=== PATIENT | female | born 1970 | race Two or more races ===

== ENCOUNTER 2018-07-07 13:04 | Emergency (ER) | payer OTHER, MEDICAID ==
[~2018-07-07] VITALS: Ht 157.5 cm; Wt 57.2 kg
[2018-07-07 15:13] VITALS: BP 132/66
[2018-07-07] MEDS ORDERED: SUMAtriptan SUCCINATE 6 MG/0.5 ML VL SC ONE (15:45)
== END 2018-07-07 16:04 | disposition home or self-care (01) ==
LOC: ER 13:16
DX: F41.9 Anxiety disorder, unspecified (principal); G43.909 Migraine, unspecified, not intractable, without status migrainosus; Z76.0 Encounter for issue of repeat prescription
CPT/HCPCS: 96372; 99283; J3030

== ENCOUNTER 2018-12-24 07:15 | Emergency (ER) | payer OTHER, MEDICAID ==
[~2018-12-24] VITALS: Ht 157.5 cm; Wt 56.7 kg
[2018-12-24 08:15] LABS: Basophils # (auto) 0 uL; Basophils % (auto) 0.5 % (0.0-2.0); Eosinophils # (auto) 0 uL; Eosinophils % (auto) 0.2 % (0.0-7.0); Hematocrit 38.9 % (36.0-46.0); Hemoglobin 12.8 g/dL (12.2-16.2); Lymphocytes # (auto) 2.3 uL; Lymphocytes % (auto) 47.3 % (10.0-50.0); Mean Corpuscular Hemoglobin 27.5 pg (28.0-32.0); Mean Corpuscular Volume 83.4 fL (80.0-100.0); Monocytes # (auto) 0.3 uL; Neutrophils # (auto) 2.2 uL; Platelet Count (auto) 210 10^3/uL (140-450); Red Blood Cells 4.66 10^6/uL (4.0-5.20); Red Cell Distribution Width 18.5 % (11.8-14.3)
[2018-12-24 08:26] LABS: Albumin 3.6 g/dL (3.4-5.0); Anion Gap 4 (5-15); Blood Urea Nitrogen 13 mg/dL (7-18); Carbon Dioxide 28 mmol/L (21-32); Chloride 109 mmol/L (98-107); Glucose 91 mg/dL (74-106); Potassium 3.9 mmol/L (3.5-5.1); Sodium 141 mmol/L (136-145)
[2018-12-24 08:33] LABS: Alanine Aminotransferase 26 U/L (13-56); Alkaline Phosphatase 96 U/L (45-117); Aspartate Aminotransferase 16 U/L (15-37); BUN/Creatinine Ratio 18.8; Bilirubin, Total 0.3 mg/dL (0.2-1.0); GFR African American 117 mL/min; GFR Non-African American 97 mL/min; Total Protein 7.7 g/dL (6.4-8.2)
[2018-12-24] MEDS ORDERED: SUMAtriptan SUCCINATE 6 MG/0.5 ML VL SC ONE (09:30)
[2018-12-24 11:09] VITALS: BP 118/62
== END 2018-12-24 11:23 | disposition home or self-care (01) ==
LOC: ER 07:15
DX: J40 Bronchitis, not specified as acute or chronic (principal); R51 Headache; R42 Dizziness and giddiness
CPT/HCPCS: 36415; 71046; 80053; 84484; 85025; 93005; 96372; 99284; J3030

== ENCOUNTER 2019-03-10 06:52 | Emergency (ER) | payer OTHER, MEDICAID ==
[~2019-03-10] VITALS: Ht 157.5 cm; Wt 62.1 kg
[2019-03-10 07:24] VITALS: BP 115/65
[2019-03-10] MEDS ORDERED: SUMAtriptan SUCCINATE 6 MG/0.5 ML VL SC ONE (07:45)
[2019-03-10] MEDS ORDERED: ONDANSETRON ODT 4 MG TAB PO ONE (07:45)
[2019-03-10] MEDS ORDERED: KETOROLAC TROMETH 60MG/2ML VIAL IM ONE (07:45)
== END 2019-03-10 08:42 | disposition home or self-care (01) ==
LOC: ER 06:52
DX: G43.909 Migraine, unspecified, not intractable, without status migrainosus (principal)
CPT/HCPCS: 96372; 99283; J1885; J3030; Q0162

== ENCOUNTER 2019-03-24 00:35 | Emergency (ER) | payer OTHER, MEDICAID ==
[~2019-03-24] VITALS: Ht 162.6 cm; Wt 68.0 kg
[2019-03-24] MEDS ORDERED: ONDANSETRON ODT 4 MG TAB PO ONE (04:00)
[2019-03-24] MEDS ORDERED: MEPERIDINE HCL (50 MG/ML) 1 ML VIAL IM ONE (04:00)
[2019-03-24] MEDS ORDERED: ONDANSETRON HCL 4 MG/2 ML VIAL IV ONE (06:15)
[2019-03-24] MEDS ORDERED: MORPHINE SULFATE 4 MG/ML SYR/VIAL IV ONE (06:15)
[2019-03-24 07:23] VITALS: BP 159/62
== END 2019-03-24 07:54 | disposition short-term general hospital (02) ==
LOC: EDBD 00:35 → ER 00:38
DX: S22.081A Stable burst fracture of T11-T12 vertebra, initial encounter for closed fracture (principal); V49.49XA Driver injured in collision with other motor vehicles in traffic accident, initial encounter; Y93.89 Activity, other specified; Y99.8 Other external cause status; Y92.488 Other paved roadways as the place of occurrence of the external cause
CPT/HCPCS: 71250; 72131; 74176; 93005; 96372; 96374; 96375; 99285; J2175; J2270; J2405; Q0162

== ENCOUNTER 2019-03-27 11:37 | Emergency (ER) | payer OTHER, MEDICAID ==
[~2019-03-27] VITALS: Ht 157.5 cm; Wt 56.7 kg
[2019-03-27 11:45] VITALS: BP 140/86
[2019-03-27] MEDS ORDERED: LORazepam 0.5 MG TAB PO ONE (12:00)
== END 2019-03-27 14:04 | disposition home or self-care (01) ==
LOC: EDBD 11:37 → EDUNIT# 11:37 → ER 11:45
DX: F41.9 Anxiety disorder, unspecified (principal)
CPT/HCPCS: 93005

== ENCOUNTER 2019-07-21 15:19 | Emergency (ER) | payer OTHER, MEDICAID ==
[~2019-07-21] VITALS: Ht 157.5 cm; Wt 59.0 kg
[2019-07-21 15:42] VITALS: BP 120/76
== END 2019-07-21 20:49 | disposition left against medical advice (07) ==
LOC: ER 15:19
DX: F41.9 Anxiety disorder, unspecified (principal); Z53.21 Procedure and treatment not carried out due to patient leaving prior to being seen by health care provider
CPT/HCPCS: 93005

== ENCOUNTER 2019-09-13 14:02 | Emergency (ER) | payer MEDICAID, MEDICARE, OTHER ==
[~2019-09-13] VITALS: Ht 157.5 cm; Wt 59.0 kg
[2019-09-13 15:09] VITALS: BP 136/62
== END 2019-09-13 17:16 | disposition home or self-care (01) ==
LOC: ER 14:02
DX: F41.9 Anxiety disorder, unspecified (principal); F32.9 Major depressive disorder, single episode, unspecified; F17.210 Nicotine dependence, cigarettes, uncomplicated; Z76.0 Encounter for issue of repeat prescription

== ENCOUNTER 2020-05-14 07:38 | Emergency (ER) | payer OTHER, MEDICAID ==
[~2020-05-14] VITALS: Ht 157.5 cm; Wt 67.1 kg
[2020-05-14 08:35] LABS: Urine Bacteria FEW /hpf (None Seen); Urine Blood Negative /uL (Negative); Urine Mucus FEW (None Seen); Urine Specific Gravity 1.022 (1.001-1.035); Urine WBC 1 /hpf (0 - 5)
[2020-05-14 08:43] VITALS: BP 135/89
[2020-05-14] MEDS ORDERED: KETOROLAC TROMETH 60MG/2ML VIAL IM ONE (08:45)
[2020-05-14 09:02] LABS: Basophils # (auto) 0 10 ^3/uL (0-0.2); Basophils % (auto) 0.5 % (0.0-2.0); Eosinophils # (auto) 0 10 ^3/uL (0-0.8); Eosinophils % (auto) 0.3 % (0.0-7.0); Hematocrit 39.2 % (36.0-46.0); Lymphocytes # (auto) 1.7 10 ^3/uL (0.4-5.4); Lymphocytes % (auto) 31.1 % (10.0-50.0); Mean Corpuscular Hemoglobin 29.4 pg (28.0-32.0); Mean Corpuscular Hgb Conc. 33.3 g/dL (32.0-36.0); Mean Corpuscular Volume 88.4 fL (80.0-100.0); Monocytes # (auto) 0.3 10 ^3/uL (0-1.3); Monocytes % (auto) 4.9 % (0.0-12.0); Neutrophils # (auto) 3.5 10 ^3/uL (1.6-8.6); Neutrophils % (auto) 63.2 % (37.0-80.0); Platelet Count (auto) 292 10^3/uL (140-450); Red Blood Cells 4.43 10^6/uL (4.0-5.20); Red Cell Distribution Width 14.4 % (11.8-14.3); White Blood Cell 5.5 10^3/uL (4.4-10.8)
[2020-05-14 09:20] LABS: Alanine Aminotransferase 28 U/L (13-56); Albumin 3.3 g/dL (3.4-5.0); Anion Gap 9 (5-15); Aspartate Aminotransferase 17 U/L (15-37); BUN/Creatinine Ratio 16.5; Blood Urea Nitrogen 14 mg/dL (7-18); Calcium 8.5 mg/dL (8.5-10.1); Carbon Dioxide 20 mmol/L (21-32); Chloride 108 mmol/L (98-107); GFR African American 91 mL/min; GFR Non-African American 75 mL/min; Glucose 120 mg/dL (74-106); Potassium 3.7 mmol/L (3.5-5.1); Sodium 137 mmol/L (136-145)
[2020-05-14 09:25] LABS: Alkaline Phosphatase 108 U/L (45-117); Bilirubin, Total 0.3 mg/dL (0.2-1.0); Total Protein 7.2 g/dL (6.4-8.2)
[2020-05-14] MEDS ORDERED: LORazepam 0.5 MG TAB PO ONE (09:45)
== END 2020-05-14 10:17 | disposition home or self-care (01) ==
LOC: ER 07:38
DX: N28.1 Cyst of kidney, acquired (principal); R10.11 Right upper quadrant pain; Z76.0 Encounter for issue of repeat prescription
CPT/HCPCS: 36415; 76705; 80053; 81001; 83690; 84484; 85025; 93005; 96372; 99285; J1885

== ENCOUNTER 2020-05-19 08:29 | Emergency (ER) | payer OTHER, MEDICAID ==
[~2020-05-19] VITALS: Ht 157.5 cm; Wt 68.0 kg
[2020-05-19 09:31] VITALS: BP 124/80
[2020-05-19] MEDS ORDERED: LORazepam 0.5 MG TAB PO ONE (11:00)
== END 2020-05-19 11:32 | disposition home or self-care (01) ==
LOC: ER 08:29
DX: F41.9 Anxiety disorder, unspecified (principal)

== ENCOUNTER 2022-03-18 08:13 | Emergency (ER) | payer OTHER, MEDICAID ==
[~2022-03-18] VITALS: Ht 157.5 cm; Wt 61.2 kg
[2022-03-18 08:19] VITALS: BP 120/68
[2022-03-18] MEDS ORDERED: ALPRAZolam 0.5 MG TAB PO ONE (08:45)
[2022-03-18] MEDS ORDERED: ACETAMINOPHEN 325 MG TAB PO ONE (09:15)
[2022-03-18] MEDS ORDERED: IBUP600T27 PO (09:18)
== END 2022-03-18 09:28 | disposition home or self-care (01) ==
LOC: ER 08:13
DX: S52.91XA Unspecified fracture of right forearm, initial encounter for closed fracture (principal); F41.1 Generalized anxiety disorder; F17.210 Nicotine dependence, cigarettes, uncomplicated; W18.09XA Striking against other object with subsequent fall, initial encounter; Y93.01 Activity, walking, marching and hiking; Y92.89 Other specified places as the place of occurrence of the external cause; Y99.8 Other external cause status
CPT/HCPCS: 29125; 73110; 73130

== ENCOUNTER 2022-07-01 17:41 | Inpatient (IN) | payer OTHER, MEDICAID ==
[~2022-07-01] VITALS: Ht 157.5 cm; Wt 47.5 kg
[~2022-07-01 17:41] MED LIST: IBUP600T27 PO
[2022-07-01] MEDS ORDERED: ONDANSETRON HCL 4 MG/2 ML VIAL IV ONE (19:30)
[2022-07-01] MEDS ORDERED: fentaNYL CITRATE 100 MCG/2 ML VL IV ONE (22:00)
[2022-07-01] MEDS ORDERED: cefTRIAXone 1GM/50ML D5W 50 ML IV ONE (22:00)
[2022-07-01] MEDS ORDERED: ACETAMINOPHEN 325 MG TAB PO PRN (22:00)
[2022-07-01] MEDS ORDERED: AZITHROMYCIN 500MG/ 250ML 250 ML IV ONE (22:00)
[2022-07-01 22:19] LABS: Basophils # (auto) 0 10 ^3/uL (0-0.2); Basophils % (auto) 0.1 % (0.0-2.0); Eosinophils # (auto) 0 10 ^3/uL (0-0.8); Hemoglobin 11.2 g/dL (12.2-16.2); Lymphocytes # (auto) 0.8 10 ^3/uL (0.4-5.4); Mean Corpuscular Hemoglobin 28.2 pg (28.0-32.0); Mean Corpuscular Hgb Conc. 32.1 g/dL (32.0-36.0); Mean Corpuscular Volume 87.6 fL (80.0-100.0); Monocytes # (auto) 0.3 10 ^3/uL (0-1.3); Monocytes % (auto) 4.8 % (0.0-12.0); Neutrophils # (auto) 4.8 10 ^3/uL (1.6-8.6); Neutrophils % (auto) 82.1 % (37.0-80.0); Red Blood Cells 3.99 10^6/uL (4.0-5.20); Red Cell Distribution Width 14.7 % (11.8-14.3); White Blood Cell 5.8 10^3/uL (4.4-10.8)
[2022-07-01 22:40] LABS: Albumin 3.4 g/dL (3.4-5.0); BUN/Creatinine Ratio 22.4; Calcium 9.1 mg/dL (8.5-10.1); Potassium 3.4 mmol/L (3.5-5.1)
[2022-07-01 22:43] LABS: Bilirubin, Total 0.6 mg/dL (0.2-1.0); Total Protein 7.7 g/dL (6.4-8.2)
[2022-07-02 00:35] LABS: Urine Bacteria MOD /hpf (None Seen); Urine Blood Negative /uL (Negative); Urine Mucus FEW (None Seen); Urine Specific Gravity 1.025 (1.001-1.035); Urine WBC 46 /hpf (0 - 5)
[2022-07-02] MEDS: TEMAZEPAM 15 MG CAP PO PRN (00:53)
[2022-07-02] MEDS: MORPHINE SULFATE INJ 2 MG/ml SYRG IV PRN ×4 (00:53→22:48)
[2022-07-02 00:58] VITALS: BP 131/75
[2022-07-02] MEDS: ONDANSETRON HCL 4 MG/2 ML VIAL IV PRN ×2 (01:25→22:58)
[2022-07-02] MEDS ORDERED: LURA120T PO (01:26)
[2022-07-02] MEDS ORDERED: TIOTCAP INH (01:26)
[2022-07-02] MEDS ORDERED: GAB100C PO (01:26)
[2022-07-02] MEDS ORDERED: ALPR1TAB7 PO (01:26)
[2022-07-02] MEDS ORDERED: FLUO40CA PO (01:26)
[2022-07-02] MEDS: SIMETHICONE 80 MG CHEWABLE TABLET PO PRN (02:19)
[2022-07-02] MEDS: HYDROcodone-ACET 5/325MG TAB PO PRN ×3 (03:29→18:33)
[2022-07-02 05:00] VITALS: BP 138/82
[2022-07-02 06:23] LABS: Basophils # (auto) 0 10 ^3/uL (0-0.2); Basophils % (auto) 0.3 % (0.0-2.0); Eosinophils # (auto) 0 10 ^3/uL (0-0.8); Eosinophils % (auto) 0.1 % (0.0-7.0); Hematocrit 31.8 % (36.0-46.0); Hemoglobin 10.5 g/dL (12.2-16.2); Lymphocytes # (auto) 1.1 10 ^3/uL (0.4-5.4); Lymphocytes % (auto) 25.5 % (10.0-50.0); Mean Corpuscular Hemoglobin 28.6 pg (28.0-32.0); Mean Corpuscular Volume 86.5 fL (80.0-100.0); Monocytes # (auto) 0.4 10 ^3/uL (0-1.3); Monocytes % (auto) 10.3 % (0.0-12.0); Neutrophils # (auto) 2.7 10 ^3/uL (1.6-8.6); Neutrophils % (auto) 63.8 % (37.0-80.0); Nucleated Red Blood Cells % 0.1 %; Red Blood Cells 3.67 10^6/uL (4.0-5.20); Red Cell Distribution Width 14.5 % (11.8-14.3); White Blood Cell 4.2 10^3/uL (4.4-10.8)
[2022-07-02 06:41] LABS: Albumin 2.8 g/dL (3.4-5.0); Calcium 8.4 mg/dL (8.5-10.1); Potassium 3.6 mmol/L (3.5-5.1)
[2022-07-02 06:44] LABS: BUN/Creatinine Ratio 22.4; Bilirubin, Total 0.3 mg/dL (0.2-1.0); Total Protein 6.6 g/dL (6.4-8.2)
[2022-07-02] MEDS: PANTOPRAZOLE 40 MG TAB PO SCH (08:21)
[2022-07-02] MEDS: FLUoxetine HCL 20 MG CAP PO SCH (08:21)
[2022-07-02] MEDS: AZITHROMYCIN 500MG/ 250ML 250 ML IV SCH (08:22)
[2022-07-02] MEDS: cefTRIAXone 1GM/50ML D5W 50 ML IV SCH (08:22)
[2022-07-02 08:45] VITALS: BP 128/60
[2022-07-02 12:45] VITALS: BP 121/77
[2022-07-02 16:35] VITALS: BP 140/71
[2022-07-02] MEDS ORDERED: IOHEXOL 300 MG/ML 100ML BOTTLE IJ ONE (17:20)
[2022-07-02 22:00] VITALS: BP 114/73
[2022-07-03] MEDS ORDERED: diphenhdrAMINE HCL 50 MG/1 ML VL IV ONE (02:00)
[2022-07-03] MEDS: DOCUSATE SOD 100 MG CAP PO SCH ×2 (04:10→08:40)
[2022-07-03 05:00] VITALS: BP 134/81
[2022-07-03] MEDS: MORPHINE SULFATE INJ 2 MG/ml SYRG IV PRN ×2 (05:07→11:38)
[2022-07-03 08:01] LABS: Basophils # (auto) 0 10 ^3/uL (0-0.2); Basophils % (auto) 0.4 % (0.0-2.0); Eosinophils # (auto) 0 10 ^3/uL (0-0.8); Hematocrit 33.8 % (36.0-46.0); Hemoglobin 11.4 g/dL (12.2-16.2); Lymphocytes # (auto) 1.1 10 ^3/uL (0.4-5.4); Lymphocytes % (auto) 28.1 % (10.0-50.0); Mean Corpuscular Hemoglobin 29.1 pg (28.0-32.0); Mean Corpuscular Hgb Conc. 33.6 g/dL (32.0-36.0); Mean Corpuscular Volume 86.6 fL (80.0-100.0); Monocytes # (auto) 0.4 10 ^3/uL (0-1.3); Monocytes % (auto) 9.4 % (0.0-12.0); Neutrophils # (auto) 2.5 10 ^3/uL (1.6-8.6); Neutrophils % (auto) 62.1 % (37.0-80.0); Nucleated Red Blood Cells % 0.3 %; Red Blood Cells 3.91 10^6/uL (4.0-5.20); Red Cell Distribution Width 14.6 % (11.8-14.3)
[2022-07-03 08:04] LABS: Calcium 8.7 mg/dL (8.5-10.1); Magnesium 2.3 mg/dL (1.6-2.6); Potassium 3.7 mmol/L (3.5-5.1)
[2022-07-03 08:07] LABS: BUN/Creatinine Ratio 16.4
[2022-07-03] MEDS: cefTRIAXone 1GM/50ML D5W 50 ML IV SCH (08:39)
[2022-07-03] MEDS: AZITHROMYCIN 500MG/ 250ML 250 ML IV SCH (08:40)
[2022-07-03] MEDS: PANTOPRAZOLE 40 MG TAB PO SCH (08:41)
[2022-07-03] MEDS: HYDROcodone-ACET 5/325MG TAB PO PRN ×4 (08:43→20:51)
[2022-07-03] MEDS: FLUoxetine HCL 20 MG CAP PO SCH (08:43)
[2022-07-03 09:00] VITALS: BP 163/88
[2022-07-03] MEDS ORDERED: ALPRAZolam 0.5 MG TAB PO ONE (11:30)
[2022-07-03] MEDS: LACTULOSE 20Gm/30ML SOLN PO SCH ×3 (11:31→23:47)
[2022-07-03] MEDS ORDERED: AMOX-277 PO (12:11)
[2022-07-03] MEDS ORDERED: PANT40T PO (12:11)
[2022-07-03] MEDS: SIMETHICONE 80 MG CHEWABLE TABLET PO PRN (12:44)
[2022-07-03 13:00] VITALS: BP 136/77
[2022-07-03] MEDS: AMOXICILLIN/CLAVUL 875 MG TAB PO SCH ×2 (16:27→22:14)
[2022-07-03 17:00] VITALS: BP 135/69
[2022-07-03] MEDS: ALPRAZolam 0.5 MG TAB PO PRN (18:25)
[2022-07-03 22:00] VITALS: BP 145/77
[2022-07-04] MEDS: HYDROcodone-ACET 5/325MG TAB PO PRN ×4 (02:27→13:13)
[2022-07-04] MEDS: TEMAZEPAM 15 MG CAP PO PRN (03:12)
[2022-07-04 05:00] VITALS: BP 151/79
[2022-07-04] MEDS: LACTULOSE 20Gm/30ML SOLN PO SCH (05:41)
[2022-07-04 08:53] VITALS: BP 111/42
[2022-07-04] MEDS: AMOXICILLIN/CLAVUL 875 MG TAB PO SCH (09:32)
[2022-07-04] MEDS: DOCUSATE SOD 100 MG CAP PO SCH (09:32)
[2022-07-04] MEDS: ALPRAZolam 0.5 MG TAB PO PRN (09:32)
[2022-07-04] MEDS: FLUoxetine HCL 20 MG CAP PO SCH (09:32)
[2022-07-04] MEDS: PANTOPRAZOLE 40 MG TAB PO SCH (09:32)
[2022-07-04] MEDS ORDERED: FLEET ENEMA(ADULT) 135 ML PR ONE (10:30)
[2022-07-04 11:36] VITALS: BP 111/41
[2022-07-04 12:40] VITALS: BP 154/94
== END 2022-07-04 13:56 | disposition home or self-care (01) | DRG 391 ==
LOC: EDBD 17:41 → ER 17:41 → OVERFLOW 22:05 → WEST WING 23:42
PROVIDERS: ADMIT Nurse Practitioner; ATTEND Internal Medicine
DX: K59.00 Constipation, unspecified (principal); J18.9 Pneumonia, unspecified organism; N39.0 Urinary tract infection, site not specified; Z98.84 Bariatric surgery status; F41.9 Anxiety disorder, unspecified; F17.210 Nicotine dependence, cigarettes, uncomplicated; Z20.822 Contact with and (suspected) exposure to COVID-19; F32.A Depression, unspecified
CPT/HCPCS: 36415; 71260; 74176; 80048; 80053; 81001; 83605; 83690; 83735; 84484; 85025; 87086; 93005; 96365; 96375; G0378; J0696; J2405

== ENCOUNTER 2022-07-08 10:01 | Inpatient (IN) | payer OTHER, MEDICAID ==
[~2022-07-08] VITALS: Ht 154.9 cm; Wt 48.8 kg
[~2022-07-08 10:01] MED LIST changes: +ALPR1TAB7 PO; +AMOX-277 PO; +FLUO40CA PO; +GAB100C PO; -IBUP600T27 PO; +LURA120T PO; +PANT40T PO; +TIOTCAP INH
[2022-07-08 11:56] LABS: Basophils # (auto) 0 10 ^3/uL (0-0.2); Basophils % (auto) 0.2 % (0.0-2.0); Eosinophils # (auto) 0 10 ^3/uL (0-0.8); Hematocrit 43.8 % (36.0-46.0); Hemoglobin 14.1 g/dL (12.2-16.2); Lymphocytes # (auto) 0.9 10 ^3/uL (0.4-5.4); Lymphocytes % (auto) 16.7 % (10.0-50.0); Mean Corpuscular Hemoglobin 27.5 pg (28.0-32.0); Mean Corpuscular Hgb Conc. 32.2 g/dL (32.0-36.0); Mean Corpuscular Volume 85.6 fL (80.0-100.0); Monocytes # (auto) 0.6 10 ^3/uL (0-1.3); Monocytes % (auto) 11.1 % (0.0-12.0); Nucleated Red Blood Cells % 0.1 %; Red Blood Cells 5.12 10^6/uL (4.0-5.20); Red Cell Distribution Width 13.8 % (11.8-14.3); White Blood Cell 5.6 10^3/uL (4.4-10.8)
[2022-07-08 12:15] LABS: Albumin 3.6 g/dL (3.4-5.0); Calcium 9.9 mg/dL (8.5-10.1); Potassium 3.7 mmol/L (3.5-5.1)
[2022-07-08 12:18] LABS: BUN/Creatinine Ratio 24.6; Bilirubin, Total 0.6 mg/dL (0.2-1.0); Total Protein 8.6 g/dL (6.4-8.2)
[2022-07-08] MEDS ORDERED: LACTATED RINGER'S 2,000 ML IV ONE (15:30)
[2022-07-08] MEDS ORDERED: ONDANSETRON HCL 4 MG/2 ML VIAL IV ONE (15:30)
[2022-07-08] MEDS ORDERED: HYDROcodone-ACET 5/325MG TAB PO ONE (15:30)
[2022-07-08] MEDS ORDERED: METOCLOPRAMIDE HCL 5MG/ml INJ 2ml VIAL IV ONE (15:30)
[2022-07-08] MEDS ORDERED: LIDOCAINE VISCOUS 2% 15ML UD PO ONE (15:30)
[2022-07-08] MEDS ORDERED: FAMOTIDINE (10MG/ML) 2ML VL IV ONE (15:30)
[2022-07-08] MEDS ORDERED: ALUM & MAG HYDROX-SIMETH LIQ(MAALOX) 30 ML PO ONE (15:30)
[2022-07-08] MEDS ORDERED: SODIUM CHLORIDE 0.9% 1,000 ML IV ONE (18:15)
[2022-07-08 19:12] LABS: INR 1.03 (0.9-1.15)
[2022-07-08] MEDS: SODIUM CHLORIDE 0.9% 1,000 ML IV SCH (22:00)
[2022-07-08] MEDS: MORPHINE SULFATE INJ 2 MG/ml SYRG IV PRN (22:44)
[2022-07-08] MEDS: ONDANSETRON HCL 4 MG/2 ML VIAL IV PRN (22:45)
[2022-07-09] VITALS (8 sets, daily range): BP systolic 96–137; BP diastolic 56–79
[2022-07-09] MEDS: SODIUM CHLORIDE 0.9% 1,000 ML IV SCH ×4 (02:00→22:58)
[2022-07-09 02:35] LABS: Amphetamine Screen, Urine POSITIVE (NEGATIVE); Barbiturate Scree,Urine NEGATIVE (NEGATIVE); Benzodiazephine Screen, Urine POSITIVE (NEGATIVE); Cannabinoid Screen, Urine NEGATIVE (NEGATIVE); Cocaine Screen, Urine NEGATIVE (NEGATIVE); Opiate Scree,Urine POSITIVE (NEGATIVE); Phencyclidine Screen, Urine NEGATIVE (NEGATIVE)
[2022-07-09 02:47] LABS: Urine Bacteria FEW /hpf (None Seen); Urine Blood Negative /uL (Negative); Urine Hyaline Cast MANY /lpf (0 - 2); Urine Mucus FEW (None Seen); Urine Specific Gravity 1.024 (1.001-1.035); Urine WBC 4 /hpf (0 - 5)
[2022-07-09 06:00] LABS: Basophils # (auto) 0 10 ^3/uL (0-0.2); Basophils % (auto) 0.5 % (0.0-2.0); Eosinophils # (auto) 0 10 ^3/uL (0-0.8); Eosinophils % (auto) 0.1 % (0.0-7.0); Hematocrit 33.6 % (36.0-46.0); Hemoglobin 11.2 g/dL (12.2-16.2); Lymphocytes # (auto) 1.2 10 ^3/uL (0.4-5.4); Lymphocytes % (auto) 29.4 % (10.0-50.0); Mean Corpuscular Hemoglobin 28.6 pg (28.0-32.0); Mean Corpuscular Hgb Conc. 33.2 g/dL (32.0-36.0); Monocytes # (auto) 0.5 10 ^3/uL (0-1.3); Monocytes % (auto) 13.1 % (0.0-12.0); Neutrophils # (auto) 2.3 10 ^3/uL (1.6-8.6); Neutrophils % (auto) 56.9 % (37.0-80.0); Nucleated Red Blood Cells % 0.1 %; Red Blood Cells 3.91 10^6/uL (4.0-5.20); Red Cell Distribution Width 14.2 % (11.8-14.3)
[2022-07-09 06:08] LABS: Albumin 2.6 g/dL (3.4-5.0); BUN/Creatinine Ratio 37.2; Calcium 8.3 mg/dL (8.5-10.1); Potassium 3.4 mmol/L (3.5-5.1)
[2022-07-09 06:12] LABS: Bilirubin, Total 0.3 mg/dL (0.2-1.0); Total Protein 6.2 g/dL (6.4-8.2)
[2022-07-09] MEDS: MORPHINE SULFATE INJ 2 MG/ml SYRG IV PRN ×2 (09:52→16:39)
[2022-07-09] MEDS ORDERED: OMNIPAQUE ORAL SOLN 500ml 12mg/ml PO ONE (15:00)
[2022-07-09 16:24] LABS: Cholesterol 211 mg/dL (< 200); HDL Cholesterol 34 mg/dL (40-59); LDL Cholesterol 154 mg/dL (< 100); Triglycerides 100 mg/dL (< 150)
[2022-07-09] MEDS ORDERED: FLUoxetine HCL 20 MG CAP PO ONE ×2 (16:45→19:45)
[2022-07-09] MEDS ORDERED: IOHEXOL 300 MG/ML 100ML BOTTLE IJ ONE (17:05)
[2022-07-09] MEDS: ALBUTEROL SULF 2.5 MG/0.5ML(0.5%) NEB SOLN NEB SCH (17:56)
[2022-07-09] MEDS ORDERED: ALBUTEROL SULF HFA 90MCG INH 200DOSE IN SCH (22:00)
[2022-07-09] MEDS: GABAPENTIN 100 MG CAP PO SCH (22:54)
[2022-07-09] MEDS: ALPRAZolam 0.5 MG TAB PO SCH (22:58)
[2022-07-10] MEDS: ONDANSETRON HCL 4 MG/2 ML VIAL IV PRN (04:53)
[2022-07-10 05:00] VITALS: BP 108/67
[2022-07-10] MEDS: MORPHINE SULFATE INJ 2 MG/ml SYRG IV PRN (05:03)
[2022-07-10] MEDS: ALPRAZolam 0.5 MG TAB PO SCH ×2 (06:00→08:57)
[2022-07-10] MEDS: GABAPENTIN 100 MG CAP PO SCH ×2 (06:14→13:48)
[2022-07-10] MEDS: SODIUM CHLORIDE 0.9% 1,000 ML IV SCH (06:21)
[2022-07-10] MEDS: ALBUTEROL SULF 2.5 MG/0.5ML(0.5%) NEB SOLN NEB SCH ×2 (06:22→11:54)
[2022-07-10 09:00] VITALS: BP 100/61
[2022-07-10 09:00] LABS: Basophils # (auto) 0 10 ^3/uL (0-0.2); Basophils % (auto) 0.4 % (0.0-2.0); Eosinophils # (auto) 0 10 ^3/uL (0-0.8); Hematocrit 32.3 % (36.0-46.0); Hemoglobin 10.6 g/dL (12.2-16.2); Lymphocytes # (auto) 1.6 10 ^3/uL (0.4-5.4); Lymphocytes % (auto) 26.4 % (10.0-50.0); Mean Corpuscular Hemoglobin 28.4 pg (28.0-32.0); Mean Corpuscular Hgb Conc. 32.9 g/dL (32.0-36.0); Mean Corpuscular Volume 86.6 fL (80.0-100.0); Monocytes # (auto) 0.5 10 ^3/uL (0-1.3); Monocytes % (auto) 7.9 % (0.0-12.0); Neutrophils # (auto) 3.9 10 ^3/uL (1.6-8.6); Neutrophils % (auto) 65.3 % (37.0-80.0); Nucleated Red Blood Cells % 0.1 %; Red Blood Cells 3.73 10^6/uL (4.0-5.20); Red Cell Distribution Width 13.9 % (11.8-14.3)
[2022-07-10 09:03] LABS: Albumin 2.6 g/dL (3.4-5.0); Potassium 3.1 mmol/L (3.5-5.1)
[2022-07-10 09:08] LABS: BUN/Creatinine Ratio 15.5; Bilirubin, Total 0.3 mg/dL (0.2-1.0); Total Protein 6.1 g/dL (6.4-8.2)
[2022-07-10] MEDS ORDERED: FLUoxetine HCL 20 MG CAP PO SCH (10:00)
[2022-07-10] MEDS ORDERED: FAMOTIDINE (10MG/ML) 2ML VL IV SCH (10:00)
[2022-07-10] MEDS ORDERED: PANTOPRAZOLE 40 MG TAB PO SCH (10:00)
[2022-07-10] MEDS ORDERED: PANT40T PO (12:54)
[2022-07-10] MEDS ORDERED: PANC12002 PO (12:54)
[2022-07-10 13:00] VITALS: BP 102/63
== END 2022-07-10 15:44 | disposition home or self-care (01) | DRG 439 ==
LOC: ER 10:01 → EDBD 10:01 → OVERFLOW 18:06 → WEST WING 07-09 01:10
PROVIDERS: ADMIT Registered Nurse; ATTEND Hospitalist
DX: K85.90 Acute pancreatitis without necrosis or infection, unspecified (principal); N17.9 Acute kidney failure, unspecified; N39.0 Urinary tract infection, site not specified; E86.0 Dehydration; F17.210 Nicotine dependence, cigarettes, uncomplicated; F41.1 Generalized anxiety disorder; J44.9 Chronic obstructive pulmonary disease, unspecified; F32.A Depression, unspecified; Z20.822 Contact with and (suspected) exposure to COVID-19; F41.9 Anxiety disorder, unspecified; R00.0 Tachycardia, unspecified; K80.20 Calculus of gallbladder without cholecystitis without obstruction; Z86.59 Personal history of other mental and behavioral disorders; Z87.442 Personal history of urinary calculi; Z98.84 Bariatric surgery status
CPT/HCPCS: 36415; 71046; 72192; 74177; 76705; 78226; 80053; 80061; 80307; 80320; 81001; 82150; 83690; 84484; 85025; 85610; 87081; 87086; 93005; 94640; 96361; 96374; 96375; G0378; J2405; J3490

== ENCOUNTER 2022-07-20 07:45 | Emergency (ER) | payer OTHER, MEDICAID ==
[~2022-07-20] VITALS: Ht 154.9 cm; Wt 45.0 kg
[~2022-07-20 07:45] MED LIST changes: -AMOX-277 PO; +PANC12002 PO
[2022-07-20] MEDS ORDERED: FAMOTIDINE (10MG/ML) 2ML VL IV ONE (08:30)
[2022-07-20] MEDS ORDERED: ALUM & MAG HYDROX-SIMETH LIQ(MAALOX) 30 ML PO ONE (08:30)
[2022-07-20] MEDS ORDERED: ONDANSETRON HCL 4 MG/2 ML VIAL IV ONE (08:30)
[2022-07-20] MEDS ORDERED: LIDOCAINE VISCOUS 2% 15ML UD PO ONE (08:30)
[2022-07-20 09:01] LABS: Basophils # (auto) 0 10 ^3/uL (0-0.2); Basophils % (auto) 0.6 % (0.0-2.0); Eosinophils # (auto) 0 10 ^3/uL (0-0.8); Eosinophils % (auto) 0.2 % (0.0-7.0); Hematocrit 40.4 % (36.0-46.0); Hemoglobin 13.3 g/dL (12.2-16.2); Lymphocytes # (auto) 0.8 10 ^3/uL (0.4-5.4); Lymphocytes % (auto) 15.8 % (10.0-50.0); Mean Corpuscular Hemoglobin 28.3 pg (28.0-32.0); Mean Corpuscular Hgb Conc. 32.9 g/dL (32.0-36.0); Monocytes # (auto) 0.3 10 ^3/uL (0-1.3); Monocytes % (auto) 4.8 % (0.0-12.0); Neutrophils # (auto) 4.2 10 ^3/uL (1.6-8.6); Neutrophils % (auto) 78.6 % (37.0-80.0); Nucleated Red Blood Cells % 0.1 %; Red Cell Distribution Width 14.2 % (11.8-14.3); White Blood Cell 5.4 10^3/uL (4.4-10.8)
[2022-07-20 09:16] LABS: Albumin 3.3 g/dL (3.4-5.0); Calcium 9.1 mg/dL (8.5-10.1); Potassium 3.9 mmol/L (3.5-5.1)
[2022-07-20 09:19] LABS: BUN/Creatinine Ratio 15.1; Bilirubin, Total 0.3 mg/dL (0.2-1.0); Total Protein 7.8 g/dL (6.4-8.2)
[2022-07-20] MEDS ORDERED: MORPHINE SULFATE INJ 2 MG/ml SYRG IV ONE (10:15)
[2022-07-20 11:10] VITALS: BP 126/82
== END 2022-07-20 11:11 | disposition home or self-care (01) ==
LOC: ER 07:45 → EDBD 07:45 → ER 11:11
DX: R10.13 Epigastric pain (principal); F17.210 Nicotine dependence, cigarettes, uncomplicated
CPT/HCPCS: 36415; 71045; 80053; 83690; 85025; 93005; 96374; 96375; 99285; J2270; J2405; J3490

== ENCOUNTER 2022-10-11 05:48 | Emergency (ER) | payer OTHER, MEDICAID ==
[~2022-10-11] VITALS: Ht 154.9 cm; Wt 45.5 kg
[2022-10-11 06:54] VITALS: BP 169/84
== END 2022-10-11 11:20 | disposition left against medical advice (07) ==
LOC: EDBD 05:48 → ER 05:48
DX: F41.9 Anxiety disorder, unspecified (principal); R10.9 Unspecified abdominal pain; Z53.21 Procedure and treatment not carried out due to patient leaving prior to being seen by health care provider

== ENCOUNTER 2022-12-23 06:26 | Emergency (ER) | payer OTHER, MEDICAID ==
[~2022-12-23] VITALS: Ht 154.9 cm; Wt 45.4 kg
[2022-12-23 06:56] VITALS: BP 129/78
[2022-12-23] MEDS ORDERED: LORazepam 2MG/ML-1ML VIAL IM ONE ×2 (08:45→10:00)
== END 2022-12-23 11:12 | disposition home or self-care (01) ==
LOC: ER 06:26
DX: F41.1 Generalized anxiety disorder (principal); F32.9 Major depressive disorder, single episode, unspecified; F17.210 Nicotine dependence, cigarettes, uncomplicated; Z87.442 Personal history of urinary calculi
CPT/HCPCS: 96372; 99284; J2060

== ENCOUNTER 2023-03-08 04:39 | Emergency (ER) | payer OTHER, MEDICAID | END 2023-03-08 05:09 | disposition left against medical advice (07) | LOC: ER 04:39 | DX: F41.9 Anxiety disorder, unspecified (principal); Z53.21 Procedure and treatment not carried out due to patient leaving prior to being seen by health care provider ==

== ENCOUNTER 2023-06-28 05:09 | Emergency (ER) | payer OTHER, MEDICAID ==
[~2023-06-28] VITALS: Ht 154.9 cm; Wt 54.5 kg
[2023-06-28 07:30] VITALS: BP 146/74; PULSE 86; RESP 18; TEMP 97.4; O2SAT 97
[2023-06-28] MEDS ORDERED: LORazepam 2MG/ML-1ML VIAL IM ONE ×2 (08:00→09:00)
== END 2023-06-28 09:41 | disposition home or self-care (01) ==
LOC: ER 05:09
DX: F41.1 Generalized anxiety disorder (principal); F32.9 Major depressive disorder, single episode, unspecified; Z87.442 Personal history of urinary calculi; F17.210 Nicotine dependence, cigarettes, uncomplicated
CPT/HCPCS: 96372; 99284; J2060

== ENCOUNTER 2023-08-01 08:29 | Emergency (ER) | payer OTHER, MEDICAID | END 2023-08-01 09:20 | disposition left against medical advice (07) | LOC: ER 08:29 | DX: F41.9 Anxiety disorder, unspecified (principal); Z53.21 Procedure and treatment not carried out due to patient leaving prior to being seen by health care provider ==

== ENCOUNTER 2023-10-21 12:27 | Emergency (ER) | payer OTHER, MEDICAID ==
[~2023-10-21] VITALS: Ht 154.9 cm; Wt 56.6 kg
[2023-10-21] MEDS ORDERED: LORazepam 2MG/ML-1ML VIAL IM ONE (15:15)
[2023-10-21 15:20] VITALS: BP 110/68; PULSE 90; RESP 18; TEMP 97.7; O2SAT 100
== END 2023-10-21 15:49 | disposition home or self-care (01) ==
LOC: ER 12:27
DX: F41.8 Other specified anxiety disorders (principal); F17.210 Nicotine dependence, cigarettes, uncomplicated; Z79.899 Other long term (current) drug therapy
CPT/HCPCS: 96372; 99283; J2060

== ENCOUNTER 2024-01-04 09:24 | Emergency (ER) | payer OTHER, MEDICAID ==
[~2024-01-04] VITALS: Ht 154.9 cm; Wt 57.0 kg
[~2024-01-04 09:24] MED LIST changes: +HYDR-3682 PO
[2024-01-04 10:17] VITALS: BP 148/77; PULSE 76; RESP 18; TEMP 98.5; O2SAT 99
[2024-01-04] MEDS: LORazepam 2MG/ML-1ML VIAL IM ONE (10:37)
[2024-01-05] MEDS ORDERED: CLON1TAB PO (08:30)
== END 2024-01-04 10:53 | disposition home or self-care (01) ==
LOC: ER 09:24
DX: F41.9 Anxiety disorder, unspecified (principal); F43.20 Adjustment disorder, unspecified; F17.210 Nicotine dependence, cigarettes, uncomplicated
CPT/HCPCS: 96372; 99283; J2060

== ENCOUNTER 2024-01-05 07:44 | Emergency (ER) | payer OTHER, MEDICAID ==
[~2024-01-05] VITALS: Ht 154.9 cm; Wt 57.6 kg
[2024-01-05 08:21] VITALS: BP 137/71; PULSE 81; RESP 17; TEMP 97; O2SAT 98
[2024-01-05] MEDS: clonazePAM 0.5 MG TAB PO ONE (08:29)
[2024-01-05] MEDS ORDERED: CLON1TAB PO (08:30)
[2024-01-05] MEDS: LORazepam 2MG/ML-1ML VIAL IM ONE (08:48)
== END 2024-01-05 09:06 | disposition home or self-care (01) ==
LOC: ER 07:44
DX: F41.9 Anxiety disorder, unspecified (principal); F17.210 Nicotine dependence, cigarettes, uncomplicated; Z79.899 Other long term (current) drug therapy
CPT/HCPCS: 96372; 99283; J2060

== ENCOUNTER 2024-03-01 20:23 | Emergency (ER) | payer OTHER, MEDICAID ==
[~2024-03-01] VITALS: Ht 157.5 cm; Wt 63.8 kg
[~2024-03-01 20:23] MED LIST changes: +CLON-1004 PO
[2024-03-02] MEDS: BENZOCAINE (DENTAL) 20 % SPRAY 60ML MT ONE (00:46)
[2024-03-02] MEDS: LORazepam 2MG/ML-1ML VIAL IM ONE (00:49)
[2024-03-02 00:59] VITALS: BP 126/72; PULSE 79; RESP 18; TEMP 98; O2SAT 98
== END 2024-03-02 01:02 | disposition home or self-care (01) ==
LOC: ER 20:23
DX: K08.89 Other specified disorders of teeth and supporting structures (principal); F41.9 Anxiety disorder, unspecified; F32.9 Major depressive disorder, single episode, unspecified; F17.210 Nicotine dependence, cigarettes, uncomplicated; Z87.442 Personal history of urinary calculi; Z79.899 Other long term (current) drug therapy
CPT/HCPCS: 96372; 99283; J2060

== ENCOUNTER 2024-03-02 08:40 | Emergency (ER) | payer OTHER, MEDICAID ==
[~2024-03-02] VITALS: Ht 154.9 cm; Wt 59.0 kg
[2024-03-02 09:52] VITALS: BP 137/86; PULSE 75; RESP 16; TEMP 97.5; O2SAT 99
[2024-03-02] MEDS: diphenhdrAMINE HCL 50 MG/1 ML VL IM ONE (09:54)
== END 2024-03-02 10:14 | disposition home or self-care (01) ==
LOC: ER 08:40
DX: F41.1 Generalized anxiety disorder (principal); F32.9 Major depressive disorder, single episode, unspecified; F17.210 Nicotine dependence, cigarettes, uncomplicated; Z87.442 Personal history of urinary calculi; Z79.899 Other long term (current) drug therapy
CPT/HCPCS: 96372; 99283; J1200

== ENCOUNTER 2024-03-05 08:38 | Emergency (ER) | payer OTHER, MEDICAID ==
[~2024-03-05] VITALS: Ht 154.9 cm; Wt 57.9 kg
[2024-03-05 11:44] VITALS: BP 120/63; PULSE 82; RESP 16; TEMP 97.8; O2SAT 98
[2024-03-05] MEDS ORDERED: HYDR-3682 PO (11:46)
[2024-03-05] MEDS: LORazepam 2MG/ML-1ML VIAL IM ONE (11:50)
[2024-03-06] MEDS ORDERED: BUSP15TA90 PO (08:05)
== END 2024-03-05 12:12 | disposition home or self-care (01) ==
LOC: ER 08:38
DX: F41.9 Anxiety disorder, unspecified (principal); F17.210 Nicotine dependence, cigarettes, uncomplicated; F32.9 Major depressive disorder, single episode, unspecified; Z87.442 Personal history of urinary calculi
CPT/HCPCS: 96372; 99283; J2060

== ENCOUNTER 2024-03-06 06:48 | Emergency (ER) | payer OTHER, MEDICAID ==
[~2024-03-06] VITALS: Ht 154.9 cm; Wt 60.5 kg
[2024-03-06] MEDS ORDERED: BUSP15TA90 PO (08:05)
[2024-03-06 08:15] VITALS: BP 129/77; PULSE 83; RESP 20; TEMP 97.8; O2SAT 99
== END 2024-03-06 08:32 | disposition left against medical advice (07) ==
LOC: ER 06:48
DX: F41.9 Anxiety disorder, unspecified (principal); F32.9 Major depressive disorder, single episode, unspecified; Z87.442 Personal history of urinary calculi

== ENCOUNTER 2024-03-27 00:41 | Emergency (ER) | payer OTHER, MEDICAID ==
[~2024-03-27] VITALS: Ht 154.9 cm; Wt 55.0 kg
[~2024-03-27 00:41] MED LIST changes: +BUSP15TA90 PO
[2024-03-27 01:28] LABS: Basophils # (auto) 0 10 ^3/uL (0-0.2); Basophils % (auto) 0.3 % (0.0-2.0); Eosinophils # (auto) 0 10 ^3/uL (0-0.8); Hemoglobin 11.4 g/dL (12.2-16.2); Lymphocytes # (auto) 1.3 10 ^3/uL (0.4-5.4); Mean Corpuscular Hemoglobin 28.7 pg (28.0-32.0); Mean Corpuscular Hgb Conc. 32.7 g/dL (32.0-36.0); Mean Corpuscular Volume 87.8 fL (80.0-100.0); Monocytes # (auto) 0.5 10 ^3/uL (0-1.3); Monocytes % (auto) 6.4 % (0.0-12.0); Neutrophils # (auto) 6.2 10 ^3/uL (1.6-8.6); Neutrophils % (auto) 77.3 % (37.0-80.0); Nucleated Red Blood Cells % 0.1 %; Red Blood Cells 3.99 10^6/uL (4.0-5.20); Red Cell Distribution Width 14.9 % (11.8-14.3)
[2024-03-27 01:37] LABS: Alanine Aminotransferase 29 U/L (7-40); Alkaline Phosphatase 141 U/L (46-116); Anion Gap 11 (5-15); Aspartate Aminotransferase 59 U/L (13-40); BUN/Creatinine Ratio 19.8 (10.0-20.0); Bilirubin, Total 0.6 mg/dL (0.2-1.0); Blood Urea Nitrogen 19 mg/dL (9-23); Calcium 9.3 mg/dL (8.7-10.4); Carbon Dioxide 21 mmol/L (20-30); Chloride 111 mmol/L (98-107); Glucose 148 mg/dL (74-106); Lipase 37 U/L (12-53); Potassium 3.2 mmol/L (3.5-5.1); Sodium 143 mmol/L (136-145)
[2024-03-27 03:04] VITALS: BP 114/66; PULSE 84; RESP 18; TEMP 98.4; O2SAT 98
== END 2024-03-27 03:04 | disposition home or self-care (01) ==
LOC: EDBD 00:41 → ER 00:41
DX: M54.50 Low back pain, unspecified (principal); R10.9 Unspecified abdominal pain; F32.A Depression, unspecified; F41.9 Anxiety disorder, unspecified; F17.210 Nicotine dependence, cigarettes, uncomplicated; F15.10 Other stimulant abuse, uncomplicated; Z87.442 Personal history of urinary calculi; Z79.899 Other long term (current) drug therapy
CPT/HCPCS: 36415; 80053; 83690; 85025; 93005

== ENCOUNTER 2024-03-30 05:57 | Emergency (ER) | payer OTHER, MEDICAID ==
[~2024-03-30] VITALS: Ht 154.9 cm; Wt 50.0 kg
[2024-03-30] MEDS ORDERED: SODIUM CHLORIDE 0.9% 500 ML IV ONE (07:00)
[2024-03-30] MEDS ORDERED: ONDANSETRON HCL 4 MG/2 ML VIAL IV ONE (07:00)
[2024-03-30] MEDS ORDERED: SODIUM CHLORIDE 0.9% 1,000 ML IV ONE (07:00)
[2024-03-30 07:02] LABS: Basophils # (auto) 0 10 ^3/uL (0-0.2); Basophils % (auto) 0.9 % (0.0-2.0); Eosinophils # (auto) 0 10 ^3/uL (0-0.8); Eosinophils % (auto) 0.3 % (0.0-7.0); Hematocrit 36.4 % (36.0-46.0); Hemoglobin 11.8 g/dL (12.2-16.2); Lymphocytes # (auto) 1.7 10 ^3/uL (0.4-5.4); Lymphocytes % (auto) 31.5 % (10.0-50.0); Mean Corpuscular Hemoglobin 28.4 pg (28.0-32.0); Mean Corpuscular Hgb Conc. 32.3 g/dL (32.0-36.0); Mean Corpuscular Volume 87.8 fL (80.0-100.0); Monocytes # (auto) 0.5 10 ^3/uL (0-1.3); Monocytes % (auto) 10.2 % (0.0-12.0); Neutrophils % (auto) 57.1 % (37.0-80.0); Red Blood Cells 4.15 10^6/uL (4.0-5.20); Red Cell Distribution Width 14.7 % (11.8-14.3); White Blood Cell 5.3 10^3/uL (4.4-10.8)
[2024-03-30 07:26] LABS: Alanine Aminotransferase 35 U/L (7-40); Albumin 3.9 g/dL (3.2-4.8); Alkaline Phosphatase 122 U/L (46-116); Anion Gap 4 (5-15); Aspartate Aminotransferase 39 U/L (13-40); BUN/Creatinine Ratio 17.4 (10.0-20.0); Bilirubin, Total 0.3 mg/dL (0.2-1.0); Blood Urea Nitrogen 12 mg/dL (9-23); Calcium 9.2 mg/dL (8.7-10.4); Carbon Dioxide 30 mmol/L (20-30); Chloride 112 mmol/L (98-107); Glucose 87 mg/dL (74-106); Lipase 34 U/L (12-53); Magnesium 2.1 mg/dL (1.6-2.6); Potassium 3.9 mmol/L (3.5-5.1); Sodium 146 mmol/L (136-145); Total Protein 7.1 g/dL (5.7-8.2)
[2024-03-30 08:36] VITALS: BP 143/81; PULSE 79; RESP 18; TEMP 98.3; O2SAT 98
[2024-03-30] MEDS ORDERED: DICY10CA PO (08:36)
[2024-03-30] MEDS ORDERED: LORazepam 0.5 MG TAB PO ONE (08:45)
[2024-03-30] MEDS ORDERED: NITR-87 PO (16:32)
== END 2024-03-30 09:50 | disposition left against medical advice (07) ==
LOC: EDSEX 05:57 → ER 05:57 → EDBD 05:57 → ER 09:50
DX: K52.9 Noninfective gastroenteritis and colitis, unspecified (principal); R10.2 Pelvic and perineal pain; F17.210 Nicotine dependence, cigarettes, uncomplicated; F15.10 Other stimulant abuse, uncomplicated; Z90.49 Acquired absence of other specified parts of digestive tract
CPT/HCPCS: 36415; 74176; 80053; 82248; 83690; 83735; 84484; 84702; 85025

== ENCOUNTER 2024-03-30 11:36 | Emergency (ER) | payer OTHER, MEDICAID ==
[~2024-03-30] VITALS: Ht 154.9 cm; Wt 55.7 kg
[~2024-03-30 11:36] MED LIST changes: +DICY10CA PO
[2024-03-30 12:07] LABS: Basophils # (auto) 0 10 ^3/uL (0-0.2); Basophils % (auto) 0.4 % (0.0-2.0); Eosinophils # (auto) 0 10 ^3/uL (0-0.8); Eosinophils % (auto) 0.3 % (0.0-7.0); Hemoglobin 11.7 g/dL (12.2-16.2); Lymphocytes # (auto) 1.4 10 ^3/uL (0.4-5.4); Lymphocytes % (auto) 28.2 % (10.0-50.0); Mean Corpuscular Hemoglobin 27.8 pg (28.0-32.0); Mean Corpuscular Hgb Conc. 31.6 g/dL (32.0-36.0); Mean Corpuscular Volume 88.1 fL (80.0-100.0); Monocytes # (auto) 0.4 10 ^3/uL (0-1.3); Monocytes % (auto) 8.1 % (0.0-12.0); Neutrophils # (auto) 3.2 10 ^3/uL (1.6-8.6); Nucleated Red Blood Cells % 0.1 %; Red Cell Distribution Width 14.9 % (11.8-14.3); White Blood Cell 5.1 10^3/uL (4.4-10.8)
[2024-03-30 12:13] LABS: Chloride 110 mmol/L (98-107); Potassium 3.6 mmol/L (3.5-5.1); Sodium 142 mmol/L (136-145)
[2024-03-30 12:14] LABS: Anion Gap 3 (5-15); Calcium 9.6 mg/dL (8.5-10.1); Carbon Dioxide 29 mmol/L (20-30)
[2024-03-30 12:19] LABS: BUN/Creatinine Ratio 15.2 (10.0-20.0); Blood Urea Nitrogen 12 mg/dL (9-23); Glucose 108 mg/dL (74-106)
[2024-03-30] MEDS: LORazepam 0.5 MG TAB PO ONE (13:53)
[2024-03-30 15:53] LABS: Urine Bacteria FEW /hpf (None Seen); Urine Blood Negative /uL (Negative); Urine Clarity Clear (Clear); Urine Color Yellow (Yellow); Urine Mucus FEW (None Seen); Urine Protein, UAD TRACE (Negative); Urine Specific Gravity 1.031 (1.001-1.035); Urine Urobilinogen 3 mg/dL (Negative); Urine WBC 22 /hpf (0 - 5); Urine pH 6.5 (5.0-9.0)
[2024-03-30] MEDS ORDERED: NITR-87 PO (16:32)
[2024-03-30 16:55] VITALS: BP 139/81; PULSE 76; RESP 18; TEMP 98.4; O2SAT 98
== END 2024-03-30 16:57 | disposition home or self-care (01) ==
LOC: ER 11:36
DX: N39.0 Urinary tract infection, site not specified (principal); F17.210 Nicotine dependence, cigarettes, uncomplicated; F12.10 Cannabis abuse, uncomplicated; F15.10 Other stimulant abuse, uncomplicated; Z87.442 Personal history of urinary calculi; Z90.49 Acquired absence of other specified parts of digestive tract
CPT/HCPCS: 36415; 80048; 81001; 85025

== ENCOUNTER 2024-05-17 19:08 | Inpatient (IN) | payer OTHER, MEDICAID ==
[~2024-05-17] VITALS: Ht 154.9 cm; Wt 54.6 kg
[~2024-05-17 19:08] MED LIST changes: +NITR-87 PO
[2024-05-17] MEDS: SODIUM CHLORIDE 0.9% 1,000 ML IV ONE (20:06)
[2024-05-17 20:17] LABS: Basophils # (auto) 0 10 ^3/uL (0-0.2); Basophils % (auto) 0.2 % (0.0-2.0); Eosinophils # (auto) 0 10 ^3/uL (0-0.8); Hematocrit 44.2 % (36.0-46.0); Hemoglobin 14.4 g/dL (12.2-16.2); Lymphocytes # (auto) 0.5 10 ^3/uL (0.4-5.4); Lymphocytes % (auto) 4.8 % (10.0-50.0); Mean Corpuscular Hemoglobin 29.1 pg (28.0-32.0); Mean Corpuscular Hgb Conc. 32.5 g/dL (32.0-36.0); Mean Corpuscular Volume 89.4 fL (80.0-100.0); Monocytes # (auto) 0.1 10 ^3/uL (0-1.3); Monocytes % (auto) 1.2 % (0.0-12.0); Neutrophils # (auto) 9.7 10 ^3/uL (1.6-8.6); Neutrophils % (auto) 93.8 % (37.0-80.0); Red Blood Cells 4.95 10^6/uL (4.0-5.20); White Blood Cell 10.4 10^3/uL (4.4-10.8)
[2024-05-17 20:36] LABS: Alanine Aminotransferase 15 U/L (7-40); Alkaline Phosphatase 109 U/L (46-116); Anion Gap 15 (5-15); Aspartate Aminotransferase 18 U/L (13-40); BUN/Creatinine Ratio 12.5 (10.0-20.0); Bilirubin, Total 0.4 mg/dL (0.2-1.0); Blood Urea Nitrogen 14 mg/dL (9-23); Calcium 9.1 mg/dL (8.7-10.4); Carbon Dioxide 16 mmol/L (20-30); Chloride 104 mmol/L (98-107); Glucose 140 mg/dL (74-106); Lipase 34 U/L (12-53); Potassium 2.9 mmol/L (3.5-5.1); Sodium 135 mmol/L (136-145); Total Protein 6.9 g/dL (5.7-8.2)
[2024-05-17 20:45] LABS: Lactic Acid w/Reflex 3.8 mmol/L (0.4-2.0)
[2024-05-17] MEDS: POTASSIUM CHL 20 Meq TABLET PO ONE (20:45)
[2024-05-17] MEDS: fentaNYL CITRATE 100 MCG/2 ML VL IV ONE (21:27)
[2024-05-17] MEDS: PIPERACILLIN-TAZOB 3.375GM 100 ML IV ONE (21:28)
[2024-05-17] MEDS: POTASSIUM CHL 20MEQ/100ML 100 ML IV SCH (22:04)
[2024-05-17] MEDS: PANTOPRAZOLE 40 MG/10 ML VIAL INJ IV ONE (23:32)
[2024-05-17] MEDS: ONDANSETRON HCL 4 MG/2 ML VIAL IV ONE (23:32)
[2024-05-17] MEDS: HYDROmorphone HCL 2 MG/ML VL/or syr IV ONE (23:32)
[2024-05-18] VITALS (57 sets, daily range): BP systolic 82–161; BP diastolic 43–98; PULSE 91–102; RESP 14–30; TEMP 97–99.9; O2SAT 93–100
[2024-05-18] MEDS: SODIUM CHLORIDE 0.9% 1,000 ML IV ONE (02:30)
[2024-05-18] MEDS ORDERED: LORazepam 2MG/ML-1ML VIAL IM ONE (05:00)
[2024-05-18] MEDS: HYDROmorphone HCL 2 MG/ML VL/or syr IV ONE (05:05)
[2024-05-18] MEDS: LORazepam 2MG/ML-1ML VIAL IV ONE (05:05)
[2024-05-18] MEDS: LIDOCAINE 2% JELLY 11ml (GLYDO) ONE (07:03)
[2024-05-18 07:04] LABS: INR 1.14 (0.9-1.15); Partial Thromboplastin Time 25.1 SEC (24.5-34.5)
[2024-05-18] MEDS: SUCCINYLCHOLINE CHLORIDE 20 MG/ML 10ML VIAL IV ONE (07:15)
[2024-05-18] MEDS ORDERED: MIDAZOLAM HCL 2MG/2ML 2ml VIAL (1mg/ml) ONE (07:24)
[2024-05-18] MEDS ORDERED: fentaNYL CITRATE 100 MCG/2 ML VL ONE (07:25)
[2024-05-18] MEDS: PANTOPRAZOLE 40 MG/10 ML VIAL INJ IV ONE ×2 (07:25→08:30)
[2024-05-18] MEDS ORDERED: HYDROmorphone HCL 2 MG/ML VL/or syr ONE ×2 (07:27→08:48)
[2024-05-18] MEDS ORDERED: DexAMETHasone SOD PHOS 10MG/1ML VIAL INJ ONE (07:50)
[2024-05-18] MEDS: ceFAZolin 1GM/50ML 100 ML IV ONE (08:13)
[2024-05-18] MEDS ORDERED: ROCURONIUM 10MG/ML 10ML VIAL IV ONE (08:54)
[2024-05-18] MEDS: MIDAZOLAM DRIP 50 mg/50mL 50 ML IV SCH (09:15)
[2024-05-18] MEDS: NOREPINEPHRINE 8 MG/250ML KIT 250 ML IV ONE (09:26)
[2024-05-18] MEDS ORDERED: ePHEDrine SULFATE 50 MG/ML AMP IV PRN (10:15)
[2024-05-18] MEDS ORDERED: DOCUSATE SOD 100 MG CAP PO PRN (10:15)
[2024-05-18] MEDS ORDERED: HYDROmorphone HCL 2 MG/ML VL/or syr IV PRN ×2 (10:15)
[2024-05-18] MEDS ORDERED: ONDANSETRON HCL 4 MG/2 ML VIAL IV PRN (10:15)
[2024-05-18] MEDS: ONDANSETRON HCL 4 MG/2 ML VIAL IV ONE (10:15)
[2024-05-18] MEDS ORDERED: MIDAZOLAM HCL 2MG/2ML 2ml VIAL (1mg/ml) IV PRN (10:15)
[2024-05-18] MEDS ORDERED: MORPHINE SULFATE 4 MG/ML SYR/VIAL IV PRN (10:15)
[2024-05-18] MEDS: fentaNYL Drip 2500mCg/250mlNS 250 ML IV SCH (10:34)
[2024-05-18] MEDS: SODIUM CHLORIDE 0.9% 1,000 ML IV SCH (10:36)
[2024-05-18] MEDS ORDERED: VANCOMYCIN PER PHARMACY 0 MG IV SCH (11:30)
[2024-05-18] MEDS ORDERED: CEFEPIME 2GM/50ML NS 50 ML IV ONE (11:30)
[2024-05-18 11:45] LABS: Base Excess -16.2 mmol/L (-2.0-2.0)
[2024-05-18] MEDS ORDERED: SODIUM BICARB 50mEq/50ml Vial 50 ML in SOD CHL 0.45% 1,000 ML IV SCH (11:45)
[2024-05-18] MEDS ORDERED: SODIUM BICARB 8.4% 50Meq/50ml SYR Vial IV ONE (11:45)
[2024-05-18 12:15] LABS: Hematocrit 35.7 % (36.0-46.0); Hemoglobin 11.7 g/dL (12.2-16.2); Mean Corpuscular Hemoglobin 29.5 pg (28.0-32.0); Mean Corpuscular Hgb Conc. 32.6 g/dL (32.0-36.0); Mean Corpuscular Volume 90.5 fL (80.0-100.0); Red Blood Cells 3.95 10^6/uL (4.0-5.20); Red Cell Distribution Width 15.6 % (11.8-14.3); White Blood Cell 4.4 10^3/uL (4.4-10.8)
[2024-05-18 12:21] LABS: Basophils % (manual) 0 (0.0-2.0); Blast Cells 0; Eosinophils % (manual) 0 (0-7); Metamyelocytes % 0; Myelocytes % 0; Promyelocytes % 0; Reactive Lymphocytes 0
[2024-05-18 12:31] LABS: Chloride 112 mmol/L (98-107); Potassium 3.6 mmol/L (3.5-5.1); Sodium 139 mmol/L (136-145)
[2024-05-18 12:32] LABS: Anion Gap 11 (5-15); Calcium 7.3 mg/dL (8.5-10.1); Carbon Dioxide 16 mmol/L (20-30)
[2024-05-18 12:37] LABS: BUN/Creatinine Ratio 18.4 (10.0-20.0); Blood Urea Nitrogen 27 mg/dL (9-23); Glucose 109 mg/dL (74-106)
[2024-05-18 12:38] LABS: Magnesium 1.1 mg/dL (1.6-2.6)
[2024-05-18 12:39] LABS: Phosphorus 6.1 mg/dL (2.4-5.1)
[2024-05-18 12:50] LABS: Lactic Acid w/Reflex 2.9 mmol/L (0.4-2.0)
[2024-05-18] MEDS: VANCOMYCIN 750mg/150ml 150 ML IV SCH (13:06)
[2024-05-18] MEDS: SODIUM BICARB 50mEq/50ml Vial 150 ML in SOD CHL 0.45% 1,000 ML IV ONE (13:09)
[2024-05-18] MEDS: SODIUM BICARB 8.4% 50Meq/50ml SYR Vial IV ONE (13:12)
[2024-05-18 13:18] LABS: Band Neutrophils % (manual) 5; Lymphocytes % (manual) 14 (10.0-50.0); Monocytes % (manual) 31 (0-12); Platelet Estimate Adequate
[2024-05-18] MEDS: POTASSIUM CHL 20MEQ/100ML 100 ML IV SCH (13:30)
[2024-05-18 13:44] LABS: Urine Bacteria None Seen /hpf (None Seen)
[2024-05-18] MEDS ORDERED: ceFAZolin 1GM/50ML 50 ML IV SCH (14:00)
[2024-05-18 14:06] LABS: Urine Blood 2+ /uL (Negative); Urine Clarity Turbid (Clear); Urine Color Yellow (Yellow); Urine Hyaline Cast FEW /lpf (0 - 2); Urine Mucus FEW (None Seen); Urine Protein, UAD 1+ (Negative); Urine Specific Gravity 1.018 (1.001-1.035); Urine Urobilinogen Normal (Negative); Urine WBC 27 /hpf (0 - 5); Urine WBC Clumps PRESENT /hpf (None Seen); Urine pH 5.5 (5.0-9.0)
[2024-05-18] MEDS: NOREPINEPHRINE 8 MG/250ML KIT 250 ML IV SCH (14:37)
[2024-05-18] MEDS: PIPERACILLIN-TAZOB 3.375GM 100 ML IV SCH (14:37)
[2024-05-18] MEDS: D5W/SOD CHL 0.45%/KCL 20MEQ 1,000 ML IV ONE (16:31)
[2024-05-18 19:14] LABS: Base Excess -8.9 mmol/L (-2.0-2.0)
[2024-05-18 19:40] LABS: Hematocrit 35.2 % (36.0-46.0); Hemoglobin 11.5 g/dL (12.2-16.2)
[2024-05-18] MEDS ORDERED: CEFEPIME 2GM/50ML NS 50 ML IV SCH (20:00)
[2024-05-18 20:12] LABS: Lactic Acid w/Reflex 3.1 mmol/L (0.4-2.0)
[2024-05-18] MEDS: CALCIUM GLUC 1,000mg/50ml-NS 50 ML IV ONE (20:18)
[2024-05-18] MEDS: MAGNESIUM SULFATE 1GM/100ML 100 ML IV SCH (20:22)
[2024-05-19] VITALS (108 sets, daily range): BP systolic 100–253; BP diastolic 58–244; PULSE 52–98; RESP 18–26; TEMP 98.6–99.7; O2SAT 93–100
[2024-05-19 04:28] LABS: Hemoglobin 10.8 g/dL (12.2-16.2); Mean Corpuscular Hemoglobin 28.9 pg (28.0-32.0); Mean Corpuscular Hgb Conc. 32.8 g/dL (32.0-36.0); Mean Corpuscular Volume 88.1 fL (80.0-100.0); Red Blood Cells 3.74 10^6/uL (4.0-5.20); Red Cell Distribution Width 15.7 % (11.8-14.3); White Blood Cell 13.6 10^3/uL (4.4-10.8)
[2024-05-19 04:42] LABS: Basophils % (manual) 0 (0.0-2.0); Blast Cells 0; Eosinophils % (manual) 0 (0-7); Promyelocytes % 0; Reactive Lymphocytes 0
[2024-05-19 04:50] LABS: Alanine Aminotransferase 19 U/L (7-40); Albumin 2.5 g/dL (3.2-4.8); Alkaline Phosphatase 73 U/L (46-116); Anion Gap 10 (5-15); Aspartate Aminotransferase 33 U/L (13-40); BUN/Creatinine Ratio 24.8 (10.0-20.0); Bilirubin, Total 0.3 mg/dL (0.2-1.0); Blood Urea Nitrogen 34 mg/dL (9-23); Calcium 8.2 mg/dL (8.7-10.4); Carbon Dioxide 19 mmol/L (20-30); Chloride 111 mmol/L (98-107); Glucose 96 mg/dL (74-106); Potassium 3.8 mmol/L (3.5-5.1); Sodium 140 mmol/L (136-145)
[2024-05-19 04:51] LABS: Total Protein 4.5 g/dL (5.7-8.2)
[2024-05-19 05:31] LABS: Band Neutrophils % (manual) 35; Lymphocytes % (manual) 3 (10.0-50.0); Metamyelocytes % 6; Monocytes % (manual) 3 (0-12); Myelocytes % 3; Platelet Estimate Adequate
[2024-05-19 05:35] LABS: Anisocytosis Slight; Ovalocytes FEW
[2024-05-19 08:43] LABS: Base Excess -4.2 mmol/L (-2.0-2.0)
[2024-05-19] MEDS: PANTOPRAZOLE 40 MG/10 ML VIAL INJ IV SCH (10:00)
[2024-05-19] MEDS ORDERED: CEFEPIME 1GM/ 50ML 50 ML IV ONE (10:45)
[2024-05-19] MEDS: CEFEPIME 2GM/50ML NS 50 ML IV SCH (11:00)
[2024-05-19] MEDS: SODIUM CHLORIDE 0.9% 1,000 ML IV SCH (11:00)
[2024-05-19] MEDS ORDERED: SODIUM BICARB 50mEq/50ml Vial 50 ML in SOD CHL 0.45% 1,000 ML IV SCH (11:30)
[2024-05-19] MEDS: ALBUMIN 25% 100 ML IV ONE (11:30)
[2024-05-19 16:22] LABS: Sodium Urine < 10 mmol/L (40-220)
[2024-05-19 16:27] LABS: Protein, Urine 112.4 mg/dL (0.0-11.9)
[2024-05-19 16:30] LABS: Creatinine, Urine 83.49 mg/dL (30.0-125.0); Urine Protein/Creatinine Ratio 1.35
[2024-05-19] MEDS: PROPOFOL 100 ML IV SCH (17:45)
[2024-05-19] MEDS ORDERED: TPN PER PHARMACY 0 ML IV SCH (18:45)
[2024-05-19] MEDS: AMINO ACID INFUSION IN D10W 1,000 ML IV SCH (21:52)
[2024-05-19] MEDS ORDERED: CEFEPIME 1GM/ 50ML 50 ML IV SCH (22:00)
[2024-05-19] MEDS: SODIUM BICARB 50mEq/50ml Vial 50 ML in SOD CHL 0.45% 1,000 ML IV SCH (22:32)
[2024-05-20] VITALS (108 sets, daily range): BP systolic 79–138; BP diastolic 51–128; PULSE 52–73; RESP 19–24; TEMP 98.4–100.4; O2SAT 92–100
[2024-05-20 04:26] LABS: Basophils # (auto) 0 10 ^3/uL (0-0.2); Basophils % (auto) 0.1 % (0.0-2.0); Eosinophils # (auto) 0 10 ^3/uL (0-0.8); Eosinophils % (auto) 0.1 % (0.0-7.0); Hematocrit 26.1 % (36.0-46.0); Hemoglobin 8.8 g/dL (12.2-16.2); Lymphocytes # (auto) 0.4 10 ^3/uL (0.4-5.4); Lymphocytes % (auto) 2.7 % (10.0-50.0); Mean Corpuscular Hemoglobin 28.9 pg (28.0-32.0); Mean Corpuscular Hgb Conc. 33.6 g/dL (32.0-36.0); Mean Corpuscular Volume 86.2 fL (80.0-100.0); Monocytes # (auto) 0.3 10 ^3/uL (0-1.3); Monocytes % (auto) 2.3 % (0.0-12.0); Neutrophils # (auto) 13.4 10 ^3/uL (1.6-8.6); Neutrophils % (auto) 94.8 % (37.0-80.0); Red Blood Cells 3.03 10^6/uL (4.0-5.20); Red Cell Distribution Width 15.4 % (11.8-14.3); White Blood Cell 14.1 10^3/uL (4.4-10.8)
[2024-05-20 08:06] LABS: Base Excess -1.5 mmol/L (-2.0-2.0)
[2024-05-20 08:09] LABS: Alanine Aminotransferase 12 U/L (7-40); Albumin 2.7 g/dL (3.2-4.8); Alkaline Phosphatase 80 U/L (46-116); Anion Gap 8 (5-15); Aspartate Aminotransferase 22 U/L (13-40); BUN/Creatinine Ratio 34.5 (10.0-20.0); Blood Urea Nitrogen 30 mg/dL (9-23); Calcium 8.4 mg/dL (8.5-10.1); Carbon Dioxide 22 mmol/L (20-30); Chloride 111 mmol/L (98-107); Glucose 112 mg/dL (74-106); LDL Cholesterol 26 mg/dL (< 100); Magnesium 1.8 mg/dL (1.6-2.6); Sodium 141 mmol/L (136-145); Triglycerides 87 mg/dL (< 150)
[2024-05-20 08:10] LABS: Bilirubin, Total 0.3 mg/dL (0.2-1.0); Cholesterol 73 mg/dL (< 200); HDL Cholesterol 9 mg/dL (40-59); Phosphorus 2.8 mg/dL (2.4-5.1); Total Protein 4.5 g/dL (5.7-8.2)
[2024-05-20 09:03] LABS: Lipase 18 U/L (12-53)
[2024-05-20] MEDS: CEFEPIME 2GM/50ML NS 50 ML IV SCH (11:23)
[2024-05-20] MEDS: InsuLIN REG 1unit/0.01ml Soln (100units/ml) SC SCH (12:00)
[2024-05-20] MEDS ORDERED: DEXTROSE (50%) 50ML SYRG IV SCH (12:00)
[2024-05-20] MEDS: ACCU-CHEK COMFORT CURVE STRIP VI SCH (13:41)
[2024-05-20] MEDS: MAGNESIUM SULFATE 1GM/100ML 100 ML IV SCH (13:43)
[2024-05-20] MEDS: POTASSIUM CHL 20MEQ/100ML 100 ML IV SCH (13:43)
[2024-05-20] MEDS: POTASSIUM PHOSPHATE 22 MEQ in SODIUM CHL 0.9% 100 ML IV ONE (17:56)
[2024-05-20] MEDS: MEROPENEM 1GM IVPB 50 ML IV ONE (18:09)
[2024-05-20] MEDS: TPN PER PHARMACY IV NR (20:49)
[2024-05-21] VITALS (106 sets, daily range): BP systolic 67–129; BP diastolic 37–118; PULSE 55–92; RESP 18–24; TEMP 99.9–100.8; O2SAT 94–100
[2024-05-21] MEDS: MEROPENEM 1GM IVPB 50 ML IV SCH (02:06)
[2024-05-21 04:15] LABS: Basophils # (auto) 0 10 ^3/uL (0-0.2); Eosinophils # (auto) 0 10 ^3/uL (0-0.8); Eosinophils % (auto) 0.2 % (0.0-7.0); Hematocrit 26.2 % (36.0-46.0); Hemoglobin 8.9 g/dL (12.2-16.2); Lymphocytes # (auto) 0.7 10 ^3/uL (0.4-5.4); Mean Corpuscular Hemoglobin 29.8 pg (28.0-32.0); Mean Corpuscular Volume 87.5 fL (80.0-100.0); Monocytes # (auto) 0.3 10 ^3/uL (0-1.3); Monocytes % (auto) 3.7 % (0.0-12.0); Neutrophils # (auto) 8.3 10 ^3/uL (1.6-8.6); Neutrophils % (auto) 89.1 % (37.0-80.0); Nucleated Red Blood Cells % 0.1 %; Red Cell Distribution Width 15.6 % (11.8-14.3); White Blood Cell 9.3 10^3/uL (4.4-10.8)
[2024-05-21 04:25] LABS: Albumin 2.4 g/dL (3.2-4.8); Alkaline Phosphatase 127 U/L (46-116); Anion Gap 5 (5-15); Aspartate Aminotransferase 14 U/L (13-40); BUN/Creatinine Ratio 43.4 (10.0-20.0); Blood Urea Nitrogen 23 mg/dL (9-23); Carbon Dioxide 25 mmol/L (20-30); Chloride 112 mmol/L (98-107); Glucose 115 mg/dL (74-106); Magnesium 1.8 mg/dL (1.6-2.6); Potassium 3.1 mmol/L (3.5-5.1); Sodium 142 mmol/L (136-145)
[2024-05-21 04:26] LABS: Bilirubin, Total 0.3 mg/dL (0.2-1.0); Phosphorus 1.3 mg/dL (2.4-5.1)
[2024-05-21 04:27] LABS: Total Protein 4.3 g/dL (5.7-8.2)
[2024-05-21 04:36] LABS: Alanine Aminotransferase < 9 U/L (7-40)
[2024-05-21 07:47] LABS: Base Excess -0.1 mmol/L (-2.0-2.0)
[2024-05-21] MEDS: POTASSIUM PHOSPHATE 44 MEQ in D5W 5% 250 ML IV ONE (10:00)
[2024-05-21] MEDS: SODIUM CHLORIDE 0.9% 1,000 ML IV ONE (12:45)
[2024-05-21] MEDS: VANCOMYCIN 1GM/200ML 200 ML IV SCH (14:00)
[2024-05-21] MEDS: TPN PER PHARMACY IV NR (21:01)
[2024-05-21] MEDS: ACETAMINOPHEN 650 MG RECT SUPP PR PRN (23:52)
[2024-05-22] VITALS (103 sets, daily range): BP systolic 84–146; BP diastolic 33–72; PULSE 56–94; RESP 18–25; TEMP 98.2–100.6; O2SAT 91–100
[2024-05-22 04:13] LABS: Hematocrit 28.8 % (36.0-46.0); Hemoglobin 9.4 g/dL (12.2-16.2); Mean Corpuscular Hemoglobin 28.7 pg (28.0-32.0); Mean Corpuscular Hgb Conc. 32.8 g/dL (32.0-36.0); Mean Corpuscular Volume 87.6 fL (80.0-100.0); Red Blood Cells 3.29 10^6/uL (4.0-5.20); Red Cell Distribution Width 15.5 % (11.8-14.3); White Blood Cell 10.1 10^3/uL (4.4-10.8)
[2024-05-22 04:15] LABS: Basophils % (manual) 0 (0.0-2.0); Blast Cells 0; Eosinophils % (manual) 0 (0-7); Metamyelocytes % 0; Myelocytes % 0; Promyelocytes % 0; Reactive Lymphocytes 0
[2024-05-22 04:23] LABS: Albumin 2.2 g/dL (3.2-4.8); Alkaline Phosphatase 71 U/L (46-116); Anion Gap 3 (5-15); Aspartate Aminotransferase 14 U/L (13-40); BUN/Creatinine Ratio 42.1 (10.0-20.0); Bilirubin, Total 0.2 mg/dL (0.2-1.0); Blood Urea Nitrogen 16 mg/dL (9-23); Carbon Dioxide 27 mmol/L (20-30); Chloride 112 mmol/L (98-107); Glucose 107 mg/dL (74-106); Magnesium 1.6 mg/dL (1.6-2.6); Phosphorus 2.1 mg/dL (2.4-5.1); Potassium 3.7 mmol/L (3.5-5.1); Sodium 142 mmol/L (136-145); Total Protein 3.9 g/dL (5.7-8.2)
[2024-05-22 04:39] LABS: Alanine Aminotransferase < 9 U/L (7-40)
[2024-05-22 05:25] LABS: Band Neutrophils % (manual) 4; Lymphocytes % (manual) 7 (10.0-50.0); Monocytes % (manual) 6 (0-12); Platelet Estimate Decreased
[2024-05-22 08:01] LABS: Base Excess -1.4 mmol/L (-2.0-2.0)
[2024-05-22] MEDS: FUROSEMIDE 20 MG/2 ML VIAL IV ONE (14:35)
[2024-05-22 15:33] LABS: Amphetamine Screen, Urine Neg (NEGATIVE); Barbiturate Scree,Urine Neg (NEGATIVE); Benzodiazephine Screen, Urine Pos (NEGATIVE); Cocaine Screen, Urine Neg (NEGATIVE); Opiate Scree,Urine Neg (NEGATIVE)
[2024-05-22 15:34] LABS: Cannabinoid Screen, Urine Pos (NEGATIVE); Phencyclidine Screen, Urine Neg (NEGATIVE)
[2024-05-22] MEDS: TPN PER PHARMACY IV NR (19:57)
[2024-05-23] VITALS (106 sets, daily range): BP systolic 108–171; BP diastolic 52–87; PULSE 81–125; RESP 15–28; TEMP 99–100.2; O2SAT 78–100
[2024-05-23 04:40] LABS: Hematocrit 29.3 % (36.0-46.0); Hemoglobin 9.5 g/dL (12.2-16.2); Mean Corpuscular Hemoglobin 28.4 pg (28.0-32.0); Mean Corpuscular Hgb Conc. 32.3 g/dL (32.0-36.0); Mean Corpuscular Volume 87.8 fL (80.0-100.0); Red Blood Cells 3.33 10^6/uL (4.0-5.20); Red Cell Distribution Width 15.4 % (11.8-14.3); White Blood Cell 14.9 10^3/uL (4.4-10.8)
[2024-05-23 04:41] LABS: Alanine Aminotransferase 10 U/L (7-40); Albumin 2.3 g/dL (3.2-4.8); Alkaline Phosphatase 75 U/L (46-116); Anion Gap 7 (5-15); Aspartate Aminotransferase 13 U/L (13-40); BUN/Creatinine Ratio 48.5 (10.0-20.0); Blood Urea Nitrogen 16 mg/dL (9-23); Calcium 8.6 mg/dL (8.7-10.4); Carbon Dioxide 25 mmol/L (20-30); Chloride 110 mmol/L (98-107); Glucose 114 mg/dL (74-106); Magnesium 1.6 mg/dL (1.6-2.6); Potassium 4.1 mmol/L (3.5-5.1); Sodium 142 mmol/L (136-145)
[2024-05-23 04:42] LABS: Basophils % (manual) 0 (0.0-2.0); Blast Cells 0; Eosinophils % (manual) 0 (0-7); Metamyelocytes % 0; Myelocytes % 0; Phosphorus 1.9 mg/dL (2.4-5.1); Promyelocytes % 0; Reactive Lymphocytes 0
[2024-05-23 04:43] LABS: Bilirubin, Total 0.2 mg/dL (0.2-1.0); Total Protein 4.3 g/dL (5.7-8.2)
[2024-05-23 06:53] LABS: Band Neutrophils % (manual) 5; Lymphocytes % (manual) 7 (10.0-50.0); Monocytes % (manual) 5 (0-12); Platelet Estimate Adequate
[2024-05-23 07:38] LABS: Base Excess 3.4 mmol/L (-2.0-2.0)
[2024-05-23] MEDS: FUROSEMIDE 20 MG/2 ML VIAL IV SCH (09:58)
[2024-05-23] MEDS: MAGNESIUM SULFATE 1GM/100ML 100 ML IV SCH (13:34)
[2024-05-23] MEDS: FLUCONAZOLE 200MG/100ML 100 ML IV SCH (14:29)
[2024-05-23] MEDS: FUROSEMIDE 20 MG/2 ML VIAL IV ONE (14:30)
[2024-05-23] MEDS: SODIUM PHOSPHATES 40 MEQ in D5W 5% 250 ML IV ONE (14:47)
[2024-05-23] MEDS: TPN PER PHARMACY IV NR (21:24)
[2024-05-24] VITALS (102 sets, daily range): BP systolic 78–171; BP diastolic 41–93; PULSE 78–131; RESP 11–39; TEMP 99–100.6; O2SAT 93–100
[2024-05-24] MEDS: MORPHINE SULFATE INJ 2 MG/ml SYRG IV PRN (00:21)
[2024-05-24 04:28] LABS: Hematocrit 26.4 % (36.0-46.0); Hemoglobin 8.6 g/dL (12.2-16.2); Mean Corpuscular Hemoglobin 28.4 pg (28.0-32.0); Mean Corpuscular Hgb Conc. 32.4 g/dL (32.0-36.0); Mean Corpuscular Volume 87.6 fL (80.0-100.0); Red Blood Cells 3.02 10^6/uL (4.0-5.20); Red Cell Distribution Width 15.6 % (11.8-14.3); White Blood Cell 16.1 10^3/uL (4.4-10.8)
[2024-05-24 04:30] LABS: Basophils % (manual) 0 (0.0-2.0); Blast Cells 0; Eosinophils % (manual) 0 (0-7); Metamyelocytes % 0; Promyelocytes % 0; Reactive Lymphocytes 0
[2024-05-24 04:47] LABS: Alanine Aminotransferase 12 U/L (7-40); Albumin 2.3 g/dL (3.2-4.8); Alkaline Phosphatase 74 U/L (46-116); Anion Gap 3 (5-15); Aspartate Aminotransferase 14 U/L (13-40); BUN/Creatinine Ratio 42.1 (10.0-20.0); Bilirubin, Total 0.2 mg/dL (0.2-1.0); Blood Urea Nitrogen 16 mg/dL (9-23); Calcium 8.4 mg/dL (8.7-10.4); Carbon Dioxide 33 mmol/L (20-30); Chloride 105 mmol/L (98-107); Glucose 144 mg/dL (74-106); Magnesium 1.8 mg/dL (1.6-2.6); Phosphorus 2.7 mg/dL (2.4-5.1); Potassium 3.9 mmol/L (3.5-5.1); Sodium 141 mmol/L (136-145); Total Protein 4.5 g/dL (5.7-8.2)
[2024-05-24 06:57] LABS: Band Neutrophils % (manual) 5; Lymphocytes % (manual) 3 (10.0-50.0); Monocytes % (manual) 1 (0-12); Myelocytes % 1; Platelet Estimate Adequate
[2024-05-24 06:58] LABS: Anisocytosis Slight; Large Platelets FEW
[2024-05-24 07:01] LABS: Base Excess 8.6 mmol/L (-2.0-2.0)
[2024-05-24] MEDS: FLUCONAZOLE 200MG/100ML 100 ML IV SCH (10:19)
[2024-05-24 11:22] LABS: Base Excess 7.9 mmol/L (-2.0-2.0)
[2024-05-24] MEDS: VANCOMYCIN 1GM/200ML 200 ML IV SCH (12:19)
[2024-05-24 13:50] LABS: INR 1.03 (0.9-1.15); Partial Thromboplastin Time 32.8 SEC (24.5-34.5); Prothrombin Time 10.9 sec (9.3-11.8)
[2024-05-24] MEDS: LIDOCAINE 1% (LOCAL ANESTH.) PF 5ml SDV ID ONE (15:45)
[2024-05-24] MEDS: HYDROmorphone HCL 2 MG/ML VL/or syr IV PRN (18:24)
[2024-05-24] MEDS: TPN PER PHARMACY IV NR (20:40)
[2024-05-24] MEDS: SODIUM CHLOR 0.9% PF (SALINE LOCK) 10ML VIAL/SYR IV SCH (21:48)
[2024-05-25] VITALS (27 sets, daily range): BP systolic 96–141; BP diastolic 49–80; PULSE 86–109; RESP 14–35; TEMP 98.3–100.2; O2SAT 92–99
[2024-05-25] MEDS: LORazepam 2MG/ML-1ML VIAL IV ONE (06:24)
[2024-05-25 06:52] LABS: Basophils # (auto) 0 10 ^3/uL (0-0.2); Basophils % (auto) 0.2 % (0.0-2.0); Eosinophils # (auto) 0 10 ^3/uL (0-0.8); Eosinophils % (auto) 0.2 % (0.0-7.0); Hematocrit 26.3 % (36.0-46.0); Hemoglobin 8.6 g/dL (12.2-16.2); Lymphocytes # (auto) 1.1 10 ^3/uL (0.4-5.4); Lymphocytes % (auto) 7.3 % (10.0-50.0); Mean Corpuscular Hemoglobin 28.9 pg (28.0-32.0); Mean Corpuscular Hgb Conc. 32.8 g/dL (32.0-36.0); Mean Corpuscular Volume 88.1 fL (80.0-100.0); Monocytes # (auto) 0.9 10 ^3/uL (0-1.3); Monocytes % (auto) 5.7 % (0.0-12.0); Neutrophils # (auto) 13.2 10 ^3/uL (1.6-8.6); Neutrophils % (auto) 86.6 % (37.0-80.0); Red Blood Cells 2.99 10^6/uL (4.0-5.20); Red Cell Distribution Width 15.3 % (11.8-14.3); White Blood Cell 15.2 10^3/uL (4.4-10.8)
[2024-05-25 07:05] LABS: Alanine Aminotransferase 17 U/L (7-40); Alkaline Phosphatase 83 U/L (46-116); Anion Gap 2 (5-15); BUN/Creatinine Ratio 55.6 (10.0-20.0); Blood Urea Nitrogen 15 mg/dL (9-23); Calcium 8.5 mg/dL (8.5-10.1); Carbon Dioxide 32 mmol/L (20-30); Chloride 104 mmol/L (98-107); Glucose 107 mg/dL (74-106); Magnesium 1.8 mg/dL (1.6-2.6); Potassium 3.9 mmol/L (3.5-5.1); Sodium 138 mmol/L (136-145)
[2024-05-25 07:06] LABS: Albumin 2.6 g/dL (3.2-4.8); Aspartate Aminotransferase 24 U/L (13-40); Phosphorus 2.1 mg/dL (2.4-5.1)
[2024-05-25 07:07] LABS: Bilirubin, Total 0.2 mg/dL (0.2-1.0); Total Protein 4.7 g/dL (5.7-8.2)
[2024-05-25] MEDS: POTASSIUM PHOSPHATE 22 MEQ in SODIUM CHL 0.9% 100 ML IV ONE (13:25)
[2024-05-25] MEDS: TPN PER PHARMACY IV NR (20:33)
[2024-05-26] VITALS (22 sets, daily range): BP systolic 106–139; BP diastolic 57–72; PULSE 70–101; RESP 12–22; TEMP 98.2–100.4; O2SAT 91–100
[2024-05-26 06:48] LABS: Basophils # (auto) 0 10 ^3/uL (0-0.2); Basophils % (auto) 0.2 % (0.0-2.0); Eosinophils # (auto) 0 10 ^3/uL (0-0.8); Eosinophils % (auto) 0.1 % (0.0-7.0); Hemoglobin 8.1 g/dL (12.2-16.2)
[2024-05-26 06:50] LABS: Hematocrit 23.8 % (36.0-46.0); Lymphocytes # (auto) 0.8 10 ^3/uL (0.4-5.4); Mean Corpuscular Hemoglobin 29.6 pg (28.0-32.0); Mean Corpuscular Hgb Conc. 33.9 g/dL (32.0-36.0); Mean Corpuscular Volume 87.3 fL (80.0-100.0); Monocytes # (auto) 0.7 10 ^3/uL (0-1.3); Monocytes % (auto) 5.2 % (0.0-12.0); Neutrophils # (auto) 11.9 10 ^3/uL (1.6-8.6); Neutrophils % (auto) 88.5 % (37.0-80.0); Red Blood Cells 2.73 10^6/uL (4.0-5.20); White Blood Cell 13.4 10^3/uL (4.4-10.8)
[2024-05-26 07:04] LABS: Alanine Aminotransferase 20 U/L (7-40); Albumin 2.5 g/dL (3.2-4.8); Alkaline Phosphatase 77 U/L (46-116); Anion Gap 3 (5-15); Aspartate Aminotransferase 24 U/L (13-40); BUN/Creatinine Ratio 48.3 (10.0-20.0); Blood Urea Nitrogen 14 mg/dL (9-23); Calcium 8.1 mg/dL (8.5-10.1); Carbon Dioxide 30 mmol/L (20-30); Chloride 103 mmol/L (98-107); Glucose 128 mg/dL (74-106); Potassium 3.9 mmol/L (3.5-5.1); Sodium 136 mmol/L (136-145); Triglycerides 85 mg/dL (< 150)
[2024-05-26 07:05] LABS: Bilirubin, Total 0.2 mg/dL (0.2-1.0); Phosphorus 2.5 mg/dL (2.4-5.1); Total Protein 4.8 g/dL (5.7-8.2)
[2024-05-26] MEDS: TPN PER PHARMACY IV NR (20:19)
[2024-05-27] VITALS (24 sets, daily range): BP systolic 95–148; BP diastolic 48–70; PULSE 73–95; RESP 13–26; TEMP 97.5–99.4; O2SAT 77–100
[2024-05-27 04:54] LABS: Alanine Aminotransferase 46 U/L (7-40); Albumin 2.6 g/dL (3.2-4.8); Alkaline Phosphatase 98 U/L (46-116); Anion Gap 2 (5-15); Aspartate Aminotransferase 50 U/L (13-40); BUN/Creatinine Ratio 51.6 (10.0-20.0); Blood Urea Nitrogen 16 mg/dL (9-23); Calcium 8.1 mg/dL (8.7-10.4); Carbon Dioxide 30 mmol/L (20-30); Chloride 102 mmol/L (98-107); Glucose 125 mg/dL (74-106); Phosphorus 2.3 mg/dL (2.4-5.1); Potassium 3.7 mmol/L (3.5-5.1); Sodium 134 mmol/L (136-145)
[2024-05-27 04:55] LABS: Bilirubin, Total 0.2 mg/dL (0.2-1.0)
[2024-05-27] MEDS: KETOROLAC TROMETH 30 MG/ML 1ML VIAL IV ONE (04:56)
[2024-05-27] MEDS: ONDANSETRON HCL 4 MG/2 ML VIAL IV PRN (07:33)
[2024-05-27 11:23] LABS: Basophils # (auto) 0 10 ^3/uL (0-0.2); Eosinophils # (auto) 0 10 ^3/uL (0-0.8); Hemoglobin 8.1 g/dL (12.2-16.2); Lymphocytes # (auto) 0.7 10 ^3/uL (0.4-5.4); Mean Corpuscular Hemoglobin 28.6 pg (28.0-32.0); White Blood Cell 11.5 10^3/uL (4.4-10.8)
[2024-05-27 11:26] LABS: Basophils % (auto) 0.3 % (0.0-2.0); Eosinophils % (auto) 0.1 % (0.0-7.0); Hematocrit 24.6 % (36.0-46.0); Lymphocytes % (auto) 6.2 % (10.0-50.0); Mean Corpuscular Hgb Conc. 32.8 g/dL (32.0-36.0); Mean Corpuscular Volume 87.4 fL (80.0-100.0); Monocytes # (auto) 0.6 10 ^3/uL (0-1.3); Monocytes % (auto) 5.3 % (0.0-12.0); Neutrophils # (auto) 10.1 10 ^3/uL (1.6-8.6); Neutrophils % (auto) 88.1 % (37.0-80.0); Red Blood Cells 2.82 10^6/uL (4.0-5.20); Red Cell Distribution Width 14.9 % (11.8-14.3)
[2024-05-27] MEDS: HYDROcodone-ACET 5/325MG TAB PO PRN (11:26)
[2024-05-27] MEDS: POTASSIUM PHOSPHATE 22 MEQ in SODIUM CHL 0.9% 100 ML IV ONE (11:26)
[2024-05-27] MEDS: TPN PER PHARMACY IV NR (19:53)
[2024-05-28] VITALS (16 sets, daily range): BP systolic 113–129; BP diastolic 54–78; PULSE 79–101; RESP 12–100; TEMP 97.6–99.3; O2SAT 18–100
[2024-05-28 05:16] LABS: Alanine Aminotransferase 82 U/L (7-40); Albumin 2.6 g/dL (3.2-4.8); Alkaline Phosphatase 141 U/L (46-116); Anion Gap 1 (5-15); Aspartate Aminotransferase 70 U/L (13-40); Calcium 8.1 mg/dL (8.7-10.4); Carbon Dioxide 30 mmol/L (20-30); Chloride 104 mmol/L (98-107); Glucose 111 mg/dL (74-106); Magnesium 2.1 mg/dL (1.6-2.6); Potassium 4.1 mmol/L (3.5-5.1); Sodium 135 mmol/L (136-145); Triglycerides 76 mg/dL (< 150)
[2024-05-28 05:17] LABS: Bilirubin, Total 0.2 mg/dL (0.2-1.0); Phosphorus 3.1 mg/dL (2.4-5.1); Total Protein 5.1 g/dL (5.7-8.2)
[2024-05-28 05:34] LABS: BUN/Creatinine Ratio 51.7 (10.0-20.0); Blood Urea Nitrogen 15 mg/dL (9-23)
[2024-05-28] MEDS ORDERED: HYDROmorphone HCL 2 MG/ML VL/or syr IV PRN (09:15)
[2024-05-28] MEDS: HYDROmorphone HCL 2 MG/ML VL/or syr IV PRN (10:04)
[2024-05-28] MEDS: DOCUSATE SOD 100 MG CAP PO SCH (10:05)
[2024-05-28] MEDS: oxyCODONE HCL 5MG TAB PO PRN (12:23)
[2024-05-28] MEDS: FLUoxetine HCL 20 MG CAP PO ONE (15:54)
[2024-05-28] MEDS: TPN PER PHARMACY IV NR (19:22)
[2024-05-29] VITALS (8 sets, daily range): BP systolic 108–153; BP diastolic 62–99; PULSE 77–101; RESP 16–18; TEMP 97.6–98.7; O2SAT 84–100
[2024-05-29 06:21] LABS: Basophils # (auto) 0 10 ^3/uL (0-0.2); Basophils % (auto) 0.4 % (0.0-2.0); Eosinophils # (auto) 0 10 ^3/uL (0-0.8); Eosinophils % (auto) 0.2 % (0.0-7.0); Hematocrit 26.2 % (36.0-46.0); Hemoglobin 8.9 g/dL (12.2-16.2); Lymphocytes % (auto) 9.5 % (10.0-50.0); Mean Corpuscular Hemoglobin 29.6 pg (28.0-32.0); Mean Corpuscular Hgb Conc. 33.9 g/dL (32.0-36.0); Mean Corpuscular Volume 87.1 fL (80.0-100.0); Monocytes # (auto) 0.9 10 ^3/uL (0-1.3); Neutrophils % (auto) 81.9 % (37.0-80.0); Red Blood Cells 3.01 10^6/uL (4.0-5.20)
[2024-05-29 06:36] LABS: Alanine Aminotransferase 62 U/L (7-40); Albumin 2.8 g/dL (3.2-4.8); Alkaline Phosphatase 129 U/L (46-116); Anion Gap 5 (5-15); Aspartate Aminotransferase 38 U/L (13-40); BUN/Creatinine Ratio 37.5 (10.0-20.0); Blood Urea Nitrogen 12 mg/dL (9-23); Calcium 8.6 mg/dL (8.7-10.4); Carbon Dioxide 26 mmol/L (20-30); Chloride 101 mmol/L (98-107); Glucose 113 mg/dL (74-106); Magnesium 1.8 mg/dL (1.6-2.6); Potassium 4.2 mmol/L (3.5-5.1); Sodium 132 mmol/L (136-145)
[2024-05-29 06:37] LABS: Bilirubin, Total 0.2 mg/dL (0.2-1.0); Phosphorus 2.5 mg/dL (2.4-5.1); Total Protein 5.6 g/dL (5.7-8.2)
[2024-05-29 08:45] LABS: Hepatitis B Surface Antigen Negative (Negative)
[2024-05-29 09:06] LABS: Hepatitis A Ab IgM Negative; Hepatitis B Core IgM Negative
[2024-05-29 09:07] LABS: Hepatitis C Antibody Negative (Negative)
[2024-05-29] MEDS: FLUoxetine HCL 20 MG CAP PO SCH (09:37)
[2024-05-29] MEDS ORDERED: TPN PER PHARMACY IV NR (20:00)
[2024-05-29] MEDS: metroNIDAZOLE 500 MG TAB PO SCH (20:26)
[2024-05-30 01:00] VITALS: BP 129/66; PULSE 88; RESP 18; TEMP 97.7; O2SAT 97
[2024-05-30 05:00] VITALS: BP 113/52; PULSE 89; RESP 17; TEMP 97.6; O2SAT 96
[2024-05-30] MEDS: PANTOPRAZOLE 40 MG TAB PO SCH (05:50)
[2024-05-30 09:00] VITALS: BP 112/60; PULSE 92; RESP 20; TEMP 98; O2SAT 100
[2024-05-30] MEDS: FLUoxetine HCL 20 MG CAP PO SCH (10:08)
[2024-05-30] MEDS: levoFLOXacin 500 MG TAB PO SCH (10:08)
[2024-05-30] MEDS: FLUCONAZOLE 100 MG TAB PO SCH (10:08)
[2024-05-30 12:21] LABS: Alanine Aminotransferase 58 U/L (7-40); Albumin 3.3 g/dL (3.2-4.8); Alkaline Phosphatase 151 U/L (46-116); Anion Gap 5 (5-15); Aspartate Aminotransferase 36 U/L (13-40); BUN/Creatinine Ratio 19.6 (10.0-20.0); Blood Urea Nitrogen 11 mg/dL (9-23); Calcium 9.6 mg/dL (8.7-10.4); Carbon Dioxide 27 mmol/L (20-30); Chloride 99 mmol/L (98-107); Glucose 78 mg/dL (74-106); Magnesium 1.7 mg/dL (1.6-2.6); Potassium 4.4 mmol/L (3.5-5.1); Sodium 131 mmol/L (136-145)
[2024-05-30 12:22] LABS: Bilirubin, Total 0.2 mg/dL (0.2-1.0); Total Protein 6.7 g/dL (5.7-8.2)
[2024-05-30 13:00] VITALS: BP 112/54; PULSE 96; RESP 17; TEMP 97.9; O2SAT 98
[2024-05-30] MEDS ORDERED: PANT40TA2 PO (15:30)
[2024-05-30] MEDS ORDERED: PERCOT PO (15:30)
[2024-05-30] MEDS ORDERED: MET500T PO (15:30)
[2024-05-30] MEDS ORDERED: LEVO500T91 PO (15:30)
[2024-05-30 17:00] VITALS: BP 119/57; PULSE 100; RESP 18; TEMP 98.2; O2SAT 98
[2024-05-30] MEDS ORDERED: Ensure HIGH Protein Chocolate 8oz Bottle PO SCH (18:00)
[2024-05-30 21:00] VITALS: BP 123/58; PULSE 98; RESP 20; TEMP 98.2; O2SAT 99
== END 2024-05-30 21:50 | disposition home or self-care (01) | DRG 853 ==
LOC: EDBD 19:08 → ER 19:08 → TELE 05-18 11:16 → ICU WEST 05-18 11:30 → DOU IN ICU 05-26 00:43 → TELE-CENTR 05-28 17:25 → CENTRAL 05-29 17:29
PROVIDERS: ADMIT Internal Medicine; ATTEND Internal Medicine
PROC: 5A1955Z Respiratory Ventilation, Greater than 96 Consecutive Hours (ICD-10-PCS; 2024-05-18)
PROC: 0BH17EZ Insertion of Endotracheal Airway into Trachea, Via Natural or Artificial Opening (ICD-10-PCS; 2024-05-18)
PROC: 06HY33Z Insertion of Infusion Device into Lower Vein, Percutaneous Approach (ICD-10-PCS; 2024-05-18)
PROC: 0D9800Z Drainage of Small Intestine with Drainage Device, Open Approach (ICD-10-PCS; principal; 2024-05-18 07:20)
PROC: 02HV33Z Insertion of Infusion Device into Superior Vena Cava, Percutaneous Approach (ICD-10-PCS; 2024-05-24)
PROC: B548ZZA Ultrasonography of Superior Vena Cava, Guidance (ICD-10-PCS; 2024-05-24)
DX: A41.51 Sepsis due to Escherichia coli [E. coli] (principal); J96.01 Acute respiratory failure with hypoxia; K63.1 Perforation of intestine (nontraumatic); K65.1 Peritoneal abscess; R65.21 Severe sepsis with septic shock; N17.0 Acute kidney failure with tubular necrosis; K72.00 Acute and subacute hepatic failure without coma; K86.1 Other chronic pancreatitis; E87.1 Hypo-osmolality and hyponatremia; E44.0 Moderate protein-calorie malnutrition; Z16.12 Extended spectrum beta lactamase (ESBL) resistance; E87.6 Hypokalemia; F32.A Depression, unspecified; F15.10 Other stimulant abuse, uncomplicated; K27.9 Peptic ulcer, site unspecified, unspecified as acute or chronic, without hemorrhage or perforation; K66.0 Peritoneal adhesions (postprocedural) (postinfection); E83.39 Other disorders of phosphorus metabolism; E83.42 Hypomagnesemia; E86.1 Hypovolemia; F41.9 Anxiety disorder, unspecified; F17.210 Nicotine dependence, cigarettes, uncomplicated; D64.9 Anemia, unspecified; E66.9 Obesity, unspecified; K21.9 Gastro-esophageal reflux disease without esophagitis; G89.29 Other chronic pain; E87.70 Fluid overload, unspecified; Z87.442 Personal history of urinary calculi; Z90.49 Acquired absence of other specified parts of digestive tract; Z79.899 Other long term (current) drug therapy; Z98.84 Bariatric surgery status; Z68.22 Body mass index [BMI] 22.0-22.9, adult
CPT/HCPCS: 36415; 36569; 36600; 71045; 74176; 76705; 80048; 80053; 80061; 80074; 80202; 80307; 81001; 82570; 82805; 82962; 83605; 83690; 83735; 84100; 84156; 84300; 84443; 84478; 84484; 85007; 85014; 85018; 85025; 85027; 85610; 85730; 86850; 86900; 86901; 87040; 87070; 87075; 87077; 87081; 87086; 87186; 87205; 93005; 93306; 94002; 94003; 97110; 97116; 97163; 97530; 99291; G0378; J0330; J0692; J1100; J1450; J1885; J2185; J2250; J2405; J2470; J2543; J2704; J3480; J7060; J7131; P9047

== ENCOUNTER 2024-06-28 12:17 | Inpatient (IN) | payer OTHER, MEDICAID ==
[~2024-06-28] VITALS: Ht 154.9 cm; Wt 50.0 kg
[~2024-06-28 12:17] MED LIST changes: +LEVO500T91 PO; +MET500T PO; -PANC12002 PO; +PANC1CAP54 PO; +PANT40TA2 PO; +PERCOT PO
[2024-06-28] MEDS: MORPHINE SULFATE INJ 2 MG/ml SYRG IV ONE (16:16)
[2024-06-28] MEDS: ONDANSETRON HCL 4 MG/2 ML VIAL IV ONE (16:16)
[2024-06-28] MEDS: SODIUM CHLORIDE 0.9% 1,000 ML IV ONE (16:20)
[2024-06-28] MEDS: SODIUM CHLORIDE 0.9% 500 ML IVB ONE (16:20)
[2024-06-28 16:46] LABS: Basophils # (auto) 0 10 ^3/uL (0-0.2); Basophils % (auto) 0.6 % (0.0-2.0); Eosinophils # (auto) 0 10 ^3/uL (0-0.8); Eosinophils % (auto) 0.1 % (0.0-7.0); Hemoglobin 11.4 g/dL (12.2-16.2); Lymphocytes # (auto) 1.7 10 ^3/uL (0.4-5.4); Lymphocytes % (auto) 38.2 % (10.0-50.0); Mean Corpuscular Hemoglobin 27.7 pg (28.0-32.0); Mean Corpuscular Hgb Conc. 31.7 g/dL (32.0-36.0); Mean Corpuscular Volume 87.4 fL (80.0-100.0); Monocytes # (auto) 0.5 10 ^3/uL (0-1.3); Monocytes % (auto) 10.7 % (0.0-12.0); Neutrophils # (auto) 2.3 10 ^3/uL (1.6-8.6); Neutrophils % (auto) 50.4 % (37.0-80.0); Nucleated Red Blood Cells % 0.2 %; Red Blood Cells 4.12 10^6/uL (4.0-5.20); Red Cell Distribution Width 15.7 % (11.8-14.3); White Blood Cell 4.6 10^3/uL (4.4-10.8)
[2024-06-28 16:55] LABS: Alanine Aminotransferase 11 U/L (7-40); Alkaline Phosphatase 102 U/L (46-116); Anion Gap 8 (5-15); Aspartate Aminotransferase 18 U/L (13-40); BUN/Creatinine Ratio 13.6 (10.0-20.0); Blood Urea Nitrogen 9 mg/dL (9-23); Calcium 9.3 mg/dL (8.7-10.4); Carbon Dioxide 22 mmol/L (20-30); Chloride 109 mmol/L (98-107); Glucose 87 mg/dL (74-106); Lipase 45 U/L (12-53); Magnesium 1.9 mg/dL (1.6-2.6); Potassium 4.1 mmol/L (3.5-5.1); Sodium 139 mmol/L (136-145)
[2024-06-28 16:56] LABS: Albumin 3.9 g/dL (3.2-4.8); Bilirubin, Total 0.4 mg/dL (0.2-1.0); Total Protein 7.3 g/dL (5.7-8.2)
[2024-06-28] MEDS: IOHEXOL 300 MG/ML 100ML BOTTLE IJ ONE (17:15)
[2024-06-28 18:23] LABS: Urine Bacteria None Seen /hpf (None Seen)
[2024-06-28 18:47] LABS: Urine Blood Negative /uL (Negative); Urine Budding Yeast OCCASIONAL /hpf (None Seen); Urine Clarity Turbid (Clear); Urine Color Yellow (Yellow); Urine Mucus FEW (None Seen); Urine Protein, UAD 1+ (Negative); Urine Specific Gravity 1.028 (1.001-1.035); Urine Urobilinogen 2 mg/dL (Negative); Urine WBC 41 /hpf (0 - 5)
[2024-06-28] MEDS: cefTRIAXone 1GM/50ML D5W 50 ML IV ONE (21:16)
[2024-06-28] MEDS ORDERED: TEMAZEPAM 15 MG CAP PO PRN (21:30)
[2024-06-28] MEDS: PANTOPRAZOLE 40 MG TAB PO ONE (22:27)
[2024-06-28] MEDS: HYDROcodone-ACET 5/325MG TAB PO PRN (23:21)
[2024-06-28 23:25] VITALS: PULSE 72; RESP 14; O2SAT 99
[2024-06-29] VITALS (8 sets, daily range): BP systolic 112–141; BP diastolic 55–97; PULSE 76–96; RESP 16–19; TEMP 97.8–98.7; O2SAT 95–100
[2024-06-29] MEDS: PANTOPRAZOLE 40 MG TAB PO SCH (05:08)
[2024-06-29 05:55] LABS: Basophils # (auto) 0 10 ^3/uL (0-0.2); Basophils % (auto) 0.5 % (0.0-2.0); Eosinophils # (auto) 0 10 ^3/uL (0-0.8); Eosinophils % (auto) 0.6 % (0.0-7.0); Hematocrit 31.6 % (36.0-46.0); Hemoglobin 10.6 g/dL (12.2-16.2); Lymphocytes # (auto) 1.6 10 ^3/uL (0.4-5.4); Lymphocytes % (auto) 47.9 % (10.0-50.0); Mean Corpuscular Hemoglobin 28.8 pg (28.0-32.0); Mean Corpuscular Hgb Conc. 33.5 g/dL (32.0-36.0); Mean Corpuscular Volume 85.7 fL (80.0-100.0); Monocytes # (auto) 0.4 10 ^3/uL (0-1.3); Monocytes % (auto) 11.1 % (0.0-12.0); Neutrophils # (auto) 1.3 10 ^3/uL (1.6-8.6); Neutrophils % (auto) 39.9 % (37.0-80.0); Nucleated Red Blood Cells % 0.1 %; Red Blood Cells 3.69 10^6/uL (4.0-5.20); Red Cell Distribution Width 15.2 % (11.8-14.3); White Blood Cell 3.3 10^3/uL (4.4-10.8)
[2024-06-29 06:00] LABS: Anion Gap 5 (5-15); Carbon Dioxide 27 mmol/L (20-30); Chloride 107 mmol/L (98-107); Potassium 3.6 mmol/L (3.5-5.1); Sodium 139 mmol/L (136-145)
[2024-06-29 06:06] LABS: BUN/Creatinine Ratio 9.5 (10.0-20.0); Blood Urea Nitrogen 6 mg/dL (9-23); Glucose 83 mg/dL (74-106)
[2024-06-29] MEDS: MORPHINE SULFATE INJ 2 MG/ml SYRG IV PRN (08:28)
[2024-06-29] MEDS: cefTRIAXone 1GM/50ML D5W 50 ML IV SCH (08:38)
[2024-06-29] MEDS: FLUoxetine HCL 20 MG CAP PO SCH (08:38)
[2024-06-29] MEDS ORDERED: diphenhdrAMINE HCL 50 MG/1 ML VL IV PRN (09:30)
[2024-06-29] MEDS: ACETAMINOPHEN 325 MG TAB PO PRN (11:18)
[2024-06-29 12:01] LABS: Partial Thromboplastin Time 26.8 SEC (24.5-34.5); Prothrombin Time 10.6 sec (9.3-11.8)
[2024-06-29] MEDS: metroNIDAZOLE 500MG/100ML 100 ML IV SCH (13:46)
[2024-06-29] MEDS: SODIUM CHLORIDE 0.9% 1,000 ML IV SCH (13:46)
[2024-06-29] MEDS: D5W/SOD CHL 0.45% 1,000 ML IV SCH (16:54)
[2024-06-30] VITALS (7 sets, daily range): BP systolic 98–134; BP diastolic 62–72; PULSE 67–77; RESP 16–22; TEMP 97.6–98.7; O2SAT 95–100
[2024-06-30 00:22] LABS: Amphetamine Screen, Urine Pos (NEGATIVE); Barbiturate Scree,Urine Neg (NEGATIVE); Benzodiazephine Screen, Urine Neg (NEGATIVE)
[2024-06-30 00:23] LABS: Cannabinoid Screen, Urine Neg (NEGATIVE); Cocaine Screen, Urine Neg (NEGATIVE); Opiate Scree,Urine Pos (NEGATIVE); Phencyclidine Screen, Urine Neg (NEGATIVE)
[2024-06-30 05:51] LABS: Basophils # (auto) 0 10 ^3/uL (0-0.2); Basophils % (auto) 0.4 % (0.0-2.0); Eosinophils # (auto) 0 10 ^3/uL (0-0.8); Eosinophils % (auto) 0.5 % (0.0-7.0); Hematocrit 31.8 % (36.0-46.0); Hemoglobin 10.2 g/dL (12.2-16.2); Lymphocytes # (auto) 1.2 10 ^3/uL (0.4-5.4); Lymphocytes % (auto) 46.8 % (10.0-50.0); Mean Corpuscular Hemoglobin 27.8 pg (28.0-32.0); Mean Corpuscular Hgb Conc. 32.2 g/dL (32.0-36.0); Mean Corpuscular Volume 86.1 fL (80.0-100.0); Monocytes # (auto) 0.2 10 ^3/uL (0-1.3); Monocytes % (auto) 9.5 % (0.0-12.0); Neutrophils # (auto) 1.1 10 ^3/uL (1.6-8.6); Neutrophils % (auto) 42.8 % (37.0-80.0); Nucleated Red Blood Cells % 0.3 %; Red Blood Cells 3.69 10^6/uL (4.0-5.20); Red Cell Distribution Width 15.5 % (11.8-14.3); White Blood Cell 2.6 10^3/uL (4.4-10.8)
[2024-06-30 05:53] LABS: Chloride 109 mmol/L (98-107); Potassium 3.4 mmol/L (3.5-5.1); Sodium 140 mmol/L (136-145)
[2024-06-30 05:54] LABS: Anion Gap 5 (5-15); Calcium 8.5 mg/dL (8.7-10.4); Carbon Dioxide 26 mmol/L (20-30)
[2024-06-30 05:59] LABS: Glucose 79 mg/dL (74-106)
[2024-06-30 06:01] LABS: BUN/Creatinine Ratio 8.6 (10.0-20.0); Blood Urea Nitrogen < 5 mg/dL (9-23)
[2024-06-30] MEDS: POTASSIUM CHLORIDE 20 MEQ, LIDOCAINE 1% (LOCAL ANESTH.) 2 ML in SODIUM CHL 0.9% 100 ML IV ONE (06:45)
[2024-06-30] MEDS: ONDANSETRON HCL 4 MG/2 ML VIAL IV PRN (20:11)
[2024-07-01] VITALS (7 sets, daily range): BP systolic 111–122; BP diastolic 53–71; PULSE 52–84; RESP 14–20; TEMP 97.6–98.4; O2SAT 96–100
[2024-07-01 05:33] LABS: Basophils # (auto) 0 10 ^3/uL (0-0.2); Basophils % (auto) 0.2 % (0.0-2.0); Eosinophils # (auto) 0 10 ^3/uL (0-0.8); Eosinophils % (auto) 1.1 % (0.0-7.0); Hematocrit 32.9 % (36.0-46.0); Hemoglobin 10.4 g/dL (12.2-16.2); Lymphocytes % (auto) 47.9 % (10.0-50.0); Mean Corpuscular Hemoglobin 27.3 pg (28.0-32.0); Mean Corpuscular Hgb Conc. 31.7 g/dL (32.0-36.0); Monocytes # (auto) 0.2 10 ^3/uL (0-1.3); Monocytes % (auto) 11.4 % (0.0-12.0); Neutrophils # (auto) 0.9 10 ^3/uL (1.6-8.6); Neutrophils % (auto) 39.4 % (37.0-80.0); Red Blood Cells 3.82 10^6/uL (4.0-5.20); Red Cell Distribution Width 15.3 % (11.8-14.3); White Blood Cell 2.2 10^3/uL (4.4-10.8)
[2024-07-01 05:45] LABS: Anion Gap 1 (5-15); Carbon Dioxide 28 mmol/L (20-30); Chloride 109 mmol/L (98-107); Potassium 3.6 mmol/L (3.5-5.1); Sodium 138 mmol/L (136-145)
[2024-07-01 05:47] LABS: Calcium 8.8 mg/dL (8.7-10.4)
[2024-07-01 05:51] LABS: Glucose 80 mg/dL (74-106)
[2024-07-01 06:01] LABS: BUN/Creatinine Ratio 9.3 (10.0-20.0); Blood Urea Nitrogen < 5 mg/dL (9-23)
[2024-07-02] VITALS (7 sets, daily range): BP systolic 108–124; BP diastolic 48–83; PULSE 61–80; RESP 16–20; TEMP 97.9–98.7; O2SAT 96–100
[2024-07-02 07:13] LABS: Anion Gap 4 (5-15); Carbon Dioxide 28 mmol/L (20-30); Chloride 107 mmol/L (98-107); Potassium 3.9 mmol/L (3.5-5.1); Sodium 139 mmol/L (136-145)
[2024-07-02 07:14] LABS: Calcium 8.6 mg/dL (8.7-10.4)
[2024-07-02 07:18] LABS: Glucose 73 mg/dL (74-106)
[2024-07-02 07:21] LABS: BUN/Creatinine Ratio 9.4 (10.0-20.0); Blood Urea Nitrogen < 5 mg/dL (9-23)
[2024-07-02 07:26] LABS: Basophils # (auto) 0 10 ^3/uL (0-0.2); Eosinophils # (auto) 0 10 ^3/uL (0-0.8); Eosinophils % (auto) 0.8 % (0.0-7.0); Hematocrit 35.8 % (36.0-46.0); Hemoglobin 11.4 g/dL (12.2-16.2); Lymphocytes # (auto) 1.4 10 ^3/uL (0.4-5.4); Lymphocytes % (auto) 53.9 % (10.0-50.0); Mean Corpuscular Hgb Conc. 31.9 g/dL (32.0-36.0); Mean Corpuscular Volume 87.8 fL (80.0-100.0); Monocytes # (auto) 0.4 10 ^3/uL (0-1.3); Monocytes % (auto) 13.3 % (0.0-12.0); Neutrophils # (auto) 0.8 10 ^3/uL (1.6-8.6); Nucleated Red Blood Cells % 0.7 %; Red Blood Cells 4.08 10^6/uL (4.0-5.20); Red Cell Distribution Width 15.5 % (11.8-14.3); White Blood Cell 2.6 10^3/uL (4.4-10.8)
[2024-07-02] MEDS: levoFLOXacin 750MG 150 ML IV SCH (08:58)
[2024-07-02 15:46] LABS: % Iron Saturation 15.9 % (15-50)
[2024-07-03 01:00] VITALS: BP 120/64; PULSE 70; RESP 18; TEMP 98.6; O2SAT 100
[2024-07-03 05:48] LABS: Hematocrit 32.3 % (36.0-46.0); Hemoglobin 10.5 g/dL (12.2-16.2); Mean Corpuscular Hemoglobin 28.1 pg (28.0-32.0); Mean Corpuscular Hgb Conc. 32.6 g/dL (32.0-36.0); Mean Corpuscular Volume 86.1 fL (80.0-100.0); Red Blood Cells 3.75 10^6/uL (4.0-5.20); Red Cell Distribution Width 15.7 % (11.8-14.3); White Blood Cell 2.4 10^3/uL (4.4-10.8)
[2024-07-03 05:49] LABS: Chloride 109 mmol/L (98-107); Potassium 3.5 mmol/L (3.5-5.1); Sodium 140 mmol/L (136-145)
[2024-07-03 05:50] LABS: Anion Gap 5 (5-15); Calcium 8.6 mg/dL (8.7-10.4); Carbon Dioxide 26 mmol/L (20-30)
[2024-07-03 05:55] LABS: Glucose 85 mg/dL (74-106)
[2024-07-03 06:09] LABS: Band Neutrophils % (manual) 0; Basophils % (manual) 0 (0.0-2.0); Blast Cells 0; Eosinophils % (manual) 0 (0-7); Metamyelocytes % 0; Myelocytes % 0; Promyelocytes % 0; Reactive Lymphocytes 0
[2024-07-03 06:22] LABS: BUN/Creatinine Ratio 8.9 (10.0-20.0); Blood Urea Nitrogen < 5 mg/dL (9-23)
[2024-07-03 08:00] VITALS: PULSE 78; RESP 15; O2SAT 100
[2024-07-03 08:26] LABS: Lymphocytes % (manual) 59 (10.0-50.0); Monocytes % (manual) 7 (0-12); Platelet Estimate Adequate
[2024-07-03 10:50] LABS: Folate (Folic Acid) 12.74 ng/mL (>5.38)
[2024-07-03 12:53] VITALS: BP 122/70; PULSE 90; RESP 17; TEMP 98.1; O2SAT 100
[2024-07-03 14:29] VITALS: BP 122/70; PULSE 90; RESP 17; TEMP 98.1; O2SAT 100
[2024-07-03] MEDS ORDERED: FLUO40CA2 PO (16:31)
[2024-07-03] MEDS ORDERED: NAPR-746 PO (16:57)
[2024-07-03 17:00] VITALS: BP 123/72; PULSE 82; RESP 16; TEMP 98.1; O2SAT 99
== END 2024-07-03 18:00 | disposition home or self-care (01) | DRG 392 ==
LOC: ER 12:17 → OVERFLOW 21:23 → EAST 21:23
PROVIDERS: ADMIT Internal Medicine; ATTEND Internal Medicine
DX: A08.4 Viral intestinal infection, unspecified (principal); N39.0 Urinary tract infection, site not specified; F41.9 Anxiety disorder, unspecified; G89.4 Chronic pain syndrome; F17.210 Nicotine dependence, cigarettes, uncomplicated; K21.9 Gastro-esophageal reflux disease without esophagitis; D64.9 Anemia, unspecified; F32.9 Major depressive disorder, single episode, unspecified; Z90.49 Acquired absence of other specified parts of digestive tract; Z98.84 Bariatric surgery status; Z87.442 Personal history of urinary calculi
CPT/HCPCS: 36415; 71046; 74018; 74177; 76775; 80048; 80053; 80307; 81001; 82607; 82728; 82746; 83540; 83550; 83605; 83690; 83735; 84484; 85007; 85025; 85027; 85610; 85730; 86703; 87040; 87086; 93005; 96365; 96375; 97163; G0378; J1956; J2001; J2405; J3490

== ENCOUNTER 2024-07-28 18:42 | Emergency (ER) | payer OTHER, MEDICAID ==
[~2024-07-28] VITALS: Ht 157.5 cm; Wt 70.0 kg
[~2024-07-28 18:42] MED LIST changes: +FLUO40CA2 PO; +NAPR-746 PO
[2024-07-28] MEDS: KETOROLAC TROMETH 60MG/2ML VIAL IM ONE (20:28)
[2024-07-28] MEDS: OXYCODONE W/ ACETAMINOPHEN 5/325MG TABLET PO ONE (20:29)
[2024-07-29] MEDS ORDERED: IBUP-1456 PO (00:18)
[2024-07-29 00:23] VITALS: BP 125/81; PULSE 90; RESP 16; TEMP 98.6; O2SAT 99
== END 2024-07-29 00:28 | disposition home or self-care (01) ==
LOC: ER 18:42
DX: S82.64XA Nondisplaced fracture of lateral malleolus of right fibula, initial encounter for closed fracture (principal); S00.81XA Abrasion of other part of head, initial encounter; F17.210 Nicotine dependence, cigarettes, uncomplicated; F12.90 Cannabis use, unspecified, uncomplicated; F15.90 Other stimulant use, unspecified, uncomplicated; Z87.442 Personal history of urinary calculi; Z90.49 Acquired absence of other specified parts of digestive tract; Z90.89 Acquired absence of other organs; W01.0XXA Fall on same level from slipping, tripping and stumbling without subsequent striking against object, initial encounter; Y93.89 Activity, other specified; Y92.410 Unspecified street and highway as the place of occurrence of the external cause; Y99.8 Other external cause status
CPT/HCPCS: 29515; 70486; 73610; 73630; 96372; 99285; J1885

== ENCOUNTER 2024-10-05 11:56 | Emergency (ER) | payer OTHER, MEDICAID ==
[~2024-10-05] VITALS: Ht 154.9 cm; Wt 47.3 kg
[~2024-10-05 11:56] MED LIST changes: +IBUP-1456 PO
[2024-10-05] MEDS ORDERED: CLON-1004 PO (14:34)
--- NOTE | 2024-10-05 14:39 | ED.PDOC ---
History of Present Illness HPI Comments A 54 YEAR OLD FEMALE PRESENTS TO THE ED WITH COMPLAINT OF ANXIETY MEDICATION REFILL. PATIENT REPORTS THAT SHE HAD RAN OUT OF KLONOPIN AND REQUIRES A REFILL FOR ONE WEEK TO GET HER THROUGH HER NEXT REFILL. PATIENT RELAYS THAT SHE ALSO REQUESTS A DOSE OF ATIVAN TO HELP HER WITH HER ANXIETY RIGHT NOW BEFORE SHE GOES TO EMERGENCY RESPONSE COORDINATOR HER MEDICATION. PATIENT DENIES ANY SI, HI, AH, VH, HEADACHE, DIZZINESS, OR OTHER COMPLAINTS. NO OTHER SYMPTOMS OR MODIFYING FACTORS AT THIS TIME. Chief Complaint: Anxiety Time Seen by MD: 14:30 Primary Care Provider: MARLEY Reviewed Notes: Nurses Notes, Medications, Allergies Allergies: Coded Allergies: NO KNOWN ALLERGIES (Unverified , 07/07/18) Home Meds Active Scripts Clonazepam (Klonopin) 1 Mg Tab, 1 TAB PO BID, #14 TAB 0 Refills Prov:YANDEL CALVIN 10/05/24 Ibuprofen (Ibuprofen) 800 Mg Tab, 800 MG PO Q8HP PRN for 7 Days, #21 TAB Prov:ADEN BRAND 07/29/24 Naproxen (Naproxen) 500 Mg Tab, 500 MG PO BID PRN for 10 Days, #20 TAB Prov:BOB LYMAN RESIDENT 07/03/24 Fluoxetine HCl (Fluoxetine Hydrochloride) 40 Mg Cap, 40 MG PO DAILY for 30 Days, #30 CAP Prov:BOB LYMAN RESIDENT 07/03/24 Oxycodone W/ Acetaminophen (Percocet 5/325MG) 1 Tab Tb, 1 TAB PO TID PRN for 8 Days, #24 TAB Prov:SAVITA DELATORRE MD 05/30/24 Pantoprazole Sodium Sesquihydr (Protonix) 40 Mg Tab, 40 MG PO DAILY for 30 Days, #30 TAB 2 Refills Prov:SAVITA DELATORRE MD 05/30/24 Metronidazole (Metronidazole) 500 Mg Tab, 500 MG PO TID for 7 Days, #21 TAB Prov:SAVITA DELATORRE MD 05/30/24 Levofloxacin Hemihydrate (LEVAQUIN 500 MG) 500 Mg Tab, 500 MG PO DAILY for 7 Days, #7 TAB Prov:SAVITA DELATORRE MD 05/30/24 Nitrofurantoin Monohydrate Mac (Macrobid) 100 Mg Cap, 100 MG PO BID for 6 Days, #14 CAP Prov:ASHLEY COLLIER MD 03/30/24 Dicyclomine Hcl (BENTYL CAPSULE) 10 Mg Cp, 1 CAP PO TID for 5 Days, #15 CAP 11 Refills Prov:KALLIE LEON MD 03/30/24 Buspirone HCl (Buspirone Hydrochloride) 15 Mg Tab, 15 MG PO BID for 90 Days, #180 TAB 1 Refill Prov:BIA POE BEET FLUMER 03/06/24 Hydroxyzine Hcl (Hydroxyzine Hcl) 25 Mg Tab, 1 TAB PO TID PRN, #30 TAB Prov:BASIM ROBLERO MANUFACTURING ASSOCIATE 03/05/24 Hydroxyzine Hcl (Hydroxyzine Hcl) 25 Mg Tab, 1 TAB PO TID for 30 Days, #90 TAB 0 Refills Prov:BIA POE BEET FLUMER 01/03/24 Pancreatic Enzymes (Creon) 12,000 Unt Cap, 28774 UNT PO TIDWMEALS, #90 CAP Prov:DAYANA FERGUSON MD 07/10/22 Pantoprazole Sodium Sesquihydr (Pantoprazole Sodium) 40 Mg Tab, 40 MG PO DAILY, #30 TAB Prov:DAYANA FERGUSON MD 07/10/22 Reported Medications Lurasidone Hydrochloride (LATUDA) 120 Mg Tab, 1 TAB PO 07/02/22 Tiotropium [place] Monohydrate (Spiriva Handihaler) 18 Mcg Cap, 1 CAP INH DAILYPRN 07/02/22 Fluoxetine Hcl (Fluoxetine Hcl) 40 Mg Cap, 2 CAP PO 07/02/22 Alprazolam (Alprazolam) 1 Mg Tab, 1 TAB PO TID PRN for ANXIETY 07/02/22 Gabapentin (Gabapentin) 100 Mg Cap, 3 CAP PO TID 07/02/22 Information Source: Patient Mode of Arrival: Ambulatory Severity: Mild Timing: Hours Duration: Since onset Prehospital treatment: None Medication Refill: Ran out of Medication, For: Psychiatric (ANXIETY REACTION ) Past Medical History PAST MEDICAL HISTORY: Anxiety, Depression, Kidney Stones Surgical History: Cholecystectomy, TEXTILE ENGINEER History: No Pertinent TEXTILE ENGINEER History Family History Family History: Reviewed,noncontributory to illness Social History Smoker: Cigarettes, Less Than 1 Pack/Day Alcohol: Occasionally Drugs: Marijuana, Methamphetamine Lives In: Home Constitutional: reports: others (ANXIOUS ); denies: chills, diaphoresis, fatigue, fever, malaise, sweats, weakness EENTM: denies: blurred vision, double vision, ear bleeding, ear discharge, ear drainage, ear pain, ear ringing, eye pain, eye redness, hearing loss, mouth pain, mouth swelling, nasal discharge, nose bleeding, nose congestion, nose pain, photophobia, tearing, throat pain, throat swelling, voice changes, others Respiratory: denies: cough, hemoptysis, orthopnea, SOB at rest, shortness of breath, SOB with excertion, stridor, wheezing, others Cardiovascular: denies: chest pain, dizzy spells, diaphoresis, Dyspnea on exertion, edema, irregular heart beat, left arm pain, lightheadedness, palpitations, PND, syncope, others Gastrointestinal: denies: abdomen distended, abdominal pain, blood streaked bowels, constipated, diarrhea, dysphagia, difficulty swallowing, hematemesis, melena, nausea, poor appetite, poor fluid intake, rectal bleeding, rectal pain, vomiting, others Genitourinary: denies: abnormal vagina bleeding, burning, dyspareunia, dysuria, flank pain, frequency, hematuria, incontinence, pain, , vagina discharge, urgency, others Neurological: reports: tingling; denies: dizziness, fainting, headache, left sided numbness, left sided weakness, numbness, paresthesia, pre-existing deficit, right sided numbness, right sided weakness, seizure, speech problems, tremors, weakness, others Musculoskeletal: denies: back pain, gout, joint pain, joint swelling, muscle p ain, muscle stiffness, neck pain, others Integumetry: denies: bruises, change in color, change in hair/nails, dryness, laceration, lesions, lumps, rash, wounds, others Allergic/Immunocompromised: denies: Difficulty Healing, Frequent Infections, Hives, Itching, others Hematologic/Lymphatic: denies: anemia, blood clots, easy bleeding, easy bruising, swollen glands, others Endocrine: denies: excessive hunger, excessive sweating, excessive thirst, excessive urination, flushing, intolerance to cold, intolerance to heat, unexplained weight gain, unexplained weight loss, others Psychiatric: reports: anxiety; denies: bipolar disorder, depression, hopeless, panic disorder, schizophrenia, sleepless, suicidal, others All Other Systems: Reviewed and Negative Physical Exam General Appearance: No Apparent Distress, Normal, Other (ANXIOUS ) HEENT: Normal ENT Inspection, PERRL/EOMI Neck: Full Range of Motion, Non-Tender, Normal, Normal Inspection Respiratory: Chest Non-Tender, Lungs Clear, No Accessory Muscle Use, No Respiratory Distress, Normal Breath Sounds Cardiovascular: No Edema, No JVD, No Murmur, No Gallop, Normal Peripheral Pulses, Regular Rate/Rhythm Breast Exam: Deferred Gastrointestinal: No Organomegaly, Non Tender, No Pulsatile Mass, Normal Bowel Sounds, Soft Genitalia: Deferred Pelvic: Deferred Rectal: Deferred Extremities: No calf tenderness, Normal capillary refill, Normal inspection, Normal range of motion, Non-tender, No pedal edema Musculoskeletal : Apperance: Normal Neurologic: Alert, keyboarding teacher II-XII nml as Tested, No Motor Deficits, Normal Affect, Normal Mood, No Sensory Deficits Cerebellar Function: Normal Reflexes: Normal Skin: Dry, Normal Color, Warm Peripheral Pulses: 2+ carotid (R), 2+ carotid (L) Lymphatic: No Adenopathy Was a procedure done? Was a procedure done?: No Differential Dx Considerations may include: ANXIETY, MEDICATION REFILL X-Ray, Labs, Meds, VS Vital Signs Date Time Temp Pulse Resp B/P (MAP) Pulse Ox O2 Delivery O2 Flow Rate FiO2 10/05/24 12:14 98.2 96 20 131/83 (99) 98 X-Ray, Labs, Meds, VS Comment TREATMENT: 1MG OF ATIVAN Time of 1ST Reevaluation: 15:20 Reevaluation 1ST: Improved Patient Education/Counseling: Diagnosis, Treatment, Need For Follow Up Family Education/Counseling: Diagnosis, Treatment, Need For Follow Up, No Family Present Medical Screening: No EMC Exist At This Time Departure 1 Departure Time of Disposition: 15:20 Impression: Primary Impression: Anxiety Additional Impression: Medication refill Disposition: HOME / SELF CARE / HOMELESS Condition: Stable Additional Instructions: FOLLOW-UP WITH PCP IN 1 TO 2 DAYS. TAKE MEDICATIONS PRESCRIBED. RETURN TO ED FOR ANY NEW OR WORSENING SYMPTOMS. e-Prescriptions Clonazepam (Klonopin) 1 Mg Tab 1 TAB PO BID, #14 TAB 0 Refills Prov: YANDEL CALVIN 10/05/24 Discharged With: Self, Relative Critical Care Note Critical Care Time?: No Stability Stability form required: No Heart Score Heart Score: Heart Score Response (Comments) Value History N/A 0 EKG N/A 0 Age N/A 0 Risk Factors N/A 0 Troponin N/A 0 Total 0 I personally scribed for YANDEL CALVIN ([email or web address]) on 10/05/24 at 14:39. Electronically submitted by Cash Nguyen ([email or web address]). YANDEL CALVIN Oct 05, 2024 14:39
[2024-10-05 15:01] VITALS: BP 136/86; PULSE 86; RESP 16; TEMP 98.3; O2SAT 96
[2024-10-05] MEDS: LORazepam 0.5 MG TAB PO ONE (15:01)
== END 2024-10-05 15:10 | disposition home or self-care (01) ==
LOC: ER 11:56
DX: F41.9 Anxiety disorder, unspecified (principal); F32.A Depression, unspecified; F17.210 Nicotine dependence, cigarettes, uncomplicated; Z76.0 Encounter for issue of repeat prescription; Z79.899 Other long term (current) drug therapy; Z90.49 Acquired absence of other specified parts of digestive tract; Z87.442 Personal history of urinary calculi

== ENCOUNTER 2024-10-14 11:31 | Emergency (ER) | payer OTHER, MEDICAID ==
[~2024-10-14] VITALS: Ht 154.9 cm; Wt 50.0 kg
[2024-10-14 11:52] VITALS: PULSE 88; RESP 18; O2SAT 98
--- NOTE | 2024-10-14 11:52 | ED.PDOC ---
History of Present Illness HPI Comments 54Y F with PMHx kidney stones, depression, anxiety, , and cholecystectomy presents to ED for chief complaint anxiety. Pt states she has been having an anxiety attack since last night since daughter drove home with her medication on accident. Pt has been unable to reach daughter and last took her medication 2 days ago. Pt is taking Zoloft and Klonopin 1mg bid. Pt has been taking Klonopin for 1yr but states that her psychiatrist retired and she has not found a new doctor yet to give her the correct medications. Pt denies SI/HI. Pt has been seen 10+ times at [facility] for cc anxiety from [id number], all notes reviewed. Pt was last discharged from [facility] on 07/03/2024 for dx acute abd pain. No known allergies. Time Seen by MD: 11:38 Primary Care Provider: MARLEY Reviewed Notes: Medications, Allergies Allergies: Coded Allergies: NO KNOWN ALLERGIES (Unverified , 07/07/18) Home Meds Active Scripts Clonazepam (Klonopin) 1 Mg Tab, 1 TAB PO BID, #14 TAB 0 Refills Prov:YANDEL CALVIN 10/05/24 Ibuprofen (Ibuprofen) 800 Mg Tab, 800 MG PO Q8HP PRN for 7 Days, #21 TAB Prov:ADEN BRANDP 07/29/24 Naproxen (Naproxen) 500 Mg Tab, 500 MG PO BID PRN for 10 Days, #20 TAB Prov:BOB LYMAN RESIDENT 07/03/24 Fluoxetine HCl (Fluoxetine Hydrochloride) 40 Mg Cap, 40 MG PO DAILY for 30 Days, #30 CAP Prov:BOB LYMAN RESIDENT 07/03/24 Oxycodone W/ Acetaminophen (Percocet 5/325MG) 1 Tab Tb, 1 TAB PO TID PRN for 8 Days, #24 TAB Prov:SAVITA DELATORRE MD 05/30/24 Pantoprazole Sodium Sesquihydr (Protonix) 40 Mg Tab, 40 MG PO DAILY for 30 Days, #30 TAB 2 Refills Prov:SAVITA DELATORRE MD 05/30/24 Metronidazole (Metronidazole) 500 Mg Tab, 500 MG PO TID for 7 Days, #21 TAB Prov:SAVITA DELATORRE MD 05/30/24 Levofloxacin Hemihydrate (LEVAQUIN 500 MG) 500 Mg Tab, 500 MG PO DAILY for 7 Days, #7 TAB Prov:SAVITA DELATORRE MD 05/30/24 Nitrofurantoin Monohydrate Mac (Macrobid) 100 Mg Cap, 100 MG PO BID for 6 Days, #14 CAP Prov:ASHLEY COLLIER MD 03/30/24 Dicyclomine Hcl (BENTYL CAPSULE) 10 Mg Cp, 1 CAP PO TID for 5 Days, #15 CAP 11 Refills Prov:KALLIE LEON MD 03/30/24 Buspirone HCl (Buspirone Hydrochloride) 15 Mg Tab, 15 MG PO BID for 90 Days, #180 TAB 1 Refill Prov:BIA POE KETTLE COORDINATOR 03/06/24 Hydroxyzine Hcl (Hydroxyzine Hcl) 25 Mg Tab, 1 TAB PO TID PRN, #30 TAB Prov:BASIM ROBLERO GLUE SPRAYER 03/05/24 Hydroxyzine Hcl (Hydroxyzine Hcl) 25 Mg Tab, 1 TAB PO TID for 30 Days, #90 TAB 0 Refills Prov:BIA POE KETTLE COORDINATOR 01/03/24 Pancreatic Enzymes (Creon) 12,000 Unt Cap, 18660 UNT PO TIDWMEALS, #90 CAP Prov:DAYANA FERGUSON MD 07/10/22 Pantoprazole Sodium Sesquihydr (Pantoprazole Sodium) 40 Mg Tab, 40 MG PO DAILY, #30 TAB Prov:DAYANA FERGUSON MD 07/10/22 Reported Medications Lurasidone Hydrochloride (LATUDA) 120 Mg Tab, 1 TAB PO 07/02/22 Tiotropium [place] Monohydrate (Spiriva Handihaler) 18 Mcg Cap, 1 CAP INH DAILYPRN 07/02/22 Fluoxetine Hcl (Fluoxetine Hcl) 40 Mg Cap, 2 CAP PO 07/02/22 Alprazolam (Alprazolam) 1 Mg Tab, 1 TAB PO TID PRN for ANXIETY 07/02/22 Gabapentin (Gabapentin) 100 Mg Cap, 3 CAP PO TID 07/02/22 Information Source: Patient Mode of Arrival: Ambulatory Severity: Moderate Timing: Days Duration: Since onset Medication Refill: Ran out of Medication, For: Psychiatric (anxiety) Past Medical History PAST MEDICAL HISTORY: Anxiety, Depression, Kidney Stones Surgical History: Cholecystectomy, SEAMAN OFFICER History: No Pertinent SEAMAN OFFICER History Family History Family History: Reviewed,noncontributory to illness Social History Smoker: Cigarettes, Less Than 1 Pack/Day Alcohol: Occasionally Drugs: Marijuana, Methamphetamine Lives In: Home Constitutional: denies: chills, diaphoresis, fatigue, fever, malaise, sweats, weakness, others EENTM: denies: blurred vision, double vision, ear bleeding, ear discharge, ear drainage, ear pain, ear ringing, eye pain, eye redness, hearing loss, mouth pain, mouth swelling, nasal discharge, nose bleeding, nose congestion, nose pain, photophobia, tearing, throat pain, throat swelling, voice changes, others Respiratory: denies: cough, hemoptysis, orthopnea, SOB at rest, shortness of breath, SOB with excertion, stridor, wheezing, others Cardiovascular: denies: chest pain, dizzy spells, diaphoresis, Dyspnea on exertion, edema, irregular heart beat, left arm pain, lightheadedness, palpitations, PND, syncope, others Gastrointestinal: denies: abdomen distended, abdominal pain, blood streaked bowels, constipated, diarrhea, dysphagia, difficulty swallowing, hematemesis, melena, nausea, poor appetite, poor fluid intake, rectal bleeding, rectal pain, vomiting, others Genitourinary: denies: abnormal vagina bleeding, burning, dyspareunia, dysuria, flank pain, frequency, hematuria, incontinence, pain, , vagina discharge, urgency, others Neurological: denies: dizziness, fainting, headache, left sided numbness, left sided weakness, numbness, paresthesia, pre-existing deficit, right sided numbness, right sided weakness, seizure, speech problems, tingling, tremors, weakness, others Musculoskeletal: denies: back pain, gout, joint pain, joint swelling, muscle pain, muscle stiffness, neck pain, others Integumetry: denies: bruises, change in color, change in hair/nails, dryness, laceration, lesions, lumps, rash, wounds, others Allergic/Immunocompromised: denies: Difficulty Healing, Frequent Infections, Hives, Itching, others Hematologic/Lymphatic: denies: anemia, blood clots, easy bleeding, easy bruising, swollen glands, others Endocrine: denies: excessive hunger, excessive sweating, excessive thirst, excessive urination, flushing, intolerance to cold, intolerance to heat, unexplained weight gain, unexplained weight loss, others Psychiatric: reports: anxiety; denies: bipolar disorder, depression, hopeless, panic disorder, schizophrenia, sleepless, suicidal, others All Other Systems: Reviewed and Negative Physical Exam General Appearance: Moderate Distress, Other (tearful) HEENT: Normal ENT Inspection, Pharynx Normal, TMs Normal Neck: Full Range of Motion, Non-Tender, Normal, Normal Inspection Respiratory: Chest Non-Tender, Lungs Clear, No Accessory Muscle Use, No Respiratory Distress, Normal Breath Sounds Cardiovascular: No Edema, No JVD, No Murmur, No Gallop, Normal Peripheral Pulses, Regular Rate/Rhythm Breast Exam: Deferred Gastrointestinal: No Organomegaly, Non Tender, No Pulsatile Mass, Normal Bowel Sounds, Soft Genitalia: Deferred Pelvic: Deferred Rectal: Deferred Extremities: No calf tenderness, Normal capillary refill, Normal inspection, Normal range of motion, Non-tender, No pedal edema Musculoskeletal : Apperance: Normal Neurologic: Alert, early childhood coordinator II-XII nml as Tested, No Motor Deficits, Normal Affect, Normal Mood, No Sensory Deficits Cerebellar Function: Normal Reflexes: Normal Skin: Dry, Normal Color, Warm Lymphatic: No Adenopathy Was a procedure done? Was a procedure done?: No Differential Dx Considerations may include: Panic attack, anxiety reaction X-Ray, Labs, Meds, VS Vital Signs Date Time Temp Pulse Resp B/P (MAP) Pulse Ox O2 Delivery O2 Flow Rate FiO2 10/14/24 11:52 98.2 88 18 118/80 (93) 100 98.2 10/14/24 11:52 88 18 98 Room Air* 0 21 10/14/24 11:44 98.2 98 16 136/72 (93) 99 Current Medications Medications (Trade) Dose Ordered Sig/Bruno Route Start Time Stop Time Status Last Admin Lorazepam (Ativan Inj) 1 mg ONCE ONCE IM 10/14/24 11:45 10/14/24 11:46 DC 10/14/24 12:00 Time of 1ST Reevaluation: 12:08 Reevaluation 1ST: Unchanged Patient Education/Counseling: Diagnosis, Treatment Family Education/Counseling: No Family Present Additional Information I reviewed the following notes from the pt's past medical encounters: [facility] discharge 07/03/2024 and 05/30/2024. [facility] ED visits from [id number] for cc anxiety. I discussed treatments and results with medical personnel. Departure 1 Departure Time of Disposition: 14:37 (Patient presented likely with anxiety. Patient received Ativan is now feeling better. We will discharge patient home with outpatient follow up) Impression: Primary Impression: Anxiety reaction Disposition: HOME / SELF CARE / HOMELESS Condition: Stable Additional Instructions: You likely had a anxiety reaction today. You should take your medication as directed. You should follow up with your regular doctor within 1 week. You should stay well rested and well hydrated. If your symptoms worsen or you have any other concerns please return to the emergency room. Discharged With: Self Critical Care Note Critical Care Time?: No Stability Stability form required: No I personally scribed for JASPAL MUNOZ MD ([facility]) on 10/14/24 at 11:52. Electronically submitted by Peace Fisher ([email or web address]). I personally scribed for JASPAL MUNOZ MD ([facility]) on 10/14/24 at 11:53. Electronically submitted by Peace Fisher ([email or web address]). I personally scribed for JASPAL MUNOZ MD ([facility]) on 10/14/24 at 11:56. Electronically submitted by Peace Fisher ([email or web address]). JASPAL MUNOZ MD Oct 14, 2024 11:52
[2024-10-14] MEDS: LORazepam 2MG/ML-1ML VIAL IM ONE (12:00)
[2024-10-14 14:48] VITALS: BP 106/66; PULSE 98; RESP 18; TEMP 98.4; O2SAT 99
== END 2024-10-14 14:53 | disposition home or self-care (01) ==
LOC: ER 11:31
DX: F41.1 Generalized anxiety disorder (principal); F32.A Depression, unspecified; F17.210 Nicotine dependence, cigarettes, uncomplicated; F15.90 Other stimulant use, unspecified, uncomplicated; Z90.49 Acquired absence of other specified parts of digestive tract; Z79.899 Other long term (current) drug therapy
CPT/HCPCS: 96372; 99283; J2060

== ENCOUNTER 2024-10-16 13:17 | Emergency (ER) | payer OTHER, MEDICAID ==
[~2024-10-16] VITALS: Ht 154.9 cm; Wt 44.7 kg
[2024-10-16 13:22] VITALS: BP 129/79; PULSE 104; RESP 20; O2SAT 97
--- NOTE | 2024-10-16 13:35 | ED.PDOC ---
Psychiatric HPI Comments 54Y F with PMHx kidney stones, depression, anxiety, , and c holecystectomy presents to ED for chief complaint anxiety. Pt states she has been having an anxiety attack since last night. Reports she lost her medication yesterday. Pt is taking Zoloft and Klonopin 1mg bid. States her psychiatrist is Zuhair and he is CARD DEALER. Pt denies SI/HI. Pt has been seen 10+ times at [facility] ED for cc anxiety from [id number], all notes reviewed. Pt was last discharged from [facility] on 07/03/2024 for dx acute abd pain. No known allergies. Chief Complaint: Anxiety Time Seen by MD: 13:29 Primary Care Provider: MARLEY Reviewed Notes: Nurses Notes, Medications, Allergies Information Source: Patient Past Medical History PAST MEDICAL HISTORY: Anxiety, Depression, Kidney Stones Surgical History: Cholecystectomy, CARDIAC EXERCISE PHYSIOLOGIST History: No Pertinent CARDIAC EXERCISE PHYSIOLOGIST History Family History Family History: Reviewed,noncontributory to illness Social History Smoker: Cigarettes, Less Than 1 Pack/Day Alcohol: Occasionally Drugs: Marijuana, Methamphetamine Lives In: Home All Other Systems: Reviewed and Negative (Per HPI) Physical Exam General Appearance: No Apparent Distress, Normal HEENT: Normal ENT Inspection, Pharynx Normal, TMs Normal Neck: Full Range of Motion, Non-Tender, Normal, Normal Inspection Respiratory: Chest Non-Tender, Lungs Clear, No Accessory Muscle Use, No Respiratory Distress, Normal Breath Sounds Cardiovascular: No Edema, No JVD, No Murmur, No Gallop, Normal Peripheral Pulses, Regular Rate/Rhythm Breast Exam: Deferred Gastrointestinal: No Organomegaly, Non Tender, No Pulsatile Mass, Normal Bowel Sounds, Soft Genitalia: Deferred Pelvic: Deferred Rectal: Deferred Extremities: No calf tenderness, Normal capillary refill, Normal inspection, Normal range of motion, Non-tender, No pedal edema Musculoskeletal : Apperance: Normal Neurologic: Alert, order schedule clerk II-XII nml as Tested, No Motor Deficits, Normal Affect, Normal Mood, No Sensory Deficits Cerebellar Function: Normal Reflexes: Normal Skin: Dry, Normal Color, Warm Lymphatic: No Adenopathy Was a procedure done? Was a procedure done?: No Psych Differential Dx Psych. Differential Dx: Anxiety X-Ray, Labs, Meds, VS History and physical consistent panic attack and seeking behavior May consider brown paper bag or facemask for rebreathing. hydroxyzine prn Discussed lifestyle modification Getting enough sleep/meditating/staying active and exercising/eating healthy diet Lifestyle changes can be an effective way to relieve some of the stress and anxiety patient may cope with everyday. Most of the natural remedies consist of caring for the body, participating in healthy activities, and eliminating unhealthy ones Provided patient with mental health information and encouraged patient to speak with the therapist and psychologist Patient denies suicidal/homicidal ideation and auditory/visual hallucination Advised patient to notify a provider call urgent mental health services if symptoms recur or worsen Patient verbalized understanding Time of 1ST Reevaluation: 13:33 Reevaluation 1ST: Improved Patient Education/Counseling: Diagnosis, Treatment Family Education/Counseling: Diagnosis, Treatment Departure 1 Departure Time of Disposition: 13:34 Impression: Primary Impression: Adjustment disorder Qualified Codes: F43.20 - Adjustment disorder, unspecified Disposition: 01 HOME / SELF CARE / HOMELESS Condition: Stable e-Prescriptions Hydroxyzine Hcl (Hydroxyzine Hcl) 25 Mg Tab 1 TAB PO TID for 10 Days, #30 TAB 0 Refills Prov: BIA POE NP 10/16/24 Discharged With: Self Critical Care Note Critical Care Time?: No Stability Stability form required: No Heart Score Heart Score: Heart Score Response (Comments) Value History N/A 0 EKG N/A 0 Age N/A 0 Risk Factors N/A 0 Troponin N/A 0 Total 0 BIA POE NP Oct 16, 2024 13:35
== END 2024-10-16 13:35 | disposition home or self-care (01) ==
LOC: ER 13:17
DX: F43.23 Adjustment disorder with mixed anxiety and depressed mood (principal); R10.9 Unspecified abdominal pain; F17.210 Nicotine dependence, cigarettes, uncomplicated; F41.9 Anxiety disorder, unspecified; F32.A Depression, unspecified; Z98.890 Other specified postprocedural states; Z87.442 Personal history of urinary calculi; Z90.49 Acquired absence of other specified parts of digestive tract

== ENCOUNTER 2024-11-06 09:13 | Emergency (ER) | payer OTHER, MEDICAID ==
[~2024-11-06] VITALS: Ht 154.9 cm; Wt 47.2 kg
[2024-11-06] MEDS ORDERED: HYDR-3682 PO (10:28)
--- NOTE | 2024-11-06 10:29 | ED.PDOC ---
History of Present Illness HPI Comments 54Y F presents for anxiety. States her psychiatrist is Zuhair and he is WOOD CRAFTSMAN. Pt denies SI/HI. Pt has been seen 10+ times at [facility] ED for cc anxiety from 2018- 2023, all notes reviewed. Pt was last discharged from [facility] on 07/03/2024 for dx acute abd pain. No known allergies. Chief Complaint: Anxiety Time Seen by MD: 09:31 Primary Care Provider: MARLEY Reviewed Notes: Nurses Notes, Medications, Allergies Allergies: Coded Allergies: NO KNOWN ALLERGIES (Unverified , 07/07/18) Home Meds Active Scripts Hydroxyzine Hcl (Hydroxyzine Hcl) 25 Mg Tab, 1 TAB PO TIDPRN PRN for 10 Days, #30 TAB 0 Refills Prov:BIA POE WOOD CRAFTSMAN 11/06/24 Hydroxyzine Hcl (Hydroxyzine Hcl) 25 Mg Tab, 1 TAB PO TID for 10 Days, #30 TAB 0 Refills Prov:BIA POE WOOD CRAFTSMAN 10/16/24 Clonazepam (Klonopin) 1 Mg Tab, 1 TAB PO BID, #14 TAB 0 Refills Prov:YANDEL CALVIN 10/05/24 Ibuprofen (Ibuprofen) 800 Mg Tab, 800 MG PO Q8HP PRN for 7 Days, #21 TAB Prov:ADEN BRAND SPECIALTIES OPERATOR 07/29/24 Naproxen (Naproxen) 500 Mg Tab, 500 MG PO BID PRN for 10 Days, #20 TAB Prov:BOB LYMAN RESIDENT 07/03/24 Fluoxetine HCl (Fluoxetine Hydrochloride) 40 Mg Cap, 40 MG PO DAILY for 30 Days, #30 CAP Prov:BOB LYMAN RESIDENT 07/03/24 Oxycodone W/ Acetaminophen (Percocet 5/325MG) 1 Tab Tb, 1 TAB PO TID PRN for 8 Days, #24 TAB Prov:SAVITA DELATORRE MD 05/30/24 Pantoprazole Sodium Sesquihydr (Protonix) 40 Mg Tab, 40 MG PO DAILY for 30 Days, #30 TAB 2 Refills Prov:SAVITA DELATORRE MD 05/30/24 Metronidazole (Metronidazole) 500 Mg Tab, 500 MG PO TID for 7 Days, #21 TAB Prov:SAVITA DELATORRE MD 05/30/24 Levofloxacin Hemihydrate (LEVAQUIN 500 MG) 500 Mg Tab, 500 MG PO DAILY for 7 Days, #7 TAB Prov:SAVITA DELATORRE MD 05/30/24 Nitrofurantoin Monohydrate Mac (Macrobid) 100 Mg Cap, 100 MG PO BID for 6 Days, #14 CAP Prov:ASHLEY COLLIER MD 03/30/24 Dicyclomine Hcl (BENTYL CAPSULE) 10 Mg Cp, 1 CAP PO TID for 5 Days, #15 CAP 11 Refills Prov:KALLIE LEON MD 03/30/24 Buspirone HCl (Buspirone Hydrochloride) 15 Mg Tab, 15 MG PO BID for 90 Days, #180 TAB 1 Refill Prov:BIA POE WOOD CRAFTSMAN 03/06/24 Hydroxyzine Hcl (Hydroxyzine Hcl) 25 Mg Tab, 1 TAB PO TID PRN, #30 TAB Prov:BASIM ROBLERO SPECIALTIES OPERATOR 03/05/24 Hydroxyzine Hcl (Hydroxyzine Hcl) 25 Mg Tab, 1 TAB PO TID for 30 Days, #90 TAB 0 Refills Prov:BIA POE WOOD CRAFTSMAN 01/03/24 Pancreatic Enzymes (Creon) 12,000 Unt Cap, 19938 UNT PO TIDWMEALS, #90 CAP Prov:DAYANA FERGUSON MD 07/10/22 Pantoprazole Sodium Sesquihydr (Pantoprazole Sodium) 40 Mg Tab, 40 MG PO DAILY, #30 TAB Prov:DAYANA FERGUSON MD 07/10/22 Reported Medications Lurasidone Hydrochloride (LATUDA) 120 Mg Tab, 1 TAB PO 07/02/22 Tiotropium [place] Monohydrate (Spiriva Handihaler) 18 Mcg Cap, 1 CAP INH DAILYPRN 07/02/22 Fluoxetine Hcl (Fluoxetine Hcl) 40 Mg Cap, 2 CAP PO 07/02/22 Alprazolam (Alprazolam) 1 Mg Tab, 1 TAB PO TID PRN for ANXIETY 07/02/22 Gabapentin (Gabapentin) 100 Mg Cap, 3 CAP PO TID 07/02/22 Information Source: Patient Mode of Arrival: Ambulatory Past Medical History PAST MEDICAL HISTORY: Anxiety, Depression, Kidney Stones Surgical History: Cholecystectomy, BIBLICAL LANGUAGES PROFESSOR History: No Pertinent BIBLICAL LANGUAGES PROFESSOR History Family History Family History: Reviewed,noncontributory to illness Social History Smoker: Cigarettes, Less Than 1 Pack/Day Alcohol: Occasionally Drugs: Marijuana, Methamphetamine Lives In: Home All Other Systems: Reviewed and Negative (HPI) Physical Exam General Appearance: No Apparent Distress, Normal HEENT: Normal ENT Inspection, Pharynx Normal, TMs Normal Neck: Full Range of Motion, Non-Tender, Normal, Normal Inspection Respiratory: Chest Non-Tender, Lungs Clear, No Accessory Muscle Use, No Respiratory Distress, Normal Breath Sounds Cardiovascular: No Edema, No JVD, No Murmur, No Gallop, Normal Peripheral Pulses, Regular Rate/Rhythm Breast Exam: Deferred Gastrointestinal: No Organomegaly, Non Tender, No Pulsatile Mass, Normal Bowel Sounds, Soft Genitalia: Deferred Pelvic: Deferred Rectal: Deferred Extremities: No calf tenderness, Normal capillary refill, Normal inspection, Normal range of motion, Non-tender, No pedal edema Musculoskeletal : Apperance: Normal Neurologic: Alert, zinc miner II-XII nml as Tested, No Motor Deficits, Normal Affect, Normal Mood, No Sensory Deficits Cerebellar Function: Normal Reflexes: Normal Skin: Dry, Normal Color, Warm Lymphatic: No Adenopathy Was a procedure done? Was a procedure done?: No Differential Dx Considerations may include: Anxiety X-Ray, Labs, Meds, VS Vital Signs Date Time Temp Pulse Resp B/P (MAP) Pulse Ox O2 Delivery O2 Flow Rate FiO2 11/06/24 10:40 90 19 99 Room Air 11/06/24 10:40 98.1 90 19 139/90 (106) 99 98.1 11/06/24 09:28 98.1 90 19 139/90 (106) 99 X-Ray, Labs, Meds, VS Comment Seeking behavior Requesting Ativan injection Vital signs stable May consider brown paper bag or facemask for rebreathing. Discussed lifestyle modification Getting enough sleep/meditating/staying active and exercising/eating healthy diet Lifestyle changes can be an effective way to relieve some of the stress and anxiety patient may cope with everyday. Most of the natural remedies consist of caring for the body, participating in healthy activities, and eliminating unhealthy ones Provided patient with mental health information and encouraged patient to speak with the therapist and psychologist Patient denies suicidal/homicidal ideation and auditory/visual hallucination Advised patient to notify a provider call urgent mental health services if symptoms recur or worsen Patient verbalized understanding Time of 1ST Reevaluation: 10:00 Reevaluation 1ST: Improved Patient Education/Counseling: Diagnosis, Treatment Family Education/Counseling: Diagnosis, Treatment Departure 1 Departure Time of Disposition: 10:27 Impression: Primary Impression: Anxiety Disposition: 01 HOME / SELF CARE / HOMELESS Condition: Stable e-Prescriptions Hydroxyzine Hcl (Hydroxyzine Hcl) 25 Mg Tab 1 TAB PO TIDPRN PRN for 10 Days, #30 TAB 0 Refills Prov: BIA POE NP 11/06/24 Discharged With: Self Critical Care Note Critical Care Time?: No Stability Stability form required: No Heart Score Heart Score: Heart Score Response (Comments) Value History N/A 0 EKG N/A 0 Age N/A 0 Risk Factors N/A 0 Troponin N/A 0 Total 0 BIA POE NP Nov 06, 2024 10:28
[2024-11-06 10:40] VITALS: BP 139/90; PULSE 90; RESP 19; TEMP 98.1; O2SAT 99
== END 2024-11-06 10:50 | disposition home or self-care (01) ==
LOC: ER 09:13
DX: F41.9 Anxiety disorder, unspecified (principal); F34.9 Persistent mood [affective] disorder, unspecified; F17.210 Nicotine dependence, cigarettes, uncomplicated; F12.90 Cannabis use, unspecified, uncomplicated; F15.90 Other stimulant use, unspecified, uncomplicated; Z87.442 Personal history of urinary calculi; Z90.49 Acquired absence of other specified parts of digestive tract; Z79.899 Other long term (current) drug therapy

== ENCOUNTER 2024-11-12 08:07 | Inpatient (IN) | payer OTHER, MEDICAID ==
[~2024-11-12] VITALS: Ht 160 cm; Wt 46.9 kg
[2024-11-12 08:54] LABS: Urine Amorphous Crystal FEW /hpf (None Seen); Urine Bacteria FEW /hpf (None Seen); Urine Blood Negative /uL (Negative); Urine Clarity Clear (Clear); Urine Color Yellow (Yellow); Urine Protein, UAD Negative (Negative); Urine Specific Gravity 1.021 (1.001-1.035); Urine Urobilinogen 2 mg/dL (Negative); Urine WBC 2 /hpf (0 - 5); Urine pH 6.5 (5.0-9.0)
[2024-11-12 09:10] LABS: Basophils # (auto) 0.1 10 ^3/uL (0-0.2); Basophils % (auto) 1.1 % (0.0-2.0); Eosinophils # (auto) 0 10 ^3/uL (0-0.8); Eosinophils % (auto) 0.4 % (0.0-7.0); Hematocrit 32.8 % (36.0-46.0); Hemoglobin 10.5 g/dL (12.2-16.2); Lymphocytes # (auto) 1.9 10 ^3/uL (0.4-5.4); Lymphocytes % (auto) 23.9 % (10.0-50.0); Mean Corpuscular Hemoglobin 25.3 pg (28.0-32.0); Mean Corpuscular Hgb Conc. 31.9 g/dL (32.0-36.0); Mean Corpuscular Volume 79.4 fL (80.0-100.0); Monocytes # (auto) 0.4 10 ^3/uL (0-1.3); Monocytes % (auto) 5.5 % (0.0-12.0); Neutrophils # (auto) 5.5 10 ^3/uL (1.6-8.6); Neutrophils % (auto) 69.1 % (37.0-80.0); Platelet Count (auto) 403 10^3/uL (140-450); Red Blood Cells 4.13 10^6/uL (4.0-5.20); Red Cell Distribution Width 15.9 % (11.8-14.3)
[2024-11-12 09:19] LABS: Sodium 143 mmol/L (136-145)
[2024-11-12 09:20] LABS: Anion Gap 8 (5-15); Calcium 9.6 mg/dL (8.7-10.4); Carbon Dioxide 26 mmol/L (20-31)
[2024-11-12 09:22] LABS: Chloride 109 mmol/L (98-107)
[2024-11-12 09:25] LABS: BUN/Creatinine Ratio 16.9 (10.0-20.0); Blood Urea Nitrogen 14 mg/dL (9-23)
[2024-11-12 09:30] LABS: Glucose 109 mg/dL (74-106)
--- NOTE | 2024-11-12 11:06 | ED.PDOC ---
History of Present Illness HPI Comments 54 y/o F presents with c/o abdominal pain, nausea, poor appetite, headache, and dizziness, today. Patient is a poor historian and endorses on having symptoms for "awhile." She comments on Hx of chronic proctitis and recent abdominal Sx that was performed by a Iman Michael following her "intestines erupting." Patient reports no additional relevant or pertinent Hx, such as any recent injuries, travel, or spoiled food intake. She denies having any vomiting, diarrhea, fever, chills, urinary symptoms, or other associated symptoms or modifiers at this time. Chief Complaint: Nausea/Vomiting Time Seen by MD: 09:35 Primary Care Provider: MARLEY Reviewed Notes: Nurses Notes, Medications, Allergies Allergies: Coded Allergies: NO KNOWN ALLERGIES (Unverified , 07/07/18) Home Meds Active Scripts Hydroxyzine Hcl (Hydroxyzine Hcl) 25 Mg Tab, 1 TAB PO TIDPRN PRN for 10 Days, #30 TAB 0 Refills Prov:BIA POE NP 11/06/24 Hydroxyzine Hcl (Hydroxyzine Hcl) 25 Mg Tab, 1 TAB PO TID for 10 Days, #30 TAB 0 Refills Prov:BIA POE NP 10/16/24 Clonazepam (Klonopin) 1 Mg Tab, 1 TAB PO BID, #14 TAB 0 Refills Prov:YANDEL CALVIN 10/05/24 Ibuprofen (Ibuprofen) 800 Mg Tab, 800 MG PO Q8HP PRN for 7 Days, #21 TAB Prov:ADEN BRAND 07/29/24 Naproxen (Naproxen) 500 Mg Tab, 500 MG PO BID PRN for 10 Days, #20 TAB Prov:BOB LYMAN RESIDENT 07/03/24 Fluoxetine HCl (Fluoxetine Hydrochloride) 40 Mg Cap, 40 MG PO DAILY for 30 Days, #30 CAP Prov:BOB LYMAN RESIDENT 07/03/24 Oxycodone W/ Acetaminophen (Percocet 5/325MG) 1 Tab Tb, 1 TAB PO TID PRN for 8 Days, #24 TAB Prov:SAVITA DELATORRE MD 05/30/24 Pantoprazole Sodium Sesquihydr (Protonix) 40 Mg Tab, 40 MG PO DAILY for 30 Days, #30 TAB 2 Refills Prov:SAVITA DELATORRE MD 05/30/24 Metronidazole (Metronidazole) 500 Mg Tab, 500 MG PO TID for 7 Days, #21 TAB Prov:SAVITA DELATORRE MD 05/30/24 Levofloxacin Hemihydrate (LEVAQUIN 500 MG) 500 Mg Tab, 500 MG PO DAILY for 7 Days, #7 TAB Prov:SAVITA DELATORRE MD 05/30/24 Nitrofurantoin Monohydrate Mac (Macrobid) 100 Mg Cap, 100 MG PO BID for 6 Days, #14 CAP Prov:ASHLEY COLLIER MD 03/30/24 Dicyclomine Hcl (BENTYL CAPSULE) 10 Mg Cp, 1 CAP PO TID for 5 Days, #15 CAP 11 Refills Prov:KALLIE MOSELEY MD 03/30/24 Buspirone HCl (Buspirone Hydrochloride) 15 Mg Tab, 15 MG PO BID for 90 Days, #180 TAB 1 Refill Prov:BIA POE POWDER NIPPER 03/06/24 Hydroxyzine Hcl (Hydroxyzine Hcl) 25 Mg Tab, 1 TAB PO TID PRN, #30 TAB Prov:BASIM ROBLERO NETWORK RELAY TESTER 03/05/24 Hydroxyzine Hcl (Hydroxyzine Hcl) 25 Mg Tab, 1 TAB PO TID for 30 Days, #90 TAB 0 Refills Prov:BIA POE NP 01/03/24 Pancreatic Enzymes (Creon) 12,000 Unt Cap, 76214 UNT PO TIDWMEALS, #90 CAP Prov:DAYANA FERGUSON MD 07/10/22 Pantoprazole Sodium Sesquihydr (Pantoprazole Sodium) 40 Mg Tab, 40 MG PO DAILY, #30 TAB Prov:DAYANA FERGUSON MD 07/10/22 Reported Medications Lurasidone Hydrochloride (LATUDA) 120 Mg Tab, 1 TAB PO 07/02/22 Tiotropium [place] Monohydrate (Spiriva Handihaler) 18 Mcg Cap, 1 CAP INH DAILYPRN 07/02/22 Fluoxetine Hcl (Fluoxetine Hcl) 40 Mg Cap, 2 CAP PO 07/02/22 Alprazolam (Alprazolam) 1 Mg Tab, 1 TAB PO TID PRN for ANXIETY 07/02/22 Gabapentin (Gabapentin) 100 Mg Cap, 3 CAP PO TID 07/02/22 Mode of Arrival: Ambulatory Past Medical History PAST MEDICAL HISTORY: Anemia, Anxiety, Depression, Kidney Stones, UTI'S Past Medical History (Other): chronic proctitis, entercolitis leukopenia Surgical History: Cholecystectomy, Surgical History (Other): abdominal Sx PRINTING ENGINEER History: No Pertinent PRINTING ENGINEER History Family History Family History: Reviewed,noncontributory to illness Social History Smoker: Cigarettes, Less Than 1 Pack/Day Alcohol: Occasionally Drugs: Marijuana, Methamphetamine Lives In: Home Gastrointestinal: reports: abdominal pain, poor appetite Neurological: reports: dizziness, headache All Other Systems: Reviewed and Negative (negatives unless otherwise stated above or in HPI) Physical Exam General Appearance: Moderate Distress, Thin HEENT: Normal ENT Inspection, Pharynx Normal, TMs Normal Neck: Full Range of Motion, Non-Tender, Normal, Normal Inspection Respiratory: Chest Non-Tender, Lungs Clear, No Accessory Muscle Use, No Respiratory Distress, Normal Breath Sounds Cardiovascular: No Edema, No JVD, No Murmur, No Gallop, Normal Peripheral Pulses, Regular Rate/Rhythm Breast Exam: Deferred Gastrointestinal: No Organomegaly, Non Tender, No Pulsatile Mass, Normal Bowel Sounds, Soft Genitalia: Deferred Pelvic: Deferred Rectal: Deferred Extremities: No calf tenderness, Normal capillary refill, Normal inspection, Normal range of motion, Non-tender, No pedal edema Musculoskeletal : Apperance: Normal Neurologic: Alert, collar padder blindstitch II-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 Was a procedure done?: No Differential Dx Considerations may include: proctitis, gastritis, gastroenteritis, chronic pain syndrome, malnutrition, electrolyte imbalance, dehydration, acute abdomen, UTI, spoiled food X-Ray, Labs, Meds, VS Vital Signs Date Time Temp Pulse Resp B/P (MAP) Pulse Ox O2 Delivery O2 Flow Rate FiO2 11/12/24 10:55 93 18 132/72 (92) 98 11/12/24 08:20 99.7 98 18 116/84 (95) 98 Lab Test 11/12/24 08:52 12/29/24 08:30 Range/Units White Blood Count 8.0 4.4-10.8 10^3/uL Red Blood Count 4.13 4.0-5.20 10^6/uL Hemoglobin 10.5 L 12.2-16.2 g/dL Hematocrit 32.8 L 36.0-46.0 % Mean Corpuscular Volume 79.4 L 80.0-100.0 fL Mean Corpuscular Hemoglobin 25.3 L 28.0-32.0 pg Mean Corpuscular Hemoglobin Concent 31.9 L 32.0-36.0 g/dL Red Cell Distribution Width 15.9 H 11.8-14.3 % Platelet Count 403 140-450 10^3/uL Mean Platelet Volume 7.4 6.9-10.8 fL Neutrophils (%) (Auto) 69.1 37.0-80.0 % Lymphocytes (%) (Auto) 23.9 10.0-50.0 % Monocytes (%) (Auto) 5.5 0.0-12.0 % Eosinophils (%) (Auto) 0.4 0.0-7.0 % Basophils (%) (Auto) 1.1 0.0-2.0 % Neutrophils # (Auto) 5.5 1.6-8.6 10 ^3/uL Lymphocytes # (Auto) 1.9 0.4-5.4 10 ^3/uL Monocytes # (Auto) 0.4 0-1.3 10 ^3/uL Eosinophils # (Auto) 0 0-0.8 10 ^3/uL Basophils # (Auto) 0.1 0-0.2 10 ^3/uL Nucleated Red Blood Cells 0.0 % Sodium Level 143 136-145 mmol/L Potassium Level 4.0 3.5-5.1 mmol/L Chloride Level 109 H 98-107 mmol/L Carbon Dioxide Level 26 20-31 mmol/L Anion Gap 8 5-15 Blood Urea Nitrogen 14 9-23 mg/dL Creatinine 0.83 0.550-1.02 mg/dL Glomerular Filtration Rate Calc 84 >90 mL/min BUN/Creatinine Ratio 16.9 10.0-20.0 Serum Glucose 109 H 74-106 mg/dL Calcium Level 9.6 8.7-10.4 mg/dL Urine Color Yellow Yellow Urine Clarity Clear Clear Urine pH 6.5 5.0-9.0 Urine Specific [place] 1.021 1.001-1.035 Urine Protein Negative Negative Urine Ketones Negative Negative Urine Blood Negative Negative /uL Urine Nitrite Negative Negative Urine Bilirubin Negative Negative Urine Urobilinogen 2 H Negative mg/dL Urine Leukocyte Esterase Negative Negative /uL Urine RBC 1 0 - 4 /hpf Urine WBC 2 0 - 5 /hpf Urine Squamous Epithelial Cells Few <5 /hpf Urine Amorphous Crystals Few None Seen /hpf Urine Bacteria Few H None Seen /hpf Urine Glucose Normal Normal mg/dL Patient alert. Has not been eating well. Had surgery by Dr. Michael for bowel resection. Vitals stable. Generalized weakness. Failure to thrive. WBC within normal limits. Establish intravenous access. Was given fluids. Requiring endoscopy. GI consultation. Reviewed her previous visit. Explained to the patient. Continue cardiac monitoring. Time of 1ST Reevaluation: 10:05 Reevaluation 1ST: Unchanged Patient Education/Counseling: Diagnosis, Treatment Family Education/Counseling: No Family Present Additional Information I reviewed the following notes from patient's past medical encounters: ED physician document on 11/06/24 and discharge summary report on 07/03/24 The following tests were ordered, and results were reviewed by me: BMP, CMP, UA I discussed treatment and results with medical personnel Departure 1 Departure Time of Disposition: 12:47 Impression: Primary Impression: Failure to thrive Qualified Codes: R62.7 - Adult failure to thrive Disposition: 09 ADMITTED INPATIENT Admit to: Med Surg Condition: Guarded Critical Care Note Critical Care Time?: No Stability Stability form required: No Heart Score Heart Score: Heart Score Response (Comments) Value History N/A 0 EKG N/A 0 Age N/A 0 Risk Factors N/A 0 Troponin N/A 0 Total 0 I personally scribed for HAROON LOGAN MD ([email or web address]) on 11/12/24 at 11:06. Electronically submitted by Bird Moseley ([email or web address]). HAROON LOGAN MD Nov 12, 2024 11:06
[2024-11-12] MEDS ORDERED: ACETAMINOPHEN 325 MG TAB PO PRN (13:15)
[2024-11-12] MEDS ORDERED: ONDANSETRON HCL 4 MG/2 ML VIAL IV PRN (13:15)
--- NOTE | 2024-11-12 13:21 | DVHHP2 ---
History of Present Illness Reason for Visit: Abdominal pain History of Present Illness This 54-year-old female presents in the ED with a chief complaint of abdominal pain. The patient reports diffuse abdominal pain associated with nausea, vomiting, and poor appetite for one day. The patient states symptoms started a few months ago post exploratory laparotomy for bowel perforation. The patient currently denies fever, chills, hematemesis, constipation, or melena. Past medical history of bowel perforation, methamphetamine use, anxiety, and depression. Past Medical History As stated in HPI Past Surgical History Status post exploratory laparotomy Family History Reviewed, non-contributory to the management of this case. Past Social History The patient lives at home, denies smoking, alcohol or illicit drugs abuse. Review of Systems Constitutional: Yes: Malaise; No: Fever, Chills, Sweats, Weakness, Other Eyes: No: Pain, Vision change, Conjunctivae inflammation, Eyelid inflammation, Other, Redness ENT: No: Ear pain, Ear discharge, Nose pain, Nose discharge, Nose congestion, Mouth pain, Mouth swelling, Throat pain, Throat swelling, Other Respiratory: No: Cough, Dry, Shortness of breath, SOB with excertion, Wheezing, Hemoptysis, Pleuritic Pain, Sputum, Wheezing, Other Gastrointestinal: Nausea, Vomiting, Abdominal Pain; No: Diarrhea, Constipation, Melena, Hematochezia, Other Genitourinary: No Dysuria, No Frequency, No Incontinence, No Hematuria, No Retention, No Other Musculoskeletal: No: other, neck pain, shoulder pain, arm pain, back pain, hand pain, leg pain, foot pain Skin: No: Rash, Lesions, Jaundice, Bruising, Other Neurological: No: Weakness, Numbness, Incoordination, Change in speech, Confusion, Seizures, Other Allergies: Coded Allergies: NO KNOWN ALLERGIES (Unverified , 07/07/18) Exam Vital Signs Vital Signs Date Time Temp Pulse Resp B/P (MAP) Pulse Ox O2 Delivery O2 Flow Rate FiO2 11/12/24 10:55 93 18 132/72 (92) 98 11/12/24 08:20 99.7 General Appearance: Alert, Oriented X3, mild distress HEENT: Atraumatic, PERRLA, EOMI, Mucous membr. moist/pink Respiratory: Clear to auscultation, Normal air movement Cardiovascular: Regular rate, Normal S1, Normal S2 Abdominal: Normal bowel sounds, Soft, No tenderness Extremities: No clubbing, No cyanosis, No edema, Normal pulses Skin: No rashes, No breakdown, No significant lesion Neuro: Normal gait, Normal speech, Normal tone Psych/Mental Status: Other (Anxious) Labs/Xrays Labs Test 11/12/24 08:52 11/12/24 08:30 Range/Units White Blood Count 8.0 4.4-10.8 10^3/uL Red Blood Count 4.13 4.0-5.20 10^6/uL Hemoglobin 10.5 L 12.2-16.2 g/dL Hematocrit 32.8 L 36.0-46.0 % Mean Corpuscular Volume 79.4 L 80.0-100.0 fL Mean Corpuscular Hemoglobin 25.3 L 28.0-32.0 pg Mean Corpuscular Hemoglobin Concent 31.9 L 32.0-36.0 g/dL Red Cell Distribution Width 15.9 H 11.8-14.3 % Platelet Count 403 140-450 10^3/uL Mean Platelet Volume 7.4 6.9-10.8 fL Neutrophils (%) (Auto) 69.1 37.0-80.0 % Lymphocytes (%) (Auto) 23.9 10.0-50.0 % Monocytes (%) (Auto) 5.5 0.0-12.0 % Eosinophils (%) (Auto) 0.4 0.0-7.0 % Basophils (%) (Auto) 1.1 0.0-2.0 % Neutrophils # (Auto) 5.5 1.6-8.6 10 ^3/uL Lymphocytes # (Auto) 1.9 0.4-5.4 10 ^3/uL Monocytes # (Auto) 0.4 0-1.3 10 ^3/uL Eosinophils # (Auto) 0 0-0.8 10 ^3/uL Basophils # (Auto) 0.1 0-0.2 10 ^3/uL Nucleated Red Blood Cells 0.0 % Sodium Level 143 136-145 mmol/L Potassium Level 4.0 3.5-5.1 mmol/L Chloride Level 109 H 98-107 mmol/L Carbon Dioxide Level 26 20-31 mmol/L Anion Gap 8 5-15 Blood Urea Nitrogen 14 9-23 mg/dL Creatinine 0.83 0.550-1.02 mg/dL Glomerular Filtration Rate Calc 84 >90 mL/min BUN/Creatinine Ratio 16.9 10.0-20.0 Serum Glucose 109 H 74-106 mg/dL Calcium Level 9.6 8.7-10.4 mg/dL Urine Color Yellow Yellow Urine Clarity Clear Clear Urine pH 6.5 5.0-9.0 Urine Specific [place] 1.021 1.001-1.035 Urine Protein Negative Negative Urine Ketones Negative Negative Urine Blood Negative Negative /uL Urine Nitrite Negative Negative Urine Bilirubin Negative Negative Urine Urobilinogen 2 H Negative mg/dL Urine Leukocyte Esterase Negative Negative /uL Urine RBC 1 0 - 4 /hpf Urine WBC 2 0 - 5 /hpf Urine Squamous Epithelial Cells Few <5 /hpf Urine Amorphous Crystals Few None Seen /hpf Urine Bacteria Few H None Seen /hpf Urine Glucose Normal Normal mg/dL Assessment/Plan Assessment/Plan # acute abdominal pain # nausea and vomiting # history of meth use # hx of bowel perforation s/p exploratory laparotomy # GERD Admit to medical unit CT abd/pelvis pending Continue PPI IV fluid Clear liquid diet Pain control Antiemetics Check UA, check for UDS # anxiety/depression Continue with hydroxyzine, Klonopin, Buspirone DVT, PUD prophylaxis Medical plan discussed with patient Plan discussed with: Patient My Orders Orders - PAM SOSA Procedure Category Date Status Time Admit ADMIT 11/12/24 Verified 13:09 Code Status CODE 11/12/24 Verified 13:09 0.9% Ns 1000 Ml PHA 11/12/24 Verified 13:15 Hydrocodone-Acet PHA 11/12/24 Verified 5/325mg Tab ([place] 13:15 Ondansetron Hcl PHA 11/12/24 Verified (Zofran) 13:15 Complete Blood Count LAB 11/13/24 Verified 04:00 Comprehensive LAB 11/13/24 Verified Metabolic Panel 04:00 Condition: Fair MALI 11/12/24 Verified 13:09 Acetaminophen Tablet PHA 11/12/24 Verified (Tylenol Tablet) 13:15 Clear Liq Diet DIET 11/12/24 Verified Lunch Morphine Sulfate PHA 11/12/24 Verified Injection 13:15 Ct Ab Pel Wo Con-No CT 11/12/24 Verified Oral Or Iv 13:09 Gabapentin Capsule PHA 11/12/24 Verified (Neurontin Capsule) 14:00 Pantoprazole Tablet PHA 11/13/24 Verified (Protonix Tablet) 10:00 (Nf) Alprazolam PHA 11/12/24 Verified 13:15 (Nf) Clonazepam PHA 11/12/24 Verified (Klonopin) 22:00 (Nf) Hydroxyzine Hcl PHA 11/12/24 Verified 14:00 Date of Service: Nov 12, 2024 Billing Provider: PAM SOSA Common Visit Codes: [id number] INP/OBS CARE (HIGH) PAM SOSA Nov 12, 2024 13:21
[2024-11-12] MEDS ORDERED: hydrOXYzine 25 MG TAB or CAP PO PRN (14:15)
--- NOTE | 2024-11-12 14:26 | DVH ---
Exam: CT CT AB PEL WO CON-NO ORAL OR IV History: abd pain Comparison Study: 10/27/2024 TECHNIQUE: Multidetector CT of the abdomen and pelvis without contrast. Axial, coronal and sagittal m ultiplanar reformats were obtained from the axial data set by the technologist. Radiation Dose Information: CT Dose: CTDI volume is 5.84 mGy. Dose-length product is 282.19 mGy*cm FINDINGS: The lung bases are clear. Partially visualized heart is unremarkable. Trace pericardial effusion. Status post cholecystectomy. Liver, spleen, pancreas and adrenal glands are unremarkable. Kidneys, ureters and urinary bladder unremarkable. Uterus and adnexa are unremarkable. Postsurgical changes of the stomach. Limited evaluation of the gastrointestinal tract given noncontra st imaging. Postop changes of the small bowel loops within the left hemiabdomen. The remainder of the small bowel loops are fluid-filled and nondistended. Appendix is unremarkable. Large amount of fecal material within the colon. No evidence of intraperitoneal free air or free fluid. No evidence of aortic aneurysm. No significant lymphadenopathy. Midline upper abdominal subcutaneous fat soft tissue thickening/scarring. The soft tissues otherwise unremarkable. Compression fracture of T12 with near-complete loss of central vertebral body height. Minimal retropulsion of the superior vertebral body of T12 into the spinal canal without significant spinal canal stenosis. Mild right-sided neural foramina stenosis. IMPRESSION: Limited noncontrast imaging. Constipation. Postsurgical changes of the stomach and small bowel. Fluid-filled nondistended small bowel loops which may be seen with enteritis.
[2024-11-12] MEDS: SODIUM CHLORIDE 0.9% 1,000 ML IV SCH (14:30)
[2024-11-12] MEDS: GABAPENTIN 100 MG CAP PO SCH (14:45)
[2024-11-12] MEDS: HYDROcodone-ACET 5/325MG TAB PO PRN (14:51)
[2024-11-12] MEDS: MORPHINE SULFATE INJ 2 MG/ml SYRG IV PRN (20:49)
[2024-11-12 21:00] VITALS: BP 110/74; PULSE 79; RESP 18; TEMP 97.2; O2SAT 98
[2024-11-12] MEDS: clonazePAM 0.5 MG TAB PO SCH (23:43)
[2024-11-13] MEDS: ALPRAZolam 0.5 MG TAB PO PRN (01:19)
[2024-11-13 05:00] VITALS: BP 107/34; PULSE 83; RESP 16; TEMP 97.8; O2SAT 97
[2024-11-13 06:17] LABS: Basophils # (auto) 0 10 ^3/uL (0-0.2); Basophils % (auto) 0.6 % (0.0-2.0); Eosinophils # (auto) 0 10 ^3/uL (0-0.8); Eosinophils % (auto) 0.5 % (0.0-7.0); Hematocrit 30.5 % (36.0-46.0); Hemoglobin 9.9 g/dL (12.2-16.2); Lymphocytes # (auto) 2.2 10 ^3/uL (0.4-5.4); Lymphocytes % (auto) 36.5 % (10.0-50.0); Mean Corpuscular Hemoglobin 25.9 pg (28.0-32.0); Mean Corpuscular Hgb Conc. 32.4 g/dL (32.0-36.0); Mean Corpuscular Volume 79.8 fL (80.0-100.0); Monocytes # (auto) 0.3 10 ^3/uL (0-1.3); Monocytes % (auto) 5.3 % (0.0-12.0); Neutrophils # (auto) 3.4 10 ^3/uL (1.6-8.6); Neutrophils % (auto) 57.1 % (37.0-80.0); Nucleated Red Blood Cells % 0.1 %; Platelet Count (auto) 369 10^3/uL (140-450); Red Blood Cells 3.83 10^6/uL (4.0-5.20); Red Cell Distribution Width 16.1 % (11.8-14.3); White Blood Cell 5.9 10^3/uL (4.4-10.8)
[2024-11-13 06:47] LABS: Alanine Aminotransferase 36 U/L (7-40); Anion Gap 6 (5-15); BUN/Creatinine Ratio 22.5 (10.0-20.0); Blood Urea Nitrogen 16 mg/dL (9-23); Calcium 9.6 mg/dL (8.7-10.4); Carbon Dioxide 27 mmol/L (20-31); Potassium 4.3 mmol/L (3.5-5.1); Sodium 142 mmol/L (136-145)
[2024-11-13 06:48] LABS: Albumin 3.6 g/dL (3.2-4.8); Bilirubin, Total 0.3 mg/dL (0.2-1.0); Total Protein 6.4 g/dL (5.7-8.2)
[2024-11-13 06:50] LABS: Alkaline Phosphatase 160 U/L (46-116); Aspartate Aminotransferase 135 U/L (13-40); Chloride 109 mmol/L (98-107); Glucose 72 mg/dL (74-106)
[2024-11-13 08:00] VITALS: PULSE 78; RESP 17; O2SAT 96
[2024-11-13 09:00] VITALS: BP 128/68; PULSE 92; RESP 16; TEMP 98; O2SAT 98
[2024-11-13] MEDS: PANTOPRAZOLE 40 MG TAB PO SCH (09:09)
[2024-11-13 12:05] LABS: Hepatitis B Surface Antigen Negative (Negative)
[2024-11-13 13:24] LABS: Hepatitis C Antibody Negative (Negative)
== END 2024-11-13 10:25 | disposition left against medical advice (07) | DRG 392 ==
LOC: ER 08:07 → OVERFLOW 13:09 → WEST WING 22:18
PROVIDERS: ADMIT Registered Nurse; ATTEND Family Medicine
DX: R10.9 Unspecified abdominal pain (principal); Z68.1 Body mass index [BMI] 19.9 or less, adult; K21.9 Gastro-esophageal reflux disease without esophagitis; R62.7 Adult failure to thrive; F41.9 Anxiety disorder, unspecified; Z53.29 Procedure and treatment not carried out because of patient's decision for other reasons; F32.A Depression, unspecified; F17.210 Nicotine dependence, cigarettes, uncomplicated; Z90.49 Acquired absence of other specified parts of digestive tract; Z87.442 Personal history of urinary calculi; Z79.899 Other long term (current) drug therapy
CPT/HCPCS: 36415; 74176; 80048; 80053; 81001; 85025; 86803; 87081; 87340; G0378

== ENCOUNTER 2024-11-13 12:58 | Emergency (ER) | payer OTHER, MEDICAID ==
[~2024-11-13] VITALS: Ht 154.9 cm; Wt 48.3 kg
[2024-11-13 13:40] VITALS: BP 112/65; RESP 20; O2SAT 98
[2024-11-13 13:42] VITALS: PULSE 74
[2024-11-13] MEDS: MORPHINE SULFATE 4 MG/ML SYR/VIAL IV ONE (13:45)
[2024-11-13] MEDS: ONDANSETRON HCL 4 MG/2 ML VIAL IV ONE (13:45)
[2024-11-13] MEDS: SODIUM CHLORIDE 0.9% 1,000 ML IV ONE (13:45)
--- NOTE | 2024-11-13 14:04 | DVH ---
EXAM: XY CHEST TWO VIEWS ROUTINE CLINICAL HISTORY: epigastric pain COMPARISON: XY CHEST TWO VIEWS ROUTINE on DOS: 06/28/24, CHEST TWO VIEWS ROUTINE on DOS: 07/08/22, CXR2 on DOS: 07/08/22 TECHNIQUE: Frontal and lateral view of the chest was obtained FINDINGS: Lines and Tubes: None Lungs: No focal consolidation. Pleura: No effusion. No pneumothorax. Cardiomediastinal contours: Unremarkable Bones: No acute osseous abnormality. IMPRESSION: No acute cardiopulmonary disease.
[2024-11-13 15:26] LABS: Albumin 3.8 g/dL (3.2-4.8); Anion Gap 6 (5-15); BUN/Creatinine Ratio 16.3 (10.0-20.0); Blood Urea Nitrogen 13 mg/dL (9-23); Calcium 9.3 mg/dL (8.7-10.4); Carbon Dioxide 23 mmol/L (20-31); Glucose 90 mg/dL (74-106); Lipase 30 U/L (12-53); Potassium 4.2 mmol/L (3.5-5.1); Sodium 138 mmol/L (136-145)
[2024-11-13 15:27] LABS: Bilirubin, Total 0.4 mg/dL (0.2-1.0); Total Protein 6.7 g/dL (5.7-8.2)
[2024-11-13 15:41] LABS: Alanine Aminotransferase 157 U/L (7-40); Alkaline Phosphatase 251 U/L (46-116); Aspartate Aminotransferase 359 U/L (13-40); Chloride 109 mmol/L (98-107)
--- NOTE | 2024-11-13 16:20 | ED.PDOC ---
GI ASSESSMENT HPI Comments 54y F who presents to the ED for chief compliant of abdominal pain. Pt states she was at [facility] 1 days prior and states she was dx with pancreatitis and admitted. Pt states earlier this AM, she left AMA. Pt state she came back to the ED to get admitted and receive tx. Pt state she is having increasing abdominal pain and increased generalized weakness now. Chief Complaint: Abdominal Pain Time Seen by MD: 15:30 Primary Care Provider: MARLEY Reviewed Notes: Nurses Notes Allergies: Coded Allergies: NO KNOWN ALLERGIES (Unverified , 07/07/18) Home Meds Active Scripts Hydroxyzine Hcl (Hydroxyzine Hcl) 25 Mg Tab, 1 TAB PO TIDPRN PRN for 10 Days, #30 TAB 0 Refills Prov:BIA POE HORSE RACING ANALYST 11/06/24 Hydroxyzine Hcl (Hydroxyzine Hcl) 25 Mg Tab, 1 TAB PO TID for 10 Days, #30 TAB 0 Refills Prov:BIA POE HORSE RACING ANALYST 10/16/24 Clonazepam (Klonopin) 1 Mg Tab, 1 TAB PO BID, #14 TAB 0 Refills Prov:YANDEL CALVIN 10/05/24 Ibuprofen (Ibuprofen) 800 Mg Tab, 800 MG PO Q8HP PRN for 7 Days, #21 TAB Prov:ADEN BRANDP 07/29/24 Naproxen (Naproxen) 500 Mg Tab, 500 MG PO BID PRN for 10 Days, #20 TAB Prov:BOB LYMAN RESIDENT 07/03/24 Fluoxetine HCl (Fluoxetine Hydrochloride) 40 Mg Cap, 40 MG PO DAILY for 30 Days, #30 CAP Prov:BOB LYMAN RESIDENT 07/03/24 Oxycodone W/ Acetaminophen (Percocet 5/325MG) 1 Tab Tb, 1 TAB PO TID PRN for 8 Days, #24 TAB Prov:SAVITA DELATORRE MD 05/30/24 Pantoprazole Sodium Sesquihydr (Protonix) 40 Mg Tab, 40 MG PO DAILY for 30 Days, #30 TAB 2 Refills Prov:SAVITA DELATORRE MD 05/30/24 Metronidazole (Metronidazole) 500 Mg Tab, 500 MG PO TID for 7 Days, #21 TAB Prov:SAVITA DELATORRE MD 7/16/24 Levofloxacin Hemihydrate (LEVAQUIN 500 MG) 500 Mg Tab, 500 MG PO DAILY for 7 Days, #7 TAB Prov:SAVITA DELATORRE MD 05/30/24 Nitrofurantoin Monohydrate Mac (Macrobid) 100 Mg Cap, 100 MG PO BID for 6 Days, #14 CAP Prov:ASHLEY COLLIER MD 03/30/24 Dicyclomine Hcl (BENTYL CAPSULE) 10 Mg Cp, 1 CAP PO TID for 5 Days, #15 CAP 11 Refills Prov:KALLIE LEON MD 03/30/24 Buspirone HCl (Buspirone Hydrochloride) 15 Mg Tab, 15 MG PO BID for 90 Days, #18 0 TAB 1 Refill Prov:BIA POE HORSE RACING ANALYST 03/06/24 Hydroxyzine Hcl (Hydroxyzine Hcl) 25 Mg Tab, 1 TAB PO TID PRN, #30 TAB Prov:BASIM ROBLERO FEEDMOBILE DRIVER 03/05/24 Hydroxyzine Hcl (Hydroxyzine Hcl) 25 Mg Tab, 1 TAB PO TID for 30 Days, #90 TAB 0 Refills Prov:BIA POE HORSE RACING ANALYST 01/03/24 Pancreatic Enzymes (Creon) 12,000 Unt Cap, 82425 UNT PO TIDWMEALS, #90 CAP Prov:DAYANA FERGUSON MD 07/10/22 Pantoprazole Sodium Sesquihydr (Pantoprazole Sodium) 40 Mg Tab, 40 MG PO DAILY, #30 TAB Prov:DAYANA FERGUSON MD 07/10/22 Reported Medications Lurasidone Hydrochloride (LATUDA) 120 Mg Tab, 1 TAB PO 07/02/22 Tiotropium [place] Monohydrate (Spiriva Handihaler) 18 Mcg Cap, 1 CAP INH DAILYPRN 07/02/22 Fluoxetine Hcl (Fluoxetine Hcl) 40 Mg Cap, 2 CAP PO 07/02/22 Alprazolam (Alprazolam) 1 Mg Tab, 1 TAB PO TID PRN for ANXIETY 07/02/22 Gabapentin (Gabapentin) 100 Mg Cap, 3 CAP PO TID 07/02/22 Information Source: Patient Mode of Arrival: Ambulatory Past Medical History PAST MEDICAL HISTORY: Anemia, Anxiety, Depression, Kidney Stones, UTI'S Surgical History: Cholecystectomy, RESEARCH NEUROPSYCHOLOGIST History: No Pertinent RESEARCH NEUROPSYCHOLOGIST History Family History Family History: Reviewed,noncontributory to illness Social History Smoker: Cigarettes, Less Than 1 Pack/Day Alcohol: Occasionally Drugs: Marijuana, Methamphetamine Lives In: Home Constitutional: reports: malaise, weakness; denies: chills, diaphoresis, fatigue, fever, sweats, others EENTM: denies: blurred vision, double vision, ear bleeding, ear discharge, ear drainage, ear pain, ear ringing, eye pain, eye redness, hearing loss, mouth pain, mouth swelling, nasal discharge, nose bleeding, nose congestion, nose pain, photophobia, tearing, throat pain, throat swelling, voice changes, others Respiratory: denies: cough, hemoptysis, orthopnea, SOB at rest, shortness of breath, SOB with excertion, stridor, wheezing, others Cardiovascular: denies: chest pain, dizzy spells, diaphoresis, Dyspnea on exertion, edema, irregular heart beat, left arm pain, lightheadedness, palpitations, PND, syncope, others Gastrointestinal: reports: abdominal pain; denies: abdomen distended, blood streaked bowels, constipated, diarrhea, dysphagia, difficulty swallowing, hematemesis, melena, nausea, poor appetite, poor fluid intake, rectal bleeding, rectal pain, vomiting, others Genitourinary: denies: abnormal vagina bleeding, burning, dyspareunia, dysuria, flank pain, frequency, hematuria, incontinence, pain, , vagina discharge, urgency, others Neurological: denies: dizziness, fainting, headache, left sided numbness, left sided weakness, numbness, paresthesia, pre-existing deficit, right sided numbness, right sided weakness, seizure, speech problems, tingling, tremors, weakness, others Musculoskeletal: denies: back pain, gout, joint pain, joint swelling, muscle pain, muscle stiffness, neck pain, others Integumetry: denies: bruises, change in color, change in hair/nails, dryness, laceration, lesions, lumps, rash, wounds, others Allergic/Immunocompromised: denies: Difficulty Healing, Frequent Infections, Hives, Itching, others Hematologic/Lymphatic: denies: anemia, blood clots, easy bleeding, easy bruising, swollen glands, others Endocrine: denies: excessive hunger, excessive sweating, excessive thirst, excessive urination, flushing, intolerance to cold, intolerance to heat, une xplained weight gain, unexplained weight loss, others Psychiatric: denies: anxiety, bipolar disorder, depression, hopeless, panic disorder, schizophrenia, sleepless, suicidal, others All Other Systems: Reviewed and Negative Physical Exam General Appearance: No Apparent Distress, Normal HEENT: Normal ENT Inspection, Pharynx Normal, TMs Normal Neck: Full Range of Motion, Non-Tender, Normal, Normal Inspection Respiratory: Chest Non-Tender, Lungs Clear, No Accessory Muscle Use, No Respiratory Distress, Normal Breath Sounds Cardiovascular: No Edema, No JVD, No Murmur, No Gallop, Normal Peripheral Pul ses, Regular Rate/Rhythm Breast Exam: Deferred Gastrointestinal: No Organomegaly, Non Tender, No Pulsatile Mass, Normal Bowel Sounds, Soft Genitalia: Deferred Pelvic: Deferred Rectal: Deferred Extremities: No calf tenderness, Normal capillary refill, Normal inspection, Normal range of motion, Non-tender, No pedal edema Musculoskeletal : Apperance: Normal Neurologic: Alert, instant print operator II-XII nml as Tested, No Motor Deficits, Normal Affect, Normal Mood, No Sensory Deficits Cerebellar Function: Normal Reflexes: Normal Skin: Dry, Normal Color, Warm Lymphatic: No Adenopathy Was a procedure done? Was a procedure done?: No GI differential Dx Differential Diagnosis: Diverticular disease, Gastritis/PUD, Gastroenteritis, GI hemorrhage, Pancreatitis, Stress Ulcer, Kidney Stone X-Ray, Labs, Meds, VS Vital Signs Date Time Temp Pulse Resp B/P (MAP) Pulse Ox O2 Delivery O2 Flow Rate FiO2 11/13/24 13:42 74 11/13/24 13:40 98.1 78 20 112/65 (81) 98 Lab Test 11/13/24 14:42 Range/Units White Blood Count 6.5 4.4-10.8 10^3/uL Red Blood Count 3.82 L 4.0-5.20 10^6/uL Hemoglobin 9.8 L 12.2-16.2 g/dL Hematocrit 31.3 L 36.0-46.0 % Mean Corpuscular Volume 81.7 80.0-100.0 fL Mean Corpuscular Hemoglobin 25.5 L 28.0-32.0 pg Mean Corpuscular Hemoglobin Concent 31.2 L 32.0-36.0 g/dL Red Cell Distribution Width 16.5 H 11.8-14.3 % Platelet Count 341 140-450 10^3/uL Mean Platelet Volume 7.9 6.9-10.8 fL Neutrophils (%) (Auto) 68.2 37.0-80.0 % Lymphocytes (%) (Auto) 24.5 10.0-50.0 % Monocytes (%) (Auto) 5.3 0.0-12.0 % Eosinophils (%) (Auto) 0.7 0.0-7.0 % Basophils (%) (Auto) 1.3 0.0-2.0 % Neutrophils # (Auto) 4.4 1.6-8.6 10 ^3/uL Lymphocytes # (Auto) 1.6 0.4-5.4 10 ^3/uL Monocytes # (Auto) 0.3 0-1.3 10 ^3/uL Eosinophils # (Auto) 0 0-0.8 10 ^3/uL Basophils # (Auto) 0.1 0-0.2 10 ^3/uL Nucleated Red Blood Cells 0.1 % Sodium Level 138 136-145 mmol/L Potassium Level 4.2 3.5-5.1 mmol/L Chloride Level 109 H 98-107 mmol/L Carbon Dioxide Level 23 20-31 mmol/L Anion Gap 6 5-15 Blood Urea Nitrogen 13 9-23 mg/dL Creatinine 0.80 0.550-1.02 mg/dL Glomerular Filtration Rate Calc 88 >90 mL/min BUN/Creatinine Ratio 16.3 10.0-20.0 Serum Glucose 90 74-106 mg/dL Calcium Level 9.3 8.7-10.4 mg/dL Total Bilirubin 0.4 0.2-1.0 mg/dL Aspartate Amino Transferase (AST) 359 H 13-40 U/L Alanine Aminotransferase (ALT) 157 H 7-40 U/L Alkaline Phosphatase 251 H 46-116 U/L Total Protein 6.7 5.7-8.2 g/dL Albumin 3.8 3.2-4.8 g/dL Lipase 30 12-53 U/L [address] [address] Ph: [phone] DIAGNOSTIC IMAGING Diagnostic Imaging Report : [id number] Signed PATIENT: TAM SOLANOT: [id number] UNIT: [id number] : 1970 LOC: ER ROOM / BED: / AGE / SEX: 54 / F ADM STATUS: REG ER SERVICE 1333 ORDERING PHYSICIAN: JASPAL MUNOZ MD PROCEDURE(s): CXR2 - CHEST TWO VIEWS ROUTINE REASON: epigastric pain ORDER NUMBER(s): [id number], ACCESSION NUMBER(s): [id number] EXAM: XY CHEST TWO VIEWS ROUTINE CLINICAL HISTORY: epigastric pain COMPARISON: XY CHEST TWO VIEWS ROUTINE on DOS: 06/28/24, CHEST TWO VIEWS ROUTINE on DOS: 07/08/22, CXR2 on DOS: 07/08/22 TECHNIQUE: Frontal and lateral view of the chest was obtained FINDINGS: Lines and Tubes: None Lungs: No focal consolidation. Pleura: No effusion. No pneumothorax. Cardiomediastinal contours: Unremarkable Bones: No acute osseous abnormality. IMPRESSION: No acute cardiopulmonary disease. ATED BY: NINA RUCKER MD DICTATED DATE/TIME: 11/13/24 140 SIGNED BY: NINA RUCKER MD SIGNED DATE/TIME: 11/13/24 140 CC: Time of 1ST Reevaluation: 16:00 Reevaluation 1ST: Unchanged Patient Education/Counseling: Diagnosis, Treatment Family Education/Counseling: No Family Present Departure 1 Departure Time of Disposition: 16:59 (Patient returned for compression fracture of T12 and chronic pancreatitis. Will re-admit) Impression: Primary Impression: Epigastric abdominal pain Additional Impression: Compression fracture Disposition: 09 ADMITTED INPATIENT Admit to: Med Surg Condition: Serious Critical Care Note Critical Care Time?: No Stability Stability form required: No Heart Score Heart Score: Heart Score Response (Comments) Value History N/A 0 EKG N/A 0 Age N/A 0 Risk Factors N/A 0 Troponin N/A 0 Total 0 I personally scribed for JASPAL MUNOZ MD ([email or web address]) on 11/13/24 at 16:20. Electronically submitted by Jean Mcguire ([email or web address]). JASPAL MUNOZ MD Nov 13, 2024 16:20
[2024-11-13 16:40] LABS: Basophils # (auto) 0.1 10 ^3/uL (0-0.2); Basophils % (auto) 1.3 % (0.0-2.0); Eosinophils # (auto) 0 10 ^3/uL (0-0.8); Eosinophils % (auto) 0.7 % (0.0-7.0); Hematocrit 31.3 % (36.0-46.0); Hemoglobin 9.8 g/dL (12.2-16.2); Lymphocytes # (auto) 1.6 10 ^3/uL (0.4-5.4); Lymphocytes % (auto) 24.5 % (10.0-50.0); Mean Corpuscular Hemoglobin 25.5 pg (28.0-32.0); Mean Corpuscular Hgb Conc. 31.2 g/dL (32.0-36.0); Mean Corpuscular Volume 81.7 fL (80.0-100.0); Monocytes # (auto) 0.3 10 ^3/uL (0-1.3); Monocytes % (auto) 5.3 % (0.0-12.0); Neutrophils # (auto) 4.4 10 ^3/uL (1.6-8.6); Neutrophils % (auto) 68.2 % (37.0-80.0); Nucleated Red Blood Cells % 0.1 %; Platelet Count (auto) 341 10^3/uL (140-450); Red Blood Cells 3.82 10^6/uL (4.0-5.20); Red Cell Distribution Width 16.5 % (11.8-14.3); White Blood Cell 6.5 10^3/uL (4.4-10.8)
--- NOTE | 2024-11-22 07:04 | ECG ---
[facility] Test Date: 2024-11-13 Test Time: 13:42:17 Pat Name: TAM SOLANO Department: ER Room: Gender: F Information Resources Manager: JACQUE : 1970 Requested By: JASPAL MUNOZ Order Number: [id number] Reading MD: Measurements Intervals [place] Rate: 74 P: 70 WY: 151 QRS: 93 QRSD: 83 T: 30 QT: 409 QTc: 454 Interpretive Statements Sinus rhythm Borderline right axis deviation Low voltage, precordial leads Please click the below link to view image of tracing.
== END 2024-11-14 00:31 | disposition left against medical advice (07) ==
LOC: ER 12:58
DX: T14.8XXA Other injury of unspecified body region, initial encounter (principal); R10.13 Epigastric pain; K85.90 Acute pancreatitis without necrosis or infection, unspecified; F17.210 Nicotine dependence, cigarettes, uncomplicated; F12.90 Cannabis use, unspecified, uncomplicated; F15.90 Other stimulant use, unspecified, uncomplicated; Z79.899 Other long term (current) drug therapy; Z87.442 Personal history of urinary calculi; Z90.49 Acquired absence of other specified parts of digestive tract; Z98.890 Other specified postprocedural states; X58.XXXA Exposure to other specified factors, initial encounter; Y93.89 Activity, other specified; Y92.89 Other specified places as the place of occurrence of the external cause; Y99.8 Other external cause status
CPT/HCPCS: 36415; 71046; 80053; 83690; 85025; 93005

== ENCOUNTER 2024-11-17 05:41 | Emergency (ER) | payer OTHER, MEDICAID ==
[~2024-11-17] VITALS: Ht 165.1 cm; Wt 48.1 kg
--- NOTE | 2024-11-17 07:43 | ED.PDOC ---
GI ASSESSMENT HPI Comments 54 y.o female with PMH of pancreatitis, kidney stones, and anxiety, presents to the ED for a chief complaint of diffused abdominal pain associated with nausea and vomiting that started 2 days ago. Patient reports pain is constant, sharp and similar to previous flare us d/t pancreatitis DX. Patient also presents anxious, states running out of her anxiety medication and is in need of a week worth of medication until she sees her PCP. She denies any other symptoms or pain. Chief Complaint: Abdominal Pain Time Seen by MD: 07:11 Primary Care Provider: MARLEY Reviewed Notes: Nurses Notes, Medications, Allergies Allergies: Coded Allergies: NO KNOWN ALLERGIES (Unverified , 07/07/18) Home Meds Active Scripts Diclofenac Potassium (Diclofenac Potassium) 50 Mg Tab, 1 TAB PO TIDP for 10 Days, #30 TAB Prov:BONI AVALOS MD 11/17/24 Clonazepam (KlonoPIN TABLET) 0.5 Mg Tb, 1 TAB PO DAILY for 7 Days, #7 TAB Prov:BONI AVALOS MD 11/17/24 Nitrofurantoin Monohydrate Mac (Macrobid) 100 Mg Cap, 100 MG PO BID for 7 Days, #14 CAP Prov:BONI AVALOS MD 11/17/24 Hydroxyzine Hcl (Hydroxyzine Hcl) 25 Mg Tab, 1 TAB PO TIDPRN PRN for 10 Days, #30 TAB 0 Refills Prov:BIA POE NP 11/06/24 Hydroxyzine Hcl (Hydroxyzine Hcl) 25 Mg Tab, 1 TAB PO TID for 10 Days, #30 TAB 0 Refills Prov:BIA POE NP 10/16/24 Clonazepam (Klonopin) 1 Mg Tab, 1 TAB PO BID, #14 TAB 0 Refills Prov:YANDEL CALVIN 10/05/24 Ibuprofen (Ibuprofen) 800 Mg Tab, 800 MG PO Q8HP PRN for 7 Days, #21 TAB Prov:ADEN BRAND 07/29/24 Naproxen (Naproxen) 500 Mg Tab, 500 MG PO BID PRN for 10 Days, #20 TAB Prov:BOB LYMAN RESIDENT 07/03/24 Fluoxetine HCl (Fluoxetine Hydrochloride) 40 Mg Cap, 40 MG PO DAILY for 30 Days, #30 CAP Prov:BOB LYMAN RESIDENT 07/03/24 Oxycodone W/ Acetaminophen (Percocet 5/325MG) 1 Tab Tb, 1 TAB PO TID PRN for 8 Days, #24 TAB Prov:SAVITA DELATORRE MD 05/30/24 Pantoprazole Sodium Sesquihydr (Protonix) 40 Mg Tab, 40 MG PO DAILY for 30 Days, #30 TAB 2 Refills Prov:SAVITA DELATORRE MD 05/30/24 Metronidazole (Metronidazole) 500 Mg Tab, 500 MG PO TID for 7 Days, #21 TAB Prov:SAVITA DELATORRE MD 05/30/24 Levofloxacin Hemihydrate (LEVAQUIN 500 MG) 500 Mg Tab, 500 MG PO DAILY for 7 Days, #7 TAB Prov:SAVITA DELATORRE MD 05/30/24 Nitrofurantoin Monohydrate Mac (Macrobid) 100 Mg Cap, 100 MG PO BID for 6 Days, #14 CAP Prov:ASHLEY COLLIER MD 03/30/24 Dicyclomine Hcl (BENTYL CAPSULE) 10 Mg Cp, 1 CAP PO TID for 5 Days, #15 CAP 11 Refills Prov:KALLIE LEON MD 03/30/24 Buspirone HCl (Buspirone Hydrochloride) 15 Mg Tab, 15 MG PO BID for 90 Days, #180 TAB 1 Refill Prov:BIA POE CLINICAL SOCIAL WORK AIDE 03/06/24 Hydroxyzine Hcl (Hydroxyzine Hcl) 25 Mg Tab, 1 TAB PO TID PRN, #30 TAB Prov:BASIM ROBLERO SERVICE TRAINER 03/05/24 Hydroxyzine Hcl (Hydroxyzine Hcl) 25 Mg Tab, 1 TAB PO TID for 30 Days, #90 TAB 0 Refills Prov:BIA OPE CLINICAL SOCIAL WORK AIDE 01/03/24 Pancreatic Enzymes (Creon) 12,000 Unt Cap, 13178 UNT PO TIDWMEALS, #90 CAP Prov:DAYANA FERGUSON MD 07/10/22 Pantoprazole Sodium Sesquihydr (Pantoprazole Sodium) 40 Mg Tab, 40 MG PO DAILY, #30 TAB Prov:DAYANA FERGUSON MD 07/10/22 Reported Medications Lurasidone Hydrochloride (LATUDA) 120 Mg Tab, 1 TAB PO 07/02/22 Tiotropium [place] Monohydrate (Spiriva Handihaler) 18 Mcg Cap, 1 CAP INH DAILYPRN 07/02/22 Fluoxetine Hcl (Fluoxetine Hcl) 40 Mg Cap, 2 CAP PO 07/02/22 Alprazolam (Alprazolam) 1 Mg Tab, 1 TAB PO TID PRN for ANXIETY 07/02/22 Gabapentin (Gabapentin) 100 Mg Cap, 3 CAP PO TID 07/02/22 Information Source: Patient Mode of Arrival: Ambulatory Timing: Days (4) Duration: Since onset Quality: Aching Vomitus: Soft Stool: Normal Severity: Moderate Recent: None Recent Hx of: None Pain Location: Epigastric Modifying Factors: Nothing Associated sign and symptoms: Nausea, Vomiting, Abdominal Pain Past Medical History PAST MEDICAL HISTORY: Anemia, Anxiety, Depression, Kidney Stones, UTI'S Surgical History: Cholecystectomy, LICENSED FUNERAL DIRECTOR History: No Pertinent LICENSED FUNERAL DIRECTOR History Family History Family History: Reviewed,noncontributory to illness Social History Smoker: Cigarettes, Less Than 1 Pack/Day Alcohol: Occasionally Drugs: Marijuana, Methamphetamine Lives In: Home Constitutional: denies: chills, diaphoresis, fatigue, fever, malaise, sweats, weakness, others EENTM: denies: blurred vision, double vision, ear bleeding, ear discharge, ear drainage, ear pain, ear ringing, eye pain, eye redness, hearing loss, mouth pain, mouth swelling, nasal discharge, nose bleeding, nose congestion, nose pain, photophobia, tearing, throat pain, throat swelling, voice changes, others Respiratory: denies: cough, hemoptysis, orthopnea, SOB at rest, shortness of breath, SOB with excertion, stridor, wheezing, others Cardiovascular: denies: chest pain, dizzy spells, diaphoresis, Dyspnea on exertion, edema, irregular heart beat, left arm pain, lightheadedness, palpitations, PND, syncope, others Gastrointestinal: reports: abdominal pain, nausea, vomiting; denies: abdomen distended, blood streaked bowels, constipated, diarrhea, dysphagia, difficulty swallowing, hematemesis, melena, poor appetite, poor fluid intake, rectal bleeding, rectal pain, others Genitourinary: denies: abnormal vagina bleeding, burning, dyspareunia, dysuria, flank pain, frequency, hematuria, incontinence, pain, , vagina discharge, urgency, others Neurological: denies: dizziness, fainting, headache, left sided numbness, left sided weakness, numbness, paresthesia, pre-existing deficit, right sided numbness, right sided weakness, seizure, speech problems, tingling, tremors, weakness, others Musculoskeletal: denies: back pain, gout, joint pain, joint swelling, muscle pain, muscle stiffness, neck pain, others Integumetry: denies: bruises, change in color, change in hair/nails, dryness, laceration, lesions, lumps, rash, wounds, others Allergic/Immunocompromised: denies: Difficulty Healing, Frequent Infections, Hives, Itching, others Hematologic/Lymphatic: denies: anemia, blood clots, easy bleeding, easy bruising, swollen glands, others Endocrine: denies: excessive hunger, excessive sweating, excessive thirst, excessive urination, flushing, intolerance to cold, intolerance to heat, unexpla ined weight gain, unexplained weight loss, others Psychiatric: reports: anxiety; denies: bipolar disorder, depression, hopeless, panic disorder, schizophrenia, sleepless, suicidal, others All Other Systems: Reviewed and Negative Physical Exam General Appearance: Mild Distress, Moderate Distress, Normal HEENT: Normal ENT Inspection, PERRL/EOMI Neck: Full Range of Motion, Non-Tender, Normal, Normal Inspection Respiratory: Chest Non-Tender, Lungs Clear, No Accessory Muscle Use, No Respiratory Distress, Normal Breath Sounds Cardiovascular: No Edema, No JVD, No Murmur, No Gallop, Normal Peripheral Pulses, Regular Rate/Rhythm Breast Exam: Deferred Gastrointestinal: Diffuse, Epigastric, No Organomegaly, No Pulsatile Mass, Normal Bowel Sounds, Tenderness, Other (Bilateral flank pain) Genitalia: Deferred Pelvic: Deferred Rectal: Deferred Extremities: No calf tenderness, Normal capillary refill, Normal inspection, Normal range of motion, Non-tender, No pedal edema Neurologic: Alert, hand ii cutter II-XII nml as Tested, No Motor Deficits, Normal Affect, Normal Mood, No Sensory Deficits Cerebellar Function: Normal Reflexes: Normal Skin: Dry, Normal Color, Warm Peripheral Pulses: 1+ carotid (R), 1+ carotid (L) Lymphatic: No Adenopathy Was a procedure done? Was a procedure done?: No GI differential Dx Differential Diagnosis: Esophagitis, Gastroenteritis, Pancreatitis, UTI, Dehydration, Diabetes/ DKA, Drug toxicity, Electrolyte Imbalance, Food Poisoning, Viral, Anemia X-Ray, Labs, Meds, VS Vital Signs Date Time Temp Pulse Resp B/P (MAP) Pulse Ox O2 Delivery O2 Flow Rate FiO2 11/17/24 13:14 98.2 84 16 128/75 (92) 100 98.2 11/17/24 12:04 98.1 84 16 121/71 (88) 99 98.1 11/17/24 09:09 97.8 86 20 132/92 (105) 99 97.8 11/17/24 09:09 86 20 99 Room Air 11/17/24 05:51 98.5 98 18 128/65 (86) 99 Lab Test 11/17/24 09:02 11/17/24 08:30 Range/Units White Blood Count 9.2 # 4.4-10.8 10^3/uL Red Blood Count 4.19 4.0-5.20 10^6/uL Hemoglobin 10.9 L 12.2-16.2 g/dL Hematocrit 33.4 L 36.0-46.0 % Mean Corpuscular Volume 79.6 L 80.0-100.0 fL Mean Corpuscular Hemoglobin 26.0 L 28.0-32.0 pg Mean Corpuscular Hemoglobin Concent 32.7 32.0-36.0 g/dL Red Cell Distribution Width 15.7 H 11.8-14.3 % Platelet Count 405 140-450 10^3/uL Mean Platelet Volume 7.9 6.9-10.8 fL Neutrophils (%) (Auto) 68.2 37.0-80.0 % Lymphocytes (%) (Auto) 25.0 10.0-50.0 % Monocytes (%) (Auto) 4.8 0.0-12.0 % Eosinophils (%) (Auto) 0.2 0.0-7.0 % Basophils (%) (Auto) 1.8 0.0-2.0 % Neutrophils # (Auto) 6.3 1.6-8.6 10 ^3/uL Lymphocytes # (Auto) 2.3 0.4-5.4 10 ^3/uL Monocytes # (Auto) 0.4 0-1.3 10 ^3/uL Eosinophils # (Auto) 0 0-0.8 10 ^3/uL Basophils # (Auto) 0.2 0-0.2 10 ^3/uL Nucleated Red Blood Cells 0.0 % Sodium Level 140 136-145 mmol/L Potassium Level 4.0 3.5-5.1 mmol/L Chloride Level 107 98-107 mmol/L Carbon Dioxide Level 27 20-31 mmol/L Anion Gap 6 5-15 Blood Urea Nitrogen 9 9-23 mg/dL Creatinine 0.69 0.550-1.02 mg/dL Glomerular Filtration Rate Calc 103 >90 mL/min BUN/Creatinine Ratio 13.0 10.0-20.0 Serum Glucose 81 74-106 mg/dL Calcium Level 9.7 8.7-10.4 mg/dL Magnesium Level 1.9 1.6-2.6 mg/dL Total Bilirubin 0.2 0.2-1.0 mg/dL Aspartate Amino Transferase (AST) 22 13-40 U/L Alanine Aminotransferase (ALT) 41 H 7-40 U/L Alkaline Phosphatase 190 H 46-116 U/L Total Protein 7.1 5.7-8.2 g/dL Albumin 4.1 3.2-4.8 g/dL Lipase 45 12-53 U/L Urine Color Yellow Yellow Urine Clarity Turbid H Clear Urine pH 7.0 5.0-9.0 Urine Specific [place] 1.024 1.001-1.035 Urine Protein Trace H Negative Urine Ketones Negative Negative Urine Blood Negative Negative /uL Urine Nitrite Negative Negative Urine Bilirubin Negative Negative Urine Urobilinogen 4 H Negative mg/dL Urine Leukocyte Esterase 2+ Negative /uL Urine RBC 5 0 - 4 /hpf Urine WBC 16 0 - 5 /hpf Urine Squamous Epithelial Cells None seen <5 /hpf Urine Bacteria None seen None Seen /hpf Urine Hyaline Casts Few 0 - 2 /lpf Urine Mucus Few None Seen Urine Glucose Normal Normal mg/dL Current Medications Medications (Trade) Dose Ordered Sig/Bruno Route Start Time Stop Time Status Last Admin Metoclopramide HCl (Reglan Injection) 10 mg ONCE ONCE IV 11/17/24 08:00 11/17/24 08:01 DC 11/17/24 09:08 Sodium Chloride 1,000 ml @ 1,000 mls/hr Q1H ONCE IVB 11/17/24 08:00 11/17/24 08:59 DC 11/17/24 09:14 Ketorolac Tromethamine (Toradol Injection) 30 mg ONCE ONCE IV 11/17/24 08:00 11/17/24 08:01 DC 11/17/24 09:06 Clonazepam (KlonoPIN TABLET) 0.5 mg ONCE ONCE PO 11/17/24 09:15 11/17/24 09:17 DC 11/17/24 09:25 X-Ray, Labs, Meds, VS Comment Course in the emergency department eventful patient came in because abdominal pain and anxiety patient with a history of kidney stones GERD depression and pancreatitis also asthma surgery she has a gallbladder surgery and fracture of T12 Blood pressure 128/65 CBC normal Urine shows 2+ leukocyte esterase Lipase 45 CMP negative Patient will be discharged home to follow up with her PCP and also your pain management Time of 1ST Reevaluation: 07:40 Reevaluation 1ST: Unchanged Time of 2ND Reevaluation: 13:05 Reevaluation 2ND: Improved Patient Education/Counseling: Diagnosis, Treatment, Prognosis Family Education/Counseling: No Family Present Departure 1 Departure Time of Disposition: 13:06 Impression: Primary Impression: Nonspecific abdominal pain Additional Impressions: Generalized anxiety disorder Urinary tract infection Qualified Codes: N30.00 - Acute cystitis without hematuria Ruled Out: Acute pancreatitis Disposition: 01 HOME / SELF CARE / HOMELESS Condition: Fair Additional Instructions: Push fluids and follow up with your PCP e-Prescriptions Diclofenac Potassium (Diclofenac Potassium) 50 Mg Tab 1 TAB PO TIDP for 10 Days, #30 TAB Prov: BONI AVALOS MD 11/17/24 Clonazepam (KlonoPIN TABLET) 0.5 Mg Tb 1 TAB PO DAILY for 7 Days, #7 TAB Prov: BONI AVALOS MD 11/17/24 Nitrofurantoin Monohydrate Mac (Macrobid) 100 Mg Cap 100 MG PO BID for 7 Days, #14 CAP Prov: BONI AVALOS MD 11/17/24 Discharged With: Self Critical Care Note Critical Care Time?: No Stability Stability form required: No I personally scribed for BONI AVALOS MD ([email or web address]) on 11/17/24 at 07:43. Electronically submitted by Racheal De La Torre ([facility]). BONI AVALOS MD Nov 17, 2024 07:43
--- NOTE | 2024-11-17 08:33 | DVH ---
EXAM: XY CHEST TWO VIEWS ROUTINE CLINICAL HISTORY: Abdominal pain and back pain history of pancreatitis COMPARISON: XY CHEST TWO VIEWS ROUTINE on DOS: 11/13/24, XY CHEST TWO VIEWS ROUTINE on DOS: 06/28/24, CHEST TWO VIEWS ROUTINE on DOS: 07/08/22, CXR2 on DOS: 07/08/22 TECHNIQUE: Frontal and lateral view of the chest was obtained FINDINGS: Lines and Tubes: None Lungs: No focal consolidation. Pleura: No effusion. No pneumothorax. Cardiomediastinal contours: Unremarkable Bones: No acute osseous abnormality. IMPRESSION: No acute cardiopulmonary disease.
[2024-11-17] MEDS: KETOROLAC TROMETH 30 MG/ML 1ML VIAL IV ONE (09:06)
[2024-11-17] MEDS: METOCLOPRAMIDE HCL 5MG/ml INJ 2ml VIAL IV ONE (09:08)
[2024-11-17] MEDS: SODIUM CHLORIDE 0.9% 1,000 ML IVB ONE (09:14)
[2024-11-17] MEDS: clonazePAM 0.5 MG TAB PO ONE (09:25)
[2024-11-17 09:44] LABS: Eosinophils # (auto) 0 10 ^3/uL (0-0.8); Hemoglobin 10.9 g/dL (12.2-16.2); Mean Corpuscular Volume 79.6 fL (80.0-100.0); White Blood Cell 9.2 10^3/uL (4.4-10.8)
[2024-11-17 09:48] LABS: Basophils # (auto) 0.2 10 ^3/uL (0-0.2); Basophils % (auto) 1.8 % (0.0-2.0); Eosinophils % (auto) 0.2 % (0.0-7.0); Hematocrit 33.4 % (36.0-46.0); Lymphocytes # (auto) 2.3 10 ^3/uL (0.4-5.4); Mean Corpuscular Hgb Conc. 32.7 g/dL (32.0-36.0); Monocytes # (auto) 0.4 10 ^3/uL (0-1.3); Monocytes % (auto) 4.8 % (0.0-12.0); Neutrophils # (auto) 6.3 10 ^3/uL (1.6-8.6); Neutrophils % (auto) 68.2 % (37.0-80.0); Platelet Count (auto) 405 10^3/uL (140-450); Red Blood Cells 4.19 10^6/uL (4.0-5.20); Red Cell Distribution Width 15.7 % (11.8-14.3)
[2024-11-17 10:05] LABS: Albumin 4.1 g/dL (3.2-4.8); Anion Gap 6 (5-15); Aspartate Aminotransferase 22 U/L (13-40); Calcium 9.7 mg/dL (8.7-10.4); Carbon Dioxide 27 mmol/L (20-31); Glucose 81 mg/dL (74-106); Magnesium 1.9 mg/dL (1.6-2.6); Sodium 140 mmol/L (136-145); Total Protein 7.1 g/dL (5.7-8.2)
[2024-11-17 10:11] LABS: Alanine Aminotransferase 41 U/L (7-40); Alkaline Phosphatase 190 U/L (46-116); Bilirubin, Total 0.2 mg/dL (0.2-1.0); Blood Urea Nitrogen 9 mg/dL (9-23); Chloride 107 mmol/L (98-107)
[2024-11-17 11:34] LABS: Urine Bacteria None Seen /hpf (None Seen)
[2024-11-17 11:42] LABS: Lipase 45 U/L (12-53)
[2024-11-17 12:06] LABS: Urine Blood Negative /uL (Negative); Urine Clarity Turbid (Clear); Urine Color Yellow (Yellow); Urine Hyaline Cast FEW /lpf (0 - 2); Urine Mucus FEW (None Seen); Urine Protein, UAD TRACE (Negative); Urine Specific Gravity 1.024 (1.001-1.035); Urine Squamous Epithelial Cell None Seen /hpf (<5); Urine Urobilinogen 4 mg/dL (Negative); Urine WBC 16 /hpf (0 - 5)
[2024-11-17] MEDS ORDERED: NITR-87 PO (13:10)
[2024-11-17] MEDS ORDERED: DICL50TA2 PO (13:10)
[2024-11-17] MEDS ORDERED: CLON0.5T3 PO (13:10)
[2024-11-17 13:14] VITALS: BP 128/75; PULSE 84; RESP 16; TEMP 98.2; O2SAT 100
== END 2024-11-17 13:20 | disposition home or self-care (01) ==
LOC: ER 05:41
DX: R10.84 Generalized abdominal pain (principal); F41.1 Generalized anxiety disorder; F32.A Depression, unspecified; N39.0 Urinary tract infection, site not specified; F17.210 Nicotine dependence, cigarettes, uncomplicated; Z79.899 Other long term (current) drug therapy; Z87.19 Personal history of other diseases of the digestive system; Z87.440 Personal history of urinary (tract) infections; Z87.442 Personal history of urinary calculi; Z90.49 Acquired absence of other specified parts of digestive tract; Z98.890 Other specified postprocedural states
CPT/HCPCS: 36415; 71046; 80053; 81001; 83690; 83735; 85025; 96361; 96374; 96375; 99284; J1885; J2765; J7030

== ENCOUNTER 2024-11-18 07:29 | Emergency (ER) | payer OTHER, MEDICAID ==
[~2024-11-18] VITALS: Ht 152.4 cm; Wt 47.4 kg
[~2024-11-18 07:29] MED LIST changes: +CLON0.5T3 PO; +DICL50TA2 PO
--- NOTE | 2024-11-18 08:22 | ED.PDOC ---
History of Present Illness HPI Comments A 54 YEAR OLD FEMALE PRESENTS TO THE ED WITH CHIEF COMPLAINT OF UTI SYMPTOMS AND ANXIETY. PATIENT REPORTS THAT SHE HAS CONTINUED TO EXPERIENCE DYSURIA DESPITE BEING PRESCRIBED MACROBID BY THE ED YESTERDAY. PATIENT RELAYS THAT SHE HAS NOT TAKEN HER KLONOPIN TODAY AND FEELS VERY ANXIOUS AND REQUESTS ANXIETY MEDICATION. 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 PATIENT DENIES ANY HEMATURIA, ABDOMINAL PAIN, DIZZINESS, FEVER, CHILLS, OR CHEST PAIN. Chief Complaint: Urinary Time Seen by MD: 08:18 Primary Care Provider: NONE Reviewed Notes: Nurses Notes, Medications, Allergies Allergies: Coded Allergies: NO KNOWN ALLERGIES (Unverified , 07/07/18) Home Meds Active Scripts Diclofenac Potassium (Diclofenac Potassium) 50 Mg Tab, 1 TAB PO TIDP for 10 Days, #30 TAB Prov:BONI AVALOS MD 11/17/24 Clonazepam (KlonoPIN TABLET) 0.5 Mg Tb, 1 TAB PO DAILY for 7 Days, #7 TAB Prov:BONI AVALOS MD 11/17/24 Nitrofurantoin Monohydrate Mac (Macrobid) 100 Mg Cap, 100 MG PO BID for 7 Days, #14 CAP Prov:BONI AVALOS MD 11/17/24 Hydroxyzine Hcl (Hydroxyzine Hcl) 25 Mg Tab, 1 TAB PO TIDPRN PRN for 10 Days, #30 TAB 0 Refills Prov:BIA POE NP 11/06/24 Hydroxyzine Hcl (Hydroxyzine Hcl) 25 Mg Tab, 1 TAB PO TID for 10 Days, #30 TAB 0 Refills Prov:BIA POE NP 10/16/24 Clonazepam (Klonopin) 1 Mg Tab, 1 TAB PO BID, #14 TAB 0 Refills Prov:YANDEL CALVIN 10/05/24 Ibuprofen (Ibuprofen) 800 Mg Tab, 800 MG PO Q8HP PRN for 7 Days, #21 TAB Prov:ADEN BRAND 07/29/24 Naproxen (Naproxen) 500 Mg Tab, 500 MG PO BID PRN for 10 Days, #20 TAB Prov:BOB LYMAN RESIDENT 07/03/24 Fluoxetine HCl (Fluoxetine Hydrochloride) 40 Mg Cap, 40 MG PO DAILY for 30 Days, #30 CAP Prov:BOB LYMAN RESIDENT 07/03/24 Oxycodone W/ Acetaminophen (Percocet 5/325MG) 1 Tab Tb, 1 TAB PO TID PRN for 8 Days, #24 TAB Prov:SAVITA DELATORRE MD 05/30/24 Pantoprazole Sodium Sesquihydr (Protonix) 40 Mg Tab, 40 MG PO DAILY for 30 Days, #30 TAB 2 Refills Prov:SAVITA DELAOTRRE MD 05/30/24 Metronidazole (Metronidazole) 500 Mg Tab, 500 MG PO TID for 7 Days, #21 TAB Prov:SAVITA DELATORRE MD 05/30/24 Levofloxacin Hemihydrate (LEVAQUIN 500 MG) 500 Mg Tab, 500 MG PO DAILY for 7 Days, #7 TAB Prov:SAVITA DELATORRE MD 05/30/24 Nitrofurantoin Monohydrate Mac (Macrobid) 100 Mg Cap, 100 MG PO BID for 6 Days, #14 CAP Prov:ASHLEY COLLIER MD 03/30/24 Dicyclomine Hcl (BENTYL CAPSULE) 10 Mg Cp, 1 CAP PO TID for 5 Days, #15 CAP 11 Refills Prov:KALLIE LEON MD 03/30/24 Buspirone HCl (Buspirone Hydrochloride) 15 Mg Tab, 15 MG PO BID for 90 Days, #180 TAB 1 Refill Prov:BIA POE MECHANICAL SYSTEMS DESIGNER 03/06/24 Hydroxyzine Hcl (Hydroxyzine Hcl) 25 Mg Tab, 1 TAB PO TID PRN, #30 TAB Prov:BASIM ROBLERO CUSTOMER EXPERIENCE SPECIALIST 03/05/24 Hydroxyzine Hcl (Hydroxyzine Hcl) 25 Mg Tab, 1 TAB PO TID for 30 Days, #90 TAB 0 Refills Prov:BIA POE MECHANICAL SYSTEMS DESIGNER 01/03/24 Pancreatic Enzymes (Creon) 12,000 Unt Cap, 56440 UNT PO TIDWMEALS, #90 CAP Prov:DAYANA FERGUSON MD 07/10/22 Pantoprazole Sodium Sesquihydr (Pantoprazole Sodium) 40 Mg Tab, 40 MG PO DAILY, #30 TAB Prov:DAYANA FERGUSON MD 07/10/22 Reported Medications Lurasidone Hydrochloride (LATUDA) 120 Mg Tab, 1 TAB PO 07/02/22 Tiotropium [place] Monohydrate (Spiriva Handihaler) 18 Mcg Cap, 1 CAP INH DAILYPRN 07/02/22 Fluoxetine Hcl (Fluoxetine Hcl) 40 Mg Cap, 2 CAP PO 07/02/22 Alprazolam (Alprazolam) 1 Mg Tab, 1 TAB PO TID PRN for ANXIETY 07/02/22 Gabapentin (Gabapentin) 100 Mg Cap, 3 CAP PO TID 07/02/22 Information Source: Patient Mode of Arrival: Ambulatory Severity: Mild, Moderate Timing: Days Duration: Since onset Prehospital treatment: None Medication Refill: For: Psychiatric, For: Other (UTI) Past Medical History PAST MEDICAL HISTORY: Anemia, Anxiety, Depression, Kidney Stones, UTI'S Surgical History: Cholecystectomy, RIGHT OF WAY AGENT History: No Pertinent RIGHT OF WAY AGENT History Family History Family History: Reviewed,noncontributory to illness Social History Smoker: Cigarettes, Less Than 1 Pack/Day Alcohol: Occasionally Drugs: Marijuana, Methamphetamine Lives In: Home Constitutional: reports: others (ANXIETY ); denies: chills, diaphoresis, fatigue, fever, malaise, sweats, weakness EENTM: denies: blurred vision, double vision, ear bleeding, ear discharge, ear drainage, ear pain, ear ringing, eye pain, eye redness, hearing loss, mouth pain, mouth swelling, nasal discharge, nose bleeding, nose congestion, nose pain, photophobia, tearing, throat pain, throat swelling, voice changes, others Respiratory: denies: cough, hemoptysis, orthopnea, SOB at rest, shortness of breath, SOB with excertion, stridor, wheezing, others Cardiovascular: denies: chest pain, dizzy spells, diaphoresis, Dyspnea on exertion, edema, irregular heart beat, left arm pain, lightheadedness, palpitations, PND, syncope, others Gastrointestinal: denies: abdomen distended, abdominal pain, blood streaked bowels, constipated, diarrhea, dysphagia, difficulty swallowing, hematemesis, melena, nausea, poor appetite, poor fluid intake, rectal bleeding, rectal pain, vomiting, others Genitourinary: reports: burning, dysuria; denies: abnormal vagina bleeding, dyspareunia, flank pain, frequency, hematuria, incontinence, pain, , vagina discharge, urgency, others Neurological: denies: dizziness, fainting, headache, left sided numbness, left sided weakness, numbness, paresthesia, pre-existing deficit, right sided numbness, right sided weakness, seizure, speech problems, tingling, tremors, weakness, others Musculoskeletal: denies: back pain, gout, joint pain, joint swelling, muscle pain, muscle stiffness, neck pain, others Integumetry: denies: bruises, change in color, change in hair/nails, dryness, laceration, lesions, lumps, rash, wounds, others Allergic/Immunocompromised: denies: Difficulty Healing, Frequent Infections, Hives, Itching, others Hematologic/Lymphatic: denies: anemia, blood clots, easy bleeding, easy bruising, swollen glands, others Endocrine: denies: excessive hunger, excessive sweating, excessive thirst, excessive urination, flushing, intolerance to cold, intolerance to heat, unexplained weight gain, unexplained weight loss, others Psychiatric: reports: anxiety; denies: bipolar disorder, depression, hopeless, panic disorder, schizophrenia, sleepless, suicidal, others All Other Systems: Reviewed and Negative Physical Exam General Appearance: Mild Distress, Normal, Other (ANXIETY ) HEENT: Normal ENT Inspection, PERRL/EOMI, Pharynx Normal Neck: Full Range of Motion, Non-Tender, Normal, Normal Inspection Respiratory: Chest Non-Tender, Lungs Clear, No Accessory Muscle Use, No Respiratory Distress, Normal Breath Sounds Cardiovascular: No Edema, No JVD, No Murmur, No Gallop, Normal Peripheral Pulses, Regular Rate/Rhythm Breast Exam: Deferred Gastrointestinal: No Organomegaly, Non Tender, No Pulsatile Mass, Normal Bowel Sounds, Soft Genitalia: Deferred Pelvic: Deferred Rectal: Deferred Extremities: No calf tenderness, Normal capillary refill, Normal inspection, Normal range of motion, Non-tender, No pedal edema Musculoskeletal : Apperance: Normal Neurologic: Alert, vocational rehabilitation supervisor II-XII nml as Tested, No Motor Deficits, Normal Affect, Normal Mood, No Sensory Deficits Cerebellar Function: Normal Reflexes: Normal Skin: Dry, Normal Color, Warm Peripheral Pulses: 2+ carotid (R), 2+ carotid (L) Lymphatic: No Adenopathy Was a procedure done? Was a procedure done?: No Differential Dx Considerations may include: UTI AND ANXIETY X-Ray, Labs, Meds, VS Vital Signs Date Time Temp Pulse Resp B/P (MAP) Pulse Ox O2 Delivery O2 Flow Rate FiO2 11/18/24 08:50 82 18 98 Room Air 11/18/24 08:50 98.4 82 18 148/66 (93) 98 98.4 11/18/24 07:51 98.2 87 18 156/62 (93) 97 Current Medications Medications (Trade) Dose Ordered Sig/Bruno Route Start Time Stop Time Status Last Admin Ceftriaxone Sodium (Rocephin) 1,000 mg ONCE ONCE IM 11/18/24 08:15 11/18/24 08:16 DC 11/18/24 08:31 Clonazepam (KlonoPIN TABLET) 0.5 mg ONCE ONCE PO 11/18/24 08:15 11/18/24 08:16 DC 11/18/24 08:31 X-Ray, Labs, Meds, VS Comment EXTERNAL MEDICAL RECORDS REVIEWED: 11/17/24 FOR UTI AND ANXIETY INDEPENDENT HISTORIANS: [NONE] SOCIAL DETERMINANTS OF HEALTH: [NONE] LABS ORDERED: NONE REVIEWED AND INTERPRETED RESULTS: NONE IMAGING ORDERED: NONE TREATMENTS ORDERED: ROCEPHIN 1G IM, KLONOPIN 0.5MG PO PROCEDURES PERFORMED: NONE CRITICAL CARE TIME: NONE BASED ON HISTORY OF PRESENT ILLNESS, AND PHYSICAL EXAM, PATIENT WILL BE DISCHARGED HOME. DISCUSSED PLAN FOR DISCHARGE HOME WITH RX. MEDICATION WARNINGS GIVEN. SHARED DECISION MAKING: DISCUSSED WITH PATIENT THAT THEIR WORKUP WAS NORMAL. PATIENT INSTRUCTED TO FOLLOW UP WITH PRIMARY CARE PROVIDER IN 1-2 DAYS FOR RE- EVALUATION OF SYMPTOMS. PATIENT VERBALIZES UNDERSTANDING TO RETURN TO ED FOR NEW OR WORSENING SYMPTOMS OR IF FOLLOW UP WITH PCP CANNOT BE OBTAINED. PATIENT FEELS COMFORTABLE GOING HOME AT THIS TIME. ALL QUESTIONS ADDRESSED AT TIME OF DISCHARGE. Time of 1ST Reevaluation: 09:00 Reevaluation 1ST: Improved Patient Education/Counseling: Diagnosis, Treatment, Need For Follow Up Family Education/Counseling: Diagnosis, Treatment, No Family Present Medical Screening: No EMC Exist At This Time Departure 1 Departure Time of Disposition: 09:00 Impression: Primary Impression: Anxiety Additional Impression: UTI (urinary tract infection) Qualified Codes: N30.00 - Acute cystitis without hematuria Disposition: 01 HOME / SELF CARE / HOMELESS Condition: Stable Additional Instructions: FOLLOW-UP WITH PCP IN 1 TO 2 DAYS. TAKE MEDICATIONS PRESCRIBED. RETURN TO ED FOR ANY NEW OR WORSENING SYMPTOMS. Discharged With: Self Critical Care Note Critical Care Time?: No Stability Stability form required: No Heart Score Heart Score: Heart Score Response (Comments) Value History N/A 0 EKG N/A 0 Age N/A 0 Risk Factors N/A 0 Troponin N/A 0 Total 0 I personally scribed for YANDEL CALVIN ([email or web address]) on 11/18/24 at 08:22. Electronically submitted by Cash Nguyen ([email or web address]). YANDEL CALVIN Nov 18, 2024 08:22
[2024-11-18] MEDS: cefTRIAXone SOD 1,000 MG VL IM ONE (08:31)
[2024-11-18] MEDS: clonazePAM 0.5 MG TAB PO ONE (08:31)
[2024-11-18 08:50] VITALS: BP 148/66; PULSE 82; RESP 18; TEMP 98.4; O2SAT 98
== END 2024-11-18 09:06 | disposition home or self-care (01) ==
LOC: ER 07:29
DX: N39.0 Urinary tract infection, site not specified (principal); F41.9 Anxiety disorder, unspecified; F17.210 Nicotine dependence, cigarettes, uncomplicated; F32.A Depression, unspecified; F12.90 Cannabis use, unspecified, uncomplicated; F15.90 Other stimulant use, unspecified, uncomplicated; Z79.899 Other long term (current) drug therapy; Z90.49 Acquired absence of other specified parts of digestive tract; Z87.442 Personal history of urinary calculi
CPT/HCPCS: 96372; 99283; J0696

== ENCOUNTER 2024-11-19 05:33 | Emergency (ER) | payer OTHER, MEDICAID ==
[~2024-11-19] VITALS: Ht 152.4 cm; Wt 46.6 kg
--- NOTE | 2024-11-19 07:00 | ED.PDOC ---
General HPI Comments 54 year old female presents tot he ED with a chief complaint of painful urination onset 1 week. Patient states she has been experiencing painful urination as ell as suprapubic pain that radiates to her back for the past week as well as nausea, vomiting, diarrhea. Patient also states she has been to this ED for the past 2 days but pain medication has not improved her symptoms. PMHx depression, anxiety, UTI, anemia, kidney stones. Denies chest pain, shortness of breath, constipation, headache, dizziness. No other symptoms or modifying factors present at this time. Chief Complaint: Urinary Time Seen by MD: 06:26 Primary Care Provider: NONE Reviewed notes: Medications, Allergies Allergies: Coded Allergies: NO KNOWN ALLERGIES (Unverified , 07/07/18) Home Meds Active Scripts Diclofenac Potassium (Diclofenac Potassium) 50 Mg Tab, 1 TAB PO TIDP for 10 Days, #30 TAB Prov:BONI AVALOS MD 11/17/24 Clonazepam (KlonoPIN TABLET) 0.5 Mg Tb, 1 TAB PO DAILY for 7 Days, #7 TAB Prov:BONI AVALOS MD 11/17/24 Nitrofurantoin Monohydrate Mac (Macrobid) 100 Mg Cap, 100 MG PO BID for 7 Days, #14 CAP Prov:BONI AVALOS MD 11/17/24 Hydroxyzine Hcl (Hydroxyzine Hcl) 25 Mg Tab, 1 TAB PO TIDPRN PRN for 10 Days, #30 TAB 0 Refills Prov:BIA POE NP 11/06/24 Hydroxyzine Hcl (Hydroxyzine Hcl) 25 Mg Tab, 1 TAB PO TID for 10 Days, #30 TAB 0 Refills Prov:BIA POE NP 10/16/24 Clonazepam (Klonopin) 1 Mg Tab, 1 TAB PO BID, #14 TAB 0 Refills Prov:YANDEL CALVIN 10/05/24 Ibuprofen (Ibuprofen) 800 Mg Tab, 800 MG PO Q8HP PRN for 7 Days, #21 TAB Prov:ADEN BRNAD 07/29/24 Naproxen (Naproxen) 500 Mg Tab, 500 MG PO BID PRN for 10 Days, #20 TAB Prov:BOB LYMAN RESIDENT 07/03/24 Fluoxetine HCl (Fluoxetine Hydrochloride) 40 Mg Cap, 40 MG PO DAILY for 30 Days, #30 CAP Prov:JAIRO BOB [place] RESIDENT 07/03/24 Oxycodone W/ Acetaminophen (Percocet 5/325MG) 1 Tab Tb, 1 TAB PO TID PRN for 8 Days, #24 TAB Prov:SAVITA DELATORRE MD 05/30/24 Pantoprazole Sodium Sesquihydr (Protonix) 40 Mg Tab, 40 MG PO DAILY for 30 Days, #30 TAB 2 Refills Prov:SAVITA DELATORRE MD 05/30/24 Metronidazole (Metronidazole) 500 Mg Tab, 500 MG PO TID for 7 Days, #21 TAB Prov:SAVITA DELATORRE MD 05/30/24 Levofloxacin Hemihydrate (LEVAQUIN 500 MG) 500 Mg Tab, 500 MG PO DAILY for 7 Days, #7 TAB Prov:SAVITA DELATORRE MD 05/30/24 Nitrofurantoin Monohydrate Mac (Macrobid) 100 Mg Cap, 100 MG PO BID for 6 Days, #14 CAP Prov:ASHLEY COLLIER MD 03/30/24 Dicyclomine Hcl (BENTYL CAPSULE) 10 Mg Cp, 1 CAP PO TID for 5 Days, #15 CAP 11 Refills Prov:KALLIE LEON MD 03/30/24 Buspirone HCl (Buspirone Hydrochloride) 15 Mg Tab, 15 MG PO BID for 90 Days, #180 TAB 1 Refill Prov:BIA POE AUDITOR/QUALITY 03/06/24 Hydroxyzine Hcl (Hydroxyzine Hcl) 25 Mg Tab, 1 TAB PO TID PRN, #30 TAB Prov:BASIM ROBLERO PATTERN MAKER PROGRAMER 03/05/24 Hydroxyzine Hcl (Hydroxyzine Hcl) 25 Mg Tab, 1 TAB PO TID for 30 Days, #90 TAB 0 Refills Prov:BIA POE AUDITOR/QUALITY 01/03/24 Pancreatic Enzymes (Creon) 12,000 Unt Cap, 49822 UNT PO TIDWMEALS, #90 CAP Prov:DAYANA FERGUSON MD 07/10/22 Pantoprazole Sodium Sesquihydr (Pantoprazole Sodium) 40 Mg Tab, 40 MG PO DAILY, #30 TAB Prov:DAYANA FERGUSON MD 8/26/22 Reported Medications Lurasidone Hydrochloride (LATUDA) 120 Mg Tab, 1 TAB PO 07/02/22 Tiotropium [place] Monohydrate (Spiriva Handihaler) 18 Mcg Cap, 1 CAP INH DAILYPRN 07/02/22 Fluoxetine Hcl (Fluoxetine Hcl) 40 Mg Cap, 2 CAP PO 07/02/22 Alprazolam (Alprazolam) 1 Mg Tab, 1 TAB PO TID PRN for ANXIETY 07/02/22 Gabapentin (Gabapentin) 100 Mg Cap, 3 CAP PO TID 07/02/22 Information Source: Patient Mode of Arrival: Ambulatory Severity: Moderate Timing: Days Duration: Since onset Prehospital treatment: None Onset: Spontaneous Symptoms: Dysuria History of: UTI, Kidney stone Location: Suprapubic associated signs and symptoms: Back Pain, Dysuria Past Medical History PAST MEDICAL HISTORY: Anemia, Anxiety, Depression, Kidney Stones, UTI'S Surgical History: Cholecystectomy, 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 BLANKER OPERATOR History Family History Family History: Reviewed,noncontributory to illness Social History Smoker: Cigarettes, Less Than 1 Pack/Day Alcohol: Occasionally Drugs: Marijuana, Methamphetamine Lives In: Home Constitutional: denies: chills, diaphoresis, fatigue, fever, malaise, sweats, weakness, others EENTM: denies: blurred vision, double vision, ear bleeding, ear discharge, ear drainage, ear pain, ear ringing, eye pain, eye redness, hearing loss, mouth pain, mouth swelling, nasal discharge, nose bleeding, nose congestion, nose pain, photophobia, tearing, throat pain, throat swelling, voice changes, others Respiratory: denies: cough, hemoptysis, orthopnea, SOB at rest, shortness of breath, SOB with excertion, stridor, wheezing, others Cardiovascular: denies: chest pain, dizzy spells, diaphoresis, Dyspnea on exertion, edema, irregular heart beat, left arm pain, lightheadedness, palpitations, PND, syncope, others Gastrointestinal: denies: abdomen distended, abdominal pain, blood streaked bowels, constipated, diarrhea, dysphagia, difficulty swallowing, hematemesis, melena, nausea, poor appetite, poor fluid intake, rectal bleeding, rectal pain, vomiting, others Genitourinary: reports: burning, dysuria, pain; denies: abnormal vagina bleeding, dyspareunia, flank pain, frequency, hematuria, incontinence, , vagina discharge, urgency, others Neurological: denies: dizziness, fainting, headache, left sided numbness, left sided weakness, numbness, paresthesia, pre-existing deficit, right sided numbness, right sided weakness, seizure, speech problems, tingling, tremors, weakness, others Musculoskeletal: reports: back pain; denies: gout, joint pain, joint swelling, muscle pain, muscle stiffness, neck pain, others Integumetry: denies: bruises, change in color, change in hair/nails, dryness, laceration, lesions, lumps, rash, wounds, others Allergic/Immunocompromised: denies: Difficulty Healing, Frequent Infections, Hives, Itching, others Hematologic/Lymphatic: denies: anemia, blood clots, easy bleeding, easy bruising, swollen glands, others Endocrine: denies: excessive hunger, excessive sweating, excessive thirst, excessive urination, flushing, intolerance to cold, intolerance to heat, unexplained weight gain, unexplained weight loss, others Psychiatric: denies: anxiety, bipolar disorder, depression, hopeless, panic disorder, schizophrenia, sleepless, suicidal, others All Other Systems: Reviewed and Negative Physical Exam General Appearance: Moderate Distress HEENT: Normal ENT Inspection, Pharynx Normal, TMs Normal Neck: Full Range of Motion, Non-Tender, Normal, Normal Inspection Respiratory: Chest Non-Tender, Lungs Clear, No Accessory Muscle Use, No Respiratory Distress, Normal Breath Sounds Cardiovascular: No Edema, No JVD, No Murmur, No Gallop, Normal Peripheral Pulses, Regular Rate/Rhythm Breast Exam: Deferred Gastrointestinal: No Organomegaly, Non Tender, No Pulsatile Mass, Normal Bowel Sounds, Soft Genitalia: Deferred Pelvic: Deferred Rectal: Deferred Extremities: No calf tenderness, Normal capillary refill, Normal inspection, Normal range of motion, Non-tender, No pedal edema Musculoskeletal : Apperance: Normal Neurologic: Alert, manager lpn II-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 Was a procedure done?: No Differential Diagnosis Kidney stone (Female): Musculoskeletal pain, Urinary obstruction, Urolithiasis X-Ray, Labs, Meds, VS Vital Signs Date Time Temp Pulse Resp B/P (MAP) Pulse Ox O2 Delivery O2 Flow Rate FiO2 11/19/24 07:43 91 16 97 Room Air 11/19/24 07:43 98.0 91 16 153/96 (115) 97 98.0 11/19/24 05:42 98.0 91 16 153/96 (115) 97 Lab Test 11/19/24 05:45 Range/Units Urine Color Yellow Yellow Urine Clarity Clear Clear Urine pH 6.0 5.0-9.0 Urine Specific [place] 1.023 1.001-1.035 Urine Protein Trace H Negative Urine Ketones Negative Negative Urine Blood Negative Negative /uL Urine Nitrite Negative Negative Urine Bilirubin Negative Negative Urine Urobilinogen Normal Negative mg/dL Urine Leukocyte Esterase Negative Negative /uL Urine RBC 1 0 - 4 /hpf Urine WBC 1 0 - 5 /hpf Urine Squamous Epithelial Cells Few <5 /hpf Urine Bacteria None seen None Seen /hpf Urine Glucose Normal Normal mg/dL Patient alert. Because abdominal discomfort. Abdomen is soft nontender. Vitals stable. Answering all questions. Has been seen in this ER many times for the same condition. Urinalysis within normal limits. Reviewed her previous visit. Explained to the patient. Time of 1ST Reevaluation: 06:56 Reevaluation 1ST: Unchanged Patient Education/Counseling: Diagnosis, Treatment, Prognosis Family Education/Counseling: No Family Present Additional Information I reviewed the following notes from patient's past medical encounters: none The following tests were ordered, and results were reviewed by me: ASHANTI CHEST I reviewed and agreed with the following test results read by other providers: ASHANTI CHEST I discussed treatment and results with medical personnel and patient Departure 1 Departure Time of Disposition: 08:56 Impression: Primary Impression: Gastritis Qualified Codes: K29.30 - Chronic superficial gastritis without bleeding Disposition: ADMITTED INPATIENT Admit to: Med Surg Condition: Guarded Critical Care Note Critical Care Time?: No Stability Stability form required: No Heart Score Heart Score: Heart Score Response (Comments) Value History N/A 0 EKG N/A 0 Age N/A 0 Risk Factors N/A 0 Troponin N/A 0 Total 0 I personally scribed for HAROON LOGAN MD ([email or web address]) on 11/19/24 at 07:00. Electronically submitted by Mia [email or web address]). I personally scribed for HAROON LOGAN MD ([email or web address]) on 11/19/24 at 07:33. Electronically submitted by Mia Little ([email or web address]). HAROON LOGAN MD Nov 19, 2024 07:00
[2024-11-19 07:43] VITALS: BP 153/96; PULSE 91; RESP 16; TEMP 98; O2SAT 97
--- NOTE | 2024-11-19 08:05 | DVH ---
CHEST RADIOGRAPH Indication: sob Technique: Single frontal view of the chest was obtained Comparison: XY CHEST PORTABLE on DOS: 05/27/24, XY CHEST PORTABLE on DOS: 05/26/24, XY CHEST PORTABLE o n DOS: 05/25/24, XY CHEST PORTABLE on DOS: 05/24/24, XY CHEST PORTABLE on DOS: 05/24/24 FINDINGS: Lines and Tubes: None Lungs: No focal consolidation. Pleura: No effusion. No pneumothorax. Cardiomediastinal contours: Unremarkable Bones: No acute osseous abnormality. IMPRESSION: No acute cardiopulmonary disease.
[2024-11-19 08:08] LABS: Urine Bacteria None Seen /hpf (None Seen)
[2024-11-19 08:12] LABS: Urine Blood Negative /uL (Negative); Urine Clarity Clear (Clear); Urine Color Yellow (Yellow); Urine Protein, UAD TRACE (Negative); Urine Specific Gravity 1.023 (1.001-1.035); Urine Squamous Epithelial Cell FEW /hpf (<5); Urine Urobilinogen Normal (Negative); Urine WBC 1 /hpf (0 - 5)
[2024-11-19 09:17] LABS: Eosinophils # (auto) 0 10 ^3/uL (0-0.8); Hemoglobin 9.9 g/dL (12.2-16.2); Lymphocytes # (auto) 1.6 10 ^3/uL (0.4-5.4); Neutrophils # (auto) 8.4 10 ^3/uL (1.6-8.6)
[2024-11-19 09:19] LABS: Basophils # (auto) 0 10 ^3/uL (0-0.2); Basophils % (auto) 0.3 % (0.0-2.0); Hematocrit 31.7 % (36.0-46.0); Lymphocytes % (auto) 15.2 % (10.0-50.0); Mean Corpuscular Hemoglobin 24.8 pg (28.0-32.0); Mean Corpuscular Hgb Conc. 31.2 g/dL (32.0-36.0); Mean Corpuscular Volume 79.4 fL (80.0-100.0); Monocytes # (auto) 0.4 10 ^3/uL (0-1.3); Monocytes % (auto) 4.1 % (0.0-12.0); Neutrophils % (auto) 80.4 % (37.0-80.0); Platelet Count (auto) 363 10^3/uL (140-450); Red Blood Cells 3.99 10^6/uL (4.0-5.20); Red Cell Distribution Width 16.4 % (11.8-14.3); White Blood Cell 10.4 10^3/uL (4.4-10.8)
[2024-11-19 09:28] LABS: Sodium 141 mmol/L (136-145)
[2024-11-19 09:29] LABS: Anion Gap 6 (5-15); Calcium 9.4 mg/dL (8.7-10.4); Carbon Dioxide 26 mmol/L (20-31)
[2024-11-19 09:32] LABS: Chloride 109 mmol/L (98-107)
[2024-11-19 09:34] LABS: BUN/Creatinine Ratio 21.3 (10.0-20.0); Blood Urea Nitrogen 13 mg/dL (9-23); Glucose 98 mg/dL (74-106)
[2024-11-19] MEDS ORDERED: SODIUM CHLORIDE 0.9% 1,000 ML IV ONE (10:00)
== END 2024-11-19 12:03 | disposition left against medical advice (07) ==
LOC: ER 05:33
DX: K29.70 Gastritis, unspecified, without bleeding (principal); F32.A Depression, unspecified; F41.9 Anxiety disorder, unspecified; F17.210 Nicotine dependence, cigarettes, uncomplicated; Z87.442 Personal history of urinary calculi; Z87.440 Personal history of urinary (tract) infections; Z90.49 Acquired absence of other specified parts of digestive tract; Z79.899 Other long term (current) drug therapy
CPT/HCPCS: 36415; 71045; 80048; 81001; 85025

== ENCOUNTER 2025-01-16 06:47 | Emergency (ER) | payer OTHER, MEDICAID ==
[~2025-01-16] VITALS: Ht 154.9 cm; Wt 42.8 kg
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
[2025-01-16] MEDS ORDERED: LORA-1121 PO (07:59)
[2025-01-16] MEDS: LORazepam 2MG/ML-1ML VIAL IM ONE (08:17)
[2025-01-16 08:18] VITALS: BP 116/77; PULSE 96; RESP 19; TEMP 98.9; O2SAT 100
== END 2025-01-16 09:03 | disposition home or self-care (01) ==
LOC: ER 06:47
DX: F41.9 Anxiety disorder, unspecified (principal); D89.89 Other specified disorders involving the immune mechanism, not elsewhere classified; F17.210 Nicotine dependence, cigarettes, uncomplicated; Z86.2 Personal history of diseases of the blood and blood-forming organs and certain disorders involving the immune mechanism; Z90.49 Acquired absence of other specified parts of digestive tract
CPT/HCPCS: 96372; 99283; J2060

== ENCOUNTER 2025-01-30 12:00 | Emergency (ER) | payer OTHER, MEDICAID ==
[~2025-01-30] VITALS: Ht 154.9 cm; Wt 44.7 kg
[~2025-01-30 12:00] MED LIST changes: +LORA-1121 PO
[2025-01-30] MEDS ORDERED: ONDANSETRON HCL 4 MG/2 ML VIAL IV ONE (12:30)
[2025-01-30] MEDS ORDERED: PANTOPRAZOLE 40 MG/10 ML VIAL INJ IV ONE (12:30)
[2025-01-30] MEDS ORDERED: MORPHINE SULFATE 4 MG/ML SYR/VIAL IV ONE (12:30)
[2025-01-30] MEDS ORDERED: SODIUM CHLORIDE 0.9% 500 ML IVB ONE (12:30)
[2025-01-30 12:33] VITALS: BP 133/64; PULSE 86; RESP 26; TEMP 98.5; O2SAT 100
--- NOTE | 2025-01-30 12:35 | ED.PDOC ---
GI ASSESSMENT HPI Comments 55 y/o F, with PMHX of pancreatitis, anemia, anxiety, and depression presents to the ED for CC of abdominal pain. Patient states, that she has been experiencing LUQ abdominal pain with associated symptoms of nausea, vomiting, and dysuria xdays. Patient complains of current 10/10 pain. Patient smokes cigarettes, drinks ETOH, and dose illicit street drugs. Patient denies diarrhea, fever, chills, or body-aches. No other symptoms or modifying factors at this time. Chief Complaint: Abdominal Pain Time Seen by MD: 12:05 Primary Care Provider: NONE Reviewed Notes: Nurses Notes, Medications, Allergies Allergies: Coded Allergies: NO KNOWN ALLERGIES (Unverified , 07/07/18) Home Meds Active Scripts Lorazepam (ATIVAN TABLET) 0.5 Mg Tb, 1 TAB PO DAILY for 3 Days, #3 TAB Prov:HAROON LOGAN MD 01/16/25 Diclofenac Potassium (Diclofenac Potassium) 50 Mg Tab, 1 TAB PO TIDP for 10 Days, #30 TAB Prov:BONI AVALOS MD 11/17/24 Clonazepam (KlonoPIN TABLET) 0.5 Mg Tb, 1 TAB PO DAILY for 7 Days, #7 TAB Prov:BONI AVALOS MD 11/17/24 Nitrofurantoin Monohydrate Mac (Macrobid) 100 Mg Cap, 100 MG PO BID for 7 Days, #14 CAP Prov:BONI AVALOS MD 11/17/24 Hydroxyzine Hcl (Hydroxyzine Hcl) 25 Mg Tab, 1 TAB PO TIDPRN PRN for 10 Days, #30 TAB 0 Refills Prov:BIA POE NP 11/06/24 Hydroxyzine Hcl (Hydroxyzine Hcl) 25 Mg Tab, 1 TAB PO TID for 10 Days, #30 TAB 0 Refills Prov:BIA POE NP 10/16/24 Clonazepam (Klonopin) 1 Mg Tab, 1 TAB PO BID, #14 TAB 0 Refills Prov:YANDEL CALVIN 10/05/24 Ibuprofen (Ibuprofen) 800 Mg Tab, 800 MG PO Q8HP PRN for 7 Days, #21 TAB Prov:ADEN BRAND 07/29/24 Naproxen (Naproxen) 500 Mg Tab, 500 MG PO BID PRN for 10 Days, #20 TAB Prov:JAIRO BOB [place] RESIDENT 07/03/24 Fluoxetine HCl (Fluoxetine Hydrochloride) 40 Mg Cap, 40 MG PO DAILY for 30 Days, #30 CAP Prov:OMARJUHI BOB [place] RESIDENT 07/03/24 Oxycodone W/ Acetaminophen (Percocet 5/325MG) 1 Tab Tb, 1 TAB PO TID PRN for 8 Days, #24 TAB Prov:SAVITA DELATORRE MD 05/30/24 Pantoprazole Sodium Sesquihydr (Protonix) 40 Mg Tab, 40 MG PO DAILY for 30 Days, #30 TAB 2 Refills Prov:SAVITA DELATORRE MD 05/30/24 Metronidazole (Metronidazole) 500 Mg Tab, 500 MG PO TID for 7 Days, #21 TAB Prov:SAVITA DELATORRE MD 05/30/24 Levofloxacin Hemihydrate (LEVAQUIN 500 MG) 500 Mg Tab, 500 MG PO DAILY for 7 Days, #7 TAB Prov:SAVITA DELATORRE MD 05/30/24 Nitrofurantoin Monohydrate Mac (Macrobid) 100 Mg Cap, 100 MG PO BID for 6 Days, #14 CAP Prov:ASHLEY COLLIER MD 03/30/24 Dicyclomine Hcl (BENTYL CAPSULE) 10 Mg Cp, 1 CAP PO TID for 5 Days, #15 CAP 11 Refills Prov:KALLIE LEON MD 03/30/24 Buspirone HCl (Buspirone Hydrochloride) 15 Mg Tab, 15 MG PO BID for 90 Days, #180 TAB 1 Refill Prov:BIA POE NP 03/06/24 Hydroxyzine Hcl (Hydroxyzine Hcl) 25 Mg Tab, 1 TAB PO TID PRN, #30 TAB Prov:BASIM ROBLERO 03/05/24 Hydroxyzine Hcl (Hydroxyzine Hcl) 25 Mg Tab, 1 TAB PO TID for 30 Days, #90 TAB 0 Refills Prov:BIA POE NP 01/03/24 Pancreatic Enzymes (Creon) 12,000 Unt Cap, 74977 UNT PO TIDWMEALS, #90 CAP Prov:DAYANA FERGUSON MD 07/10/22 Pantoprazole Sodium Sesquihydr (Pantoprazole Sodium) 40 Mg Tab, 40 MG PO DAILY, #30 TAB Prov:DAYANA FERGUSON MD 07/10/22 Reported Medications Lurasidone Hydrochloride (LATUDA) 120 Mg Tab, 1 TAB PO 07/02/22 Tiotropium [place] Monohydrate (Spiriva Handihaler) 18 Mcg Cap, 1 CAP INH DAILYPRN 07/02/22 Fluoxetine Hcl (Fluoxetine Hcl) 40 Mg Cap, 2 CAP PO 07/02/22 Alprazolam (Alprazolam) 1 Mg Tab, 1 TAB PO TID PRN for ANXIETY 07/02/22 Gabapentin (Gabapentin) 100 Mg Cap, 3 CAP PO TID 07/02/22 Information Source: Patient Mode of Arrival: Ambulatory Timing: Days Duration: Since onset Prehospital treatment: None Quality: None Vomitus: Watery Stool: Normal Severity: Moderate Recent: None Recent Hx of: None Pain Location: LUQ Modifying Factors: Nothing Associated sign and symptoms: Nausea, Vomiting Past Medical History PAST MEDICAL HISTORY: Anemia, Anxiety, Depression, Kidney Stones, UTI'S Surgical History: Cholecystectomy, 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: No Pertinent 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 Family History Family History: Reviewed,noncontributory to illness Social History Smoker: Cigarettes, Less Than 1 Pack/Day Alcohol: Occasionally Drugs: Marijuana, Methamphetamine Lives In: Home Constitutional: denies: chills, diaphoresis, fatigue, fever, malaise, sweats, weakness, others EENTM: denies: blurred vision, double vision, ear bleeding, ear discharge, ear drainage, ear pain, ear ringing, eye pain, eye redness, hearing loss, mouth pain, mouth swelling, nasal discharge, nose bleeding, nose congestion, nose pain, photophobia, tearing, throat pain, throat swelling, voice changes, others Respiratory: denies: cough, hemoptysis, orthopnea, SOB at rest, shortness of breath, SOB with excertion, stridor, wheezing, others Cardiovascular: denies: chest pain, dizzy spells, diaphoresis, Dyspnea on exertion, edema, irregular heart beat, left arm pain, lightheadedness, palpitations, PND, syncope, others Gastrointestinal: reports: abdominal pain, nausea, vomiting; denies: abdomen distended, blood streaked bowels, constipated, diarrhea, dysphagia, difficulty swallowing, hematemesis, melena, poor appetite, poor fluid intake, rectal bleeding, rectal pain, others Genitourinary: reports: dysuria; denies: abnormal vagina bleeding, burning, dyspareunia, flank pain, frequency, hematuria, incontinence, pain, , vagina discharge, urgency, others Neurological: denies: dizziness, fainting, headache, left sided numbness, left sided weakness, numbness, paresthesia, pre-existing deficit, right sided numbness, right sided weakness, seizure, speech problems, tingling, tremors, weakness, others Musculoskeletal: denies: back pain, gout, joint pain, joint swelling, muscle pain, muscle stiffness, neck pain, others Integumetry: denies: bruises, change in color, change in hair/nails, dryness, laceration, lesions, lumps, rash, wounds, others Allergic/Immunocompromised: denies: Difficulty Healing, Frequent Infections, Hives, Itching, others Hematologic/Lymphatic: denies: anemia, blood clots, easy bleeding, easy bruising, swollen glands, others Endocrine: denies: excessive hunger, excessive sweating, excessive thirst, excessive urination, flushing, intolerance to cold, intolerance to heat, unexplained weight gain, unexplained weight loss, others Psychiatric: denies: anxiety, bipolar disorder, depression, hopeless, panic disorder, schizophrenia, sleepless, suicidal, others All Other Systems: Reviewed and Negative Physical Exam General Appearance: Moderate Distress, Thin HEENT: Normal ENT Inspection, Pharynx Normal, TMs Normal Neck: Full Range of Motion, Non-Tender, Normal, Normal Inspection Respiratory: Chest Non-Tender, Lungs Clear, No Accessory Muscle Use, No Respiratory Distress, Normal Breath Sounds Cardiovascular: No Edema, No JVD, No Murmur, No Gallop, Normal Peripheral Pulses, Regular Rate/Rhythm Breast Exam: Deferred Gastrointestinal: Diffuse, No Organomegaly, No Pulsatile Mass, Normal Bowel Sounds, Soft, Tenderness Genitalia: Deferred Pelvic: Deferred Rectal: Deferred Extremities: No calf tenderness, Normal capillary refill, Normal inspection, Normal range of motion, Non-tender, No pedal edema Musculoskeletal : Apperance: Normal Neurologic: Alert, 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 Was a procedure done?: No GI differential Dx Differential Diagnosis: Gastritis/PUD, Gastroenteritis, Pancreatitis, Electrolyte Imbalance, Food Poisoning, Bacterial, Viral X-Ray, Labs, Meds, VS Vital Signs Date Time Temp Pulse Resp B/P (MAP) Pulse Ox O2 Delivery O2 Flow Rate FiO2 01/30/25 12:33 98.5 86 26 133/64 (87) 100 98.5 Lab Test 01/30/25 13:44 Range/Units White Blood Count 9.9 4.4-10.8 10^3/uL Red Blood Count 4.67 4.0-5.20 10^6/uL Hemoglobin 10.7 L 12.2-16.2 g/dL Hematocrit 34.2 L 36.0-46.0 % Mean Corpuscular Volume 73.2 L 80.0-100.0 fL Mean Corpuscular Hemoglobin 23.0 L 28.0-32.0 pg Mean Corpuscular Hemoglobin Concent 31.4 L 32.0-36.0 g/dL Red Cell Distribution Width 18.3 H 11.8-14.3 % Platelet Count 474 H 140-450 10^3/uL Mean Platelet Volume 7.5 6.9-10.8 fL Neutrophils (%) (Auto) 78.9 37.0-80.0 % Lymphocytes (%) (Auto) 14.6 10.0-50.0 % Monocytes (%) (Auto) 5.3 0.0-12.0 % Eosinophils (%) (Auto) 0.4 0.0-7.0 % Basophils (%) (Auto) 0.8 0.0-2.0 % Neutrophils # (Auto) 7.8 1.6-8.6 10 ^3/uL Lymphocytes # (Auto) 1.4 0.4-5.4 10 ^3/uL Monocytes # (Auto) 0.5 0-1.3 10 ^3/uL Eosinophils # (Auto) 0 0-0.8 10 ^3/uL Basophils # (Auto) 0.1 0-0.2 10 ^3/uL Nucleated Red Blood Cells 0.0 % Sodium Level 140 136-145 mmol/L Potassium Level 4.1 3.5-5.1 mmol/L Chloride Level 107 98-107 mmol/L Carbon Dioxide Level 26 20-31 mmol/L Anion Gap 7 5-15 Blood Urea Nitrogen 11 9-23 mg/dL Creatinine 0.73 0.550-1.02 mg/dL Glomerular Filtration Rate Calc 97 >90 mL/min BUN/Creatinine Ratio 15.1 10.0-20.0 Serum Glucose 86 74-106 mg/dL Calcium Level 9.8 8.7-10.4 mg/dL Total Bilirubin < 0.2 L 0.2-1.0 mg/dL Aspartate Amino Transferase (AST) 15 13-40 U/L Alanine Aminotransferase (ALT) 15 7-40 U/L Alkaline Phosphatase 117 H 46-116 U/L Total Protein 7.4 5.7-8.2 g/dL Albumin 4.2 3.2-4.8 g/dL Lipase 42 12-53 U/L CT ABD PEL: Findings: Evaluation of solid organs is limited due to lack of intravenous contrast use. Lung Bases: No acute or significant lung base finding. Normal heart size. No pleural or pericardial effusion. Liver: The liver is normal in size. No focal lesions. Gallbladder and biliary Tree: Gallbladder is surgically absent. Spleen: Unremarkable Pancreas: The pancreas is grossly normal in appearance. Adrenal Glands: Unremarkable Kidneys: Kidneys are grossly normal without calculi or hydronephrosis. Bladder: Grossly unremarkable for degree of distention. Bowel: Postsurgical changes in the stomach. Postsurgical changes in the bowel. Small bowel is nondilated. The appendix is not visualized; however, no secondary findings of acute appendicitis identified. Large amount of stool throughout the colon. Ascites: Absent Lymphadenopathy: No mesenteric, retroperitoneal or periportal lymphadenopathy. Abdominal wall and Mesentery: Unremarkable. Vasculature: The visualized abdominal aorta is normal in size and caliber. Evaluation of abdominal and pelvic vessels is limited due to lack of intravenous contrast. Pelvic Organs: Unremarkable Musculoskeletal: Severe compression deformity of T12 appears chronic. IMPRESSION: 1. No definite acute abdominal or pelvic findings. Large amount of stool throughout the colon suggests constipation. If concern persists consider follow- up exam with contrast. Radiation optimization: All CT scans at this facility use at least one of these dose optimization techniques: Automated exposure control mA and/or kV adjustment per patient size (includes targeted exams where dose is matched to clinical indication) or iterative reconstruction. IV Hep-Lock is being established The patient was given Protonix 40 mg IV push the patient was given morphine 4 mg IV push The patient was being given Zofran IV push The patient was being admitted to the hospitalist The CBC shows hemoglobin of 10.7 and hematocrit of 34.2 The rest of the chemistry panel is within normal limits The patient was being admitted at this time with a intractable abdominal pain Images Reviewed?: Images reviewed and evaluated by me Time of 1ST Reevaluation: 12:35 Reevaluation 1ST: Unchanged Patient Education/Counseling: Diagnosis, Treatment, Prognosis Family Education/Counseling: No Family Present Departure 1 Departure Time of Disposition: 17:41 Impression: Primary Impression: Intractable abdominal pain Additional Impressions: Failure to thrive Qualified Codes: R62.7 - Adult failure to thrive Generalized anxiety disorder Nausea and vomiting Qualified Codes: R11.14 - Bilious vomiting Disposition: ADMITTED INPATIENT Admit to: Med Surg Condition: Fair Critical Care Note Critical Care Time?: No Stability Stability form required: Yes Unstable for transfer: ED Physician Assesment (Clinical assesment) Heart Score Heart Score: Heart Score Response (Comments) Value History N/A 0 EKG N/A 0 Age N/A 0 Risk Factors N/A 0 Troponin N/A 0 Total 0 I personally scribed for ASHLEY COLLIER MD ([email or web address]) on 01/30/25 at 12:35. Electronically submitted by Radha Perez ([email or web address]). I personally scribed for ASHLEY COLLIER MD ([email or web address]) on 01/30/25 at 14:54. Electronically submitted by Radha Perez ([email or web address]). ASHLEY COLLIER MD Jan 30, 2025 12:35
[2025-01-30 14:00] LABS: Basophils # (auto) 0.1 10 ^3/uL (0-0.2); Basophils % (auto) 0.8 % (0.0-2.0); Eosinophils # (auto) 0 10 ^3/uL (0-0.8); Eosinophils % (auto) 0.4 % (0.0-7.0); Hematocrit 34.2 % (36.0-46.0); Hemoglobin 10.7 g/dL (12.2-16.2); Lymphocytes # (auto) 1.4 10 ^3/uL (0.4-5.4); Lymphocytes % (auto) 14.6 % (10.0-50.0); Mean Corpuscular Hgb Conc. 31.4 g/dL (32.0-36.0); Mean Corpuscular Volume 73.2 fL (80.0-100.0); Monocytes # (auto) 0.5 10 ^3/uL (0-1.3); Monocytes % (auto) 5.3 % (0.0-12.0); Neutrophils # (auto) 7.8 10 ^3/uL (1.6-8.6); Neutrophils % (auto) 78.9 % (37.0-80.0); Platelet Count (auto) 474 10^3/uL (140-450); Red Blood Cells 4.67 10^6/uL (4.0-5.20); Red Cell Distribution Width 18.3 % (11.8-14.3); White Blood Cell 9.9 10^3/uL (4.4-10.8)
--- NOTE | 2025-01-30 14:02 | DVH ---
Exam: CT CT AB PEL WO CON-NO ORAL OR IV History: pain Comparison Study: CT CT AB PEL WO CON-NO ORAL OR IV on DOS: 11/12/24, CT CT AB PEL WO CON-NO ORAL OR IV on DOS: 05/17/24, CT CT AB PEL WO CON-NO ORAL OR IV on DOS: 03/30/24 Technique: Multidetector spiral CT of the abdomen and pelvis was performed from lung bases to pubic symphysis. Imaging was performed without IV contrast. Axial, coronal and sagittal multiplanar reform ats were obtained from the axial data set by the technologist. Radiation dose : Abdomen/Pelvis: CTDIvol 5 mGy, DLP 257 mGy*cm. Findings: Evaluation of solid organs is limited due to lack of intravenous contrast use. Lung Bases: No acute or significant lung base finding. Normal heart size. No pleural or pericardial effusion. Liver: The liver is normal in size. No focal lesions. Gallbladder and biliary Tree: Gallbladder is surgically absent. Spleen: Unremarkable Pancreas: The pancreas is grossly normal in appearance. Adrenal Glands: Unremarkable Kidneys: Kidneys are grossly normal without calculi or hydronephrosis. Bladder: Grossly unremarkable for degree of distention. Bowel: Postsurgical changes in the stomach. Postsurgical changes in the bowel. Small bowel is nondil ated. The appendix is not visualized; however, no secondary findings of acute appendicitis identified . Large amount of stool throughout the colon. Ascites: Absent Lymphadenopathy: No mesenteric, retroperitoneal or periportal lymphadenopathy. Abdominal wall and Mesentery: Unremarkable. Vasculature: The visualized abdominal aorta is normal in size and caliber. Evaluation of abdominal a nd pelvic vessels is limited due to lack of intravenous contrast. Pelvic Organs: Unremarkable Musculoskeletal: Severe compression deformity of T12 appears chronic. IMPRESSION: 1. No definite acute abdominal or pelvic findings. Large amount of stool throughout the colon suggest s constipation. If concern persists consider follow-up exam with contrast. Radiation optimization: All CT scans at this facility use at least one of these dose optimization thomas hniques: Automated exposure control mA and/or kV adjustment per patient size (includes targeted exams where dose is matched to clinical indication) or iterative reconstruction. HS:Y
[2025-01-30 14:15] LABS: Alanine Aminotransferase 15 U/L (7-40); Anion Gap 7 (5-15); BUN/Creatinine Ratio 15.1 (10.0-20.0); Blood Urea Nitrogen 11 mg/dL (9-23); Calcium 9.8 mg/dL (8.7-10.4); Carbon Dioxide 26 mmol/L (20-31); Glucose 86 mg/dL (74-106); Lipase 42 U/L (12-53); Potassium 4.1 mmol/L (3.5-5.1); Sodium 140 mmol/L (136-145); Total Protein 7.4 g/dL (5.7-8.2)
[2025-01-30 14:16] LABS: Albumin 4.2 g/dL (3.2-4.8); Aspartate Aminotransferase 15 U/L (13-40)
[2025-01-30 14:20] LABS: Alkaline Phosphatase 117 U/L (46-116); Bilirubin, Total < 0.2 mg/dL (0.2-1.0); Chloride 107 mmol/L (98-107)
[2025-01-30] MEDS ORDERED: ALPRAZolam 0.5 MG TAB PO PRN (20:30)
[2025-01-30] MEDS ORDERED: DOCUSATE SOD 100 MG CAP PO PRN (20:30)
[2025-01-30] MEDS ORDERED: ONDANSETRON HCL 4 MG/2 ML VIAL IV PRN (20:30)
[2025-01-30] MEDS ORDERED: ACETAMINOPHEN 325 MG TAB PO PRN (20:30)
[2025-01-30] MEDS ORDERED: HYDROcodone-ACET 5/325MG TAB PO PRN (20:30)
[2025-01-30] MEDS ORDERED: GABAPENTIN 300 MG CAP PO SCH (22:00)
[2025-01-31] MEDS ORDERED: PANTOPRAZOLE 40 MG/10 ML VIAL INJ IV SCH (10:00)
[2025-01-31] MEDS ORDERED: FLUoxetine HCL 20 MG CAP PO SCH (10:00)
== END 2025-01-30 20:11 | disposition left against medical advice (07) ==
LOC: ER 12:00
DX: R10.12 Left upper quadrant pain (principal); R11.2 Nausea with vomiting, unspecified; F41.1 Generalized anxiety disorder; R62.7 Adult failure to thrive; F41.9 Anxiety disorder, unspecified; F32.A Depression, unspecified; F17.210 Nicotine dependence, cigarettes, uncomplicated; F12.90 Cannabis use, unspecified, uncomplicated; Z87.19 Personal history of other diseases of the digestive system; Z90.49 Acquired absence of other specified parts of digestive tract; Z79.899 Other long term (current) drug therapy
CPT/HCPCS: 36415; 74176; 80053; 83690; 85025

== ENCOUNTER 2025-02-03 06:14 | Emergency (ER) | payer OTHER, MEDICAID ==
[~2025-02-03] VITALS: Ht 149.9 cm; Wt 54.5 kg
[2025-02-03] MEDS ORDERED: ONDANSETRON HCL 4 MG/2 ML VIAL IV ONE (06:30)
[2025-02-03] MEDS ORDERED: fentaNYL CITRATE 100 MCG/2 ML VL IV ONE (06:30)
--- NOTE | 2025-02-03 06:30 | ED.PDOC ---
GI ASSESSMENT HPI Comments 55 year old female brought in by EMS presents to the ED with a chief complaint of abdominal pain onset yesterday (02/02/25) around 20:00. Per EMS, patient has a PMHx Pancreatitis, has called 911 several times for similar symptoms. Patient was seen at [facility] about 1 week ago, diagnosed with UTI, prescribed antibiotics, finished antibiotics with no improving of symptoms. Patient states she is currently experiencing diffused abdominal pain, nausea, vomiting, few episodes of diarrhea yesterday, dysuria with burning sensation. Denies fever, chills, headache, dizziness, chest pain, shortness of breath. No other symptoms or modifying factors present at this time. Time Seen by MD: 06:20 Primary Care Provider: NONE Reviewed Notes: Medications, Allergies Allergies: Coded Allergies: NO KNOWN ALLERGIES (Unverified , 07/07/18) Home Meds Active Scripts Lorazepam (ATIVAN TABLET) 0.5 Mg Tb, 1 TAB PO DAILY for 3 Days, #3 TAB Prov:HAROON LOGAN MD 01/16/25 Diclofenac Potassium (Diclofenac Potassium) 50 Mg Tab, 1 TAB PO TIDP for 10 Days, #30 TAB Prov:BONI AVALOS MD 11/17/24 Clonazepam (KlonoPIN TABLET) 0.5 Mg Tb, 1 TAB PO DAILY for 7 Days, #7 TAB Prov:BONI AVALOS MD 11/17/24 Nitrofurantoin Monohydrate Mac (Macrobid) 100 Mg Cap, 100 MG PO BID for 7 Days, #14 CAP Prov:BONI AVALOS MD 11/17/24 Hydroxyzine Hcl (Hydroxyzine Hcl) 25 Mg Tab, 1 TAB PO TIDPRN PRN for 10 Days, #30 TAB 0 Refills Prov:BIA POE NP 11/06/24 Hydroxyzine Hcl (Hydroxyzine Hcl) 25 Mg Tab, 1 TAB PO TID for 10 Days, #30 TAB 0 Refills Prov:BIA POE AERIAL SPRAYER 10/16/24 Clonazepam (Klonopin) 1 Mg Tab, 1 TAB PO BID, #14 TAB 0 Refills Prov:YANDEL CALVIN 10/05/24 Ibuprofen (Ibuprofen) 800 Mg Tab, 800 MG PO Q8HP PRN for 7 Days, #21 TAB Prov:ADEN BRANDP 07/29/24 Naproxen (Naproxen) 500 Mg Tab, 500 MG PO BID PRN for 10 Days, #20 TAB Prov:NINOSKASANTAJUHI BOB [place] RESIDENT 07/03/24 Fluoxetine HCl (Fluoxetine Hydrochloride) 40 Mg Cap, 40 MG PO DAILY for 30 Days, #30 CAP Prov:NINOSKAGÓMEZ BOB [place] RESIDENT 07/03/24 Oxycodone W/ Acetaminophen (Percocet 5/325MG) 1 Tab Tb, 1 TAB PO TID PRN for 8 Days, #24 TAB Prov:SAVITA DELATORRE MD 05/30/24 Pantoprazole Sodium Sesquihydr (Protonix) 40 Mg Tab, 40 MG PO DAILY for 30 Days, #30 TAB 2 Refills Prov:SAVITA DELATORRE MD 05/30/24 Metronidazole (Metronidazole) 500 Mg Tab, 500 MG PO TID for 7 Days, #21 TAB Prov:SAVITA DELATORRE MD 05/30/24 Levofloxacin Hemihydrate (LEVAQUIN 500 MG) 500 Mg Tab, 500 MG PO DAILY for 7 Days, #7 TAB Prov:SAVITA DELATORRE MD 05/30/24 Nitrofurantoin Monohydrate Mac (Macrobid) 100 Mg Cap, 100 MG PO BID for 6 Days, #14 CAP Prov:ASHLEY COLLIER MD 03/30/24 Dicyclomine Hcl (BENTYL CAPSULE) 10 Mg Cp, 1 CAP PO TID for 5 Days, #15 CAP 11 Refills Prov:KALLIE LEON MD 03/30/24 Buspirone HCl (Buspirone Hydrochloride) 15 Mg Tab, 15 MG PO BID for 90 Days, #180 TAB 1 Refill Prov:BIA POE AERIAL SPRAYER 03/06/24 Hydroxyzine Hcl (Hydroxyzine Hcl) 25 Mg Tab, 1 TAB PO TID PRN, #30 TAB Prov:BASIM ROBLERO WASH OIL PUMP OPERATOR 03/05/24 Hydroxyzine Hcl (Hydroxyzine Hcl) 25 Mg Tab, 1 TAB PO TID for 30 Days, #90 TAB 0 Refills Prov:BIA POE AERIAL SPRAYER 01/03/24 Pancreatic Enzymes (Creon) 12,000 Unt Cap, 41305 UNT PO TIDWMEALS, #90 CAP Prov:DAYANA FERGUSON MD 07/10/22 Pantoprazole Sodium Sesquihydr (Pantoprazole Sodium) 40 Mg Tab, 40 MG PO DAILY, #30 TAB Prov:DAYANA FERGUSON MD 07/10/22 Reported Medications Lurasidone Hydrochloride (LATUDA) 120 Mg Tab, 1 TAB PO 07/02/22 Tiotropium [place] Monohydrate (Spiriva Handihaler) 18 Mcg Cap, 1 CAP INH DAILYPRN 07/02/22 Fluoxetine Hcl (Fluoxetine Hcl) 40 Mg Cap, 2 CAP PO 07/02/22 Alprazolam (Alprazolam) 1 Mg Tab, 1 TAB PO TID PRN for ANXIETY 07/02/22 Gabapentin (Gabapentin) 100 Mg Cap, 3 CAP PO TID 07/02/22 Information Source: Patient, Emergency Med Personnel Mode of Arrival: EMS Timing: Hours Duration: Since onset Prehospital treatment: None Quality: Aching Severity: Moderate Recent: Antibiotics Recent Hx of: Other (UTI, pancreatitis ) Pain Location: Diffuse Modifying Factors: Nothing Associated sign and symptoms: Nausea, Vomiting, Diarrhea, Abdominal Pain Past Medical History PAST MEDICAL HISTORY: Anemia, Anxiety, Depression, Kidney Stones, UTI'S Past Medical History (Other): Pancreatitis Surgical History: Cholecystectomy, PROJECT ADMINISTRATIVE ASSISTANT History: No Pertinent PROJECT ADMINISTRATIVE ASSISTANT History Family History Family History: Reviewed,noncontributory to illness Social History Smoker: Cigarettes, Less Than 1 Pack/Day Alcohol: Occasionally Drugs: Marijuana, Methamphetamine Lives In: Home Constitutional: denies: chills, diaphoresis, fatigue, fever, malaise, sweats, weakness, others EENTM: denies: blurred vision, double vision, ear bleeding, ear discharge, ear drainage, ear pain, ear ringing, eye pain, eye redness, hearing loss, mouth arnulfo n, mouth swelling, nasal discharge, nose bleeding, nose congestion, nose pain, photophobia, tearing, throat pain, throat swelling, voice changes, others Respiratory: denies: cough, hemoptysis, orthopnea, SOB at rest, shortness of breath, SOB with excertion, stridor, wheezing, others Cardiovascular: denies: chest pain, dizzy spells, diaphoresis, Dyspnea on exertion, edema, irregular heart beat, left arm pain, lightheadedness, palpitations, PND, syncope, others Gastrointestinal: reports: diarrhea, nausea, vomiting; denies: abdomen distended, abdominal pain, blood streaked bowels, constipated, dysphagia, difficulty swallowing, hematemesis, melena, poor appetite, poor fluid intake, rectal bleeding, rectal pain, others Genitourinary: denies: abnormal vagina bleeding, burning, dyspareunia, dysuria, flank pain, frequency, hematuria, incontinence, pain, , vagina discharge, urgency, others Neurological: denies: dizziness, fainting, headache, left sided numbness, left sided weakness, numbness, paresthesia, pre-existing deficit, right sided numbness, right sided weakness, seizure, speech problems, tingling, tremors, weakness, others Musculoskeletal: denies: back pain, gout, joint pain, joint swelling, muscle pain, muscle stiffness, neck pain, others Integumetry: denies: bruises, change in color, change in hair/nails, dryness, laceration, lesions, lumps, rash, wounds, others Allergic/Immunocompromised: denies: Difficulty Healing, Frequent Infections, Hives, Itching, others Hematologic/Lymphatic: denies: anemia, blood clots, easy bleeding, easy bruising, swollen glands, others Endocrine: denies: excessive hunger, excessive sweating, excessive thirst, excessive urination, flushing, intolerance to cold, intolerance to heat, unexplained weight gain, unexplained weight loss, others Psychiatric: denies: anxiety, bipolar disorder, depression, hopeless, panic disorder, schizophrenia, sleepless, suicidal, others All Other Systems: Reviewed and Negative Physical Exam General Appearance: No Apparent Distress, Normal HEENT: Normal ENT Inspection, Pharynx Normal, TMs Normal Neck: Full Range of Motion, Non-Tender, Normal, Normal Inspection Respiratory: Chest Non-Tender, Lungs Clear, No Accessory Muscle Use, No Respiratory Distress, Normal Breath Sounds Cardiovascular: No Edema, No JVD, No Murmur, No Gallop, Normal Peripheral Pulses, Regular Rate/Rhythm Breast Exam: Deferred Gastrointestinal: No Organomegaly, Non Tender, No Pulsatile Mass, Normal Bowel Sounds, Soft Genitalia: Deferred Pelvic: Deferred Rectal: Deferred Extremities: No calf tenderness, Normal capillary refill, Normal inspection, Normal range of motion, Non-tender, No pedal edema Musculoskeletal : Apperance: Normal Neurologic: Alert, computer systems design analyst II-XII nml as Tested, No Motor Deficits, Normal Affect, Normal Mood, No Sensory Deficits Cerebellar Function: Normal Reflexes: Normal Skin: Dry, Normal Color, Warm Lymphatic: No Adenopathy Was a procedure done? Was a procedure done?: No GI differential Dx Differential Diagnosis: Gastritis/PUD, Gastroenteritis, Hernia, Hepatitis, Inflammatory BD, Ovarian cyst/torsion, Pancreatitis, UTI, Urolithiasis, Diabetes/ DKA, Electrolyte Imbalance, Food Poisoning, , Impaction, Mass, Anemia, Stress Ulcer, Kidney Stone X-Ray, Labs, Meds, VS Vital Signs Date Time Temp Pulse Resp B/P (MAP) Pulse Ox O2 Delivery O2 Flow Rate FiO2 02/03/25 07:35 98.8 98 18 137/77 (97) 97 98.8 02/03/25 07:35 98 18 97 Room Air 02/03/25 06:24 97.4 91 16 146/87 (106) 99 97.4 Lab Test 02/03/25 06:37 Range/Units White Blood Count 7.6 4.4-10.8 10^3/uL Red Blood Count 4.65 4.0-5.20 10^6/uL Hemoglobin 10.6 L 12.2-16.2 g/dL Hematocrit 33.8 L 36.0-46.0 % Mean Corpuscular Volume 72.9 L 80.0-100.0 fL Mean Corpuscular Hemoglobin 22.8 L 28.0-32.0 pg Mean Corpuscular Hemoglobin Concent 31.3 L 32.0-36.0 g/dL Red Cell Distribution Width 18.0 H 11.8-14.3 % Platelet Count 473 H 140-450 10^3/uL Mean Platelet Volume 7.5 6.9-10.8 fL Neutrophils (%) (Auto) 71.4 37.0-80.0 % Lymphocytes (%) (Auto) 20.6 10.0-50.0 % Monocytes (%) (Auto) 7.1 0.0-12.0 % Eosinophils (%) (Auto) 0.3 0.0-7.0 % Basophils (%) (Auto) 0.6 0.0-2.0 % Neutrophils # (Auto) 5.4 1.6-8.6 10 ^3/uL Lymphocytes # (Auto) 1.6 0.4-5.4 10 ^3/uL Monocytes # (Auto) 0.5 0-1.3 10 ^3/uL Eosinophils # (Auto) 0 0-0.8 10 ^3/uL Basophils # (Auto) 0 0-0.2 10 ^3/uL Nucleated Red Blood Cells 0.0 % Sodium Level 143 136-145 mmol/L Potassium Level 3.7 3.5-5.1 mmol/L Chloride Level 109 H 98-107 mmol/L Carbon Dioxide Level 25 20-31 mmol/L Anion Gap 9 5-15 Blood Urea Nitrogen 13 9-23 mg/dL Creatinine 0.70 0.550-1.02 mg/dL Glomerular Filtration Rate Calc 102 >90 mL/min BUN/Creatinine Ratio 18.6 10.0-20.0 Serum Glucose 122 H 74-106 mg/dL Calcium Level 9.8 8.7-10.4 mg/dL Total Bilirubin < 0.2 L 0.2-1.0 mg/dL Aspartate Amino Transferase (AST) 13 13-40 U/L Alanine Aminotransferase (ALT) 11 7-40 U/L Alkaline Phosphatase 109 46-116 U/L Total Protein 7.0 5.7-8.2 g/dL Albumin 3.9 3.2-4.8 g/dL Lipase 41 12-53 U/L Current Medications Medications (Trade) Dose Ordered Sig/Bruno Route Start Time Stop Time Status Last Admin Ketorolac Tromethamine (Toradol Injection) 15 mg ONCE ONCE IM 02/03/25 08:00 02/03/25 08:01 DC 02/03/25 08:07 [place] [id number] Ph: [phone] DIAGNOSTIC IMAGING Diagnostic Imaging Report : [id number] Signed PATIENT: TAM SOLANOCCT: [id number] UNIT: [id number] : 1970 LOC: ER ROOM / BED: / AGE / SEX: 55 / F ADM STATUS: REG ER SERVICE 8 ORDERING PHYSICIAN: MIGUEL ALEJANDRA MD PROCEDURE(s): ABPL - CT AB PEL WO CON-NO ORAL OR IV REASON: PAIN ORDER NUMBER(s): [id number], ACCESSION NUMBER(s): [id number] EXAM: CT Abdomen and Pelvis Without Intravenous Contrast CLINICAL INDICATION: PAIN TECHNIQUE: Axial computed tomography images of the abdomen and pelvis without intravenous contrast. This CT exam was performed using one or more of the following dose reduction techniques: automated exposure control, adjustment of the mA and/or kV according to patient size, and/or use of iterative reconstruction technique. CONTRAST: COMPARISON: CT CT AB PEL WO CON-NO ORAL OR IV on DOS: 01/30/25, CT CT AB PEL WO CON-NO ORAL OR IV on DOS: 11/12/24, CT CT AB PEL WO CON-NO ORAL OR IV on DOS: 05/17/24, CT CT AB PEL WO CON-NO ORAL OR IV on DOS: 03/30/24, PL2CT on DOS: 07/08/22 FINDINGS: LUNG BASES: Unremarkable. No mass. No consolidation. ABDOMEN: LIVER: Hepatomegaly with fatty infiltration. GALLBLADDER AND BILE DUCTS: Unremarkable. No calcified stones. No ductal dilation. PANCREAS: Unremarkable. No ductal dilation. SPLEEN: Unremarkable. No splenomegaly. ADRENALS: Unremarkable. No mass. KIDNEYS AND URETERS: Unremarkable. No obstructing stones. No hydronephrosis. STOMACH AND BOWEL: Fecal retention in the colon consistent with constipation. Gastric sleeve. No obstruction. No mucosal thickening. PELVIS: APPENDIX: No findings to suggest acute appendicitis. BLADDER: Unremarkable. No stones. REPRODUCTIVE: Unremarkable as visualized. ABDOMEN and PELVIS: INTRAPERITONEAL SPACE: Unremarkable. No free air. No significant fluid collection. BONES/JOINTS: Severe compression deformity of T12 vertebral body, likely chronic. SOFT TISSUES: Unremarkable. VASCULATURE: Unremarkable. No abdominal aortic aneurysm. LYMPH NODES: Unremarkable. No enlarged lymph nodes. OTHER FINDINGS: . . IMPRESSION: 1. Hepatomegaly with fatty infiltration. 2. Fecal retention in the colon consistent with constipation. ATED BY: VIVIAN MEYER MD DICTATED DATE/TIME: 02/03/25714 SIGNED BY: VIVIAN MEYER MD SIGNED DATE/TIME: 02/03/25714 CC: Time of 1ST Reevaluation: 06:50 Reevaluation 1ST: Unchanged Time of 2ND Reevaluation: 10:23 Reevaluation 2ND: Improved Patient Education/Counseling: Diagnosis, Treatment, Prognosis, Need For Follow Up Family Education/Counseling: No Family Present Additional Information Previous visit documents reviewed: 05/18/24, 06/28/24, 11/09/24, 11/13/24, 11/17/24, 11/18/24, 11/19/24, 01/16/25, 01/30/25 The following tests were ordered, and results were reviewed by me: CBC, CMP, LIPASE, UA, CT AB PEL WO CON, DRUG SCREEN Additional Information was gathered from interviewing the following independent historians: EMS I reviewed and agreed with the following test results read by other providers:CT AB PEL WO CON, I discussed treatment and results with medical personnel and: Patient PT REFUSED TO PROVIDE URINE. SHE FREQUENTS LOCAL HOSPITALS FOR THE SAME. SHE IS IMPROVED NOW AND IS STABLE FOR DISCHARGE. THE ONLY FINDING IS CONSTIPATION. I WILL START HER ON MIRALAX Departure 1 Departure Time of Disposition: 10:25 Impression: Primary Impression: Chronic pain Qualified Codes: G89.4 - Chronic pain syndrome Additional Impression: Constipation Qualified Codes: K59.01 - Slow transit constipation Disposition: HOME / SELF CARE / HOMELESS Condition: Good e-Prescriptions Polyethylene Glycol 3350 (Miralax) 17 Gm Pow 17 GM PO DAILY PRN for 3 Days, #3 POW 0 Refills Prov: MIGUEL ALEJANDRA MD 02/03/25 Discharged With: Self Critical Care Note Critical Care Time?: No Stability Stability form required: No I personally scribed for MIGUEL ALEJANDRA MD ([email or web address]) on 02/03/25 at 06:30. Electronically submitted by Mia Little ([email or web address]). I personally scribed for MIGUEL ALEJANDRA MD ([email or web address]) on 02/03/25 at 06:41. Electronically submitted by Mia Little ([email or web address]). I personally scribed for MIGUEL ALEJANDRA MD ([email or web address]) on 02/03/25 at 07:31. Electronically submitted by Mia Little ([email or web address]). MIGUEL ALEJANDRA MD Feb 03, 2025 06:30
[2025-02-03 07:01] LABS: Basophils # (auto) 0 10 ^3/uL (0-0.2); Eosinophils # (auto) 0 10 ^3/uL (0-0.8); Eosinophils % (auto) 0.3 % (0.0-7.0); Hemoglobin 10.6 g/dL (12.2-16.2); Lymphocytes # (auto) 1.6 10 ^3/uL (0.4-5.4); Monocytes # (auto) 0.5 10 ^3/uL (0-1.3); Neutrophils # (auto) 5.4 10 ^3/uL (1.6-8.6); White Blood Cell 7.6 10^3/uL (4.4-10.8)
[2025-02-03 07:03] LABS: Basophils % (auto) 0.6 % (0.0-2.0); Hematocrit 33.8 % (36.0-46.0); Lymphocytes % (auto) 20.6 % (10.0-50.0); Mean Corpuscular Hemoglobin 22.8 pg (28.0-32.0); Mean Corpuscular Hgb Conc. 31.3 g/dL (32.0-36.0); Mean Corpuscular Volume 72.9 fL (80.0-100.0); Monocytes % (auto) 7.1 % (0.0-12.0); Neutrophils % (auto) 71.4 % (37.0-80.0); Platelet Count (auto) 473 10^3/uL (140-450); Red Blood Cells 4.65 10^6/uL (4.0-5.20)
[2025-02-03 07:13] LABS: Alanine Aminotransferase 11 U/L (7-40); Albumin 3.9 g/dL (3.2-4.8); Alkaline Phosphatase 109 U/L (46-116); Aspartate Aminotransferase 13 U/L (13-40); BUN/Creatinine Ratio 18.6 (10.0-20.0); Blood Urea Nitrogen 13 mg/dL (9-23); Calcium 9.8 mg/dL (8.7-10.4); Carbon Dioxide 25 mmol/L (20-31); Lipase 41 U/L (12-53)
--- NOTE | 2025-02-03 07:18 | DVH ---
EXAM: CT Abdomen and Pelvis Without Intravenous Contrast CLINICAL INDICATION: PAIN TECHNIQUE: Axial computed tomography images of the abdomen and pelvis without intravenous contrast. This CT exam was performed using one or more of the following dose reduction techniques: automated exposure control, adjustment of the mA and/or kV according to patient size, and/or use of iterative r econstruction technique. CONTRAST: COMPARISON: CT CT AB PEL WO CON-NO ORAL OR IV on DOS: 01/30/25, CT CT AB PEL WO CON-NO ORAL OR IV on DOS: 11/12/24, CT CT AB PEL WO CON-NO ORAL OR IV on DOS: 05/17/24, CT CT AB PEL WO CON-NO ORAL OR IV o n DOS: 03/30/24, PL2CT on DOS: 07/08/22 FINDINGS: LUNG BASES: Unremarkable. No mass. No consolidation. ABDOMEN: LIVER: Hepatomegaly with fatty infiltration. GALLBLADDER AND BILE DUCTS: Unremarkable. No calcified stones. No ductal dilation. PANCREAS: Unremarkable. No ductal dilation. SPLEEN: Unremarkable. No splenomegaly. ADRENALS: Unremarkable. No mass. KIDNEYS AND URETERS: Unremarkable. No obstructing stones. No hydronephrosis. STOMACH AND BOWEL: Fecal retention in the colon consistent with constipation. Gastric sleeve. No obstruction. No mucosal thickening. PELVIS: APPENDIX: No findings to suggest acute appendicitis. BLADDER: Unremarkable. No stones. REPRODUCTIVE: Unremarkable as visualized. ABDOMEN and PELVIS: INTRAPERITONEAL SPACE: Unremarkable. No free air. No significant fluid collection. BONES/JOINTS: Severe compression deformity of T12 vertebral body, likely chronic. SOFT TISSUES: Unremarkable. VASCULATURE: Unremarkable. No abdominal aortic aneurysm. LYMPH NODES: Unremarkable. No enlarged lymph nodes. OTHER FINDINGS: . . IMPRESSION: 1. Hepatomegaly with fatty infiltration. 2. Fecal retention in the colon consistent with constipation.
[2025-02-03 07:22] LABS: Bilirubin, Total < 0.2 mg/dL (0.2-1.0); Glucose 122 mg/dL (74-106)
[2025-02-03 07:35] VITALS: BP 137/77; PULSE 98; RESP 18; TEMP 98.8; O2SAT 97
[2025-02-03 07:35] LABS: Anion Gap 9 (5-15); Potassium 3.7 mmol/L (3.5-5.1); Sodium 143 mmol/L (136-145)
[2025-02-03 07:44] LABS: Chloride 109 mmol/L (98-107)
[2025-02-03] MEDS: KETOROLAC TROMETH 30 MG/ML 1ML VIAL IM ONE (08:07)
[2025-02-03] MEDS: ONDANSETRON ODT 4 MG TAB PO ONE (08:09)
[2025-02-03] MEDS ORDERED: POLY335015 PO (10:27)
== END 2025-02-03 10:23 | disposition home or self-care (01) ==
LOC: EDBD 06:14 → ER 06:14
DX: G89.29 Other chronic pain (principal); K59.00 Constipation, unspecified; F41.9 Anxiety disorder, unspecified; F12.90 Cannabis use, unspecified, uncomplicated; F17.210 Nicotine dependence, cigarettes, uncomplicated; F32.A Depression, unspecified; Z90.49 Acquired absence of other specified parts of digestive tract; Z98.890 Other specified postprocedural states; Z79.899 Other long term (current) drug therapy
CPT/HCPCS: 36415; 74176; 80053; 83690; 85025; 96372; 99285; J1885

== ENCOUNTER 2025-02-09 05:33 | Emergency (ER) | payer OTHER, MEDICAID ==
[~2025-02-09] VITALS: Ht 160 cm; Wt 54.5 kg
[~2025-02-09 05:33] MED LIST changes: +POLY335015 PO
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
[2025-02-09 07:06] LABS: Basophils # (auto) 0 10 ^3/uL (0-0.2); Hemoglobin 9.2 g/dL (12.2-16.2); Monocytes # (auto) 0.5 10 ^3/uL (0-1.3)
[2025-02-09 07:09] LABS: Basophils % (auto) 0.2 % (0.0-2.0); Eosinophils # (auto) 0 10 ^3/uL (0-0.8); Eosinophils % (auto) 0.5 % (0.0-7.0); Lymphocytes # (auto) 1.7 10 ^3/uL (0.4-5.4); Mean Corpuscular Hemoglobin 23.3 pg (28.0-32.0); Mean Corpuscular Hgb Conc. 32.8 g/dL (32.0-36.0); Monocytes % (auto) 6.2 % (0.0-12.0); Neutrophils # (auto) 5.7 10 ^3/uL (1.6-8.6); Neutrophils % (auto) 72.1 % (37.0-80.0); Nucleated Red Blood Cells % 0.1 %; Platelet Count (auto) 420 10^3/uL (140-450); Red Blood Cells 3.94 10^6/uL (4.0-5.20); Red Cell Distribution Width 18.5 % (11.8-14.3); White Blood Cell 7.9 10^3/uL (4.4-10.8)
[2025-02-09 07:19] LABS: Albumin 3.7 g/dL (3.2-4.8); Alkaline Phosphatase 111 U/L (46-116); Amylase 32 U/L (30-118); Anion Gap 6 (5-15); Aspartate Aminotransferase 14 U/L (13-40); BUN/Creatinine Ratio 26.8 (10.0-20.0); Bilirubin, Total 0.3 mg/dL (0.2-1.0); Blood Urea Nitrogen 15 mg/dL (9-23); Calcium 9.2 mg/dL (8.7-10.4); Carbon Dioxide 25 mmol/L (20-31); Lipase 26 U/L (12-53); Potassium 3.6 mmol/L (3.5-5.1); Sodium 140 mmol/L (136-145); Total Protein 6.5 g/dL (5.7-8.2)
[2025-02-09 07:24] LABS: Alanine Aminotransferase < 9 U/L (7-40); Chloride 109 mmol/L (98-107); Glucose 110 mg/dL (74-106)
[2025-02-09 07:30] VITALS: BP 125/68; PULSE 97; RESP 16; TEMP 97.5; O2SAT 96
== END 2025-02-09 09:00 | disposition home or self-care (01) ==
LOC: ER 05:33 → EDUNIT# 05:33 → EDBD 05:33 → ER 09:00
DX: R10.13 Epigastric pain (principal); R10.32 Left lower quadrant pain; F17.210 Nicotine dependence, cigarettes, uncomplicated; Z90.49 Acquired absence of other specified parts of digestive tract; Z79.899 Other long term (current) drug therapy
CPT/HCPCS: 36415; 80053; 82150; 83605; 83690; 85025

== ENCOUNTER 2025-02-09 11:06 | Emergency (ER) | payer OTHER, MEDICAID ==
[~2025-02-09] VITALS: Ht 152.4 cm; Wt 43.4 kg
--- NOTE | 2025-02-09 13:27 | ED.PDOC ---
History of Present Illness HPI Comments A 55 YEAR OLD FEMALE PRESENTS TO THE ED WITH COMPLAINT OF PAIN MANAGEMENT AND ANXIETY. PATIENT STATES HE HAS A HISTORY OF ANXIETY AND CHRONIC PAIN AND WAS LIKE MEDICATION FOR ANXIETY AND CHRONIC PAIN HERE IN THE ED. PATIENT HAS BEEN TO HIS ED AND HOSPITAL FOR THE SAME COMPLAINT MULTIPLE TIMES WHERE MULTIPLE CT SCANS AND LABS DONE ALL OF WHICH WERE NORMAL. PT REQUESTS MORPHINE AND ANXIETY MEDICATIONS AT THIS TIME. PATIENT DENIES SI, HI, FEVER, CHILLS, SHORTNESS OF BREATH, CHEST PAIN, NAUSEA, VOMITING, HEADACHE, OR OTHER COMPLAINTS. NO OTHER SYMPTOMS OR MODIFYING FACTORS AT THIS TIME. PATIENT IS ALERT, ORIENTED X 4, AND HAS STEADY GAIT. Chief Complaint: Anxiety Time Seen by MD: 12:02 Primary Care Provider: NONE Reviewed Notes: Nurses Notes, Medications, Allergies Allergies: Coded Allergies: NO KNOWN ALLERGIES (Unverified , 07/07/18) Home Meds Active Scripts Polyethylene Glycol 3350 (Miralax) 17 Gm Pow, 17 GM PO DAILY PRN for 3 Days, #3 POW 0 Refills Prov:MIGUEL ALEJANDRA MD 02/03/25 Lorazepam (ATIVAN TABLET) 0.5 Mg Tb, 1 TAB PO DAILY for 3 Days, #3 TAB Prov:HAROON LOGAN MD 01/16/25 Diclofenac Potassium (Diclofenac Potassium) 50 Mg Tab, 1 TAB PO TIDP for 10 Days, #30 TAB Prov:BONI AVALOS MD 11/17/24 Clonazepam (KlonoPIN TABLET) 0.5 Mg Tb, 1 TAB PO DAILY for 7 Days, #7 TAB Prov:BONI AVALOS MD 11/17/24 Nitrofurantoin Monohydrate Mac (Macrobid) 100 Mg Cap, 100 MG PO BID for 7 Days, #14 CAP Prov:BONI AVALOS MD 11/17/24 Hydroxyzine Hcl (Hydroxyzine Hcl) 25 Mg Tab, 1 TAB PO TIDPRN PRN for 10 Days, #30 TAB 0 Refills Prov:BIA POE NP 11/06/24 Hydroxyzine Hcl (Hydroxyzine Hcl) 25 Mg Tab, 1 TAB PO TID for 10 Days, #30 TAB 0 Refills Prov:BIA POE NP 10/16/24 Clonazepam (Klonopin) 1 Mg Tab, 1 TAB PO BID, #14 TAB 0 Refills Prov:YANDEL CALVIN 10/05/24 Ibuprofen (Ibuprofen) 800 Mg Tab, 800 MG PO Q8HP PRN for 7 Days, #21 TAB Prov:ADEN BRAND SALES DEVELOPMENT EXECUTIVE 07/29/24 Naproxen (Naproxen) 500 Mg Tab, 500 MG PO BID PRN for 10 Days, #20 TAB Prov[facility] 07/03/24 Fluoxetine HCl (Fluoxetine Hydrochloride) 40 Mg Cap, 40 MG PO DAILY for 30 Days, #30 CAP Prov[facility] 07/03/24 Oxycodone W/ Acetaminophen (Percocet 5/325MG) 1 Tab Tb, 1 TAB PO TID PRN for 8 Days, #24 TAB Prov:SAVITA DELATORRE MD 05/30/24 Pantoprazole Sodium Sesquihydr (Protonix) 40 Mg Tab, 40 MG PO DAILY for 30 Days, #30 TAB 2 Refills Prov:SAVITA DELATORRE MD 05/30/24 Metronidazole (Metronidazole) 500 Mg Tab, 500 MG PO TID for 7 Days, #21 TAB Prov:SAVITA DELATORRE MD 05/30/24 Levofloxacin Hemihydrate (LEVAQUIN 500 MG) 500 Mg Tab, 500 MG PO DAILY for 7 Days, #7 TAB Prov:SAVITA DELATORRE MD 05/30/24 Nitrofurantoin Monohydrate Mac (Macrobid) 100 Mg Cap, 100 MG PO BID for 6 Days, #14 CAP Prov:ASHLEY COLLIER MD 03/30/24 Dicyclomine Hcl (BENTYL CAPSULE) 10 Mg Cp, 1 CAP PO TID for 5 Days, #15 CAP 11 Refills Prov:KALLIE LEON MD 03/30/24 Buspirone HCl (Buspirone Hydrochloride) 15 Mg Tab, 15 MG PO BID for 90 Days, # 180 TAB 1 Refill Prov:BIA POE NP 03/06/24 Hydroxyzine Hcl (Hydroxyzine Hcl) 25 Mg Tab, 1 TAB PO TID PRN, #30 TAB Prov:BASIM ROBLEROP 03/05/24 Hydroxyzine Hcl (Hydroxyzine Hcl) 25 Mg Tab, 1 TAB PO TID for 30 Days, #90 TAB 0 Refills Prov:BIA POE NP 01/03/24 Pancreatic Enzymes (Creon) 12,000 Unt Cap, 15579 UNT PO TIDWMEALS, #90 CAP Prov:DAYANA FERGUSON MD 07/10/22 Pantoprazole Sodium Sesquihydr (Pantoprazole Sodium) 40 Mg Tab, 40 MG PO DAILY, #30 TAB Prov:DAYANA FERGUSON MD 07/10/22 Reported Medications Lurasidone Hydrochloride (LATUDA) 120 Mg Tab, 1 TAB PO 07/02/22 Tiotropium [place] Monohydrate (Spiriva Handihaler) 18 Mcg Cap, 1 CAP INH DAILYPRN 07/02/22 Fluoxetine Hcl (Fluoxetine Hcl) 40 Mg Cap, 2 CAP PO 07/02/22 Alprazolam (Alprazolam) 1 Mg Tab, 1 TAB PO TID PRN for ANXIETY 07/02/22 Gabapentin (Gabapentin) 100 Mg Cap, 3 CAP PO TID 07/02/22 Information Source: Patient Mode of Arrival: Ambulatory Severity: Moderate Timing: Days Duration: Since onset, Days Prehospital treatment: None Medication Refill: For: Pain, For: Other (ANXIETY AND PAIN MANAGEMENT) Past Medical History PAST MEDICAL HISTORY: Anemia, Anxiety, Depression, Kidney Stones, UTI'S Past Medical History (Other): CHRONIC LOW BACK PAIN Surgical History: Cholecystectomy, 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 LIME History: No Pertinent SUPERVISOR LIME History Family History Family History: Reviewed,noncontributory to illness Social History Smoker: Cigarettes, Less Than 1 Pack/Day Alcohol: Occasionally Drugs: Marijuana, Methamphetamine Lives In: Home Constitutional: denies: chills, diaphoresis, fatigue, fever, malaise, sweats, weakness, others EENTM: denies: blurred vision, double vision, ear bleeding, ear discharge, ear drainage, ear pain, ear ringing, eye pain, eye redness, hearing loss, mouth pain, mouth swelling, nasal discharge, nose bleeding, nose congestion, nose pain, photophobia, tearing, throat pain, throat swelling, voice changes, others Respiratory: denies: cough, hemoptysis, orthopnea, SOB at rest, shortness of breath, SOB with excertion, stridor, wheezing, others Cardiovascular: denies: chest pain, dizzy spells, diaphoresis, Dyspnea on exertion, edema, irregular heart beat, left arm pain, lightheadedness, palpitations, PND, syncope, others Gastrointestinal: denies: abdomen distended, abdominal pain, blood streaked bowels, constipated, diarrhea, dysphagia, difficulty swallowing, hematemesis, melena, nausea, poor appetite, poor fluid intake, rectal bleeding, rectal pain, vomiting, others Genitourinary: denies: abnormal vagina bleeding, burning, dyspareunia, dysuria, flank pain, frequency, hematuria, incontinence, pain, , vagina discharge, urgency, others Neurological: denies: dizziness, fainting, headache, left sided numbness, left sided weakness, numbness, paresthesia, pre-existing deficit, right sided numbness, right sided weakness, seizure, speech problems, tingling, tremors, weakness, others Musculoskeletal: reports: back pain, muscle pain; denies: gout, joint pain, joint swelling, muscle stiffness, neck pain, others Integumetry: denies: bruises, change in color, change in hair/nails, dryness, laceration, lesions, lumps, rash, wounds, others Allergic/Immunocompromised: denies: Difficulty Healing, Frequent Infections, Hives, Itching, others Hematologic/Lymphatic: denies: anemia, blood clots, easy bleeding, easy bruising, swollen glands, others Endocrine: denies: excessive hunger, excessive sweating, excessive thirst, excessive urination, flushing, intolerance to cold, intolerance to heat, unexplained weight gain, unexplained weight loss, others Psychiatric: reports: anxiety; denies: bipolar disorder, depression, hopeless, panic disorder, schizophrenia, sleepless, suicidal, others All Other Systems: Reviewed and Negative Physical Exam General Appearance: Mild Distress, Normal, Other (ANXIOUS ) HEENT: Normal ENT Inspection, PERRL/EOMI, Pharynx Normal, TMs Normal Neck: Full Range of Motion, Non-Tender, Normal, Normal Inspection Respiratory: Chest Non-Tender, Lungs Clear, No Accessory Muscle Use, No Respiratory Distress, Normal Breath Sounds Cardiovascular: No Edema, No JVD, No Murmur, No Gallop, Normal Peripheral Pulses, Regular Rate/Rhythm Breast Exam: Deferred Gastrointestinal: No Organomegaly, Non Tender, No Pulsatile Mass, Normal Bowel Sounds, Soft Genitalia: Deferred Pelvic: Deferred Rectal: Deferred Extremities: No calf tenderness, Normal capillary refill, Normal inspection, Normal range of motion, Non-tender, No pedal edema Musculoskeletal : Location: Bilateral Extremity Location: Back Apperance: Tenderness (AND MUSCLE SPASM ON LOWER BACK, NO BONY TENDERNESS, SWELLING AND DEFORMITY. ) Neurologic: Alert, senior unix administrator II-XII nml as Tested, No Motor Deficits, Normal Affect, Normal Mood, No Sensory Deficits Cerebellar Function: Normal Reflexes: Normal Skin: Dry, Normal Color, Warm Peripheral Pulses: 2+ carotid (R), 2+ carotid (L) Lymphatic: No Adenopathy Was a procedure done? Was a procedure done?: No Differential Dx Considerations may include: ANXIETY, HYPERVENTILATION SYNDROME, CHRONIC PAIN, PAIN MANAGEMENT X-Ray, Labs, Meds, VS Vital Signs Date Time Temp Pulse Resp B/P (MAP) Pulse Ox O2 Delivery O2 Flow Rate FiO2 02/09/25 13:19 98 20 97 Room Air 02/09/25 13:19 98.6 98 20 123/62 (82) 97 98.6 02/09/25 11:30 98.6 98 20 123/62 (82) 97 98.6 X-Ray, Labs, Meds, VS Comment EXTERNAL MEDICAL RECORDS REVIEWED: [NONE] INDEPENDENT HISTORIANS: [NONE] SOCIAL DETERMINANTS OF HEALTH: PATIENT IS HOMELESS LABS ORDERED: NONE REVIEWED AND INTERPRETED RESULTS: NONE IMAGING ORDERED: NONE TREATMENTS ORDERED: MORPHINE 2 MG IM AND BENADRYL 25MG IM PROCEDURES PERFORMED: NONE CRITICAL CARE TIME: NONE I HAVE DISCUSSED THE PATIENT WITH THE ATTENDING PHYSICIAN DR. LOVING AND HE AGREES WITH THE PATIENT'S PLAN OF CARE AND DISPOSITION. BASED ON HISTORY OF PRESENT ILLNESS, AND PHYSICAL EXAM, PATIENT WILL BE DISCHARGED HOME. SHARED DECISION MAKING: PATIENT INSTRUCTED TO FOLLOW UP WITH PRIMARY CARE PROVIDER IN 1-2 DAYS FOR RE-EVALUATION OF SYMPTOMS. PATIENT VERBALIZES UNDERSTANDING TO RETURN TO ED FOR NEW OR WORSENING SYMPTOMS OR IF FOLLOW UP WITH PCP CANNOT BE OBTAINED. PATIENT FEELS COMFORTABLE GOING HOME AT THIS TIME. ALL QUESTIONS ADDRESSED AT TIME OF DISCHARGE. Time of 1ST Reevaluation: 14:00 Reevaluation 1ST: Improved Patient Education/Counseling: Diagnosis, Treatment, Need For Follow Up Family Education/Counseling: Diagnosis, Treatment, Need For Follow Up Medical Screening: No EMC Exist At This Time Departure 1 Departure Time of Disposition: 14:00 Impression: Primary Impression: Anxiety Additional Impression: Pain management Disposition: 01 HOME / SELF CARE / HOMELESS Condition: Stable Additional Instructions: FOLLOW-UP WITH PCP IN 1 TO 2 DAYS. RETURN TO ED FOR ANY NEW OR WORSENING SYMPTOMS. Discharged With: Self, Relative Critical Care Note Critical Care Time?: No Stability Stability form required: No I personally scribed for YANDEL CALVIN ([email or web address]) on 02/09/25 at 13:27. Electronically submitted by Que Hanson ([email or web address]). YANDEL CALVIN Feb 09, 2025 13:27
[2025-02-09] MEDS: MORPHINE SULFATE INJ 2 MG/ml SYRG IM ONE (13:43)
[2025-02-09] MEDS: diphenhdrAMINE HCL 50 MG/1 ML VL IM ONE (13:43)
[2025-02-09 14:10] VITALS: BP 134/78; PULSE 94; RESP 18; TEMP 98.5; O2SAT 98
== END 2025-02-09 13:49 | disposition home or self-care (01) ==
LOC: ER 11:15
DX: G89.29 Other chronic pain (principal); M54.50 Low back pain, unspecified; F41.9 Anxiety disorder, unspecified; F17.210 Nicotine dependence, cigarettes, uncomplicated; Z59.00 Homelessness unspecified; Z79.899 Other long term (current) drug therapy; Z90.49 Acquired absence of other specified parts of digestive tract
CPT/HCPCS: 96372; 99284; J1200; J2270

== ENCOUNTER 2025-03-05 11:24 | Inpatient (IN) | payer OTHER, MEDICAID ==
[~2025-03-05] VITALS: Ht 154.9 cm; Wt 40.9 kg
--- NOTE | 2025-03-05 11:40 | ED.PDOC ---
GI ASSESSMENT HPI Comments 55 y.o female with PMHx of Small bowel obstruction and pancreatitis, presents to the ED for a chief complaint of lower abdominal pain associated with nausea, vomiting and diarrhea that started 1 months ago but has progressively worsened. Patient describes pain as sharp, constant, and rating a 10/10 on the pain scale. Patient denies any fever, chills, bleeding, dysuria. Time Seen by MD: 11:34 Primary Care Provider: NONE Reviewed Notes: Nurses Notes, Medications, Allergies Allergies: Coded Allergies: NO KNOWN ALLERGIES (Unverified , 07/07/18) Home Meds Active Scripts Polyethylene Glycol 3350 (Miralax) 17 Gm Pow, 17 GM PO DAILY PRN for 3 Days, #3 POW 0 Refills Prov:MIGUEL ALEJANDRA MD 02/03/25 Lorazepam (ATIVAN TABLET) 0.5 Mg Tb, 1 TAB PO DAILY for 3 Days, #3 TAB Prov:HAROON LOGAN MD 01/16/25 Diclofenac Potassium (Diclofenac Potassium) 50 Mg Tab, 1 TAB PO TIDP for 10 Days, #30 TAB Prov:BONI AVALOS MD 11/17/24 Clonazepam (KlonoPIN TABLET) 0.5 Mg Tb, 1 TAB PO DAILY for 7 Days, #7 TAB Prov:BONI AVALOS MD 11/17/24 Nitrofurantoin Monohydrate Mac (Macrobid) 100 Mg Cap, 100 MG PO BID for 7 Days, #14 CAP Prov:BONI AVALOS MD 11/17/24 Hydroxyzine Hcl (Hydroxyzine Hcl) 25 Mg Tab, 1 TAB PO TIDPRN PRN for 10 Days, #30 TAB 0 Refills Prov:BIA POE NP 11/06/24 Hydroxyzine Hcl (Hydroxyzine Hcl) 25 Mg Tab, 1 TAB PO TID for 10 Days, #30 TAB 0 Refills Prov:BIA POE NP 10/16/24 Clonazepam (Klonopin) 1 Mg Tab, 1 TAB PO BID, #14 TAB 0 Refills Prov:YANDEL CALVIN 10/05/24 Ibuprofen (Ibuprofen) 800 Mg Tab, 800 MG PO Q8HP PRN for 7 Days, #21 TAB Prov:ADEN BRAND 07/29/24 Naproxen (Naproxen) 500 Mg Tab, 500 MG PO BID PRN for 10 Days, #20 TAB Prov:NINOSKASANTAJUHI LaytonBOB RESIDENT 07/03/24 Fluoxetine HCl (Fluoxetine Hydrochloride) 40 Mg Cap, 40 MG PO DAILY for 30 Days, #30 CAP Prov:JOSE MAKIL BOB [place] RESIDENT 07/03/24 Oxycodone W/ Acetaminophen (Percocet 5/325MG) 1 Tab Tb, 1 TAB PO TID PRN for 8 Days, #24 TAB Prov:SAVITA DELATORRE MD 05/30/24 Pantoprazole Sodium Sesquihydr (Protonix) 40 Mg Tab, 40 MG PO DAILY for 30 Days, #30 TAB 2 Refills Prov:SAVITA EDLATORRE MD 05/30/24 Metronidazole (Metronidazole) 500 Mg Tab, 500 MG PO TID for 7 Days, #21 TAB Prov:SAVITA DELATORRE MD 05/30/24 Levofloxacin Hemihydrate (LEVAQUIN 500 MG) 500 Mg Tab, 500 MG PO DAILY for 7 Days, #7 TAB Prov:SAVITA DELATORRE MD 05/30/24 Nitrofurantoin Monohydrate Mac (Macrobid) 100 Mg Cap, 100 MG PO BID for 6 Days, #14 CAP Prov:ASHLEY COLLIER MD 03/30/24 Dicyclomine Hcl (BENTYL CAPSULE) 10 Mg Cp, 1 CAP PO TID for 5 Days, #15 CAP 11 Refills Prov:KALLIE LEON MD 03/30/24 Buspirone HCl (Buspirone Hydrochloride) 15 Mg Tab, 15 MG PO BID for 90 Days, #180 TAB 1 Refill Prov:BIA POE LAP CUTTER 03/06/24 Hydroxyzine Hcl (Hydroxyzine Hcl) 25 Mg Tab, 1 TAB PO TID PRN, #30 TAB Prov:BASIM ROBLERO 03/05/24 Hydroxyzine Hcl (Hydroxyzine Hcl) 25 Mg Tab, 1 TAB PO TID for 30 Days, #90 TAB 0 Refills Prov:BIA POE LAP CUTTER 01/03/24 Pancreatic Enzymes (Creon) 12,000 Unt Cap, 87059 UNT PO TIDWMEALS, #90 CAP Prov:DAYANA FERGUSON MD 07/10/22 Pantoprazole Sodium Sesquihydr (Pantoprazole Sodium) 40 Mg Tab, 40 MG PO DAILY, #30 TAB Prov:DAYANA FERGUSON MD 07/10/22 Reported Medications Lurasidone Hydrochloride (LATUDA) 120 Mg Tab, 1 TAB PO 07/02/22 Tiotropium [place] Monohydrate (Spiriva Handihaler) 18 Mcg Cap, 1 CAP INH DAILYPRN 07/02/22 Fluoxetine Hcl (Fluoxetine Hcl) 40 Mg Cap, 2 CAP PO 07/02/22 Alprazolam (Alprazolam) 1 Mg Tab, 1 TAB PO TID PRN for ANXIETY 07/02/22 Gabapentin (Gabapentin) 100 Mg Cap, 3 CAP PO TID 07/02/22 Information Source: Patient Mode of Arrival: Ambulatory Timing: Months (1) Duration: Since onset Quality: Sharp Vomitus: Hard Stool: Loose Severity: Moderate Recent: None Recent Hx of: None Pain Location: Suprapubic Modifying Factors: Nothing Associated sign and symptoms: Nausea, Vomiting, Diarrhea, Abdominal Pain Past Medical History PAST MEDICAL HISTORY: Anemia, Anxiety, Depression, Kidney Stones, UTI'S Past Medical History (Other): pancreatitis, small bowel obstruction Surgical History: Cholecystectomy, Surgical History (Other): small bowl obstruction PROCESS MECHANIC History: No Pertinent PROCESS MECHANIC History Family History Family History: Reviewed,noncontributory to illness Social History Smoker: Cigarettes, Less Than 1 Pack/Day Alcohol: Occasionally Drugs: Marijuana, Methamphetamine Lives In: Home Constitutional: denies: chills, diaphoresis, fatigue, fever, malaise, sweats, weakness, others EENTM: denies: blurred vision, double vision, ear bleeding, ear discharge, ear drainage, ear pain, ear ringing, eye pain, eye redness, hearing loss, mouth pain, mouth swelling, nasal discharge, nose bleeding, nose congestion, nose pain, photophobia, tearing, throat pain, throat swelling, voice changes, others Respiratory: denies: cough, hemoptysis, orthopnea, SOB at rest, shortness of breath, SOB with excertion, stridor, wheezing, others Cardiovascular: denies: chest pain, dizzy spells, diaphoresis, Dyspnea on exertion, edema, irregular heart beat, left arm pain, lightheadedness, palpitations, PND, syncope, others Gastrointestinal: reports: abdominal pain, diarrhea, nausea, vomiting; denies: abdomen distended, blood streaked bowels, constipated, dysphagia, difficulty swallowing, hematemesis, melena, poor appetite, poor fluid intake, rectal bleeding, rectal pain, others Genitourinary: denies: abnormal vagina bleeding, burning, dyspareunia, dysuria, flank pain, frequency, hematuria, incontinence, pain, , vagina discharge, urgency, others Neurological: denies: dizziness, fainting, headache, left sided numbness, left sided weakness, numbness, paresthesia, pre-existing deficit, right sided numbness, right sided weakness, seizure, speech problems, tingling, tremors, weakness, others Musculoskeletal: denies: back pain, gout, joint pain, joint swelling, muscle pain, muscle stiffness, neck pain, others Integumetry: denies: bruises, change in color, change in hair/nails, dryness, laceration, lesions, lumps, rash, wounds, others Allergic/Immunocompromised: denies: Difficulty Healing, Frequent Infections, Hives, Itching, others Hematologic/Lymphatic: denies: anemia, blood clots, easy bleeding, easy bruising, swollen glands, others Endocrine: denies: excessive hunger, excessive sweating, excessive thirst, excessive urination, flushing, intolerance to cold, intolerance to heat, unexplained weight gain, unexplained weight loss, others Psychiatric: denies: anxiety, bipolar disorder, depression, hopeless, panic disorder, schizophrenia, sleepless, suicidal, others All Other Systems: Reviewed and Negative Physical Exam General Appearance: Moderate Distress, Thin HEENT: Normal ENT Inspection, Pharynx Normal, TMs Normal Neck: Full Range of Motion, Non-Tender, Normal, Normal Inspection Respiratory: Chest Non-Tender, Lungs Clear, No Accessory Muscle Use, No Respiratory Distress, Normal Breath Sounds Cardiovascular: No Edema, No JVD, No Murmur, No Gallop, Normal Peripheral Pulses, Regular Rate/Rhythm Breast Exam: Deferred Gastrointestinal: No Organomegaly, Non Tender, No Pulsatile Mass, Normal Bowel Sounds, Soft Genitalia: Deferred Pelvic: Deferred Rectal: Deferred Extremities: No calf tenderness, Normal capillary refill, Normal inspection, Normal range of motion, Non-tender, No pedal edema Musculoskeletal : Apperance: Normal Neurologic: Alert, 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 Was a procedure done?: No GI differential Dx Differential Diagnosis: Constipation, Diverticular disease, Esophagitis, Gastritis/PUD, Gastroenteritis, Pancreatitis X-Ray, Labs, Meds, VS Vital Signs Date Time Temp Pulse Resp B/P (MAP) Pulse Ox O2 Delivery O2 Flow Rate FiO2 03/05/25 11:37 99.2 107 20 123/86 (98) 98 99.2 Lab Test 03/05/25 11:47 Range/Units White Blood Count Pending Red Blood Count Pending Hemoglobin Pending Hematocrit Pending Mean Corpuscular Volume Pending Mean Corpuscular Hemoglobin Pending Mean Corpuscular Hemoglobin Concent Pending Red Cell Distribution Width Pending Platelet Count Pending Mean Platelet Volume Pending Neutrophils (%) (Auto) Pending Lymphocytes (%) (Auto) Pending Monocytes (%) (Auto) Pending Basophils (%) (Auto) Pending Neutrophils # (Auto) Pending Lymphocytes # (Auto) Pending Monocytes # (Auto) Pending Sodium Level Pending Potassium Level Pending Chloride Level Pending Carbon Dioxide Level Pending Anion Gap Pending Blood Urea Nitrogen Pending Creatinine Pending Glomerular Filtration Rate Calc Pending BUN/Creatinine Ratio Pending Serum Glucose Pending Calcium Level Pending Patient alert. Very emotional. Tachycardia. Saturation pristine on room air. She has come many times for the same condition. Chronic pain syndrome. Pain specialist. GI consultation. Establish intravenous access. Was given fluids. Was given morphine. Was given Zofran. Reviewed her previous visit. Explained to the patient. Continue monitoring. Time of 1ST Reevaluation: 11:36 Reevaluation 1ST: Unchanged Patient Education/Counseling: Diagnosis, Treatment, Prognosis Family Education/Counseling: Diagnosis, Treatment, Prognosis Departure 1 Departure Time of Disposition: 12:31 Impression: Primary Impression: Acute abdominal pain Disposition: ADMITTED INPATIENT Admit to: Med Surg Condition: Guarded Critical Care Note Critical Care Time?: No Stability Stability form required: No I personally scribed for HAROON LOGAN MD ([email or web address]) on 03/05/25 at 11:40. Electronically submitted by Racheal De La Torre ([facility]). HAROON LOGAN MD Mar 05, 2025 11:40
[2025-03-05 12:09] LABS: Eosinophils # (auto) 0 10 ^3/uL (0-0.8); Eosinophils % (auto) 0.1 % (0.0-7.0); Lymphocytes # (auto) 2.3 10 ^3/uL (0.4-5.4); Mean Corpuscular Volume 71.4 fL (80.0-100.0); Monocytes # (auto) 0.4 10 ^3/uL (0-1.3); Neutrophils # (auto) 7.3 10 ^3/uL (1.6-8.6)
[2025-03-05 12:13] LABS: Basophils # (auto) 0 10 ^3/uL (0-0.2); Basophils % (auto) 0.4 % (0.0-2.0); Hematocrit 29.3 % (36.0-46.0); Hemoglobin 9.3 g/dL (12.2-16.2); Lymphocytes % (auto) 22.6 % (10.0-50.0); Mean Corpuscular Hemoglobin 22.8 pg (28.0-32.0); Mean Corpuscular Hgb Conc. 31.9 g/dL (32.0-36.0); Monocytes % (auto) 4.2 % (0.0-12.0); Neutrophils % (auto) 72.7 % (37.0-80.0)
[2025-03-05 12:23] LABS: Red Cell Distribution Width 20.2 % (11.8-14.3)
[2025-03-05 12:26] LABS: Anion Gap 11 (5-15); Carbon Dioxide 23 mmol/L (20-31); Chloride 104 mmol/L (98-107); Potassium 4.1 mmol/L (3.5-5.1); Sodium 138 mmol/L (136-145)
[2025-03-05 12:27] LABS: Calcium 9.8 mg/dL (8.7-10.4); Platelet Count (auto) 843 10^3/uL (140-450)
[2025-03-05 12:32] LABS: BUN/Creatinine Ratio 16.5 (10.0-20.0); Blood Urea Nitrogen 13 mg/dL (9-23)
[2025-03-05 12:34] LABS: Glucose 140 mg/dL (74-106)
[2025-03-05 14:08] LABS: Anisocytosis Slight; Hypochromia Slight; Platelet Estimate Increased
[2025-03-05] MEDS ORDERED: ACETAMINOPHEN 325 MG TAB PO PRN (19:00)
[2025-03-05] MEDS ORDERED: MORPHINE SULFATE INJ 2 MG/ml SYRG IV PRN (19:00)
[2025-03-05] MEDS ORDERED: NITROGLYCERIN 0.4 MG SL TAB SL PRN (19:00)
--- NOTE | 2025-03-05 19:51 | DVH ---
Exam: CT CT AB PEL WO CON-NO ORAL OR IV History: abd pain Comparison Study: CT CT AB PEL WO CON-NO ORAL OR IV on DOS: 02/03/25, CT CT AB PEL WO CON-NO ORAL OR I V on DOS: 01/30/25, CT CT AB PEL WO CON-NO ORAL OR IV on DOS: 11/12/24 TECHNIQUE: Multidetector CT of the abdomen and pelvis was performed from lung bases to pubic symphysi s. Imaging was performed without IV contrast. Axial, coronal, and sagittal multiplanar reformats were obtained from the axial data set by the technologist. RADIATION DOSE: DLP 243.16 mGy.cm; CTDI vol 5.07 mGy. Findings: Lungs: The lung bases are clear. Heart: No cardiomegaly or pericardial effusion. Liver: Unremarkable. Gallbladder: Cholecystectomy. Spleen: Unremarkable Pancreas: Unremarkable Adrenals: Unremarkable Kidneys: Unremarkable GI tract: Postsurgical changes of the stomach and small bowel. Moderate fecal burden. : Unremarkable. Vasculature: Mild aortoiliac atherosclerosis. Lymphadenopathy: Absent Peritoneum: No ascites Musculoskeletal: Mild multilevel degenerative changes of the thoracolumbar spine. Severe compression fracture of T12. No retropulsion. Soft tissues: Unremarkable Impression: 1. No acute abdominopelvic abnormalities. 2. Moderate fecal burden.
[2025-03-05] MEDS: SODIUM CHLORIDE 0.9% 1,000 ML IV ONE (21:00)
[2025-03-05] MEDS: ONDANSETRON HCL 4 MG/2 ML VIAL IV ONE (22:06)
[2025-03-05] MEDS: MORPHINE SULFATE INJ 2 MG/ml SYRG IV ONE (22:06)
[2025-03-05] MEDS: busPIRone HCL 10 MG TAB PO SCH (22:07)
[2025-03-05] MEDS: GABAPENTIN 100 MG CAP PO SCH (22:07)
--- NOTE | 2025-03-05 22:17 | DVHHP2 ---
History of Present Illness Reason for Visit: Abdominal pain History of Present Illness 55-year-old female presents for evaluation of abdominal pain. Patient with chronic abdominal pain and pancreatitis reports a two day history of worsening lower abdominal pain with associated nausea and vomiting. She also reports having multiple episodes of diarrhea. Denies fever or chills. No other acute complaints reported. Past Medical History Depression, kidney stones, pancreatitis, Past Surgical History Cholecystectomy, , small imbalance distress Family History Noncontributory Smoke: <1 pack per day ALCOHOL: occassional Drugs: Marijuana, Other (Methamphetamine) Review of Systems Review of Systems Review of systems are currently negative otherwise addressed in HPI. Allergies: Coded Allergies: NO KNOWN ALLERGIES (Unverified , 07/07/18) Medications Current Medications Medications Dose Ordered Sig/Bruno Route Start Time Stop Time Status Last Admin Dose Admin Fluoxetine HCl 40 mg DAILY PO 03/06/25 10:00 Gabapentin 100 mg TID PO 03/05/25 22:00 03/05/25 22:07 100 MG Buspirone HCl 15 mg Q12HR PO 03/05/25 22:00 03/05/25 22:07 15 MG Acetaminophen/ Hydrocodone Bitart 1 tab Q4HP PRN PO 03/05/25 19:00 Ondansetron HCl 4 mg Q4HP PRN IV 03/05/25 19:00 Acetaminophen 650 mg Q6HP PRN PO 03/05/25 19:00 Morphine Sulfate 2 mg Q6HPRN PRN IV 03/05/25 19:00 Nitroglycerin 0.4 mg Q5MINP PRN SL 03/05/25 19:00 Morphine Sulfate 2 mg Q30M PRN IV 03/05/25 19:00 Exam Vital Signs Vital Signs Date Time Temp Pulse Resp B/P (MAP) Pulse Ox O2 Delivery O2 Flow Rate FiO2 03/05/25 22:06 93 19 129/79 03/05/25 19:56 98.8 99 98.8 03/05/25 19:56 Room Air Exam Gen: 55-year-old female in mild distress. Skin: Warm, dry, normal color and texture, no rash. HEENT: Normocephalic atraumatic, mucous membranes moist and pink. Neck: Cervical and supraclavicular nodes normal without enlargement, trachea is midline, thyroid gland is normal without masses. Pulmonary: Clear to auscultation and percussion bilaterally. Cardiac: Regular rate and rhythm. No murmur Abdomen: Soft, lower abdominal pain, nondistended, bowel sounds present all 4 quadrants, no guarding, no rigidity, no organomegaly. Extremities: No cyanosis, clubbing, no edema Neuro: Cranial nerves II through XII grossly intact, normal affect and speech, no focal motor deficits. Labs/Xrays ORDERING PHYSICIAN: SAVITA NICK PROCEDURE(s): ABPL - CT AB PEL WO CON-NO ORAL OR IV REASON: abd pain ORDER NUMBER(s): [id number], ACCESSION NUMBER(s): [id number] Exam: CT CT AB PEL WO CON-NO ORAL OR IV History: abd pain Comparison Study: CT CT AB PEL WO CON-NO ORAL OR IV on DOS: 02/03/25, CT CT AB PEL WO CON-NO ORAL OR IV on DOS: 01/30/25, CT CT AB PEL WO CON-NO ORAL OR IV on DOS: 11/12/24 TECHNIQUE: Multidetector CT of the abdomen and pelvis was performed from lung bases to pubic symphysis. Imaging was performed without IV contrast. Axial, coronal, and sagittal multiplanar reformats were obtained from the axial data set by the technologist. RADIATION DOSE: DLP 243.16 mGy.cm; CTDI vol 5.07 mGy. Findings: Lungs: The lung bases are clear. Heart: No cardiomegaly or pericardial effusion. Liver: Unremarkable. Gallbladder: Cholecystectomy. Spleen: Unremarkable Pancreas: Unremarkable Adrenals: Unremarkable Kidneys: Unremarkable GI tract: Postsurgical changes of the stomach and small bowel. Moderate fecal burden. : Unremarkable. Vasculature: Mild aortoiliac atherosclerosis. Lymphadenopathy: Absent Peritoneum: No ascites Musculoskeletal: Mild multilevel degenerative changes of the thoracolumbar spine. Severe compression fracture of T12. No retropulsion. Soft tissues: Unremarkable Impression: 1. No acute abdominopelvic abnormalities. 2. Moderate fecal burden. ATED BY: AZALEA OWUSU DO Labs Test 03/05/25 11:47 Range/Units White Blood Count 10.0 4.4-10.8 10^3/uL Red Blood Count 4.10 4.0-5.20 10^6/uL Hemoglobin 9.3 L 12.2-16.2 g/dL Hematocrit 29.3 L 36.0-46.0 % Mean Corpuscular Volume 71.4 L 80.0-100.0 fL Mean Corpuscular Hemoglobin 22.8 L 28.0-32.0 pg Mean Corpuscular Hemoglobin Concent 31.9 L 32.0-36.0 g/dL Red Cell Distribution Width 20.2 H 11.8-14.3 % Platelet Count 843 *H 140-450 10^3/uL Mean Platelet Volume 7.2 6.9-10.8 fL Neutrophils (%) (Auto) 72.7 37.0-80.0 % Lymphocytes (%) (Auto) 22.6 10.0-50.0 % Monocytes (%) (Auto) 4.2 0.0-12.0 % Eosinophils (%) (Auto) 0.1 0.0-7.0 % Basophils (%) (Auto) 0.4 0.0-2.0 % Neutrophils # (Auto) 7.3 1.6-8.6 10 ^3/uL Lymphocytes # (Auto) 2.3 0.4-5.4 10 ^3/uL Monocytes # (Auto) 0.4 0-1.3 10 ^3/uL Eosinophils # (Auto) 0 0-0.8 10 ^3/uL Basophils # (Auto) 0 0-0.2 10 ^3/uL Nucleated Red Blood Cells 0.0 % Platelet Estimate Increased Hypochromasia (manual) Slight Anisocytosis (manual) Slight Microcytosis Moderate Sodium Level 138 136-145 mmol/L Potassium Level 4.1 3.5-5.1 mmol/L Chloride Level 104 98-107 mmol/L Carbon Dioxide Level 23 20-31 mmol/L Anion Gap 11 5-15 Blood Urea Nitrogen 13 9-23 mg/dL Creatinine 0.79 0.550-1.02 mg/dL Glomerular Filtration Rate Calc 88 >90 mL/min BUN/Creatinine Ratio 16.5 10.0-20.0 Serum Glucose 140 H 74-106 mg/dL Calcium Level 9.8 8.7-10.4 mg/dL Lipase 36 12-53 U/L Assessment/Plan Assessment/Plan Assessment Acute on chronic abdominal pain Chronic pain syndrome cachexia Thrombocytosis Plan Admit the patient to Med surge to the hospitalist GI consultation Clear liquid diet Resume home medications Continue treatment per orders. Plan discussed with: Patient My Orders Orders - SAVITA NICK Procedure Category Date Status Time Ct Ab Pel Wo Con-No CT 03/05/25 Resulted Oral Or Iv 18:47 Fluoxetine Capsule PHA 03/06/25 In Process (Prozac Capsule) 10:00 Gabapentin Capsule PHA 03/05/25 In Process (Neurontin Capsule) 22:00 Buspirone Hcl Tablet PHA 03/05/25 In Process (Buspar Tablet) 22:00 Admit ADMIT 03/05/25 Transmitted 18:47 Hydrocodone-Acet PHA 03/05/25 In Process 5/325mg Tab ([place] 19:00 Ondansetron Hcl PHA 03/05/25 In Process (Zofran) 19:00 Complete Blood Count LAB 03/06/25 Verified 04:00 Condition: Stable MALI 03/05/25 In Process 18:47 Acetaminophen Tablet PHA 03/05/25 In Process (Tylenol Tablet) 19:00 Clear Liq Diet DIET 03/06/25 Transmitted Breakfast Bedrest With Bathroom MALI 03/05/25 In Process Privileg 18:47 Morphine Sulfate PHA 03/05/25 In Process Injection 19:00 Nitroglycerin PHA 03/05/25 In Process Sublingual (Ntrostat 19:00 Morphine Sulfate PHA 03/05/25 In Process Injection 19:00 Stat Ekg For Chest MALI 03/05/25 In Process Pain 18:47 Notify Md Of Changes MALI 03/05/25 In Process From Base 18:47 All Source Intelligence For MALI 03/05/25 In Process 24 Hours 18:47 Emergency Dysrhythmia MALI 03/05/25 In Process Protocol 18:47 Rhythm Strips Once MALI 03/05/25 In Process Every Shift 18:47 Oxygen By Nasal RT 03/05/25 Transmitted Cannula 18:47 Comprehensive LAB 03/06/25 Verified Metabolic Panel 04:00 Docusate Sodium PHA 03/06/25 Verified Capsule (Colace 10:00 Date of Service: Mar 05, 2025 Billing Provider: SAVITA NICK Common Visit Codes: [id number] INP/OBS CARE (MOD) SAVITA NICK Mar 05, 2025 22:17
[2025-03-05 22:35] LABS: Urine Bacteria None Seen /hpf (None Seen)
[2025-03-05 22:55] LABS: Urine Blood Negative /uL (Negative); Urine Clarity Turbid (Clear); Urine Color Yellow (Yellow); Urine Mucus FEW (None Seen); Urine Protein, UAD TRACE (Negative); Urine Specific Gravity 1.027 (1.001-1.035); Urine Squamous Epithelial Cell FEW /hpf (<5); Urine Urobilinogen Normal (Negative); Urine WBC 36 /HPF (0-5)
[2025-03-06] MEDS: HYDROcodone-ACET 5/325MG TAB PO PRN (00:27)
[2025-03-06] MEDS: MORPHINE SULFATE INJ 2 MG/ml SYRG IV PRN (04:05)
[2025-03-06] MEDS: ONDANSETRON HCL 4 MG/2 ML VIAL IV PRN (04:06)
[2025-03-06 04:44] LABS: Eosinophils # (auto) 0.1 10 ^3/uL (0-0.8); Monocytes # (auto) 0.5 10 ^3/uL (0-1.3)
[2025-03-06 04:45] LABS: Basophils # (auto) 0.1 10 ^3/uL (0-0.2); Eosinophils % (auto) 0.6 % (0.0-7.0); Hematocrit 25.7 % (36.0-46.0); Hemoglobin 8.2 g/dL (12.2-16.2); Lymphocytes # (auto) 3.2 10 ^3/uL (0.4-5.4); Lymphocytes % (auto) 28.8 % (10.0-50.0); Mean Corpuscular Hemoglobin 22.8 pg (28.0-32.0); Mean Corpuscular Hgb Conc. 31.8 g/dL (32.0-36.0); Mean Corpuscular Volume 71.7 fL (80.0-100.0); Monocytes % (auto) 4.8 % (0.0-12.0); Neutrophils # (auto) 7.2 10 ^3/uL (1.6-8.6); Neutrophils % (auto) 64.8 % (37.0-80.0); Platelet Count (auto) 717 10^3/uL (140-450); Red Blood Cells 3.58 10^6/uL (4.0-5.20); Red Cell Distribution Width 21.2 % (11.8-14.3)
[2025-03-06 05:02] LABS: Alanine Aminotransferase 19 U/L (7-40); Albumin 3.5 g/dL (3.2-4.8); Anion Gap 7 (5-15); Aspartate Aminotransferase 25 U/L (13-40); Blood Urea Nitrogen 17 mg/dL (9-23); Calcium 9.1 mg/dL (8.7-10.4); Carbon Dioxide 24 mmol/L (20-31); Chloride 107 mmol/L (98-107); Potassium 4.7 mmol/L (3.5-5.1); Sodium 138 mmol/L (136-145); Total Protein 7.1 g/dL (5.7-8.2)
[2025-03-06 05:03] LABS: Alkaline Phosphatase 237 U/L (46-116); Bilirubin, Total < 0.2 mg/dL (0.2-1.0); Glucose 74 mg/dL (74-106)
[2025-03-06 09:05] VITALS: PULSE 101; RESP 16; O2SAT 97
[2025-03-06 10:05] VITALS: BP 131/79; PULSE 86; RESP 16; TEMP 98; O2SAT 96
[2025-03-06] MEDS: DOCUSATE SOD 100 MG CAP PO SCH (10:17)
[2025-03-06] MEDS: FLUoxetine HCL 20 MG CAP PO SCH (10:18)
[2025-03-06 11:14] VITALS: PULSE 76; RESP 18; O2SAT 96
--- NOTE | 2025-03-06 11:53 | DVHPN2 ---
Subjective The patient is seen and examined at bedside. Still complain of abdominal pain. Asking for Klonopin. She said she took it at home. Reviewed: Care Plan, H&P, Labs, Medications, Previous Orders, Radiology Changes from previous H/P or p: No Changes Objective Vitals Vital Signs Date Time Temp Pulse Resp B/P (MAP) Pulse Ox O2 Delivery O2 Flow Rate FiO2 03/06/25 10:42 70 18 132/74 03/06/25 10:05 98.0 96 98.0 03/06/25 09:05 Room Air* 0 21 Intake/Output Intake and Output 03/06/25 07:00 Intake Total 1000 ml Balance 1000 ml Intake IV Total 1000 ml General Appearance: Alert, Oriented X3, Cooperative, No acute distress HEENT: Atraumatic, PERRLA, EOMI, Mucous membr. moist/pink Neck: Supple Lungs: Clear to auscultation, Normal air movement Cardiovascular: Regular rate, Normal S1, Normal S2, No murmurs, Gallops, Rubs Abdomen: Normal bowel sounds, Soft, No tenderness Neuro: Cranial nerves 3-12 NL Psych/Mental Status: Mental status NL Medications Current Medications Medications Dose Ordered Sig/Bruno Route Start Time Stop Time Status Last Admin Dose Admin Fluoxetine HCl 40 mg DAILY PO 03/06/25 10:00 03/06/25 10:18 40 MG Gabapentin 100 mg TID PO 03/05/25 22:00 03/06/25 06:00 100 MG Buspirone HCl 15 mg Q12HR PO 03/05/25 22:00 03/06/25 10:17 15 MG Acetaminophen/ Hydrocodone Bitart 1 tab Q4HP PRN PO 03/05/25 19:00 03/06/25 09:15 1 TAB Ondansetron HCl 4 mg Q4HP PRN IV 03/05/25 19:00 03/06/25 04:06 4 MG Acetaminophen 650 mg Q6HP PRN PO 03/05/25 19:00 Morphine Sulfate 2 mg Q6HPRN PRN IV 03/05/25 19:00 03/06/25 10:12 2 MG Nitroglycerin 0.4 mg Q5MINP PRN SL 03/05/25 19:00 Morphine Sulfate 2 mg Q30M PRN IV 03/05/25 19:00 Docusate Sodium 100 mg BID PO 03/06/25 10:00 03/06/25 10:17 100 MG Laboratory Results Laboratory Tests 03/06/25 04:22 Chemistry Test 03/06/25 04:22 Albumin 3.5 g/dL (3.2-4.8) Calcium Level 9.1 mg/dL (8.7-10.4) Total Protein 7.1 g/dL (5.7-8.2) LFT Test 03/06/25 04:22 Alanine Aminotransferase (ALT) 19 U/L (7-40) Alkaline Phosphatase 237 U/L (46-116) H Aspartate Amino Transferase (AST) 25 U/L (13-40) Total Bilirubin < 0.2 mg/dL (0.2-1.0) L Urinalysis Test 03/05/25 21:50 Urine Color Yellow (Yellow) Urine Clarity Turbid (Clear) H Urine pH 6.0 (5.0-9.0) Urine Specific [place] 1.027 (1.001-1.035) Urine Protein Trace (Negative) H Urine Ketones Trace (Negative) Urine Blood Negative /uL (Negative) Urine Nitrite Negative (Negative) Urine Bilirubin Negative (Negative) Urine Urobilinogen Normal mg/dL (Negative) Urine Leukocyte Esterase 1+ /uL (Negative) Urine RBC 15 /hpf (0 - 4) Urine Microscopic WBC 36 /HPF (0-5) H Urine Squamous Epithelial Cells Few /hpf (<5) Urine Bacteria None seen /hpf (None Seen) Urine Mucus Few (None Seen) Urine Glucose Normal mg/dL (Normal) Labs and/or images reviewed: Labs reviewed by me Assessment/Plan Assessment/Plan Acute on chronic abdominal pain Chronic pain syndrome cachexia Thrombocytosis Anxiety Plan Continuing current management. Waiting for GI specialist to see the patient. I will restart her on Klonopin. Continuing clear liquid diet until GI see the patient. This medical document was created using an electronic medical record system with [employer] direct computerized dictation system. Although this document has been carefully reviewed, there may still be some phonetic and typographical errors. These areas are purely typographical due to imperfections of the software programs, and do not reflect any compromise in the patient's medical care. Plan discussed with: Patient Date of Service: Mar 06, 2025 Billing Provider: CECILIA SWEENEY MD Common Visit Codes: [id number] INP/OBS CARE(HIGH) CECILIA SWEENEY MD Mar 06, 2025 11:53
[2025-03-06 12:00] VITALS: BP 138/83; PULSE 98; RESP 19; TEMP 97.8; O2SAT 99
[2025-03-06 17:00] VITALS: BP 98/58; PULSE 89; RESP 17; TEMP 98.5; O2SAT 99
[2025-03-06 21:00] VITALS: BP 120/63; PULSE 93; RESP 18; TEMP 98.3; O2SAT 100
[2025-03-06] MEDS: clonazePAM 0.5 MG TAB PO PRN (22:40)
[2025-03-07] VITALS (7 sets, daily range): BP systolic 94–129; BP diastolic 44–93; PULSE 72–115; RESP 16–20; TEMP 97.4–98.6; O2SAT 94–100
--- NOTE | 2025-03-07 11:26 | DVHPN2 ---
Subjective The patient is seen and examined at bedside. Still complain of abdominal pain. Asking for more pain medication. Crying and requests maximum dose of pain medication.. Stated that morphine and [place] did not help her. Reviewed: Care Plan, H&P, Labs, Medications, Previous Orders, Radiology Changes from previous H/P or p: No Changes Objective Vitals Vital Signs Date Time Temp Pulse Resp B/P (MAP) Pulse Ox O2 Delivery O2 Flow Rate FiO2 03/07/25 09:00 98.6 85 16 94/44 (61) 94 98.6 03/07/25 07:44 Room Air* 0 21 Intake/Output Intake and Output 03/07/25 07:00 Intake Total 80 ml Balance 80 ml Intake Oral 80 ml # Voids 3 # Bowel Movements 1 General Appearance: Alert, Oriented X3, Cooperative, No acute distress HEENT: Atraumatic, PERRLA, EOMI, Mucous membr. moist/pink Neck: Supple Lungs: Clear to auscultation, Normal air movement Cardiovascular: Regular rate, Normal S1, Normal S2, No murmurs, Gallops, Rubs Abdomen: Normal bowel sounds, Soft, No tenderness Neuro: Cranial nerves 3-12 NL Psych/Mental Status: Mental status NL Medications Current Medications Medications Dose Ordered Sig/Bruno Route Start Time Stop Time Status Last Admin Dose Admin Fluoxetine HCl 40 mg DAILY PO 03/06/25 10:00 03/07/25 09:22 40 MG Gabapentin 100 mg TID PO 03/05/25 22:00 03/07/25 04:24 100 MG Buspirone HCl 15 mg Q12HR PO 03/05/25 22:00 03/07/25 09:21 15 MG Acetaminophen/ Hydrocodone Bitart 1 tab Q4HP PRN PO 03/05/25 19:00 03/07/25 04:21 1 TAB Ondansetron HCl 4 mg Q4HP PRN IV 03/05/25 19:00 03/06/25 04:06 4 MG Acetaminophen 650 mg Q6HP PRN PO 03/05/25 19:00 Morphine Sulfate 2 mg Q6HPRN PRN IV 03/05/25 19:00 03/06/25 20:56 2 MG Nitroglycerin 0.4 mg Q5MINP PRN SL 03/05/25 19:00 Morphine Sulfate 2 mg Q30M PRN IV 03/05/25 19:00 Docusate Sodium 100 mg BID PO 03/06/25 10:00 03/07/25 09:21 100 MG Clonazepam 1 mg Q8HP PRN PO 03/06/25 12:45 03/07/25 09:29 1 MG Laboratory Results Laboratory Tests 03/06/25 04:22 Urinalysis Test 03/05/25 21:50 Urine Color Yellow (Yellow) Urine Clarity Turbid (Clear) H Urine pH 6.0 (5.0-9.0) Urine Specific [place] 1.027 (1.001-1.035) Urine Protein Trace (Negative) H Urine Ketones Trace (Negative) Urine Blood Negative /uL (Negative) Urine Nitrite Negative (Negative) Urine Bilirubin Negative (Negative) Urine Urobilinogen Normal mg/dL (Negative) Urine Leukocyte Esterase 1+ /uL (Negative) Urine RBC 15 /hpf (0 - 4) Urine Microscopic WBC 36 /HPF (0-5) H Urine Squamous Epithelial Cells Few /hpf (<5) Urine Bacteria None seen /hpf (None Seen) Urine Mucus Few (None Seen) Urine Glucose Normal mg/dL (Normal) Labs and/or images reviewed: Labs reviewed by me Assessment/Plan Assessment/Plan Acute on chronic abdominal pain Chronic pain syndrome cachexia Thrombocytosis Anxiety Plan Continuing current management. Waiting for GI specialist to see the patient. I will restart her on Klonopin. Continuing clear liquid diet until GI see the patient. I will consult telepsych for workup on depression and chronic narcotic dependence and drug-seeking behavior. Recommend outpatient pain management consult Explained to the patient that her abdominal CT showed no acute process, and when I am distracted her for abdominal exam patient had no pain. This medical document was created using an electronic medical record system with [employer] direct computerized dictation system. Although this document has been carefully reviewed, there may still be some phonetic and typographical errors. These areas are purely typographical due to imperfections of the software programs, and do not reflect any compromise in the patient's medical care. Plan discussed with: Patient My Orders Orders - CECILIA SWEENEY MD Procedure Category Date Status Time Clonazepam Tablet PHA 03/06/25 In Process (Klonopin Tablet) 12:45 Date of Service: Mar 07, 2025 Billing Provider: CECILIA SWEENEY MD Common Visit Codes: [id number] INP/OBS CARE(HIGH) CECILIA SWEENEY MD Mar 07, 2025 11:26
[2025-03-07] MEDS: POLYETHYLENE GLYCOL 17 GM PWDR PO ONE ×2 (12:14→14:00)
--- NOTE | 2025-03-07 13:59 | DVHINCON2 ---
GI Consult Consult Note GI consult note Date of Consultation: 03/07/2025 Chief Complaint: Abdominal pain Referring Physician: Dr. Finch H&P: 55-year-old female presented to ER with lower abdominal pain, which started about two months ago. Patient also complains of nausea and vomiting, mostly throwing up food that she has eaten. No hematemesis. No melena or red blood in stool Patient claims to have lost 30 lb in the last one month No EGD or colonoscopy in past Patient has history of small-bowel obstruction, and has had surgery for abdominal adhesions Also has history of pancreatitis Past Medical History: Anemia, Anxiety, Depression, Kidney Stones, UTI'S pancreatitis, small bowel obstruction Past Surgical History: Cholecystectomy, , abdominal adhesions Social History: Smoker: Cigarettes, Less Than 1 Pack/Day Alcohol: Occasionally Drugs: Marijuana, Methamphetamine Lives In: Home Family History: Noncontributory Review of Systems: Constitutional: no fever, chill, weight loss HEENT: no eye pain, no hearing loss, no oral lesion, no scleral icterus Heart: no chest pain, no chest pressure Lung: no cough, no dyspnea with exertion Abdomen: see HPI Physical exam: General: NAD, AAOX3 Chest: lung estrada clear to auscultation Heart: RRR, no murmur Abdomen: Mild lower abdomen tenderness to palpation, +BS Labs: Labs Test 03/06/25 04:22 03/05/25 21:50 03/05/25 11:47 Range/Units White Blood Count 11.0 H 4.4-10.8 10^3/uL Red Blood Count 3.58 L 4.0-5.20 10^6/uL Hemoglobin 8.2 L 12.2-16.2 g/dL Hematocrit 25.7 #L 36.0-46.0 % Mean Corpuscular Volume 71.7 L 80.0-100.0 fL Mean Corpuscular Hemoglobin 22.8 L 28.0-32.0 pg Mean Corpuscular Hemoglobin Concent 31.8 L 32.0-36.0 g/dL Red Cell Distribution Width 21.2 H 11.8-14.3 % Platelet Count 717 H 140-450 10^3/uL Mean Platelet Volume 7.0 6.9-10.8 fL Neutrophils (%) (Auto) 64.8 37.0-80.0 % Lymphocytes (%) (Auto) 28.8 10.0-50.0 % Monocytes (%) (Auto) 4.8 0.0-12.0 % Eosinophils (%) (Auto) 0.6 0.0-7.0 % Basophils (%) (Auto) 1.0 0.0-2.0 % Neutrophils # (Auto) 7.2 1.6-8.6 10 ^3/uL Lymphocytes # (Auto) 3.2 0.4-5.4 10 ^3/uL Monocytes # (Auto) 0.5 0-1.3 10 ^3/uL Eosinophils # (Auto) 0.1 0-0.8 10 ^3/uL Basophils # (Auto) 0.1 0-0.2 10 ^3/uL Nucleated Red Blood Cells 0.0 % Sodium Level 138 136-145 mmol/L Potassium Level 4.7 3.5-5.1 mmol/L Chloride Level 107 98-107 mmol/L Carbon Dioxide Level 24 20-31 mmol/L Anion Gap 7 5-15 Blood Urea Nitrogen 17 9-23 mg/dL Creatinine 0.68 0.550-1.02 mg/dL Glomerular Filtration Rate Calc 103 >90 mL/min BUN/Creatinine Ratio 25.0 H 10.0-20.0 Serum Glucose 74 74-106 mg/dL Calcium Level 9.1 8.7-10.4 mg/dL Total Bilirubin < 0.2 L 0.2-1.0 mg/dL Aspartate Amino Transferase (AST) 25 13-40 U/L Alanine Aminotransferase (ALT) 19 7-40 U/L Alkaline Phosphatase 237 H 46-116 U/L Total Protein 7.1 5.7-8.2 g/dL Albumin 3.5 3.2-4.8 g/dL Urine Color Yellow Yellow Urine Clarity Turbid H Clear Urine pH 6.0 5.0-9.0 Urine Specific [place] 1.027 1.001-1.035 Urine Protein Trace H Negative Urine Ketones Trace Negative Urine Blood Negative Negative /uL Urine Nitrite Negative Negative Urine Bilirubin Negative Negative Urine Urobilinogen Normal Negative mg/dL Urine Leukocyte Esterase 1+ Negative /uL Urine RBC 15 0 - 4 /hpf Urine Microscopic WBC 36 H 0-5 /HPF Urine Squamous Epithelial Cells Few <5 /hpf Urine Bacteria None seen None Seen /hpf Urine Mucus Few None Seen Urine Glucose Normal Normal mg/dL Platelet Estimate Increased Hypochromasia (manual) Slight Anisocytosis (manual) Slight Microcytosis Moderate Lipase 36 12-53 U/L Imaging: CT abdomen pelvis Impression: 1. No acute abdominopelvic abnormalities. 2. Moderate fecal burden. Assessment: Abdominal pain Chronic pain syndrome Constipation Thrombocytosis Elevated LFTs Plan: -discussed with Dr. Alec Cardozo Ultrasound of abdomen for elevated LFTs Small-bowel series with Gastrografin Monitor labs We will continue to follow this patient Plan discussed with patient and caregiver at bedside Thank you for this consult Date of Service: Mar 07, 2025 Billing Provider: JUNE ISLAS Common Visit Codes: CONSULT ONLY Consultation Codes: [id number] CONSULT <45MIN JUNE ISLAS Mar 07, 2025 13:59
--- NOTE | 2025-03-07 15:56 | DVH ---
INDICATION: elevated LFTs TECHNIQUE: Multiple real-time sonographic images were obtained of the right upper quadrant. COMPARISON: US LIVER on DOS: 05/28/24, GBNM on DOS: 07/09/22, GALLBLADDER on DOS: 07/08/22, GBUS on DOS: 07/08/22 FINDINGS: The liver demonstrates increased echotexture without focal mass lesions. The liver measures 13 cm. There is no intrahepatic or extrahepatic ductal dilatation. The common duct measures 6 mm. Gallbladder is surgically absent. The right kidney measures 9.6 cm. The right kidney is normal in contour, size, and shape. The echog enicity is normal. There is no hydronephrosis. The pancreas is not well visualized due to overlying bowel gas. IMPRESSION: No sonographic evidence of gallstones or acute cholecystitis. Hepatic steatosis.
[2025-03-07] MEDS: GASTROGRAFIN 120 ML SOL ONE (16:25)
--- NOTE | 2025-03-07 20:46 | DVH ---
Procedure: XY SMALL BOWEL SERIES-W GASTROGRA Reason for study/Clinical History: abd pain. History adhesions Comparison Study: None available at time of dictation. Technique: Single contrast small bowel series performed. findings: [employer] Operator image demonstrates large stool burden patient has had a cholecystectomy. Introduction oral contrast at 30 minutes there is contrast in the descending colon. Small bowel is normal in akiko kanchan. IMPRESSION: 1. No evidence for obstruction. Small bowel transit time is normal .
[2025-03-07] MEDS: KETOROLAC TROMETH 30 MG/ML 1ML VIAL IV ONE (21:51)
[2025-03-08 01:00] VITALS: BP 102/69; PULSE 93; RESP 20; TEMP 98.4; O2SAT 99
[2025-03-08 05:00] VITALS: BP 109/65; PULSE 83; RESP 19; TEMP 98.5; O2SAT 99
[2025-03-08 06:15] LABS: Basophils # (auto) 0 10 ^3/uL (0-0.2); Eosinophils # (auto) 0 10 ^3/uL (0-0.8); Eosinophils % (auto) 0.7 % (0.0-7.0); Hemoglobin 7.3 g/dL (12.2-16.2); Monocytes # (auto) 0.4 10 ^3/uL (0-1.3)
[2025-03-08 06:17] LABS: Basophils % (auto) 0.5 % (0.0-2.0); Hematocrit 22.8 % (36.0-46.0); Lymphocytes # (auto) 1.9 10 ^3/uL (0.4-5.4); Lymphocytes % (auto) 29.3 % (10.0-50.0); Mean Corpuscular Hgb Conc. 32.1 g/dL (32.0-36.0); Mean Corpuscular Volume 71.5 fL (80.0-100.0); Neutrophils % (auto) 63.5 % (37.0-80.0); Nucleated Red Blood Cells % 0.1 %; Platelet Count (auto) 550 10^3/uL (140-450); Red Blood Cells 3.19 10^6/uL (4.0-5.20); White Blood Cell 6.3 10^3/uL (4.4-10.8)
[2025-03-08 06:55] LABS: Alanine Aminotransferase 13 U/L (7-40); Alkaline Phosphatase 174 U/L (46-116); Anion Gap 7 (5-15); Aspartate Aminotransferase 13 U/L (13-40); BUN/Creatinine Ratio 22.2 (10.0-20.0); Bilirubin, Total < 0.2 mg/dL (0.2-1.0); Blood Urea Nitrogen 14 mg/dL (9-23); Carbon Dioxide 27 mmol/L (20-31); Chloride 106 mmol/L (98-107); Glucose 79 mg/dL (74-106); Potassium 4.1 mmol/L (3.5-5.1); Sodium 140 mmol/L (136-145); Total Protein 5.9 g/dL (5.7-8.2)
[2025-03-08 09:00] VITALS: BP 110/76; PULSE 82; RESP 18; TEMP 97.4; O2SAT 99
--- NOTE | 2025-03-08 11:11 | DVHPN2 ---
Subjective The patient is seen and examined at bedside. Still complain of abdominal pain. Asking for more pain medication. Crying and requests maximum dose of pain medication.. Stated that morphine and [place] did not help her. Want to increase klonopin dose. Reviewed: Care Plan, H&P, Labs, Medications, Previous Orders, Radiology Changes from previous H/P or p: No Changes Objective Vitals Vital Signs Date Time Temp Pulse Resp B/P (MAP) Pulse Ox O2 Delivery O2 Flow Rate FiO2 03/08/25 09:00 97.4 82 18 110/76 (87) 99 97.4 03/07/25 20:00 Room Air* 0 21 Intake/Output Intake and Output 03/08/25 07:00 Intake Total 1080 ml Output Total 250 ml Balance 830 ml Intake Oral 1080 ml Output Urine Total 250 ml # Voids 5 General Appearance: Alert, Oriented X3, Cooperative, No acute distress HEENT: Atraumatic, PERRLA, EOMI, Mucous membr. moist/pink Neck: Supple Lungs: Clear to auscultation, Normal air movement Cardiovascular: Regular rate, Normal S1, Normal S2, No murmurs, Gallops, Rubs Abdomen: Normal bowel sounds, Soft, No tenderness Neuro: Cranial nerves 3-12 NL Psych/Mental Status: Mental status NL Medications Current Medications Medications Dose Ordered Sig/Bruno Route Start Time Stop Time Status Last Admin Dose Admin Fluoxetine HCl 40 mg DAILY PO 03/06/25 10:00 03/08/25 09:49 40 MG Gabapentin 100 mg TID PO 03/05/25 22:00 03/08/25 07:04 100 MG Buspirone HCl 15 mg Q12HR PO 03/05/25 22:00 03/08/25 09:51 15 MG Ondansetron HCl 4 mg Q4HP PRN IV 03/05/25 19:00 03/07/25 19:49 4 MG Acetaminophen 650 mg Q6HP PRN PO 03/05/25 19:00 Morphine Sulfate 2 mg Q6HPRN PRN IV 03/05/25 19:00 03/08/25 07:05 2 MG Nitroglycerin 0.4 mg Q5MINP PRN SL 03/05/25 19:00 Morphine Sulfate 2 mg Q30M PRN IV 03/05/25 19:00 Docusate Sodium 100 mg BID PO 03/06/25 10:00 03/07/25 21:44 100 MG Clonazepam 1 mg Q8HP PRN PO 03/06/25 12:45 03/08/25 07:04 1 MG Acetaminophen/ Hydrocodone Bitart 1 tab Q4HP PRN PO 03/07/25 20:30 Laboratory Results Laboratory Tests 03/08/25 05:44 Chemistry Test 03/08/25 05:44 Albumin 3.0 g/dL (3.2-4.8) L Calcium Level 9.0 mg/dL (8.7-10.4) Total Protein 5.9 g/dL (5.7-8.2) LFT Test 03/08/25 05:44 Alanine Aminotransferase (ALT) 13 U/L (7-40) Alkaline Phosphatase 174 U/L (46-116) H Aspartate Amino Transferase (AST) 13 U/L (13-40) Total Bilirubin < 0.2 mg/dL (0.2-1.0) L Urinalysis Test 03/05/25 21:50 Urine Color Yellow (Yellow) Urine Clarity Turbid (Clear) H Urine pH 6.0 (5.0-9.0) Urine Specific [place] 1.027 (1.001-1.035) Urine Protein Trace (Negative) H Urine Ketones Trace (Negative) Urine Blood Negative /uL (Negative) Urine Nitrite Negative (Negative) Urine Bilirubin Negative (Negative) Urine Urobilinogen Normal mg/dL (Negative) Urine Leukocyte Esterase 1+ /uL (Negative) Urine RBC 15 /hpf (0 - 4) Urine Microscopic WBC 36 /HPF (0-5) H Urine Squamous Epithelial Cells Few /hpf (<5) Urine Bacteria None seen /hpf (None Seen) Urine Mucus Few (None Seen) Urine Glucose Normal mg/dL (Normal) Microbiology Microbiology Date/Time Source Procedure Growth Status 03/06/25 17:45 Nose MRSA Screen - Final Complete Labs and/or images reviewed: Labs reviewed by me Assessment/Plan Assessment/Plan Acute on chronic abdominal pain Chronic pain syndrome cachexia Thrombocytosis Anxiety Plan Continuing current management. Continuing her on Klonopin. I will not increase the dose nor frequency. Continue 1mg q 8h PRN Waiting for EGD per GI specialist recommendation. I will consult telepsych for workup on depression and chronic narcotic dependence and drug-seeking behavior. Appreciate psychiatrist recommendation. I will d/c prozac and start Zoloft 150mg daily per psychiatrist recommendation. Recommend outpatient pain management consult Explained to the patient that her abdominal CT showed no acute process, and when I am distracted her for abdominal exam patient had no pain. This medical document was created using an electronic medical record system with [employer] direct computerized dictation system. Although this document has been carefully reviewed, there may still be some phonetic and typographical errors. These areas are purely typographical due to imperfections of the software programs, and do not reflect any compromise in the patient's medical care. Plan discussed with: Patient, Other (RN) My Orders Orders - CECILIA SWEENEY MD Procedure Category Date Status Time * Gi [place] CONS 03/07/25 Transmitted 11:52 *Tele Psych Consult CONS 03/07/25 Transmitted 11:52 Date of Service: Mar 08, 2025 Billing Provider: CECILIA SWEENEY MD Common Visit Codes: [id number] INP/OBS CARE(HIGH) CECILIA SWEENEY MD Mar 08, 2025 11:11
--- NOTE | 2025-03-08 11:15 | DVHDS2 ---
Discharge Summary Date of Admission Mar 05, 2025 at 18:47 Date of Discharge: Mar 08, 2025 Labs/Diagnostic Data: Laboratory Results Test 03/08/25 05:44 03/05/25 21:50 03/05/25 11:47 White Blood Count 6.3 10^3/uL (4.4-10.8) Red Blood Count 3.19 10^6/uL (4.0-5.20) Hemoglobin 7.3 g/dL (12.2-16.2) Hematocrit 22.8 % (36.0-46.0) Mean Corpuscular Volume 71.5 fL (80.0-100.0) Mean Corpuscular Hemoglobin 23.0 pg (28.0-32.0) Mean Corpuscular Hemoglobin Concent 32.1 g/dL (32.0-36.0) Red Cell Distribution Width 23.0 % (11.8-14.3) Platelet Count 550 10^3/uL (140-450) Mean Platelet Volume 7.1 fL (6.9-10.8) Neutrophils (%) (Auto) 63.5 % (37.0-80.0) Lymphocytes (%) (Auto) 29.3 % (10.0-50.0) Monocytes (%) (Auto) 6.0 % (0.0-12.0) Eosinophils (%) (Auto) 0.7 % (0.0-7.0) Basophils (%) (Auto) 0.5 % (0.0-2.0) Neutrophils # (Auto) 4.0 10 ^3/uL (1.6-8.6) Lymphocytes # (Auto) 1.9 10 ^3/uL (0.4-5.4) Monocytes # (Auto) 0.4 10 ^3/uL (0-1.3) Eosinophils # (Auto) 0 10 ^3/uL (0-0.8) Basophils # (Auto) 0 10 ^3/uL (0-0.2) Nucleated Red Blood Cells 0.1 % Sodium Level 140 mmol/L (136-145) Potassium Level 4.1 mmol/L (3.5-5.1) Chloride Level 106 mmol/L (98-107) Carbon Dioxide Level 27 mmol/L (20-31) Anion Gap 7 (5-15) Blood Urea Nitrogen 14 mg/dL (9-23) Creatinine 0.63 mg/dL (0.550-1.02) Glomerular Filtration Rate Calc 105 mL/min (>90) BUN/Creatinine Ratio 22.2 (10.0-20.0) Serum Glucose 79 mg/dL (74-106) Calcium Level 9.0 mg/dL (8.7-10.4) Total Bilirubin < 0.2 mg/dL (0.2-1.0) Aspartate Amino Transferase (AST) 13 U/L (13-40) Alanine Aminotransferase (ALT) 13 U/L (7-40) Alkaline Phosphatase 174 U/L (46-116) Total Protein 5.9 g/dL (5.7-8.2) Albumin 3.0 g/dL (3.2-4.8) Urine Color Yellow (Yellow) Urine Clarity Turbid (Clear) Urine pH 6.0 (5.0-9.0) Urine Specific [place] 1.027 (1.001-1.035) Urine Protein Trace (Negative) Urine Ketones Trace (Negative) Urine Blood Negative /uL (Negative) Urine Nitrite Negative (Negative) Urine Bilirubin Negative (Negative) Urine Urobilinogen Normal mg/dL (Negative) Urine Leukocyte Esterase 1+ /uL (Negative) Urine RBC 15 /hpf (0 - 4) Urine Microscopic WBC 36 /HPF (0-5) Urine Squamous Epithelial Cells Few /hpf (<5) Urine Bacteria None seen /hpf (None Seen) Urine Mucus Few (None Seen) Urine Glucose Normal mg/dL (Normal) Platelet Estimate Increased Hypochromasia (manual) Slight Anisocytosis (manual) Slight Microcytosis Moderate Lipase 36 U/L (12-53) Other Laboratory Tests 03/08/25 05:44 Final Diagnosis/Problems List abdominal pain, chronic Discharge Disposition: Home Discharge Instruct/Medications Diet: Regular Activity: No Restrictions, As Tolerated Follow Up/Referral: pcp 1-2 weeks Discharge Statement: "Patient was advised to return to the ER or call 911 if any headaches, dizziness, shortness of breath, chest pain, abdominal pain, bleeding, fevers, or worsening of medical condition. Patient was counseled about treatment plan, medications, possible side effects, patientverbalized understanding. All questions were answered to the best of my ability. This discharge took greater then 30 minutes in planning, reviewing documentation, counseling the patient, and discussing with other team members." ASSESSMENT ASSESSMENT Assessment abdominal pain, chronic CECILIA SWEENEY MD Mar 08, 2025 11:15
[2025-03-08] MEDS: HYDROcodone-ACET 7.5/325MG TAB PO PRN (11:59)
[2025-03-08 13:00] VITALS: BP 132/73; PULSE 83; RESP 18; TEMP 98; O2SAT 99
--- NOTE | 2025-03-08 13:19 | DVHINCON2 ---
Date of Service if different f: Mar 08, 2025 Consultation (KENNETT SQUARE) Labs Laboratory Tests Test 03/05/25 11:47 03/05/25 21:50 03/08/25 05:44 Platelet Estimate Increased Hypochromasia (manual) Slight Anisocytosis (manual) Slight Microcytosis Moderate Lipase 36 U/L (12-53) Urine Color Yellow (Yellow) Urine Clarity Turbid (Clear) Urine pH 6.0 (5.0-9.0) Urine Specific [place] 1.027 (1.001-1.035) Urine Protein Trace (Negative) Urine Ketones Trace (Negative) Urine Blood Negative /uL (Negative) Urine Nitrite Negative (Negative) Urine Bilirubin Negative (Negative) Urine Urobilinogen Normal mg/dL (Negative) Urine Leukocyte Esterase 1+ /uL (Negative) Urine RBC 15 /hpf (0 - 4) Urine Microscopic WBC 36 /HPF (0-5) Urine Squamous Epithelial Cells Few /hpf (<5) Urine Bacteria None seen /hpf (None Seen) Urine Mucus Few (None Seen) Urine Glucose Normal mg/dL (Normal) White Blood Count 6.3 10^3/uL (4.4-10.8) Red Blood Count 3.19 10^6/uL (4.0-5.20) Hemoglobin 7.3 g/dL (12.2-16.2) Hematocrit 22.8 % (36.0-46.0) Mean Corpuscular Volume 71.5 fL (80.0-100.0) Mean Corpuscular Hemoglobin 23.0 pg (28.0-32.0) Mean Corpuscular Hemoglobin Concent 32.1 g/dL (32.0-36.0) Red Cell Distribution Width 23.0 % (11.8-14.3) Platelet Count 550 10^3/uL (140-450) Mean Platelet Volume 7.1 fL (6.9-10.8) Neutrophils (%) (Auto) 63.5 % (37.0-80.0) Lymphocytes (%) (Auto) 29.3 % (10.0-50.0) Monocytes (%) (Auto) 6.0 % (0.0-12.0) Eosinophils (%) (Auto) 0.7 % (0.0-7.0) Basophils (%) (Auto) 0.5 % (0.0-2.0) Neutrophils # (Auto) 4.0 10 ^3/uL (1.6-8.6) Lymphocytes # (Auto) 1.9 10 ^3/uL (0.4-5.4) Monocytes # (Auto) 0.4 10 ^3/uL (0-1.3) Eosinophils # (Auto) 0 10 ^3/uL (0-0.8) Basophils # (Auto) 0 10 ^3/uL (0-0.2) Nucleated Red Blood Cells 0.1 % Sodium Level 140 mmol/L (136-145) Potassium Level 4.1 mmol/L (3.5-5.1) Chloride Level 106 mmol/L (98-107) Carbon Dioxide Level 27 mmol/L (20-31) Anion Gap 7 (5-15) Blood Urea Nitrogen 14 mg/dL (9-23) Creatinine 0.63 mg/dL (0.550-1.02) Glomerular Filtration Rate Calc 105 mL/min (>90) BUN/Creatinine Ratio 22.2 (10.0-20.0) Serum Glucose 79 mg/dL (74-106) Calcium Level 9.0 mg/dL (8.7-10.4) Total Bilirubin < 0.2 mg/dL (0.2-1.0) Aspartate Amino Transf (AST/SGOT) 13 U/L (13-40) Alanine Aminotransferase (ALT/SGPT) 13 U/L (7-40) Alkaline Phosphatase 174 U/L (46-116) Total Protein 5.9 g/dL (5.7-8.2) Albumin 3.0 g/dL (3.2-4.8) Microbiology Date/Time Source Procedure Growth Status 03/06/25 17:45 Nose MRSA Screen - Final Complete Appetite: Fair Appearance: Stated age, Disheveled Psychomotor activity: WNL Behavioral: Cooperative Eye contact: Appropriate Speech: WNL Affect: Irritable, Guarded Mood: Anxious Thought processes: Linear/Goal-directed Thought content: WNL Suicidal ideations: Absent Homicidal ideations: Absent Orientation: Person, Place, Time, Situation Memory intact: Recent Intellect: Average Abstractability: WNL Concentration: Adequate Attention: Adequate Judgement: Marginal Insight: Poor Vitals Vital Signs Date Time Temp Pulse Resp B/P (MAP) Pulse Ox O2 Delivery O2 Flow Rate FiO2 03/08/25 09:00 97.4 82 18 110/76 (87) 99 97.4 03/08/25 08:18 Room Air* 0 21 Current medications Current Medications Medications Dose Ordered Sig/Bruno Route Start Time Stop Time Status Last Admin Dose Admin Fluoxetine HCl 40 mg DAILY PO 03/06/25 10:00 03/08/25 09:49 40 MG Gabapentin 100 mg TID PO 03/05/25 22:00 03/08/25 07:04 100 MG Buspirone HCl 15 mg Q12HR PO 03/05/25 22:00 03/08/25 09:51 15 MG Ondansetron HCl 4 mg Q4HP PRN IV 03/05/25 19:00 03/07/25 19:49 4 MG Acetaminophen 650 mg Q6HP PRN PO 03/05/25 19:00 Morphine Sulfate 2 mg Q6HPRN PRN IV 03/05/25 19:00 03/08/25 07:05 2 MG Nitroglycerin 0.4 mg Q5MINP PRN SL 03/05/25 19:00 Morphine Sulfate 2 mg Q30M PRN IV 03/05/25 19:00 Docusate Sodium 100 mg BID PO 03/06/25 10:00 03/07/25 21:44 100 MG Clonazepam 1 mg Q8HP PRN PO 03/06/25 12:45 03/08/25 07:04 1 MG Acetaminophen/ Hydrocodone Bitart 1 tab Q4HP PRN PO 03/07/25 20:30 03/08/25 11:59 1 TAB Medication adjusted: Yes Diagnosis: unspecified anxiety, MDD Plan : pt denies Si/Hi and may discharge home after medical clearance She appears guarded with her substance use history. Offer rehab resources upon discharge Recommend to d/c fluoxetine, restart Zoloft 150mg po daily Continue Buspirone 15mg po BID May continue Klonopin as prescribed History of Present Illness Reason for Consult : anxiety and medication-seeking HPI : This is a 55-year-old female with prior history of depression and anxiety, she presents here for abdominal pain. Patient is evaluated via telepsychiatry, She reports hx of MDD since her late 20's. She reports symptoms of low moods, laying down for days, extreme anxiety, no known triggers. She reports having good appetite but having abdominal pain and vomiting with eating. She reports as a result, has lost 30 pounds in one month. She denies hx of bipolar and cat symptoms. She is focused on receiving klonopin, stating her former psychiatrist was giving a total of 3mg per day and they are refusing to continue same dose here. She reports benzos are the only thing helping her with anxiety. often become tearful. Discussed that benzos should be temporary and not for senior living use. She reports sleep is variable. She reports feeling depressed, low moods. she denies feeling hopeless or anhedonia. She denies suicidal/homicidal ideation. She denies auditory/visual hallucinations or paranoid thoughts. Past Psychiatric History : She reports diagnoses of major depression and anxiety. She did have outpatient mental health follow up but her psychiatrist retired and she has not been successful with finding a new one that will prescribed her Klonopin 3x per day like previous psychiatrist. She denies prior psych admissions or holds. She denies prior suicide attempts. She report using fluoxetine in the past, up to 80mg but stopped working. She was changed to Zoloft 150mg, last use was prior to admission here. She prefers use of Zoloft. Also prescribed BuSpar 15mg BID Past Medical History : She reports hx of pancreatitis Social History : She reports living alone in her own apartment and has a caregiver. She reports receiving SSDI since her 30's due to her MDD. She is not employed or . she has one adult daughter. She reports use of marijuana, once every 6 mos. She smokes about 4-5 cigarettes per day. She denies hx of alcohol use or recent use. She denies use of other substances. She refuses to provide urine sample for toxicology per nurse. She denies any known family history of psychiatric problems. CHARISSA OCHOA DNP Mar 08, 2025 13:19
[2025-03-08 16:03] LABS: INR 0.98 (0.9-1.15); Partial Thromboplastin Time 27.9 SEC (24.5-34.5); Prothrombin Time 10.4 sec (9.3-11.8)
[2025-03-08 20:00] VITALS: PULSE 84; RESP 20; O2SAT 100
[2025-03-08 21:01] VITALS: BP 112/70; PULSE 84; RESP 20; TEMP 97.5; O2SAT 100
--- NOTE | 2025-03-08 21:29 | DVHPN2 ---
Progress Note - Dictate Date Seen: Mar 08, 2025 Medical Necessity Reason Pt with a Central, PICC or Fol: No Subjective Patient seen at bedside No new complaints Patient complains of epigastric pain She had a history of anemia Patient has a prior history of gastric bypass S/P laparotomy last year for perforated bowel vital signs Vital Sign Date Time Temp Pulse Resp B/P (MAP) Pulse Ox O2 Delivery O2 Flow Rate FiO2 03/08/25 21:01 97.5 84 20 112/70 (84) 100 97.5 03/08/25 08:18 Room Air* 0 21 Total Intake and Output 03/07/25 03/07/25 03/08/25 15:00 23:00 07:00 Intake Total 780 ml 300 ml Output Total 250 ml Balance 780 ml 50 ml medications Current Medications Medications Dose Ordered Sig/Bruno Route Start Time Stop Time Status Last Admin Dose Admin Fluoxetine HCl 40 mg DAILY PO 03/06/25 10:00 03/08/25 09:49 40 MG Gabapentin 100 mg TID PO 03/05/25 22:00 03/08/25 15:57 100 MG Buspirone HCl 15 mg Q12HR PO 03/05/25 22:00 03/08/25 09:51 15 MG Ondansetron HCl 4 mg Q4HP PRN IV 03/05/25 19:00 03/07/25 19:49 4 MG Acetaminophen 650 mg Q6HP PRN PO 03/05/25 19:00 Morphine Sulfate 2 mg Q6HPRN PRN IV 03/05/25 19:00 03/08/25 20:30 2 MG Nitroglycerin 0.4 mg Q5MINP PRN SL 03/05/25 19:00 Morphine Sulfate 2 mg Q30M PRN IV 03/05/25 19:00 Docusate Sodium 100 mg BID PO 03/06/25 10:00 03/07/25 21:44 100 MG Clonazepam 1 mg Q8HP PRN PO 03/06/25 12:45 03/08/25 15:57 1 MG Acetaminophen/ Hydrocodone Bitart 1 tab Q4HP PRN PO 03/07/25 20:30 03/08/25 17:14 1 TAB objective General: NAD, AAOX3;Thin lady NAD Chest: lung estrada clear to auscultation Heart: RRR, no murmur Abdomen: Mild abdomen tenderness to palpation, +BS Ext No c/c/e laboratory and microbiology Laboratory Tests 03/08/25 05:44 Test 03/08/25 05:44 Range/Units Serum Glucose 79 74-106 mg/dL Problems(with codes): (1) Anxiety (2) Abdominal pain (3) Pain management (4) Gastritis (5) Microcytic anemia (6) Thrombocytosis Prognosis Plan Patient is clinically improving She was seen by me in consultation recently had [facility] At that time I advised a possible endoscopy for epigastric pain and anemia However the patient had refused at that time Now the patient is agreeable and would like to proceed with an endoscopy to evaluate her anemia and ongoing epigastric pain She denies any aspirin or NSAIDs use but she continues to smoke and use marijuana NPO after midnight Get consent for upper endoscopy Discharge planning after the above pending results Patient can follow up in my office as an outpatient Plan discussed with: Patient, Other (Nurse) RY HUITRON MD Mar 08, 2025 21:29
[2025-03-09] VITALS (10 sets, daily range): BP systolic 99–119; BP diastolic 62–80; PULSE 74–90; RESP 11–19; TEMP 97.4–98.5; O2SAT 93–100
[2025-03-09 05:59] LABS: Benzodiazephine Screen, Urine Neg (NEGATIVE)
[2025-03-09 06:16] LABS: Amphetamine Screen, Urine Neg (NEGATIVE); Barbiturate Scree,Urine Neg (NEGATIVE); Cannabinoid Screen, Urine Neg (NEGATIVE); Cocaine Screen, Urine Neg (NEGATIVE); Opiate Scree,Urine Pos (NEGATIVE); Phencyclidine Screen, Urine Neg (NEGATIVE)
--- NOTE | 2025-03-09 11:41 | ECG ---
[facility] Test Date: 2025-03-08 Test Time: 16:18:36 Pat Name: TAM SOLANO Department: Respiratoy Room: 0251 A Gender: F [employer] Operator: THIERRY OWUSU RN : 1970 Requested By: RY HUITRON Order Number: [id number] Reading MD: Mason Feldman Measurements Intervals [place] Rate: 75 P: 61 SD: 136 QRS: 53 QRSD: 87 T: 37 QT: 410 QTc: 458 Interpretive Statements Sinus rhythm Electronically Signed On 03-11-2025 20:03:44 PDT by Mason Feldman Please click the below link to view image of tracing.
--- NOTE | 2025-03-09 12:01 | DVHPN2 ---
Subjective The patient is seen and examined at bedside. Still complain of abdominal pain. Asking for more pain medication. Crying and requests maximum dose of pain medication.. Patient take Dilaudid and [place] around the clock. Waiting for EGD to be done Reviewed: Care Plan, H&P, Labs, Medications, Previous Orders, Radiology Changes from previous H/P or p: No Changes Objective Vitals Vital Signs Date Time Temp Pulse Resp B/P (MAP) Pulse Ox O2 Delivery O2 Flow Rate FiO2 03/09/25 09:00 97.5 77 15 110/79 (89) 98 97.5 03/09/25 08:00 Room Air* 0 21 Intake/Output Intake and Output 03/09/25 07:00 Intake Total 1640 ml Balance 1640 ml Intake Oral 1640 ml # Voids 4 # Bowel Movements 4 General Appearance: Alert, Oriented X3, Cooperative, No acute distress HEENT: Atraumatic, PERRLA, EOMI, Mucous membr. moist/pink Neck: Supple Lungs: Clear to auscultation, Normal air movement Cardiovascular: Regular rate, Normal S1, Normal S2, No murmurs, Gallops, Rubs Abdomen: Normal bowel sounds, Soft, No tenderness Neuro: Cranial nerves 3-12 NL Psych/Mental Status: Mental status NL Medications Current Medications Medications Dose Ordered Sig/Bruno Route Start Time Stop Time Status Last Admin Dose Admin Gabapentin 100 mg TID PO 03/05/25 22:00 03/08/25 21:23 100 MG Buspirone HCl 15 mg Q12HR PO 03/05/25 22:00 03/09/25 09:06 15 MG Ondansetron HCl 4 mg Q4HP PRN IV 03/05/25 19:00 03/07/25 19:49 4 MG Acetaminophen 650 mg Q6HP PRN PO 03/05/25 19:00 Morphine Sulfate 2 mg Q6HPRN PRN IV 03/05/25 19:00 03/09/25 05:52 2 MG Nitroglycerin 0.4 mg Q5MINP PRN SL 03/05/25 19:00 Morphine Sulfate 2 mg Q30M PRN IV 03/05/25 19:00 Docusate Sodium 100 mg BID PO 03/06/25 10:00 03/09/25 09:01 100 MG Clonazepam 1 mg Q8HP PRN PO 03/06/25 12:45 03/09/25 00:05 1 MG Acetaminophen/ Hydrocodone Bitart 1 tab Q4HP PRN PO 03/07/25 20:30 03/09/25 09:02 1 TAB Sertraline HCl 150 mg DAILY PO 03/09/25 12:00 UNV Laboratory Results Laboratory Tests 03/08/25 05:44 Coagulation Test 03/08/25 15:28 Prothrombin Time 10.4 sec (9.3-11.8) Prothrombin Time INR 0.98 (0.9-1.15) Activated Partial Thromboplast Time 27.9 SEC (24.5-34.5) Urinalysis Test 03/05/25 21:50 Urine Color Yellow (Yellow) Urine Clarity Turbid (Clear) H Urine pH 6.0 (5.0-9.0) Urine Specific [place] 1.027 (1.001-1.035) Urine Protein Trace (Negative) H Urine Ketones Trace (Negative) Urine Blood Negative /uL (Negative) Urine Nitrite Negative (Negative) Urine Bilirubin Negative (Negative) Urine Urobilinogen Normal mg/dL (Negative) Urine Leukocyte Esterase 1+ /uL (Negative) Urine RBC 15 /hpf (0 - 4) Urine Microscopic WBC 36 /HPF (0-5) H Urine Squamous Epithelial Cells Few /hpf (<5) Urine Bacteria None seen /hpf (None Seen) Urine Mucus Few (None Seen) Urine Glucose Normal mg/dL (Normal) Microbiology Microbiology Date/Time Source Procedure Growth Status 03/06/25 17:45 Nose MRSA Screen - Final Complete Labs and/or images reviewed: Labs reviewed by me Assessment/Plan Assessment/Plan Acute on chronic abdominal pain Chronic pain syndrome cachexia Thrombocytosis Anxiety Plan Continuing current management. Continuing her on Klonopin. I will not increase the dose nor frequency. Continue 1mg q 8h PRN Waiting for EGD if EGD negative we will discharge patient home. I will consult telepsych for workup on depression and chronic narcotic dependence and drug-seeking behavior. Appreciate psychiatrist recommendation. I will d/c prozac and start Zoloft 150mg daily per psychiatrist recommendation. Appreciate psychiatrist recommendation. We will continuing Zoloft and discontinuing Prozac. Recommend outpatient pain management consult Explained to the patient that her abdominal CT showed no acute process, and when I am distracted her for abdominal exam patient had no pain. Addendum: The patient was discharged today however caregiver had some urgency that she can not pick the patient up so we will hold discharge until tomorrow when caregiver can come and pick her up. This medical document was created using an electronic medical record system with [employer] direct computerized dictation system. Although this document has been carefully reviewed, there may still be some phonetic and typographical errors. These areas are purely typographical due to imperfections of the software programs, and do not reflect any compromise in the patient's medical care. Plan discussed with: Patient My Orders Orders - CECILIA SWEENEY MD Procedure Category Date Status Time Discharge DISCHARGE 03/08/25 Transmitted 12:04 Sertraline Hcl PHA 03/09/25 Logged (Zoloft) 12:00 Date of Service: Mar 09, 2025 Billing Provider: CECILIA SWEENEY MD Common Visit Codes: [id number] INP/OBS CARE(HIGH) CECILIA SWEENEY MD Mar 09, 2025 12:01
[2025-03-09] MEDS: SERTRALINE HCL 50 MG TAB PO SCH (12:24)
[2025-03-09] MEDS ORDERED: ONDANSETRON HCL 4 MG/2 ML VIAL ONE (12:56)
[2025-03-09] MEDS ORDERED: PROPOFOL 10 MG/ML 20 ML IV ONE (12:56)
[2025-03-09] MEDS ORDERED: SODIUM CHLORIDE LOCK 10 ML ONE (12:56)
[2025-03-09] MEDS ORDERED: KETAMINE 50mg/ML 1ml syringe ONE (12:56)
[2025-03-09] MEDS ORDERED: LIDOCAINE 1% INJ PF 5ML AMP ONE (12:56)
[2025-03-09] MEDS ORDERED: fentaNYL CITRATE 100 MCG/2 ML VL ONE (12:56)
[2025-03-09] MEDS ORDERED: MIDAZOLAM HCL 2MG/2ML 2ml VIAL (1mg/ml) ONE (12:56)
[2025-03-09] MEDS ORDERED: HYDROmorphone HCL 2 MG/ML VL/or syr IV PRN ×2 (13:30)
[2025-03-09] MEDS ORDERED: MORPHINE SULFATE 4 MG/ML SYR/VIAL IV PRN (13:30)
[2025-03-09] MEDS ORDERED: MORPHINE SULFATE INJ 2 MG/ml SYRG IV PRN (15:00)
--- NOTE | 2025-03-09 15:52 | DVHOP2 ---
Operative Report DATE OF OPERATION: 03/09/25 PROCEDURE: Upper Endoscopy with biopsy. PREOPERATIVE INDICATION: The patient is a 55 -year-old female undergoing endoscopy for epigastric pain and anemia POSTOPERATIVE DIAGNOSES: 1. Patient has an intact gastrojejunal anastomosis and there was some hyperemia erythema and granulation tissue at the gastrojejunal anastomosis from which biopsies were obtained 2. Mild gastritis of the gastric remnant 3. Patient had a 1 cm sliding-type hiatal hernia with grade B erosive esophagitis with some distal esophageal ulcers from which biopsies were obtained 4. Otherwise normal examination up to the efferent and afferent loop of the gastrojejunostomy PROCEDURE PERFORMED BY: Ry Michael GI NURSE: Janneth SCOPE: Olympus videoendoscope. ASA CLASS:3 PREOPERATIVE MEDICATIONS: Dr. Meaghan Baldwin PROCEDURE IN DETAIL: After obtaining an informed consent, the patient was placed on left lateral decubitus position. The patient was then sedated with the above medications. A bite block was placed between her teeth. The endoscope was then passed through the oropharynx, into the esophagus, and through the stomach remnant Into the efferent loop of the gastrojejunostomy. The small bowel portion was normal At the anastomosis there was some hyperemia erythema mucosal edema and granulation tissue from which biopsies were obtained The gastric remnant shows mild gastritis. The efferent and afferent loops were normal. Gastric biopsies were obtained. The endoscope was then withdrawn into the distal esophagus where the patient had 1 cm sliding-type hiatal hernia with grade B erosive esophagitis. There were superficial ulcers and biopsies were obtained to rule out Deya. The remaining mid to proximal esophagus and oropharynx were unremarkable The endoscope was then withdrawn and patient tolerated the procedure well COMPLICATIONS : None SPECIMENS: Small-bowel biopsies Biopsies of gastrojejunal anastomosis with some granulation tissue Gastric biopsies Distal esophageal biopsies DISPOSITION: Transfer back to the floor Stable PLAN: 1. Await for biopsy result 2. Will place pt on Protonix 40 mg bid 1V 3. Carafate 1 g p.o. 4 times a day 4. Resume full liquid diet advance as tolerated 5. Outpatient follow up with me in 4-6 weeks to review results and discuss further management RY MICHAEL MD Mar 09, 2025 15:52
[2025-03-09] MEDS: SUCRALFATE 1 GM/10 ML ORAL SUSP PO SCH (17:56)
[2025-03-09] MEDS: PANTOPRAZOLE 40 MG TAB PO SCH (17:56)
[2025-03-09] MEDS: KETOROLAC TROMETH 30 MG/ML 1ML VIAL IV ONE (20:34)
[2025-03-09] MEDS: METOCLOPRAMIDE HCL 5MG/ml INJ 2ml VIAL IV ONE (20:34)
[2025-03-10 01:27] VITALS: BP 114/62; PULSE 86; RESP 17; TEMP 98.1; O2SAT 96
[2025-03-10 05:49] VITALS: BP 112/60; PULSE 80; RESP 18; TEMP 98.8; O2SAT 93
[2025-03-10] MEDS ORDERED: PANT40TA2 PO (11:35)
[2025-03-10] MEDS ORDERED: DOCU-265 PO (11:36)
[2025-03-10] MEDS ORDERED: SUCR1SUS26 PO (11:36)
[2025-03-10 11:38] VITALS: BP 118/77; PULSE 80; RESP 20; TEMP 97.7; O2SAT 98
--- NOTE | 2025-03-10 11:38 | DVHDS2 ---
Discharge Summary Date of Admission Mar 05, 2025 at 18:47 Date of Discharge: Mar 10, 2025 Admitting Diagnosis Acute on chronic abdominal pain Chronic pain syndrome cachexia Thrombocytosis Anxiety Labs/Diagnostic Data: Laboratory Results Test 03/09/25 05:00 03/08/25 15:28 03/08/25 05:44 03/05/25 21:50 Urine Opiates Screen Pos (NEGATIVE) Urine Fentanyl Screen Neg (NEGATIVE) Urine Barbiturates Screen Neg (NEGATIVE) Urine Phencyclidine Screen Neg (NEGATIVE) Urine Amphetamines Screen Neg (NEGATIVE) Urine Benzodiazepines Screen Neg (NEGATIVE) Urine Cocaine Screen Neg (NEGATIVE) Urine Cannabinoids Screen Neg (NEGATIVE) Prothrombin Time 10.4 sec (9.3-11.8) Prothrombin Time INR 0.98 (0.9-1.15) Activated Partial Thromboplast Time 27.9 SEC (24.5-34.5) White Blood Count 6.3 10^3/uL (4.4-10.8) Red Blood Count 3.19 10^6/uL (4.0-5.20) Hemoglobin 7.3 g/dL (12.2-16.2) Hematocrit 22.8 % (36.0-46.0) Mean Corpuscular Volume 71.5 fL (80.0-100.0) Mean Corpuscular Hemoglobin 23.0 pg (28.0-32.0) Mean Corpuscular Hemoglobin Concent 32.1 g/dL (32.0-36.0) Red Cell Distribution Width 23.0 % (11.8-14.3) Platelet Count 550 10^3/uL (140-450) Mean Platelet Volume 7.1 fL (6.9-10.8) Neutrophils (%) (Auto) 63.5 % (37.0-80.0) Lymphocytes (%) (Auto) 29.3 % (10.0-50.0) Monocytes (%) (Auto) 6.0 % (0.0-12.0) Eosinophils (%) (Auto) 0.7 % (0.0-7.0) Basophils (%) (Auto) 0.5 % (0.0-2.0) Neutrophils # (Auto) 4.0 10 ^3/uL (1.6-8.6) Lymphocytes # (Auto) 1.9 10 ^3/uL (0.4-5.4) Monocytes # (Auto) 0.4 10 ^3/uL (0-1.3) Eosinophils # (Auto) 0 10 ^3/uL (0-0.8) Basophils # (Auto) 0 10 ^3/uL (0-0.2) Nucleated Red Blood Cells 0.1 % Sodium Level 140 mmol/L (136-145) Potassium Level 4.1 mmol/L (3.5-5.1) Chloride Level 106 mmol/L (98-107) Carbon Dioxide Level 27 mmol/L (20-31) Anion Gap 7 (5-15) Blood Urea Nitrogen 14 mg/dL (9-23) Creatinine 0.63 mg/dL (0.550-1.02) Glomerular Filtration Rate Calc 105 mL/min (>90) BUN/Creatinine Ratio 22.2 (10.0-20.0) Serum Glucose 79 mg/dL (74-106) Calcium Level 9.0 mg/dL (8.7-10.4) Total Bilirubin < 0.2 mg/dL (0.2-1.0) Aspartate Amino Transferase (AST) 13 U/L (13-40) Alanine Aminotransferase (ALT) 13 U/L (7-40) Alkaline Phosphatase 174 U/L (46-116) Total Protein 5.9 g/dL (5.7-8.2) Albumin 3.0 g/dL (3.2-4.8) Urine Color Yellow (Yellow) Urine Clarity Turbid (Clear) Urine pH 6.0 (5.0-9.0) Urine Specific [place] 1.027 (1.001-1.035) Urine Protein Trace (Negative) Urine Ketones Trace (Negative) Urine Blood Negative /uL (Negative) Urine Nitrite Negative (Negative) Urine Bilirubin Negative (Negative) Urine Urobilinogen Normal mg/dL (Negative) Urine Leukocyte Esterase 1+ /uL (Negative) Urine RBC 15 /hpf (0 - 4) Urine Microscopic WBC 36 /HPF (0-5) Urine Squamous Epithelial Cells Few /hpf (<5) Urine Bacteria None seen /hpf (None Seen) Urine Mucus Few (None Seen) Urine Glucose Normal mg/dL (Normal) Test 03/05/25 11:47 Platelet Estimate Increased Hypochromasia (manual) Slight Anisocytosis (manual) Slight Microcytosis Moderate Lipase 36 U/L (12-53) Other Laboratory Tests 03/08/25 05:44 Brief Hx & Hospital Course: This is a 55 years old female come to emergency department because severe pain of her abdomen. The patient had chronic abdominal pain and pancreatitis. Now she had two day worsening of the low abdominal pain associated with nausea and vomiting. She also had a multiple episodes of diarrhea. She was admitted. CT scan of abdomen pelvis showed no significant acute process. Subsequently the patient has endoscopy done by GI specialist. The EGD showed: Patient has an intact gastrojejunal anastomosis and there was some hyperemia erythema and granulation tissue at the gastrojejunal anastomosis from which biopsies were obtained. Mild gastritis of the gastric remnant. Patient had a 1 cm sliding- type hiatal hernia with grade B erosive esophagitis with some distal esophageal ulcers from which biopsies were obtained. Otherwise normal examination up to the efferent and afferent loop of the gastrojejunostomy. GI specialist, Dr. Michael recommend Protonix 40 mg once per day and Carafate 1 g twice per day. Today the patient is able to tolerate diet. No nausea or vomiting. Abdominal pain improved. No diarrhea. The patient is supposed to be discharged yesterday however her caregiver had family emergency and can not pick her up. Today the caregiver came in patient will be going home with her. Advised the patient to follow up with primary care physician 1-2 weeks. Follow up with GI specialist per schedule 3-4 weeks to discuss the EGD biopsy and further plan. Activity as tolerated. Diet per home diet Physical exam: HEENT: Normocephalic atraumatic pupils equal react to light and accommodation. Extraocular muscles intact, conjunctiva pink, oropharynx moist, no thrush, no exudate. Lymphatic: No lymphadenopathy Cardiovascular exam: S1, S2 was heard. No murmurs, rubs, gallops Lung: Clear on auscultation bilaterally, no wheeze, rale, rhonchi. GI: Abdominal soft, nondistended, nontenderness, positive bowel sounds. Extremity: No crepitus, cyanosis, edema. Pedal pulses present bilateral. Full range of motion. Skin: Normal turgor, no rash. Psych: Alert, oriented x3. Neurology: No focal deficits, cranial nerve II to XII grossly intact. This medical document was created using an electronic medical record system with [employer] direct computerized dictation system. Although this document has been carefully reviewed, there may still be some phonetic and typographical errors. These areas are purely typographical due to imperfections of the software programs, and do not reflect any compromise in the patient's medical care. Condition at Discharge: Stable Final Diagnosis/Problems List Acute on chronic abdominal pain Chronic pain syndrome cachexia Thrombocytosis Anxiety Discharge Disposition: Home Discharge Instruct/Medications Diet: Regular Activity: No Restrictions, As Tolerated Follow Up/Referral: pcp 1-2 weeks Discharge Statement: "Patient was advised to return to the ER or call 911 if any headaches, dizziness, shortness of breath, chest pain, abdominal pain, bleeding, fevers, or worsening of medical condition. Patient was counseled about treatment plan, medications, possible side effects, patientverbalized understanding. All questions were answered to the best of my ability. This discharge took greater then 30 minutes in planning, reviewing documentation, counseling the patient, and discussing with other team members." ASSESSMENT ASSESSMENT Assessment abdominal pain, chronic Date of Service: Mar 10, 2025 Billing Provider: CECILIA SWEENEY MD Common Visit Codes: [id number] DISCH DAY >30min CECILIA SWEENEY MD Mar 10, 2025 11:38
--- NOTE | 2025-03-10 20:24 | DVHPN2 ---
Progress Note - Dictate Date Seen: Mar 10, 2025 (Late entryPatient seen at bedside at 8:00 a.m.) Medical Necessity Reason Pt with a Central, PICC or Fol: No Subjective Patient seen at bedside No new complaints;Ambulatory Patient complains of epigastric pain patient states she is sick and has chronic abdominal pain She had a history of anemia Patient has a prior history of gastric bypass S/P laparotomy last year for perforated bowel EGD findings reviewed with the patient vital signs Vital Sign Date Time Temp Pulse Resp B/P (MAP) Pulse Ox O2 Delivery O2 Flow Rate FiO2 03/10/25 11:38 97.7 80 20 98 03/10/25 08:00 Room Air* 0 21 03/10/25 06:14 110/68 Total Intake and Output 03/09/25 03/09/25 03/10/25 15:00 23:00 07:00 Intake Total 100 ml 200 ml 150 ml Balance 100 ml 200 ml 150 ml objective General: NAD, AAOX3;Thin lady NAD Chest: lung estrada clear to auscultation Heart: RRR, no murmur Abdomen: Mild abdomen tenderness to palpation, +BS Ext No c/c/e laboratory and microbiology Laboratory Tests 03/08/25 05:44 Test 03/08/25 05:44 Range/Units Serum Glucose 79 74-106 mg/dL Problems(with codes): (1) Chronic pain (2) Generalized anxiety disorder (3) Failure to thrive (4) Status post gastric bypass for obesity (5) Gastritis (6) Reflux esophagitis Prognosis Plan Protonix 40 mg p.o. twice a day Carafate 1 g p.o. twice a day DC aspirin NSAIDs smoking alcohol Discharge planning as per hospitalist Consider outpatient referral for pain management Nutritional supplements with ensure one can p.o. three times a day with meals Dietary Evaluation Review Comments: 1. Recommend timely diet advancement to Regular diet as tolerated 2. When no longer NPO, suggest ONS w/ Ensure Enlive TID to optimize patients nutritional status 3. Will gather additional nutrition hx on FU Expected Outcomes/Goals: Diet advancement, improved nutritional status. Plan discussed with: Patient RY HUITRON MD Mar 10, 2025 20:24
== END 2025-03-10 12:40 | disposition home or self-care (01) | DRG 381 ==
LOC: ER 11:24 → OVERFLOW 18:47 → EAST 03-06 15:47
PROVIDERS: ADMIT Internal Medicine; ATTEND Internal Medicine
PROC: 0DB88ZX Excision of Small Intestine, Via Natural or Artificial Opening Endoscopic, Diagnostic (ICD-10-PCS; 2025-03-09)
PROC: 0DB68ZX Excision of Stomach, Via Natural or Artificial Opening Endoscopic, Diagnostic (ICD-10-PCS; 2025-03-09)
PROC: 0DB48ZX Excision of Esophagogastric Junction, Via Natural or Artificial Opening Endoscopic, Diagnostic (ICD-10-PCS; 2025-03-09)
PROC: 0DB38ZX Excision of Lower Esophagus, Via Natural or Artificial Opening Endoscopic, Diagnostic (ICD-10-PCS; principal; 2025-03-09 14:30)
DX: K22.10 Ulcer of esophagus without bleeding (principal); R64 Cachexia; Z68.1 Body mass index [BMI] 19.9 or less, adult; K56.41 Fecal impaction; K29.70 Gastritis, unspecified, without bleeding; G89.4 Chronic pain syndrome; D75.839 Thrombocytosis, unspecified; F17.210 Nicotine dependence, cigarettes, uncomplicated; F32.9 Major depressive disorder, single episode, unspecified; F41.1 Generalized anxiety disorder; R62.7 Adult failure to thrive; K44.9 Diaphragmatic hernia without obstruction or gangrene; Z79.1 Long term (current) use of non-steroidal anti-inflammatories (NSAID); Z87.442 Personal history of urinary calculi; Z79.899 Other long term (current) drug therapy; Z90.49 Acquired absence of other specified parts of digestive tract; Z98.891 History of uterine scar from previous surgery; Z98.84 Bariatric surgery status
CPT/HCPCS: 36415; 43239; 74176; 74250; 76705; 80048; 80053; 80307; 81001; 83690; 85025; 85610; 85730; 86850; 86900; 86901; 87081; 93005; G0378; J1885; J2250; J2405; J2704

== ENCOUNTER 2025-03-19 02:48 | Inpatient (IN) | payer OTHER, MEDICAID ==
[~2025-03-19] VITALS: Ht 154.9 cm; Wt 45.0 kg
[~2025-03-19 02:48] MED LIST changes: +DOCU-265 PO; +SUCR1SUS26 PO
[2025-03-19] MEDS: IOHEXOL 300 MG/ML 100ML BOTTLE IJ ONE (04:12)
--- NOTE | 2025-03-19 04:16 | ED.PDOC ---
History of Present Illness HPI Comments 55-year-old, underweight female, with a history of chronic abdominal pain and " chronic pancreatitis", cachexia, kidney stones, UTIs, cholecystectomy, C- section, and anxiety, is brought in by ambulance for complaint of nonradiating, left upper quadrant abdominal pain, with the associated nausea, vomiting, di arrhea, and chills, for the past 4 days. Patient is a poor historian. Patient endorses on progresses worsening symptoms, with no pain medication use. Reports recent intra-abdominal surgical procedure performed by Dr. Michael and [facility] in May 2024 appointment with said provider April 12, 2025. To any blood in her vomit or stool, urinary symptoms, fever, associated symptoms. Prior to ED arrival patient received 4 mg of Zofran p.o. by EMS. Patient was admitted on 03/05/25 for chronic abdominal pain. At that time patient had EGD which showed intact gastrojejunal anastomosis and there was some hyperemia erythema and granulation tissue at the gastrojejunal anastomosis from which biopsies were obtained. Mild gastritis of the gastric remnant. Patient had a 1 cm sliding-type hiatal hernia with grade B erosive esophagitis with some distal esophageal ulcers from which biopsies were obtained. Otherwise normal examination up to the efferent and afferent loop of the gastrojejunostomy. GI specialist, Dr. Michael recommend Protonix 40 mg once per day and Carafate 1 g twice per day. Chart review reveals patient has a history of gastric bypass, acute perforated bowel status post ex lap in May of 2024 as well as chronic pancreatic insufficiency. Chief Complaint: Abdominal Pain Time Seen by MD: 03:50 Primary Care Provider: NONE Reviewed Notes: Nurses Notes, Marketing Traffic Manager Notes, Medications, Allergies Allergies: Coded Allergies: NO KNOWN ALLERGIES (Unverified , 07/07/18) Home Meds Active Scripts Sucralfate (CARAFATE SUSP) 1 Gm/10 Ml Ss, 1 GM PO QID@0600,1130,1700,2200, #240 ML Prov:CECILIA SWEENEY MD 03/10/25 Docusate Sodium (Docusate Sodium) 100 Mg Cap, 100 MG PO BID, #60 CAP Prov:CECILIA SWEENEY MD 03/10/25 Pantoprazole Sodium Sesquihydr (Protonix) 40 Mg Tab, 40 MG PO BID, #60 TAB Prov:CECILIA SWEENEY MD 03/10/25 Polyethylene Glycol 3350 (Miralax) 17 Gm Pow, 17 GM PO DAILY PRN for 3 Days, #3 POW 0 Refills Prov:MIGUEL ALEJANDRA MD 02/03/25 Lorazepam (ATIVAN TABLET) 0.5 Mg Tb, 1 TAB PO DAILY for 3 Days, #3 TAB Prov:HAROON LOGAN MD 01/16/25 Diclofenac Potassium (Diclofenac Potassium) 50 Mg Tab, 1 TAB PO TIDP for 10 Days, #30 TAB Prov:BONI AVALOS MD 11/17/24 Clonazepam (KlonoPIN TABLET) 0.5 Mg Tb, 1 TAB PO DAILY for 7 Days, #7 TAB Prov:BONI AVALOS MD 11/17/24 Nitrofurantoin Monohydrate Mac (Macrobid) 100 Mg Cap, 100 MG PO BID for 7 Days, #14 CAP Prov:BONI AVALOS MD 11/17/24 Hydroxyzine Hcl (Hydroxyzine Hcl) 25 Mg Tab, 1 TAB PO TIDPRN PRN for 10 Days, #30 TAB 0 Refills Prov:BIA POE EXAMINATION PROCTOR 11/06/24 Hydroxyzine Hcl (Hydroxyzine Hcl) 25 Mg Tab, 1 TAB PO TID for 10 Days, #30 TAB 0 Refills Prov:BIA POE EXAMINATION PROCTOR 10/16/24 Clonazepam (Klonopin) 1 Mg Tab, 1 TAB PO BID, #14 TAB 0 Refills Prov:YANDEL CALVIN PA 10/05/24 Ibuprofen (Ibuprofen) 800 Mg Tab, 800 MG PO Q8HP PRN for 7 Days, #21 TAB Prov:ADEN BRAND GANG LEADER 07/29/24 Naproxen (Naproxen) 500 Mg Tab, 500 MG PO BID PRN for 10 Days, #20 TAB Prov:BOB LYMAN RESIDENT 07/03/24 Fluoxetine HCl (Fluoxetine Hydrochloride) 40 Mg Cap, 40 MG PO DAILY for 30 Days, #30 CAP Prov:BOB LYMAN RESIDENT 07/03/24 Oxycodone W/ Acetaminophen (Percocet 5/325MG) 1 Tab Tb, 1 TAB PO TID PRN for 8 Days, #24 TAB Prov:SAVITA DELATORRE MD 05/30/24 Pantoprazole Sodium Sesquihydr (Protonix) 40 Mg Tab, 40 MG PO DAILY for 30 Days, #30 TAB 2 Refills Prov:SAVITA DELATORRE MD 05/30/24 Metronidazole (Metronidazole) 500 Mg Tab, 500 MG PO TID for 7 Days, #21 TAB Prov:SAVITA DELATORRE MD 05/30/24 Levofloxacin Hemihydrate (LEVAQUIN 500 MG) 500 Mg Tab, 500 MG PO DAILY for 7 Days, #7 TAB Prov:SAVITA DELATORRE MD 05/30/24 Nitrofurantoin Monohydrate Mac (Macrobid) 100 Mg Cap, 100 MG PO BID for 6 Days, #14 CAP Prov:ASHLEY COLLIER MD 03/30/24 Dicyclomine Hcl (BENTYL CAPSULE) 10 Mg Cp, 1 CAP PO TID for 5 Days, #15 CAP 11 Refills Prov:KALLIE MOSELEY MD 03/30/24 Buspirone HCl (Buspirone Hydrochloride) 15 Mg Tab, 15 MG PO BID for 90 Days, #180 TAB 1 Refill Prov:BIA POE EXAMINATION PROCTOR 03/06/24 Hydroxyzine Hcl (Hydroxyzine Hcl) 25 Mg Tab, 1 TAB PO TID PRN, #30 TAB Prov:BASIM ROBLERO GANG LEADER 03/05/24 Hydroxyzine Hcl (Hydroxyzine Hcl) 25 Mg Tab, 1 TAB PO TID for 30 Days, #90 TAB 0 Refills Prov:BIA POE EXAMINATION PROCTOR 01/03/24 Pancreatic Enzymes (Creon) 12,000 Unt Cap, 47423 UNT PO TIDWMEALS, #90 CAP Prov:DAYANA FERGUSON MD 07/10/22 Pantoprazole Sodium Sesquihydr (Pantoprazole Sodium) 40 Mg Tab, 40 MG PO DAILY, #30 TAB Prov:DAYANA FERGUSON MD 07/10/22 Reported Medications Lurasidone Hydrochloride (LATUDA) 120 Mg Tab, 1 TAB PO 07/02/22 Tiotropium [place] Monohydrate (Spiriva Handihaler) 18 Mcg Cap, 1 CAP INH DAILYPRN 07/02/22 Fluoxetine Hcl (Fluoxetine Hcl) 40 Mg Cap, 2 CAP PO 07/02/22 Alprazolam (Alprazolam) 1 Mg Tab, 1 TAB PO TID PRN for ANXIETY 07/02/22 Gabapentin (Gabapentin) 100 Mg Cap, 3 CAP PO TID 07/02/22 Information Source: Patient, Emergency Med Personnel Mode of Arrival: EMS Severity: Moderate Timing: Days Duration: Since onset Prehospital treatment: 12 Lead EKG, Division Traffic Superintendent, Treatment (4 mg Zofran no p.o.) Review of Systems: REVIEW OF SYSTEMS: Chills. No fever, or fatigue HEENT: No sore throat, no earache, no congestion, no neck pain. Cardiac: No chest pain. No palpitations. Lungs: No shortness of breath, no cough. GI: Abdominal pain, nausea, vomiting, diarrhea, no constipation : No dysuria, frequency, or urgency. No hematuria. Musculoskeletal: No joint pain , no joint swelling, no extremity edema. Skin: No rash, no itching. Neuro: No headache, no dizziness, no weakness Vital Signs Vital Signs Date Time Temp Pulse Resp B/P (MAP) Pulse Ox O2 Delivery O2 Flow Rate FiO2 03/19/25 14:18 98 24 101/44 03/19/25 14:01 100 03/19/25 12:16 97.4 97.4 03/19/25 08:54 Room Air* 0 21 Physical Exam General: Awake, alert and oriented. No acute distress. Skin: Skin in warm, dry and intact. Appropriate color for ethnicity. HEENT: The head is normocephalic and atraumatic. Conjunctivae are clear without exudates or hemorrhage. Sclera is non-icteric. EOM are intact. No signs of nystagmus. Eyelids are normal in appearance without swelling or lesions. Oral mucosa is pink and moist Neck: The neck is supple with normal range of motion. No JVD. Cardiac: Heart rate and rhythm are normal. No murmurs, gallops, or rubs are auscultated. Respiratory: No signs of respiratory distress. Lung sounds are clear in all lobes bilaterally without rales, rhonchi, or wheezes. Abdominal: Left upper quadrant tenderness. Otherwise, abdomen is soft, without distention. Bowel sounds are present and normoactive in all four quadrants. Extremities: Upper and lower extremities are atraumatic in appearance without deformity or edema. Neurological: The patient is awake, alert and oriented to person, place, and time with normal speech. Speech is clear. There is no facial asymmetry. Psychiatric: Tearful affect. Past Medical History PAST MEDICAL HISTORY: Anemia, Anxiety, Depression, Kidney Stones, UTI'S Past Medical History (Other): Chronic abdominal pain and pancreatitis Cachexia Thrombocytosis Surgical History: Cholecystectomy, DOCKET SPECIALIST History: No Pertinent DOCKET SPECIALIST History Family History Family History: Reviewed,noncontributory to illness Social History Smoker: Cigarettes, Less Than 1 Pack/Day Alcohol: Occasionally Drugs: Marijuana, Methamphetamine Lives In: Home Was a procedure done? Was a procedure done?: No Differential Dx Considerations may include: Differential diagnoses considered include: Abdominal aortic aneurysm, [place], esophageal rupture, intestinal obstruction, mesenteric ischemia, perforated viscus or solid organ rupture, CHF with hepatomegaly, pneumonia, abscess, appendicitis, biliary disease, diverticulitis, gastritis, gastroenteritis, hepatitis, hernia, inflammatory bowel disease, pancreatitis, peptic ulcer disease, urinary tract infection, ureteral colic, constipation, GERD, irritable syndrome, abdominal wall pain, nonspecific abdominal pain, herpes zoster. [ ]Also ovarian torsion/cyst, tubo-ovarian abscess, PID, endometriosis, mittleschmerz. X-Ray, Labs, Meds, VS Vital Signs Date Time Temp Pulse Resp B/P (MAP) Pulse Ox O2 Delivery O2 Flow Rate FiO2 03/19/25 14:18 98 24 101/44 03/19/25 14:01 87 16 101/44 (63) 100 03/19/25 13:40 89 17 107/62 03/19/25 12:16 97.4 85 20 107/39 (61) 97 97.4 03/19/25 10:00 83 21 108/78 (88) 96 03/19/25 09:25 72 16 107/41 03/19/25 09:19 72 18 107/41 03/19/25 08:54 84 13 99 Room Air* 0 21 03/19/25 08:00 97.7 78 13 99/33 (55) 99 97.7 03/19/25 06:47 72 16 111/57 03/19/25 06:00 78 16 116/81 (93) 98 03/19/25 05:00 73 16 117/70 (86) 100 03/19/25 04:24 81 16 114/69 03/19/25 04:21 97.9 71 16 114/69 (84) 100 97.9 03/19/25 04:21 81 16 100 Room Air* 0 21 03/19/25 04:00 82 03/19/25 02:48 97.9 85 18 120/68 (85) 96 97.9 Lab Test 03/19/25 05:55 03/19/25 03:56 Range/Units Urine Color Light-yellow Yellow Urine Clarity Clear Clear Urine pH 8.0 5.0-9.0 Urine Specific [place] 1.049 H 1.001-1.035 Urine Protein Negative Negative Urine Ketones Negative Negative Urine Blood Negative Negative /uL Urine Nitrite Negative Negative Urine Bilirubin Negative Negative Urine Urobilinogen Normal Negative mg/dL Urine Leukocyte Esterase 1+ Negative /uL Urine RBC 1 0 - 4 /hpf Urine Microscopic WBC 2 0-5 /HPF Urine Squamous Epithelial Cells Few <5 /hpf Urine Bacteria None seen None Seen /hpf Urine Glucose Normal Normal mg/dL White Blood Count 7.2 4.4-10.8 10^3/uL Red Blood Count 3.63 L 4.0-5.20 10^6/uL Hemoglobin 8.3 L 12.2-16.2 g/dL Hematocrit 26.1 L 36.0-46.0 % Mean Corpuscular Volume 71.9 L 80.0-100.0 fL Mean Corpuscular Hemoglobin 22.8 L 28.0-32.0 pg Mean Corpuscular Hemoglobin Concent 31.7 L 32.0-36.0 g/dL Red Cell Distribution Width 23.6 H 11.8-14.3 % Platelet Count 494 H 140-450 10^3/uL Mean Platelet Volume 7.2 6.9-10.8 fL Neutrophils (%) (Auto) 58.7 37.0-80.0 % Lymphocytes (%) (Auto) 31.4 10.0-50.0 % Monocytes (%) (Auto) 8.5 0.0-12.0 % Eosinophils (%) (Auto) 1.0 0.0-7.0 % Basophils (%) (Auto) 0.4 0.0-2.0 % Neutrophils # (Auto) 4.2 1.6-8.6 10 ^3/uL Lymphocytes # (Auto) 2.3 0.4-5.4 10 ^3/uL Monocytes # (Auto) 0.6 0-1.3 10 ^3/uL Eosinophils # (Auto) 0.1 0-0.8 10 ^3/uL Basophils # (Auto) 0 0-0.2 10 ^3/uL Nucleated Red Blood Cells 0.1 % Sodium Level 142 136-145 mmol/L Potassium Level 4.2 3.5-5.1 mmol/L Chloride Level 109 H 98-107 mmol/L Carbon Dioxide Level 27 20-31 mmol/L Anion Gap 6 5-15 Blood Urea Nitrogen 13 9-23 mg/dL Creatinine 0.64 0.550-1.02 mg/dL Glomerular Filtration Rate Calc 104 >90 mL/min BUN/Creatinine Ratio 20.3 H 10.0-20.0 Serum Glucose 68 L 74-106 mg/dL Lactic Acid Level 1.2 0.4-2.0 mmol/L Calcium Level 9.4 8.7-10.4 mg/dL Total Bilirubin 0.2 0.2-1.0 mg/dL Aspartate Amino Transferase (AST) 10 L 13-40 U/L Alanine Aminotransferase (ALT) < 9 7-40 U/L Alkaline Phosphatase 120 H 46-116 U/L Total Protein 6.2 5.7-8.2 g/dL Albumin 3.2 3.2-4.8 g/dL Lipase 47 12-53 U/L Current Medications Medications (Trade) Dose Ordered Sig/Bruno Route Start Time Stop Time Status Last Admin Morphine Sulfate 2 mg ONCE ONCE IV 03/19/25 04:00 03/19/25 04:01 DC 03/19/25 04:24 Ondansetron HCl (Zofran) 4 mg ONCE ONCE IV 03/19/25 04:00 03/19/25 04:01 DC 03/19/25 04:23 Pantoprazole Sodium (Protonix) 40 mg ONCE ONCE IV 03/19/25 04:45 03/19/25 04:46 DC 03/19/25 05:50 Sucralfate (Carafate Susp) 1 gm ONCE ONCE PO 03/19/25 06:30 03/19/25 06:31 DC 03/19/25 06:44 Morphine Sulfate 2 mg ONCE ONCE IV 03/19/25 06:30 03/19/25 06:31 DC 03/19/25 06:47 Morphine Sulfate 4 mg ONCE ONCE IV 03/19/25 13:30 03/19/25 13:31 DC 03/19/25 13:40 Ondansetron HCl (Zofran) 4 mg ONCE ONCE IV 03/19/25 13:30 03/19/25 13:31 DC 03/19/25 13:36 Docusate Sodium (Colace Capsule) 200 mg ONCE ONCE PO 03/19/25 14:45 03/19/25 14:46 DC 03/19/25 15:58 Ondansetron HCl (Zofran) 4 mg Q4HP PRN IV 03/19/25 14:45 03/19/25 18:32 Morphine Sulfate 2 mg Q4HPRN PRN IV 03/19/25 14:45 03/19/25 18:32 [place] [address] Ph: [phone] DIAGNOSTIC IMAGING Diagnostic Imaging Report : [id number] Signed PATIENT: TAM SOLANO ACCT: [id number] UNIT: [id number] : 1970 LOC: ER ROOM / BED: / AGE / SEX: 55 / F ADM STATUS: REG ER SERVICE [id number] ORDERING PHYSICIAN: IAN BOGGS MD PROCEDURE(s): ABPLIV - CT AB PEL WITH IV CON ONLY REASON: Left upper quadrant pain, history chronic pancreatitis ORDER NUMBER(s): [id number], ACCESSION NUMBER(s): [id number] EXAM: CT Abdomen and Pelvis With Intravenous Contrast CLINICAL INDICATION: Left upper quadrant pain, history chronic pancreatitis TECHNIQUE: Axial computed tomography images of the abdomen and pelvis with intravenous contrast. This CT exam was performed using one or more of the following dose reduction techniques: automated exposure control, adjustment of the mA and/or kV according to patient size, and/or use of iterative reconstruction technique. CONTRAST: RADIATION DOSE: CTDIvol = 5.23 mGy, DLP = 252.33 mGy-cm COMPARISON: CT CT AB PEL WITH IV CON ONLY on DOS: 06/28/24, CT ABD PELVIS W CONTRAST on DOS: 07/09/22, RHAN on DOS: 03/18/22 FINDINGS: ARTIFACTS: Motion artifact. LUNG BASES: Unremarkable. No mass. No consolidation. ABDOMEN: LIVER: Hepatomegaly with fatty infiltration. GALLBLADDER AND BILE DUCTS: Cholecystectomy. No ductal dilation. PANCREAS: Unremarkable. No ductal dilation. No CT evidence of acute pancreatitis. No pseudocysts or abscess. SPLEEN: Unremarkable. No splenomegaly. ADRENALS: Unremarkable. No mass. KIDNEYS AND URETERS: Unremarkable. No solid mass. No hydronephrosis. STOMACH AND BOWEL: Fecal retention in the colon consistent with constipation. No obstruction. No mucosal thickening. PELVIS: APPENDIX: No findings to suggest acute appendicitis. BLADDER: Unremarkable. No mass. REPRODUCTIVE: Unremarkable as visualized. ABDOMEN and PELVIS: INTRAPERITONEAL SPACE: Unremarkable. No free air. No significant fluid collection. BONES/JOINTS: Severe compression deformity of T12 vertebral body, likely chronic. No dislocation. SOFT TISSUES: Unremarkable. VASCULATURE: Unremarkable. No abdominal aortic aneurysm. LYMPH NODES: Unremarkable. No enlarged lymph nodes. OTHER FINDINGS: . . IMPRESSION: 1. No CT evidence of acute pancreatitis. No pseudocysts or abscess. 2. Hepatomegaly with fatty infiltration. 3. Fecal retention in the colon consistent with constipation. ATED BY: VIVIAN MEYER MD DICTATED DATE/TIME: 03/19/25538 SIGNED BY: VIVIAN MEYER MD SIGNED DATE/TIME: 03/19/25538 CC: Time of 1ST Reevaluation: 04:20 Reevaluation 1ST: Unchanged Patient Education/Counseling: Need For Follow Up Family Education/Counseling: No Family Present Departure 1 Departure Time of Disposition: 19:03 Impression: Primary Impression: Intractable abdominal pain Additional Impression: Anemia Disposition: ADMITTED INPATIENT Condition: Stable Comments 55-year-old female with intractable abdominal pain. Patient admitted to hospitalist service for further treatment, evaluation and monitoring. Extensive evaluation was performed in attempt to identify or rule out: (See di fferential diagnosis section) The following tests were ordered, and results were reviewed by me and discussed with patient: (See diagnostic results section) The following test were independently interpreted by me: N/A I reviewed and agreed with the following test results read by other providers: N/A I reviewed the following notes from the pt's past medical encounters: March 05, 2025 encounter for acute abdominal pain Additional information was gathered from interviewing the following independent historians: EMS personnel Discussion of management or test interpretation with external physician/other qualified health vehicle care specialist: N/A Decision regarding hospitalization or escalation of hospital level of care: Risk and benefits of admission for further treatment of patient's condition was considered. Due to patient's current clinical condition, high risk of decline and poor outcome if discharged and need for further inpatient management and monitoring, patient will be admitted to the hospital. Drug therapy requiring intensive monitoring for toxicity: IV contrast Parenteral controlled substances: IV morphine Decision regarding elective major surgery with identified patient or procedure risk factors: N/A Decision regarding emergency major surgery: N/A Decision not to resuscitate or to de-escalate care because of poor prognosis: N/A Diagnosis or treatment significantly limited by social determinants of health: N/A Critical Care Note Critical Care Time?: No Stability Stability form required: No Heart Score Heart Score: Heart Score Response (Comments) Value History N/A 0 EKG N/A 0 Age N/A 0 Risk Factors N/A 0 Troponin N/A 0 Total 0 I personally scribed for IAN BOGGS MD ([email or web address]) on 03/19/25 at 04:16. Electronically submitted by Bird Moseley ([email or web address]). I personally scribed for IAN BOGGS MD ([email or web address]) on 03/19/25 at 06:15. Electronically submitted by Bird Moseley ([email or web address]). IAN BOGGS MD March 19, 2025 04:16
[2025-03-19 04:21] VITALS: PULSE 81; RESP 16; O2SAT 100
[2025-03-19] MEDS: ONDANSETRON HCL 4 MG/2 ML VIAL IV ONE ×2 (04:23→13:36)
[2025-03-19] MEDS: MORPHINE SULFATE INJ 2 MG/ml SYRG IV ONE ×2 (04:24→06:47)
[2025-03-19 04:25] LABS: Basophils # (auto) 0 10 ^3/uL (0-0.2); Eosinophils # (auto) 0.1 10 ^3/uL (0-0.8); Hemoglobin 8.3 g/dL (12.2-16.2); Lymphocytes # (auto) 2.3 10 ^3/uL (0.4-5.4)
[2025-03-19 04:27] LABS: Basophils % (auto) 0.4 % (0.0-2.0); Hematocrit 26.1 % (36.0-46.0); Lymphocytes % (auto) 31.4 % (10.0-50.0); Mean Corpuscular Hemoglobin 22.8 pg (28.0-32.0); Mean Corpuscular Hgb Conc. 31.7 g/dL (32.0-36.0); Mean Corpuscular Volume 71.9 fL (80.0-100.0); Monocytes # (auto) 0.6 10 ^3/uL (0-1.3); Monocytes % (auto) 8.5 % (0.0-12.0); Neutrophils # (auto) 4.2 10 ^3/uL (1.6-8.6); Neutrophils % (auto) 58.7 % (37.0-80.0); Nucleated Red Blood Cells % 0.1 %; Platelet Count (auto) 494 10^3/uL (140-450); Red Blood Cells 3.63 10^6/uL (4.0-5.20); Red Cell Distribution Width 23.6 % (11.8-14.3); White Blood Cell 7.2 10^3/uL (4.4-10.8)
[2025-03-19 04:40] LABS: Alanine Aminotransferase < 9 U/L (7-40); Albumin 3.2 g/dL (3.2-4.8); Alkaline Phosphatase 120 U/L (46-116); Anion Gap 6 (5-15); Aspartate Aminotransferase 10 U/L (13-40); BUN/Creatinine Ratio 20.3 (10.0-20.0); Blood Urea Nitrogen 13 mg/dL (9-23); Calcium 9.4 mg/dL (8.7-10.4); Carbon Dioxide 27 mmol/L (20-31); Chloride 109 mmol/L (98-107); Glucose 68 mg/dL (74-106); Lipase 47 U/L (12-53); Potassium 4.2 mmol/L (3.5-5.1); Sodium 142 mmol/L (136-145); Total Protein 6.2 g/dL (5.7-8.2)
[2025-03-19 04:41] LABS: Bilirubin, Total 0.2 mg/dL (0.2-1.0)
--- NOTE | 2025-03-19 05:42 | DVH ---
EXAM: CT Abdomen and Pelvis With Intravenous Contrast CLINICAL INDICATION: Left upper quadrant pain, history chronic pancreatitis TECHNIQUE: Axial computed tomography images of the abdomen and pelvis with intravenous contrast. [facility] CT exam was performed using one or more of the following dose reduction techniques: automated exp osure control, adjustment of the mA and/or kV according to patient size, and/or use of iterative apolinar nstruction technique. CONTRAST: RADIATION DOSE: CTDIvol = 5.23 mGy, DLP = 252.33 mGy-cm COMPARISON: CT CT AB PEL WITH IV CON ONLY on DOS: 06/28/24, CT ABD PELVIS W CONTRAST on DOS: 07/09/22 , RHAN on DOS: 03/18/22 FINDINGS: ARTIFACTS: Motion artifact. LUNG BASES: Unremarkable. No mass. No consolidation. ABDOMEN: LIVER: Hepatomegaly with fatty infiltration. GALLBLADDER AND BILE DUCTS: Cholecystectomy. No ductal dilation. PANCREAS: Unremarkable. No ductal dilation. No CT evidence of acute pancreatitis. No pseudocysts or abscess. SPLEEN: Unremarkable. No splenomegaly. ADRENALS: Unremarkable. No mass. KIDNEYS AND URETERS: Unremarkable. No solid mass. No hydronephrosis. STOMACH AND BOWEL: Fecal retention in the colon consistent with constipation. No obstruction. No mucosal thickening. PELVIS: APPENDIX: No findings to suggest acute appendicitis. BLADDER: Unremarkable. No mass. REPRODUCTIVE: Unremarkable as visualized. ABDOMEN and PELVIS: INTRAPERITONEAL SPACE: Unremarkable. No free air. No significant fluid collection. BONES/JOINTS: Severe compression deformity of T12 vertebral body, likely chronic. No dislocation. SOFT TISSUES: Unremarkable. VASCULATURE: Unremarkable. No abdominal aortic aneurysm. LYMPH NODES: Unremarkable. No enlarged lymph nodes. OTHER FINDINGS: . . IMPRESSION: 1. No CT evidence of acute pancreatitis. No pseudocysts or abscess. 2. Hepatomegaly with fatty infiltration. 3. Fecal retention in the colon consistent with constipation.
[2025-03-19] MEDS ORDERED: PROPOFOL 100 ML IV SCH (05:45)
[2025-03-19] MEDS: PANTOPRAZOLE 40 MG/10 ML VIAL INJ IV ONE (05:50)
[2025-03-19 06:14] LABS: Urine Bacteria None Seen /hpf (None Seen)
[2025-03-19 06:20] LABS: Urine Blood Negative /uL (Negative); Urine Clarity Clear (Clear); Urine Color Light-Yellow (Yellow); Urine Protein, UAD Negative (Negative); Urine Specific Gravity 1.049 (1.001-1.035); Urine Squamous Epithelial Cell FEW /hpf (<5); Urine Urobilinogen Normal (Negative); Urine WBC 2 /HPF (0-5)
[2025-03-19] MEDS: SUCRALFATE 1 GM/10 ML ORAL SUSP PO ONE (06:44)
[2025-03-19 08:54] VITALS: PULSE 84; RESP 13; O2SAT 99
[2025-03-19] MEDS: MORPHINE SULFATE 4 MG/ML SYR/VIAL IV ONE (13:40)
[2025-03-19] MEDS ORDERED: ACETAMINOPHEN 325 MG TAB PO PRN (14:45)
[2025-03-19] MEDS ORDERED: DOCUSATE SOD 100 MG CAP PO PRN (14:45)
--- NOTE | 2025-03-19 14:54 | DVHHP2 ---
History of Present Illness Reason for Visit: Status epilepticus History of Present Illness The patient is a 55-year-old female with multiple past medical history including anxiety, depression, anemia, and chronic abdominal pain presented to [facility] ED with complaint of acute abdominal pain. Patient reports symp toms progressively get worse with left upper quadrant abdominal pain, associated nausea, vomiting, diarrhea, and chills for the past 4 days. Reports recent intra-abdominal surgical procedure performed by Dr. Michael in [facility] in May 2024 appointment with said provider April 12, 2025. Patient was admitted on 03/05/25 for chronic abdominal pain. At that time patient had EGD which showed intact gastrojejunal anastomosis and there was some hyperemia erythema and granulation tissue at the gastrojejunal anastomosis from which biopsies were obtained. Mild gastritis of the gastric remnant. Patient had a 1 cm sliding-type hiatal hernia with grade B erosive esophagitis with some distal esophageal ulcers from which biopsies were obtained. Otherwise normal examination up to the efferent and afferent loop of the gastrojejunostomy. GI specialist, Dr. Michael recommend Protonix 40 mg once per day and Carafate 1 g twice per day. Patient was seen and evaluated in the ED, laboratory data shows WBC 7.2, hemoglobin 8.3, hematocrit 26.1, platelets 494, sodium 142, potassium 4.2, BUN 13, creatinine 0.64, glucose 68, AST 10, ALT < 9, lipase 47, blood pressure 101/44, heart rate 98, temperature 97.4 F, O2 saturation 97% on room air. Patient was given IV morphine sulfate 2 mg x 1, please see medication orders section in the computer. On my assessment, patient denied chest pain, no headache, no dizziness, no shortness a breath, no abdominal pain, nausea or vomiting at this moment, no fever, no chills. Patient was admitted for further evaluation and medical management. Past Medical History Anemia, Anxiety, Depression, Kidney Stones, UTI'S, Chronic abdominal pain, Pancreatitis Cachexia, Thrombocytosis Past Surgical History Cholecystectomy, , Gastric bypass, acute perforated bowel status post ex lap in May of 2024 Family History Reviewed, noncontributory to the management of this case. Past Social History The patient lives at home, smokes cigarettes less than 1 pack per day, drinks alcohol occasionally, uses marijuana and methamphetamine. Review of Systems Constitutional: Yes: Chills, Weakness; No: Fever, Sweats, Malaise, Other Eyes: No: Pain, Vision change, Conjunctivae inflammation, Eyelid inflammation, Other, Redness ENT: No: Ear pain, Ear discharge, Nose pain, Nose discharge, Nose congestion, Mouth pain, Mouth swelling, Throat pain, Throat swelling, Other Respiratory: No: Cough, Dry, Shortness of breath, SOB with excertion, Wheezing, Hemoptysis, Pleuritic Pain, Sputum, Wheezing, Other Cardiovascular: No: Chest Pain, Palpitations, Orthopnea, Paroxysmal Noc. Dyspnea, Edema, Lt Headedness, Other Gastrointestinal: Nausea, Vomiting, Abdominal Pain, Diarrhea; No: Constipation, Melena, Hematochezia, Other Genitourinary: No Dysuria, No Frequency, No Incontinence, No Hematuria, No Retention, No Other Musculoskeletal: No: other, neck pain, shoulder pain, arm pain, back pain, hand pain, leg pain, foot pain Skin: Other (Itchy skin); No: Rash, Lesions, Jaundice, Bruising Neurological: No: Weakness, Numbness, Incoordination, Change in speech, Confusion, Seizures, Other Allergies: Coded Allergies: NO KNOWN ALLERGIES (Unverified , 07/07/18) Medications Current Medications Medications Dose Ordered Sig/Bruno Route Start Time Stop Time Status Last Admin Dose Admin Propofol 100 ml @ 1.35 mls/hr Q24H IV 03/19/25 05:45 UNV Pantoprazole Sodium 40 mg DAILY IV 03/20/25 10:00 Fluoxetine HCl 40 mg DAILY PO 03/20/25 10:00 Lorazepam 1 mg Q8HP PRN IV 03/19/25 14:45 Docusate Sodium 100 mg BID PO 03/19/25 22:00 Sodium Chloride 10 ml Q8HR IV 03/19/25 22:00 Acetaminophen/ Hydrocodone Bitart 1 tab Q4HP PRN PO 03/19/25 14:45 Ondansetron HCl 4 mg Q4HP PRN IV 03/19/25 14:45 Docusate Sodium 100 mg BIDPRN PRN PO 03/19/25 14:45 Acetaminophen 650 mg Q6HP PRN PO 03/19/25 14:45 Morphine Sulfate 2 mg Q4HPRN PRN IV 03/19/25 14:45 Exam Vital Signs Vital Signs Date Time Temp Pulse Resp B/P (MAP) Pulse Ox O2 Delivery O2 Flow Rate FiO2 03/19/25 14:18 98 24 101/44 03/19/25 12:16 97.4 97 97.4 03/19/25 08:54 Room Air* 0 21 General Appearance: Alert, Oriented X3, Cooperative, No acute distress HEENT: Atraumatic, PERRLA, EOMI, Mucous membr. moist/pink Respiratory: Clear to auscultation, Normal air movement Cardiovascular: Regular rate, Normal S1, Normal S2, No murmurs Abdominal: Normal bowel sounds, Soft, No tenderness, No hepatospenomegaly, No masses Extremities: No clubbing, No cyanosis, No edema, Normal pulses, No tenderness/swelling Skin: No rashes, No breakdown, No significant lesion Neuro: Normal speech, Normal tone, Sensation intact, Cranial nerves 3-12 NL, Reflexes 2+, Other (Weakness) Psych/Mental Status: Mental status NL, Mood NL Labs/Xrays Labs Test 03/19/25 05:55 03/19/25 03:56 Range/Units Urine Color Light-yellow Yellow Urine Clarity Clear Clear Urine pH 8.0 5.0-9.0 Urine Specific [place] 1.049 H 1.001-1.035 Urine Protein Negative Negative Urine Ketones Negative Negative Urine Blood Negative Negative /uL Urine Nitrite Negative Negative Urine Bilirubin Negative Negative Urine Urobilinogen Normal Negative mg/dL Urine Leukocyte Esterase 1+ Negative /uL Urine RBC 1 0 - 4 /hpf Urine Microscopic WBC 2 0-5 /HPF Urine Squamous Epithelial Cells Few <5 /hpf Urine Bacteria None seen None Seen /hpf Urine Glucose Normal Normal mg/dL White Blood Count 7.2 4.4-10.8 10^3/uL Red Blood Count 3.63 L 4.0-5.20 10^6/uL Hemoglobin 8.3 L 12.2-16.2 g/dL Hematocrit 26.1 L 36.0-46.0 % Mean Corpuscular Volume 71.9 L 80.0-100.0 fL Mean Corpuscular Hemoglobin 22.8 L 28.0-32.0 pg Mean Corpuscular Hemoglobin Concent 31.7 L 32.0-36.0 g/dL Red Cell Distribution Width 23.6 H 11.8-14.3 % Platelet Count 494 H 140-450 10^3/uL Mean Platelet Volume 7.2 6.9-10.8 fL Neutrophils (%) (Auto) 58.7 37.0-80.0 % Lymphocytes (%) (Auto) 31.4 10.0-50.0 % Monocytes (%) (Auto) 8.5 0.0-12.0 % Eosinophils (%) (Auto) 1.0 0.0-7.0 % Basophils (%) (Auto) 0.4 0.0-2.0 % Neutrophils # (Auto) 4.2 1.6-8.6 10 ^3/uL Lymphocytes # (Auto) 2.3 0.4-5.4 10 ^3/uL Monocytes # (Auto) 0.6 0-1.3 10 ^3/uL Eosinophils # (Auto) 0.1 0-0.8 10 ^3/uL Basophils # (Auto) 0 0-0.2 10 ^3/uL Nucleated Red Blood Cells 0.1 % Sodium Level 142 136-145 mmol/L Potassium Level 4.2 3.5-5.1 mmol/L Chloride Level 109 H 98-107 mmol/L Carbon Dioxide Level 27 20-31 mmol/L Anion Gap 6 5-15 Blood Urea Nitrogen 13 9-23 mg/dL Creatinine 0.64 0.550-1.02 mg/dL Glomerular Filtration Rate Calc 104 >90 mL/min BUN/Creatinine Ratio 20.3 H 10.0-20.0 Serum Glucose 68 L 74-106 mg/dL Lactic Acid Level 1.2 0.4-2.0 mmol/L Calcium Level 9.4 8.7-10.4 mg/dL Total Bilirubin 0.2 0.2-1.0 mg/dL Aspartate Amino Transferase (AST) 10 L 13-40 U/L Alanine Aminotransferase (ALT) < 9 7-40 U/L Alkaline Phosphatase 120 H 46-116 U/L Total Protein 6.2 5.7-8.2 g/dL Albumin 3.2 3.2-4.8 g/dL Lipase 47 12-53 U/L PATIENT: TAM SOLANOCCT: [id number] UNIT: [id number] : 1970 LOC: ER ROOM / BED: / AGE / SEX: 55 / F ADM STATUS: REG ER SERVICE [id number] ORDERING PHYSICIAN: IAN BOGGS MD PROCEDURE(s): ABPLIV - CT AB PEL WITH IV CON ONLY REASON: Left upper quadrant pain, history chronic pancreatitis ORDER NUMBER(s): [id number], ACCESSION NUMBER(s): [id number] EXAM: CT Abdomen and Pelvis With Intravenous Contrast CLINICAL INDICATION: Left upper quadrant pain, history chronic pancreatitis TECHNIQUE: Axial computed tomography images of the abdomen and pelvis with intravenous contrast. This CT exam was performed using one or more of the following dose reduction techniques: automated exposure control, adjustment of the mA and/or kV according to patient size, and/or use of iterative reconstruction technique. CONTRAST: RADIATION DOSE: CTDIvol = 5.23 mGy, DLP = 252.33 mGy-cm COMPARISON: CT CT AB PEL WITH IV CON ONLY on DOS: 06/28/24, CT ABD PELVIS W CONTRAST on DOS: 07/09/22, RHAN on DOS: 03/18/22 FINDINGS: ARTIFACTS: Motion artifact. LUNG BASES: Unremarkable. No mass. No consolidation. ABDOMEN: LIVER: Hepatomegaly with fatty infiltration. GALLBLADDER AND BILE DUCTS: Cholecystectomy. No ductal dilation. PANCREAS: Unremarkable. No ductal dilation. No CT evidence of acute pancreatitis. No pseudocysts or abscess. SPLEEN: Unremarkable. No splenomegaly. ADRENALS: Unremarkable. No mass. KIDNEYS AND URETERS: Unremarkable. No solid mass. No hydronephrosis. STOMACH AND BOWEL: Fecal retention in the colon consistent with constipation. No obstruction. No mucosal thickening. PELVIS: APPENDIX: No findings to suggest acute appendicitis. BLADDER: Unremarkable. No mass. REPRODUCTIVE: Unremarkable as visualized. ABDOMEN and PELVIS: INTRAPERITONEAL SPACE: Unremarkable. No free air. No significant fluid collection. BONES/JOINTS: Severe compression deformity of T12 vertebral body, likely chronic. No dislocation. SOFT TISSUES: Unremarkable. VASCULATURE: Unremarkable. No abdominal aortic aneurysm. LYMPH NODES: Unremarkable. No enlarged lymph nodes. OTHER FINDINGS: IMPRESSION: 1. No CT evidence of acute pancreatitis. No pseudocysts or abscess. 2. Hepatomegaly with fatty infiltration. 3. Fecal retention in the colon consistent with constipation. Assessment/Plan Assessment/Plan Acute abdominal pain Constipation Anemia, unspecified Generalized weakness Intractable nausea and vomiting Plan 1. Admit to med surge unit 2. Breathing treatment 3. Pain control management 4. Management of fluids and electrolytes 5. Consultation for hospitalist 6. Diagnostic tests abdomen/pelvis CT 7. DVT prophylaxis-on SCDs 8. Repeat labs CBC, CMP in a.m. 9. Continue with current medical management 10. Treatment plan discussed with patient and RN. Patient verbalized understanding. Plan discussed with: Patient, Other (RN) My Orders Orders - ISRAEL CLEVELAND DNP Procedure Category Date Status Time Type And Screen BBK 03/19/25 Logged 14:35 Pantoprazole PHA 03/20/25 In Process (Protonix) 10:00 Fluoxetine Capsule PHA 03/20/25 In Process (Prozac Capsule) 10:00 Lorazepam 2mg/Ml Inj PHA 03/19/25 In Process (Ativan Inj) 14:45 Docusate Sodium PHA 03/19/25 In Process Capsule (Colace 22:00 Allergies MALI 03/19/25 In Process 14:35 Code Status CODE 03/19/25 Transmitted 14:35 Sodium Chloride Lock PHA 03/19/25 In Process (Saline Lock Ns) 22:00 Oxygen Per Hour RT 03/19/25 Transmitted 14:35 Hydrocodone-Acet PHA 03/19/25 In Process 5/325mg Tab ([place] 14:45 Ondansetron Hcl PHA 03/19/25 In Process (Zofran) 14:45 Docusate Sodium PHA 03/19/25 In Process Capsule (Colace 14:45 Complete Blood Count LAB 03/20/25 Verified 04:00 Comprehensive LAB 03/20/25 Verified Metabolic Panel 04:00 Condition: Serious MALI 03/19/25 In Process 14:35 Acetaminophen Tablet PHA 03/19/25 In Process (Tylenol Tablet) 14:45 Clear Liq Diet DIET 03/19/25 Transmitted Dinner Bedrest With Bathroom MALI 03/19/25 In Process Privileg 14:35 Morphine Sulfate PHA 03/19/25 In Process Injection 14:45 Sequential MALI 03/19/25 In Process Compression Device Problem List: (1) Acute abdominal pain (2) Constipation (3) Anemia, unspecified (4) Generalized weakness (5) Intractable nausea and vomiting Date of Service: March 19, 2025 Billing Provider: ISRAEL CLEVELAND DNP Common Visit Codes: [id number] INP/OBS CARE (HIGH) ISRAEL CLEVELAND DNP March 19, 2025 14:54
[2025-03-19] MEDS ORDERED: MORPHINE SULFATE INJ 2 MG/ml SYRG IV PRN (15:00)
[2025-03-19] MEDS ORDERED: NITROGLYCERIN 0.4 MG SL TAB SL PRN (15:00)
[2025-03-19] MEDS: DOCUSATE SOD 100 MG CAP PO ONE (15:58)
[2025-03-19] MEDS: MORPHINE SULFATE INJ 2 MG/ml SYRG IV PRN (18:32)
[2025-03-19] MEDS: ONDANSETRON HCL 4 MG/2 ML VIAL IV PRN (18:32)
[2025-03-19] MEDS: LORazepam 2MG/ML-1ML VIAL IV PRN (19:56)
[2025-03-19] MEDS: SUCRALFATE 1 GM TAB PO ONE (19:56)
[2025-03-19 20:13] VITALS: PULSE 77; RESP 15; O2SAT 98
[2025-03-19] MEDS: SODIUM CHLOR 0.9% PF (SALINE LOCK) 10ML VIAL/SYR IV SCH (22:01)
[2025-03-19] MEDS: DOCUSATE SOD 100 MG CAP PO SCH (22:30)
[2025-03-19] MEDS: HYDROcodone-ACET 5/325MG TAB PO PRN (23:26)
[2025-03-20] VITALS (7 sets, daily range): BP systolic 103–124; BP diastolic 64–84; PULSE 71–87; RESP 14–18; TEMP 97.8–98.7; O2SAT 96–99
[2025-03-20] MEDS: diphenhdrAMINE HCL 50 MG/1 ML VL IV PRN (05:31)
[2025-03-20] MEDS: SUCRALFATE 1 GM TAB PO SCH (06:23)
[2025-03-20 07:03] LABS: Basophils # (auto) 0 10 ^3/uL (0-0.2); Basophils % (auto) 0.6 % (0.0-2.0); Eosinophils # (auto) 0.2 10 ^3/uL (0-0.8); Neutrophils # (auto) 2.6 10 ^3/uL (1.6-8.6); White Blood Cell 5.6 10^3/uL (4.4-10.8)
[2025-03-20 07:06] LABS: Hematocrit 31.4 % (36.0-46.0); Lymphocytes # (auto) 2.4 10 ^3/uL (0.4-5.4); Lymphocytes % (auto) 42.4 % (10.0-50.0); Mean Corpuscular Hemoglobin 23.1 pg (28.0-32.0); Mean Corpuscular Volume 72.4 fL (80.0-100.0); Monocytes # (auto) 0.3 10 ^3/uL (0-1.3); Monocytes % (auto) 6.1 % (0.0-12.0); Neutrophils % (auto) 46.9 % (37.0-80.0); Nucleated Red Blood Cells % 0.2 %; Platelet Count (auto) 561 10^3/uL (140-450); Red Blood Cells 4.34 10^6/uL (4.0-5.20); Red Cell Distribution Width 22.7 % (11.8-14.3)
[2025-03-20 07:09] LABS: Alanine Aminotransferase 10 U/L (7-40); Albumin 3.9 g/dL (3.2-4.8); Anion Gap 9 (5-15); Aspartate Aminotransferase 17 U/L (13-40); BUN/Creatinine Ratio 16.7 (10.0-20.0); Blood Urea Nitrogen 14 mg/dL (9-23); Calcium 9.8 mg/dL (8.7-10.4); Carbon Dioxide 26 mmol/L (20-31); Chloride 102 mmol/L (98-107); Glucose 79 mg/dL (74-106); Potassium 3.8 mmol/L (3.5-5.1); Sodium 137 mmol/L (136-145); Total Protein 7.5 g/dL (5.7-8.2)
[2025-03-20 07:10] LABS: Bilirubin, Total 0.4 mg/dL (0.2-1.0)
[2025-03-20 07:16] LABS: Alkaline Phosphatase 160 U/L (46-116)
[2025-03-20] MEDS: FLUoxetine HCL 20 MG CAP PO SCH (08:53)
[2025-03-20] MEDS: PANTOPRAZOLE 40 MG/10 ML VIAL INJ IV SCH (08:57)
--- NOTE | 2025-03-20 14:21 | DVHPN2 ---
Subjective 55-year-old female with a history of about a year ago she had a surgery by Dr. Michael and since then she is having chronic abdominal pain, history of depression anxiety, she comes with the abdominal pain and nausea and vomiting for the last 3-4 days She says she is not able to keep any food down She denies being constipated however she has a CT scan of the abdomen and pelvis here which showed constipation and fecal retention and hepatomegaly with fatty infiltration She also says she had an EGD recently by Dr. Kiko Michael which showed gastritis and hiatal hernia and esophagitis Changes from previous H/P or p: Changes Eyes: No Pain, No Vision change, No Conjunctivae inflammation, No Eyelid inflammation, No Other, No Redness ENT: No Ear pain, No Ear discharge, No Nose pain, No Nose discharge, No Nose congestion, No Mouth pain, No Mouth swelling, No Throat pain, No Throat swelling, No Other Cardiovascular: No Chest Pain, No Palpitations, No Orthopnea, No Paroxysmal Noc. Dyspnea, No Edema, No Lt Headedness, No Other Respiratory: No Cough, No Dry, No Shortness of breath, No SOB with excertion, No Wheezing, No Hemoptysis, No Pleuritic Pain, No Sputum, No Other Gastrointestinal: Nausea, Vomiting, Abdominal Pain, Diarrhea; No Constipation, No Melena, No Hematochezia, No Other Genitourinary: No Dysuria, No Frequency, No Incontinence, No Hematuria, No Retention, No Other Musculoskeletal: No other, No neck pain, No shoulder pain, No arm pain, No back pain, No hand pain, No leg pain, No foot pain Skin: No Rash, No Lesions, No Jaundice, No Bruising; Other (Itchy skin) Objective Vitals Vital Signs Date Time Temp Pulse Resp B/P (MAP) Pulse Ox O2 Delivery O2 Flow Rate FiO2 03/20/25 11:53 70 18 114/68 03/20/25 11:01 98.7 98 98.7 03/20/25 05:21 Room Air* 0 21 General Appearance: Alert, Oriented X3, Cooperative, No acute distress Lungs: Clear to auscultation, Normal air movement Cardiovascular: Regular rate, Normal S1, Normal S2 Abdomen: Normal bowel sounds, Soft, No tenderness Extremities: No edema Medications Current Medications Medications Dose Ordered Sig/Bruno Route Start Time Stop Time Status Last Admin Dose Admin Propofol 100 ml @ 1.35 mls/hr Q24H IV 03/19/25 05:45 UNV Pantoprazole Sodium 40 mg DAILY IV 03/20/25 10:00 03/20/25 11:22 40 MG Fluoxetine HCl 40 mg DAILY PO 03/20/25 10:00 03/20/25 08:53 40 MG Lorazepam 1 mg Q8HP PRN IV 03/19/25 14:45 03/20/25 04:16 1 MG Docusate Sodium 100 mg BID PO 03/19/25 22:00 03/20/25 08:52 100 MG Sodium Chloride 10 ml Q8HR IV 03/19/25 22:00 03/20/25 11:23 10 ML Acetaminophen/ Hydrocodone Bitart 1 tab Q4HP PRN PO 03/19/25 14:45 03/20/25 05:31 1 TAB Ondansetron HCl 4 mg Q4HP PRN IV 03/19/25 14:45 03/19/25 18:32 4 MG Docusate Sodium 100 mg BIDPRN PRN PO 03/19/25 14:45 Acetaminophen 650 mg Q6HP PRN PO 03/19/25 14:45 Morphine Sulfate 2 mg Q4HPRN PRN IV 03/19/25 14:45 03/20/25 11:23 2 MG Nitroglycerin 0.4 mg Q5MINP PRN SL 03/19/25 15:00 Morphine Sulfate 2 mg Q30M PRN IV 03/19/25 15:00 Diphenhydramine HCl 25 mg Q4HP PRN IV 03/19/25 15:45 03/20/25 11:22 25 MG Sucralfate 1 gm BIDAC PO 03/20/25 07:00 03/20/25 06:23 1 GM Laboratory Results Laboratory Tests 03/20/25 06:30 Chemistry Test 03/20/25 06:30 Albumin 3.9 g/dL (3.2-4.8) Calcium Level 9.8 mg/dL (8.7-10.4) Total Protein 7.5 g/dL (5.7-8.2) LFT Test 03/20/25 06:30 Alanine Aminotransferase (ALT) 10 U/L (7-40) Alkaline Phosphatase 160 U/L (46-116) H Aspartate Amino Transferase (AST) 17 U/L (13-40) Total Bilirubin 0.4 mg/dL (0.2-1.0) Urinalysis Test 03/19/25 05:55 Urine Color Light-yellow (Yellow) Urine Clarity Clear (Clear) Urine pH 8.0 (5.0-9.0) Urine Specific [place] 1.049 (1.001-1.035) Urine Protein Negative (Negative) Urine Ketones Negative (Negative) Urine Blood Negative /uL (Negative) Urine Nitrite Negative (Negative) Urine Bilirubin Negative (Negative) Urine Urobilinogen Normal mg/dL (Negative) Urine Leukocyte Esterase 1+ /uL (Negative) Urine RBC 1 /hpf (0 - 4) Urine Microscopic WBC 2 /HPF (0-5) Urine Squamous Epithelial Cells Few /hpf (<5) Urine Bacteria None seen /hpf (None Seen) Urine Glucose Normal mg/dL (Normal) Assessment/Plan Assessment/Plan Abdominal pain Intractable nausea and vomiting Constipation Fecal impaction Hepatomegaly Liver fatty infiltration Anxiety and depression Chronic abdominal pain History of gastric bypass and and cholecystectomy History of laparotomy 1 year ago for bowel obstruction GERD Failure to thrive Microcytic anemia Plan Start lactulose and Colace Clear liquid diet GI consult Pain control as needed Protonix Carafate Monitor closely Full code Advance directives discussed for 17 minutes Plan discussed with: Patient Date of Service: March 20, 2025 Billing Provider: KERRI ESCOBAR MD Common Visit Codes: [id number] INP/OBS CARE(HIGH) Secondary Visit Codes: [id number] CARE PLAN 30 MINUTES KERRI ESCOBAR MD March 20, 2025 14:20
[2025-03-20] MEDS: LACTULOSE 20Gm/30ML SOLN PO ONE (15:51)
[2025-03-20] MEDS: LACTULOSE 20Gm/30ML SOLN PO SCH (20:16)
--- NOTE | 2025-03-20 20:36 | DVHINCON2 ---
Date of service: March 20, 2025 Referring Physician Michael Villanueva Reason for Consultation Abdominal pain History of Present Illness The patient is a 55-year-old female with multiple past medical history including anxiety, depression, anemia, and chronic abdominal pain with pain medicine seeking behavior who presented to [facility] ED with complaint of acute abdominal pain. Patient reports symptoms progressively get worse with left upper quadrant abdominal pain, associated nausea, vomiting, diarrhea, and chills for the past 4 days. patient was recently hospitalized here with the abdominal pain and prior to the I had also seen her at [facility]. During the last admission I performed an endoscopy which showed intact gastrojejunal anastomosis and there was some hyperemia erythema and granulation tissue at the gastrojejunal anastomosis from which biopsies were obtained. Mild gastritis of the gastric remnant. Patient had a 1 cm sliding-type hiatal hernia with grade B erosive esophagitis with some distal esophageal ulcers from which biopsies were obtained. Past Medical History Past Medical History Anemia, Anxiety, Depression, Kidney Stones, UTI'S, Chronic abdominal pain, Pancreatitis Cachexia, Thrombocytosis Past Surgical History Past Surgical History Cholecystectomy, , Gastric bypass, acute perforated bowel status post ex lap in May of 2024 Family History: Thyroid disease G8 MOTHER Allergies: Coded Allergies: NO KNOWN ALLERGIES (Unverified , 07/07/18) Home Meds Active Scripts Sucralfate (CARAFATE SUSP) 1 Gm/10 Ml Ss, 1 GM PO QID@0600,1130,1700,2200, #240 ML Prov:CECILIA SWEENEY MD 03/10/25 Docusate Sodium (Docusate Sodium) 100 Mg Cap, 100 MG PO BID, #60 CAP Prov:CECILIA SWEENEY MD 03/10/25 Pantoprazole Sodium Sesquihydr (Protonix) 40 Mg Tab, 40 MG PO BID, #60 TAB Prov:CECILIA SWEENEY MD 03/10/25 Polyethylene Glycol 3350 (Miralax) 17 Gm Pow, 17 GM PO DAILY PRN for 3 Days, #3 POW 0 Refills Prov:MIGUEL ALEJANDRA MD 02/03/25 Lorazepam (ATIVAN TABLET) 0.5 Mg Tb, 1 TAB PO DAILY for 3 Days, #3 TAB Prov:HAROON LOGAN MD 01/16/25 Diclofenac Potassium (Diclofenac Potassium) 50 Mg Tab, 1 TAB PO TIDP for 10 Days, #30 TAB Prov:BONI AVALOS MD 11/17/24 Clonazepam (KlonoPIN TABLET) 0.5 Mg Tb, 1 TAB PO DAILY for 7 Days, #7 TAB Prov:BONI AVALOS MD 11/17/24 Nitrofurantoin Monohydrate Mac (Macrobid) 100 Mg Cap, 100 MG PO BID for 7 Days, #14 CAP Prov:BONI AVALOS MD 11/17/24 Hydroxyzine Hcl (Hydroxyzine Hcl) 25 Mg Tab, 1 TAB PO TIDPRN PRN for 10 Days, #30 TAB 0 Refills Prov:BIA POE JACQUARD LOOM WEAVER 11/06/24 Hydroxyzine Hcl (Hydroxyzine Hcl) 25 Mg Tab, 1 TAB PO TID for 10 Days, #30 TAB 0 Refills Prov:BIA POE JACQUARD LOOM WEAVER 10/16/24 Clonazepam (Klonopin) 1 Mg Tab, 1 TAB PO BID, #14 TAB 0 Refills Prov:YANDEL CALVIN 10/05/24 Ibuprofen (Ibuprofen) 800 Mg Tab, 800 MG PO Q8HP PRN for 7 Days, #21 TAB Prov:ADEN BRAND TECHNICAL SUPPORT ENGINEER 07/29/24 Naproxen (Naproxen) 500 Mg Tab, 500 MG PO BID PRN for 10 Days, #20 TAB Prov:BOB LYMAN RESIDENT 07/03/24 Fluoxetine HCl (Fluoxetine Hydrochloride) 40 Mg Cap, 40 MG PO DAILY for 30 Days, #30 CAP Prov:[facility] 07/03/24 Oxycodone W/ Acetaminophen (Percocet 5/325MG) 1 Tab Tb, 1 TAB PO TID PRN for 8 Days, #24 TAB Prov:SAVITA DELATORRE MD 05/30/24 Pantoprazole Sodium Sesquihydr (Protonix) 40 Mg Tab, 40 MG PO DAILY for 30 Days, #30 TAB 2 Refills Prov:SAVITA DELATORRE MD 05/30/24 Metronidazole (Metronidazole) 500 Mg Tab, 500 MG PO TID for 7 Days, #21 TAB Prov:SAVITA DELATORRE MD 05/30/24 Levofloxacin Hemihydrate (LEVAQUIN 500 MG) 500 Mg Tab, 500 MG PO DAILY for 7 Days, #7 TAB Prov:SAVITA DELATORRE MD 05/30/24 Nitrofurantoin Monohydrate Mac (Macrobid) 100 Mg Cap, 100 MG PO BID for 6 Days, #14 CAP Prov:ASHLEY COLLIER MD 03/30/24 Dicyclomine Hcl (BENTYL CAPSULE) 10 Mg Cp, 1 CAP PO TID for 5 Days, #15 CAP 11 Refills Prov:KALLIE LEON MD 03/30/24 Buspirone HCl (Buspirone Hydrochloride) 15 Mg Tab, 15 MG PO BID for 90 Days, #180 TAB 1 Refill Prov:BIA POE JACQUARD LOOM WEAVER 03/06/24 Hydroxyzine Hcl (Hydroxyzine Hcl) 25 Mg Tab, 1 TAB PO TID PRN, #30 TAB Prov:BASIM ROBLERO TECHNICAL SUPPORT ENGINEER 03/05/24 Hydroxyzine Hcl (Hydroxyzine Hcl) 25 Mg Tab, 1 TAB PO TID for 30 Days, #90 TAB 0 Refills Prov:BIA POE JACQUARD LOOM WEAVER 01/03/24 Pancreatic Enzymes (Creon) 12,000 Unt Cap, 46491 UNT PO TIDWMEALS, #90 CAP Prov:DAYANA FERGUSON MD 07/10/22 Pantoprazole Sodium Sesquihydr (Pantoprazole Sodium) 40 Mg Tab, 40 MG PO DAILY, #30 TAB Prov:DAYANA FERGUSON MD 07/10/22 Reported Medications Lurasidone Hydrochloride (LATUDA) 120 Mg Tab, 1 TAB PO 07/02/22 Tiotropium [place] Monohydrate (Spiriva Handihaler) 18 Mcg Cap, 1 CAP INH DAILYPRN 07/02/22 Fluoxetine Hcl (Fluoxetine Hcl) 40 Mg Cap, 2 CAP PO 07/02/22 Alprazolam (Alprazolam) 1 Mg Tab, 1 TAB PO TID PRN for ANXIETY 07/02/22 Gabapentin (Gabapentin) 100 Mg Cap, 3 CAP PO TID 07/02/22 Current Medications Current Medications Medications (Trade) Dose Ordered Sig/Bruno Route PRN Reason Start Time Stop Time Status Last Admin Pantoprazole Sodium (Protonix) 40 mg DAILY IV 03/20/25 10:00 03/20/25 11:22 Fluoxetine HCl (PROzac CAPSULE) 40 mg DAILY PO 03/20/25 10:00 03/20/25 08:53 Docusate Sodium (Colace Capsule) 100 mg BID PO 03/19/25 22:00 03/20/25 20:16 Sodium Chloride (Saline Lock Ns) 10 ml Q8HR IV 03/19/25 22:00 03/20/25 20:16 Sucralfate (Carafate Tab) 1 gm BIDAC PO 03/20/25 07:00 03/20/25 17:08 Lactulose 30 ml BID PO 03/20/25 22:00 03/20/25 20:16 Review of Systems Past Social History The patient lives at home, smokes cigarettes less than 1 pack per day, drinks alcohol occasionally, uses marijuana and methamphetamine. Vital Signs Vital Signs Date Time Temp Pulse Resp B/P (MAP) Pulse Ox O2 Delivery O2 Flow Rate FiO2 03/20/25 18:18 90 18 104/70 03/20/25 17:39 98.0 99 98.0 03/20/25 17:25 Room Air* 0 21 Physical Exam General Appearance: Alert, Oriented X3, Cooperative, No acute distress Lungs: Clear to auscultation, Normal air movement Cardiovascular: Regular rate, Normal S1, Normal S2 Abdomen: Normal bowel sounds, Soft, No tenderness Extremities: No edema Labs/Diagnostic Data Labs Test 03/20/25 06:30 03/19/25 05:55 03/19/25 03:56 Range/Units White Blood Count 5.6 4.4-10.8 10^3/uL Red Blood Count 4.34 4.0-5.20 10^6/uL Hemoglobin 10.0 #L 12.2-16.2 g/dL Hematocrit 31.4 #L 36.0-46.0 % Mean Corpuscular Volume 72.4 L 80.0-100.0 fL Mean Corpuscular Hemoglobin 23.1 L 28.0-32.0 pg Mean Corpuscular Hemoglobin Concent 32.0 32.0-36.0 g/dL Red Cell Distribution Width 22.7 H 11.8-14.3 % Platelet Count 561 H 140-450 10^3/uL Mean Platelet Volume 7.4 6.9-10.8 fL Neutrophils (%) (Auto) 46.9 37.0-80.0 % Lymphocytes (%) (Auto) 42.4 10.0-50.0 % Monocytes (%) (Auto) 6.1 0.0-12.0 % Eosinophils (%) (Auto) 4.0 0.0-7.0 % Basophils (%) (Auto) 0.6 0.0-2.0 % Neutrophils # (Auto) 2.6 1.6-8.6 10 ^3/uL Lymphocytes # (Auto) 2.4 0.4-5.4 10 ^3/uL Monocytes # (Auto) 0.3 0-1.3 10 ^3/uL Eosinophils # (Auto) 0.2 0-0.8 10 ^3/uL Basophils # (Auto) 0 0-0.2 10 ^3/uL Nucleated Red Blood Cells 0.2 % Sodium Level 137 # 136-145 mmol/L Potassium Level 3.8 3.5-5.1 mmol/L Chloride Level 102 98-107 mmol/L Carbon Dioxide Level 26 20-31 mmol/L Anion Gap 9 5-15 Blood Urea Nitrogen 14 9-23 mg/dL Creatinine 0.84 # 0.550-1.02 mg/dL Glomerular Filtration Rate Calc 82 >90 mL/min BUN/Creatinine Ratio 16.7 10.0-20.0 Serum Glucose 79 74-106 mg/dL Calcium Level 9.8 8.7-10.4 mg/dL Total Bilirubin 0.4 0.2-1.0 mg/dL Aspartate Amino Transferase (AST) 17 13-40 U/L Alanine Aminotransferase (ALT) 10 7-40 U/L Alkaline Phosphatase 160 H 46-116 U/L Total Protein 7.5 5.7-8.2 g/dL Albumin 3.9 3.2-4.8 g/dL Urine Color Light-yellow Yellow Urine Clarity Clear Clear Urine pH 8.0 5.0-9.0 Urine Specific [place] 1.049 H 1.001-1.035 Urine Protein Negative Negative Urine Ketones Negative Negative Urine Blood Negative Negative /uL Urine Nitrite Negative Negative Urine Bilirubin Negative Negative Urine Urobilinogen Normal Negative mg/dL Urine Leukocyte Esterase 1+ Negative /uL Urine RBC 1 0 - 4 /hpf Urine Microscopic WBC 2 0-5 /HPF Urine Squamous Epithelial Cells Few <5 /hpf Urine Bacteria None seen None Seen /hpf Urine Glucose Normal Normal mg/dL Lactic Acid Level 1.2 0.4-2.0 mmol/L Lipase 47 12-53 U/L Microbiology Date/Time Source Procedure Growth Status 03/20/25 05:39 Nose MRSA Screen - Final Complete CT SCAN ABD PELVIS IMPRESSION: 1. No CT evidence of acute pancreatitis. No pseudocysts or abscess. 2. Hepatomegaly with fatty infiltration. 3. Fecal retention in the colon consistent with constipation. Problems(with codes): (1) Anxiety (2) Gastritis (3) Nausea and vomiting (4) Abdominal pain (5) Pain management (6) Thrombocytosis (7) Generalized anxiety disorder (8) Reflux esophagitis (9) Intractable nausea and vomiting (10) Constipation due to pain medication Plan/Recommendation Plan Start lactulose and Colace Clear liquid diet Advance to full liquid Pain control as needed Protonix Carafate Monitor closely supportive care Outpatient elective colonoscopy for colon cancer screening Full code Plan discussed with: Patient RY HUITRON MD March 20, 2025 20:36
[2025-03-21] VITALS (7 sets, daily range): BP systolic 103–129; BP diastolic 64–76; PULSE 71–91; RESP 16–20; TEMP 97.4–98.3; O2SAT 93–98
[2025-03-21 07:37] LABS: Basophils # (auto) 0 10 ^3/uL (0-0.2); Basophils % (auto) 0.5 % (0.0-2.0); Eosinophils # (auto) 0.1 10 ^3/uL (0-0.8); Eosinophils % (auto) 1.3 % (0.0-7.0); Hemoglobin 9.9 g/dL (12.2-16.2); Lymphocytes # (auto) 1.9 10 ^3/uL (0.4-5.4); Lymphocytes % (auto) 28.1 % (10.0-50.0); Mean Corpuscular Hgb Conc. 31.8 g/dL (32.0-36.0); Mean Corpuscular Volume 72.4 fL (80.0-100.0); Monocytes # (auto) 0.4 10 ^3/uL (0-1.3); Monocytes % (auto) 6.6 % (0.0-12.0); Neutrophils # (auto) 4.2 10 ^3/uL (1.6-8.6); Neutrophils % (auto) 63.5 % (37.0-80.0); Nucleated Red Blood Cells % 0.1 %; Platelet Count (auto) 540 10^3/uL (140-450); Red Blood Cells 4.28 10^6/uL (4.0-5.20); Red Cell Distribution Width 22.9 % (11.8-14.3); White Blood Cell 6.7 10^3/uL (4.4-10.8)
[2025-03-21 07:56] LABS: Alanine Aminotransferase 32 U/L (7-40); Anion Gap 9 (5-15); BUN/Creatinine Ratio 14.6 (10.0-20.0); Blood Urea Nitrogen 12 mg/dL (9-23); Calcium 8.8 mg/dL (8.7-10.4); Carbon Dioxide 24 mmol/L (20-31); Chloride 104 mmol/L (98-107); Magnesium 1.8 mg/dL (1.6-2.6); Potassium 3.6 mmol/L (3.5-5.1); Sodium 137 mmol/L (136-145); Total Protein 7.5 g/dL (5.7-8.2)
[2025-03-21 08:06] LABS: Alkaline Phosphatase 234 U/L (46-116); Aspartate Aminotransferase 103 U/L (13-40); Bilirubin, Total 0.2 mg/dL (0.2-1.0); Glucose 130 mg/dL (74-106)
--- NOTE | 2025-03-21 10:35 | DVHPN2 ---
Subjective Better Less abdominal pain Hungry and wants to advance her diet Changes from previous H/P or p: Changes Eyes: No Pain, No Vision change, No Conjunctivae inflammation, No Eyelid inflammation, No Other, No Redness ENT: No Ear pain, No Ear discharge, No Nose pain, No Nose discharge, No Nose congestion, No Mouth pain, No Mouth swelling, No Throat pain, No Throat swelling, No Other Cardiovascular: No Chest Pain, No Palpitations, No Orthopnea, No Paroxysmal Noc. Dyspnea, No Edema, No Lt Headedness, No Other Respiratory: No Cough, No Dry, No Shortness of breath, No SOB with excertion, No Wheezing, No Hemoptysis, No Pleuritic Pain, No Sputum, No Other Gastrointestinal: Nausea, Vomiting, Abdominal Pain, Diarrhea; No Constipation, No Melena, No Hematochezia, No Other Genitourinary: No Dysuria, No Frequency, No Incontinence, No Hematuria, No Retention, No Other Musculoskeletal: No other, No neck pain, No shoulder pain, No arm pain, No back pain, No hand pain, No leg pain, No foot pain Skin: No Rash, No Lesions, No Jaundice, No Bruising; Other (Itchy skin) Objective Vitals Vital Signs Date Time Temp Pulse Resp B/P (MAP) Pulse Ox O2 Delivery O2 Flow Rate FiO2 03/21/25 09:05 71 20 129/71 03/21/25 09:00 97.4 98 97.4 03/20/25 20:00 Room Air* 0 21 Intake/Output Intake and Output 03/21/25 07:00 Intake Total 1850 ml Balance 1850 ml Intake Oral 1850 ml # Voids 4 General Appearance: Alert, Oriented X3, Cooperative, No acute distress Lungs: Clear to auscultation, Normal air movement Cardiovascular: Regular rate, Normal S1, Normal S2 Abdomen: Normal bowel sounds, Soft, No tenderness Extremities: No edema Medications Current Medications Medications Dose Ordered Sig/Bruno Route Start Time Stop Time Status Last Admin Dose Admin Propofol 100 ml @ 1.35 mls/hr Q24H IV 03/19/25 05:45 UNV Pantoprazole Sodium 40 mg DAILY IV 03/20/25 10:00 03/21/25 09:03 40 MG Fluoxetine HCl 40 mg DAILY PO 03/20/25 10:00 03/21/25 09:03 40 MG Lorazepam 1 mg Q8HP PRN IV 03/19/25 14:45 03/21/25 09:04 1 MG Docusate Sodium 100 mg BID PO 03/19/25 22:00 03/21/25 09:04 100 MG Sodium Chloride 10 ml Q8HR IV 03/19/25 22:00 03/21/25 05:15 10 ML Acetaminophen/ Hydrocodone Bitart 1 tab Q4HP PRN PO 03/19/25 14:45 03/20/25 20:16 1 TAB Ondansetron HCl 4 mg Q4HP PRN IV 03/19/25 14:45 03/19/25 18:32 4 MG Acetaminophen 650 mg Q6HP PRN PO 03/19/25 14:45 Morphine Sulfate 2 mg Q4HPRN PRN IV 03/19/25 14:45 03/21/25 09:05 2 MG Nitroglycerin 0.4 mg Q5MINP PRN SL 03/19/25 15:00 Morphine Sulfate 2 mg Q30M PRN IV 03/19/25 15:00 Diphenhydramine HCl 25 mg Q4HP PRN IV 03/19/25 15:45 03/20/25 22:49 25 MG Sucralfate 1 gm BIDAC PO 03/20/25 07:00 03/21/25 05:15 1 GM Lactulose 30 ml BID PO 03/20/25 22:00 03/21/25 09:03 30 ML Laboratory Results Laboratory Tests 03/21/25 06:56 Chemistry Test 03/21/25 06:56 Albumin 4.0 g/dL (3.2-4.8) Calcium Level 8.8 mg/dL (8.7-10.4) Magnesium Level 1.8 mg/dL (1.6-2.6) Total Protein 7.5 g/dL (5.7-8.2) LFT Test 03/21/25 06:56 Alanine Aminotransferase (ALT) 32 U/L (7-40) Alkaline Phosphatase 234 U/L (46-116) H Aspartate Amino Transferase (AST) 103 U/L (13-40) H Total Bilirubin 0.2 mg/dL (0.2-1.0) Urinalysis Test 03/19/25 05:55 Urine Color Light-yellow (Yellow) Urine Clarity Clear (Clear) Urine pH 8.0 (5.0-9.0) Urine Specific [place] 1.049 (1.001-1.035) Urine Protein Negative (Negative) Urine Ketones Negative (Negative) Urine Blood Negative /uL (Negative) Urine Nitrite Negative (Negative) Urine Bilirubin Negative (Negative) Urine Urobilinogen Normal mg/dL (Negative) Urine Leukocyte Esterase 1+ /uL (Negative) Urine RBC 1 /hpf (0 - 4) Urine Microscopic WBC 2 /HPF (0-5) Urine Squamous Epithelial Cells Few /hpf (<5) Urine Bacteria None seen /hpf (None Seen) Urine Glucose Normal mg/dL (Normal) Microbiology Microbiology Date/Time Source Procedure Growth Status 03/20/25 05:39 Nose MRSA Screen - Final Complete Assessment/Plan Assessment/Plan Abdominal pain Intractable nausea and vomiting Constipation Fecal impaction Hepatomegaly Liver fatty infiltration Anxiety and depression Chronic abdominal pain History of gastric bypass and and cholecystectomy History of laparotomy 1 year ago for bowel obstruction GERD Failure to thrive Microcytic anemia Plan Start lactulose and Colace Clear liquid diet GI consult Pain control as needed Protonix Carafate Monitor closely Full code Advance directives discussed for 17 minutes 03/21/2025: Advance diet to regular Add ensure Consult case management for home health Continue Colace and lactulose Protonix and Carafate Monitor closely Plan discussed with: Patient My Orders Orders - KERRI ESCOBAR MD Procedure Category Date Status Time * Gi Dvh Masonry Supervisor CONS 03/20/25 Transmitted 14:14 Lactulose Oral PHA 03/20/25 In Process 22:00 Full Liq Diet DIET 03/21/25 Transmitted Breakfast Date of Service: March 21, 2025 Billing Provider: KERRI ESCOBAR MD Common Visit Codes: [id number] INP/OBS CARE(HIGH) KERRI ESCOBAR MD March 21, 2025 10:35
[2025-03-21] MEDS: Ensure HIGH Protein Chocolate 8oz Bottle PO SCH (13:20)
--- NOTE | 2025-03-21 21:28 | DVHPN2 ---
Progress Note - Dictate Date Seen: March 21, 2025 Medical Necessity Reason Pt with a Central, PICC or Fol: No Subjective Patient seen at bedside sitting up at the edge of the bed in no acute distress No active GI bleeding and H&H is stable Patient stated she is not able to get her ID card and is just requesting a prescription for pain medications so she can get up from her bed and go get her social security appointments Recent EGD on 03/09/2025 showed gastritis And intact gastrojejunal anastomosis Operative Report DATE OF OPERATION: 03/09/25 PROCEDURE: Upper Endoscopy with biopsy. PREOPERATIVE INDICATION: The patient is a 55 -year-old female undergoing endoscopy for epigastric pain and anemia POSTOPERATIVE DIAGNOSES: 1. Patient has an intact gastrojejunal anastomosis and there was some hyperemia erythema and granulation tissue at the gastrojejunal anastomosis from which biopsies were obtained 2. Mild gastritis of the gastric remnant 3. Patient had a 1 cm sliding-type hiatal hernia with grade B erosive esophagitis with some distal esophageal ulcers from which biopsies were obtained 4. Otherwise normal examination up to the efferent and afferent loop of the gastrojejunostomy PROCEDURE PERFORMED BY: Ry Michael vital signs Vital Sign Date Time Temp Pulse Resp B/P (MAP) Pulse Ox O2 Delivery O2 Flow Rate FiO2 03/21/25 17:59 88 20 112/64 03/21/25 17:18 98.3 98 98.3 03/21/25 08:00 Room Air* 0 21 Total Intake and Output 03/20/25 03/20/25 03/21/25 15:00 23:00 07:00 Intake Total 650 ml 1200 ml Balance 650 ml 1200 ml medications Current Medications Medications Dose Ordered Sig/Bruno Route Start Time Stop Time Status Last Admin Dose Admin Propofol 100 ml @ 1.35 mls/hr Q24H IV 03/19/25 05:45 UNV Pantoprazole Sodium 40 mg DAILY IV 03/20/25 10:00 03/21/25 09:03 40 MG Fluoxetine HCl 40 mg DAILY PO 03/20/25 10:00 03/21/25 09:03 40 MG Lorazepam 1 mg Q8HP PRN IV 03/19/25 14:45 03/21/25 17:28 1 MG Docusate Sodium 100 mg BID PO 03/19/25 22:00 03/21/25 09:04 100 MG Sodium Chloride 10 ml Q8HR IV 03/19/25 22:00 03/21/25 05:15 10 ML Acetaminophen/ Hydrocodone Bitart 1 tab Q4HP PRN PO 03/19/25 14:45 03/21/25 20:32 1 TAB Ondansetron HCl 4 mg Q4HP PRN IV 03/19/25 14:45 03/19/25 18:32 4 MG Acetaminophen 650 mg Q6HP PRN PO 03/19/25 14:45 Morphine Sulfate 2 mg Q4HPRN PRN IV 03/19/25 14:45 03/21/25 17:29 2 MG Nitroglycerin 0.4 mg Q5MINP PRN SL 03/19/25 15:00 Morphine Sulfate 2 mg Q30M PRN IV 03/19/25 15:00 Diphenhydramine HCl 25 mg Q4HP PRN IV 03/19/25 15:45 03/20/25 22:49 25 MG Sucralfate 1 gm BIDAC PO 03/20/25 07:00 03/21/25 17:28 1 GM Lactulose 30 ml BID PO 03/20/25 22:00 03/21/25 09:03 30 ML Enteral Nutritional Formula 240 ml TIDWM PO 03/21/25 12:00 03/21/25 18:00 240 ML objective General Appearance: Alert, Oriented X3, Cooperative, No acute distress Lungs: Clear to auscultation, Normal air movement Cardiovascular: Regular rate, Normal S1, Normal S2 Abdomen: Normal bowel sounds, Soft, No tenderness Extremities: No edema laboratory and microbiology Laboratory Tests 03/21/25 06:56 Test 03/21/25 06:56 Range/Units Serum Glucose 130 H 74-106 mg/dL Problems(with codes): (1) Anxiety reaction (2) Medication refill (3) Microcytic anemia (4) Intractable abdominal pain (5) Generalized weakness (6) Pain management Prognosis Plan Patient will be given supportive care She has a consult with surgeon at the end of this month to discuss her chronic abdominal pain possible adhesions I have advised her to follow up in my office as an outpatient for elective colonoscopy patch worker involved in her care to address her social issues Protonix 40 mg p.o. twice a day Carafate 1 g p.o. twice a day DC aspirin NSAIDs smoking alcohol Once again thank you for allowing me to participate in the care of this patient Dietary Evaluation Review Comments: 1. Encourage a high fiber diet and active life style when D/C, 2. Advance to low fat diet, texture as tolerated when medically feasible. Expected Outcomes/Goals: improved life style and nutrition status. Plan discussed with: Patient RY MICHAEL MD March 21, 2025 21:28
[2025-03-22 05:00] VITALS: BP 119/68; PULSE 66; RESP 17; TEMP 97.4; O2SAT 93
[2025-03-22 08:00] VITALS: PULSE 90; RESP 18; O2SAT 97
[2025-03-22 09:08] VITALS: BP 112/74; PULSE 64; RESP 18; TEMP 97.6; O2SAT 95
[2025-03-22 11:39] VITALS: TEMP 36.4
--- NOTE | 2025-03-22 11:53 | DVHDS2 ---
Discharge Summary Date of Admission March 19, 2025 at 14:52 Date of Discharge: March 22, 2025 Labs/Diagnostic Data: Laboratory Results Test 03/21/25 06:56 03/19/25 05:55 03/19/25 03:56 White Blood Count 6.7 10^3/uL (4.4-10.8) Red Blood Count 4.28 10^6/uL (4.0-5.20) Hemoglobin 9.9 g/dL (12.2-16.2) Hematocrit 31.0 % (36.0-46.0) Mean Corpuscular Volume 72.4 fL (80.0-100.0) Mean Corpuscular Hemoglobin 23.0 pg (28.0-32.0) Mean Corpuscular Hemoglobin Concent 31.8 g/dL (32.0-36.0) Red Cell Distribution Width 22.9 % (11.8-14.3) Platelet Count 540 10^3/uL (140-450) Mean Platelet Volume 7.5 fL (6.9-10.8) Neutrophils (%) (Auto) 63.5 % (37.0-80.0) Lymphocytes (%) (Auto) 28.1 % (10.0-50.0) Monocytes (%) (Auto) 6.6 % (0.0-12.0) Eosinophils (%) (Auto) 1.3 % (0.0-7.0) Basophils (%) (Auto) 0.5 % (0.0-2.0) Neutrophils # (Auto) 4.2 10 ^3/uL (1.6-8.6) Lymphocytes # (Auto) 1.9 10 ^3/uL (0.4-5.4) Monocytes # (Auto) 0.4 10 ^3/uL (0-1.3) Eosinophils # (Auto) 0.1 10 ^3/uL (0-0.8) Basophils # (Auto) 0 10 ^3/uL (0-0.2) Nucleated Red Blood Cells 0.1 % Sodium Level 137 mmol/L (136-145) Potassium Level 3.6 mmol/L (3.5-5.1) Chloride Level 104 mmol/L (98-107) Carbon Dioxide Level 24 mmol/L (20-31) Anion Gap 9 (5-15) Blood Urea Nitrogen 12 mg/dL (9-23) Creatinine 0.82 mg/dL (0.550-1.02) Glomerular Filtration Rate Calc 84 mL/min (>90) BUN/Creatinine Ratio 14.6 (10.0-20.0) Serum Glucose 130 mg/dL (74-106) Calcium Level 8.8 mg/dL (8.7-10.4) Magnesium Level 1.8 mg/dL (1.6-2.6) Total Bilirubin 0.2 mg/dL (0.2-1.0) Aspartate Amino Transferase (AST) 103 U/L (13-40) Alanine Aminotransferase (ALT) 32 U/L (7-40) Alkaline Phosphatase 234 U/L (46-116) Total Protein 7.5 g/dL (5.7-8.2) Albumin 4.0 g/dL (3.2-4.8) Urine Color Light-yellow (Yellow) Urine Clarity Clear (Clear) Urine pH 8.0 (5.0-9.0) Urine Specific [place] 1.049 (1.001-1.035) Urine Protein Negative (Negative) Urine Ketones Negative (Negative) Urine Blood Negative /uL (Negative) Urine Nitrite Negative (Negative) Urine Bilirubin Negative (Negative) Urine Urobilinogen Normal mg/dL (Negative) Urine Leukocyte Esterase 1+ /uL (Negative) Urine RBC 1 /hpf (0 - 4) Urine Microscopic WBC 2 /HPF (0-5) Urine Squamous Epithelial Cells Few /hpf (<5) Urine Bacteria None seen /hpf (None Seen) Urine Glucose Normal mg/dL (Normal) Lactic Acid Level 1.2 mmol/L (0.4-2.0) Lipase 47 U/L (12-53) Other Laboratory Tests 03/21/25 06:56 Brief Hx & Hospital Course: Final diagnoses: Chronic Abdominal pain Intractable nausea and vomiting Constipation Fecal impaction Hepatomegaly Liver fatty infiltration Anxiety and depression Chronic abdominal pain History of gastric bypass and and cholecystectomy History of laparotomy 1 year ago for bowel obstruction GERD Failure to thrive Microcytic anemia 55-year-old female with chronic abdominal pain, history of surgery 1 year ago, came with abdominal pain and constipation She was seen by GI again and recommendation is for conservative treatment Her labs are normal CT scan of the abdomen showed constipation and fecal impaction No further intervention is needed The patient can be discharged home to follow up as an outpatient with her primary care physician and get a referral to pain management if she wants to continue taking opiate She was asking to get prescriptions for Ativan and morphine and [place] to take at home, we explained to her that she needs to get off all opiates and narcotic to get her constipation and abdominal pain better and follow up as an outpatient with pain management Condition at Discharge: Stable Final Diagnosis/Problems List Chronic abdominal pain Discharge Disposition: Home SNF Discharge Will this Physician continue t: No Discharge Instruct/Medications Diet: Regular Activity: No Restrictions, As Tolerated Follow Up/Referral: PCP UBALDO Medications: No new medications Discharge Statement: "Patient was advised to return to the ER or call 911 if any headaches, dizziness, shortness of breath, chest pain, abdominal pain, bleeding, fevers, or worsening of medical condition. Patient was counseled about treatment plan, medications, possible side effects, patientverbalized understanding. All questions were answered to the best of my ability. This discharge took greater then 30 minutes in planning, reviewing documentation, counseling the patient, and discussing with other team members." ASSESSMENT ASSESSMENT Assessment Chronic abdominal pain Date of Service: March 22, 2025 Billing Provider: KERRI ESCOBAR MD Common Visit Codes: 12884-DYC/OBS DISCH DAY >30min KERRI ESCOBAR MD March 22, 2025 11:53
== END 2025-03-22 12:30 | disposition home health service (06) | DRG 389 ==
LOC: ER 02:48 → EDBD 02:48 → OVERFLOW 14:52 → EAST 03-20 17:20
PROVIDERS: ADMIT Internal Medicine Geriatric Medicine; ATTEND Internal Medicine Geriatric Medicine
DX: K56.41 Fecal impaction (principal); Z68.1 Body mass index [BMI] 19.9 or less, adult; D50.9 Iron deficiency anemia, unspecified; F32.A Depression, unspecified; G89.29 Other chronic pain; R62.7 Adult failure to thrive; K76.0 Fatty (change of) liver, not elsewhere classified; F17.210 Nicotine dependence, cigarettes, uncomplicated; K21.9 Gastro-esophageal reflux disease without esophagitis; R16.0 Hepatomegaly, not elsewhere classified; F41.9 Anxiety disorder, unspecified; Z90.49 Acquired absence of other specified parts of digestive tract; Z79.899 Other long term (current) drug therapy; Z87.442 Personal history of urinary calculi; Z98.84 Bariatric surgery status
CPT/HCPCS: 36415; 74177; 80053; 81001; 83605; 83690; 83735; 85025; 86850; 86900; 86901; 87081; 96374; 96375; 96376; G0378; J2405; J2470

== ENCOUNTER 2025-03-29 09:28 | Inpatient (IN) | payer OTHER, MEDICAID ==
[~2025-03-29] VITALS: Ht 154.9 cm; Wt 43.6 kg
[~2025-03-29 09:28] MED LIST changes: -ALPR1TAB7 PO; -CLON0.5T3 PO; -DICL50TA2 PO; -DICY10CA PO; -FLUO40CA PO; -HYDR-3682 PO; -IBUP-1456 PO; -LEVO500T91 PO; -LORA-1121 PO; -LURA120T PO; -MET500T PO; -NAPR-746 PO; -NITR-87 PO; -PANT40T PO; -PERCOT PO
--- NOTE | 2025-03-29 10:12 | ED.PDOC ---
History of Present Illness HPI Comments 55-year-old female presents to the ER with prior MHx of anemia, anxiety, depression, kidney stone, UTI, chronic abdominal pain and pancreatitis; SHx of cholecystectomy, and chief complaint of the abdominal pain. Patient reports having sharp left upper quadrant abdominal pain with a past 10 days. Patient was in the ER 03/19/2025. Patient notes on nausea and vomiting. Denies chills, fever, /D, SOB, CP. No other associated symptoms, modifiers, recent injuries or sick contacts present at this time. Chief Complaint: Abdominal Pain Time Seen by MD: 10:00 Primary Care Provider: NONE Reviewed Notes: Nurses Notes, Medications, Allergies Allergies: Coded Allergies: NO KNOWN ALLERGIES (Unverified , 07/07/18) Home Meds Active Scripts Sucralfate (CARAFATE SUSP) 1 Gm/10 Ml Ss, 1 GM PO QID@0600,1130,1700,2200, #240 ML Prov:CECILIA SWEENEY MD 03/10/25 Docusate Sodium (Docusate Sodium) 100 Mg Cap, 100 MG PO BID, #60 CAP Prov:CECILIA SWEENEY MD 03/10/25 Polyethylene Glycol 3350 (Miralax) 17 Gm Pow, 17 GM PO DAILY PRN for 3 Days, #3 POW 0 Refills Prov:MIGUEL ALEJANDRA MD 02/03/25 Clonazepam (Klonopin) 1 Mg Tab, 1 TAB PO BID, #14 TAB 0 Refills Prov:YANDEL CALVIN 10/05/24 Fluoxetine HCl (Fluoxetine Hydrochloride) 40 Mg Cap, 40 MG PO DAILY for 30 Days, #30 CAP Prov:BOB LYMAN 07/03/24 Pantoprazole Sodium Sesquihydr (Protonix) 40 Mg Tab, 40 MG PO DAILY for 30 Days, #30 TAB 2 Refills Prov:SAVITA DELATORRE MD 05/30/24 Buspirone HCl (Buspirone Hydrochloride) 15 Mg Tab, 15 MG PO BID for 90 Days, #180 TAB 1 Refill Prov:BIA POE NP 03/06/24 Pancreatic Enzymes (Creon) 12,000 Unt Cap, 30162 UNT PO TIDWMEALS, #90 CAP Prov:DAYANA FERGUSON MD 07/10/22 Reported Medications Tiotropium [place] Monohydrate (Spiriva Handihaler) 18 Mcg Cap, 1 CAP INH DAILYPRN 07/02/22 Gabapentin (Gabapentin) 100 Mg Cap, 3 CAP PO TID 07/02/22 Discontinued Reported Medications Lurasidone Hydrochloride (LATUDA) 120 Mg Tab, 1 TAB PO 07/02/22 Fluoxetine Hcl (Fluoxetine Hcl) 40 Mg Cap, 2 CAP PO 07/02/22 Alprazolam (Alprazolam) 1 Mg Tab, 1 TAB PO TID PRN for ANXIETY 07/02/22 Discontinued Scripts Pantoprazole Sodium Sesquihydr (Protonix) 40 Mg Tab, 40 MG PO BID, #60 TAB Prov:CECILIA SWEENEY MD 03/10/25 Lorazepam (ATIVAN TABLET) 0.5 Mg Tb, 1 TAB PO DAILY for 3 Days, #3 TAB Prov:HAROON LOGAN MD 01/16/25 Diclofenac Potassium (Diclofenac Potassium) 50 Mg Tab, 1 TAB PO TIDP for 10 Days, #30 TAB Prov:BONI AVALOS MD 11/17/24 Clonazepam (KlonoPIN TABLET) 0.5 Mg Tb, 1 TAB PO DAILY for 7 Days, #7 TAB Prov:BONI AVALOS MD 11/17/24 Nitrofurantoin Monohydrate Mac (Macrobid) 100 Mg Cap, 100 MG PO BID for 7 Days, #14 CAP Prov:BONI AVALOS MD 11/17/24 Hydroxyzine Hcl (Hydroxyzine Hcl) 25 Mg Tab, 1 TAB PO TIDPRN PRN for 10 Days, #30 TAB 0 Refills Prov:BIA POE SHEEP OR CALF GRADER 11/06/24 Hydroxyzine Hcl (Hydroxyzine Hcl) 25 Mg Tab, 1 TAB PO TID for 10 Days, #30 TAB 0 Refills Prov:BIA POE SHEEP OR CALF GRADER 10/16/24 Ibuprofen (Ibuprofen) 800 Mg Tab, 800 MG PO Q8HP PRN for 7 Days, #21 TAB Prov:ADEN BRAND WAREHOUSE OPERATIONS ASSOCIATE 07/29/24 Naproxen (Naproxen) 500 Mg Tab, 500 MG PO BID PRN for 10 Days, #20 TAB Prov:BOB LYMAN 07/03/24 Oxycodone W/ Acetaminophen (Percocet 5/325MG) 1 Tab Tb, 1 TAB PO TID PRN for 8 Days, #24 TAB Prov:SAVITA DELATORRE MD 05/30/24 Metronidazole (Metronidazole) 500 Mg Tab, 500 MG PO TID for 7 Days, #21 TAB Prov:SAVITA DELATORRE MD 05/30/24 Levofloxacin Hemihydrate (LEVAQUIN 500 MG) 500 Mg Tab, 500 MG PO DAILY for 7 Days, #7 TAB Prov:SAVITA DELATORRE MD 05/30/24 Nitrofurantoin Monohydrate Mac (Macrobid) 100 Mg Cap, 100 MG PO BID for 6 Days, #14 CAP Prov:ASHLEY COLLIER MD 03/30/24 Dicyclomine Hcl (BENTYL CAPSULE) 10 Mg Cp, 1 CAP PO TID for 5 Days, #15 CAP 11 Refills Prov:KALLIE LEON MD 03/30/24 Hydroxyzine Hcl (Hydroxyzine Hcl) 25 Mg Tab, 1 TAB PO TID PRN, #30 TAB Prov:BASIM ROBLEROP 03/05/24 Hydroxyzine Hcl (Hydroxyzine Hcl) 25 Mg Tab, 1 TAB PO TID for 30 Days, #90 TAB 0 Refills Prov:BIA POE SHEEP OR CALF GRADER 01/03/24 Pantoprazole Sodium Sesquihydr (Pantoprazole Sodium) 40 Mg Tab, 40 MG PO DAILY, #30 TAB Prov:DAYANA FERGUSON MD 07/10/22 Information Source: Patient Mode of Arrival: Ambulatory Severity: Moderate Timing: Days Duration: Since onset, Days Prehospital treatment: None Past Medical History PAST MEDICAL HISTORY: Anemia, Anxiety, Depression, Kidney Stones, UTI'S Past Medical History (Other): Chronic abdominal pain and pancreatitis Surgical History: Cholecystectomy, OFFICE CLERK ASSISTANT History: No Pertinent OFFICE CLERK ASSISTANT History Family History Family History: Reviewed,noncontributory to illness, Unknown Social History Smoker: Unknown Alcohol: Unknown Drugs: Unknown Lives In: Home Constitutional: denies: chills, diaphoresis, fatigue, fever, malaise, sweats, weakness, others EENTM: denies: blurred vision, double vision, ear bleeding, ear discharge, ear drainage, ear pain, ear ringing, eye pain, eye redness, hearing loss, mouth pain, mouth swelling, nasal discharge, nose bleeding, nose congestion, nose pain, photophobia, tearing, throat pain, throat swelling, voice changes, others Respiratory: denies: cough, hemoptysis, orthopnea, SOB at rest, shortness of breath, SOB with excertion, stridor, wheezing, others Cardiovascular: denies: chest pain, dizzy spells, diaphoresis, Dyspnea on exertion, edema, irregular heart beat, left arm pain, lightheadedness, palpit ations, PND, syncope, others Gastrointestinal: reports: abdominal pain, nausea, vomiting; denies: abdomen distended, blood streaked bowels, constipated, diarrhea, dysphagia, difficulty swallowing, hematemesis, melena, poor appetite, poor fluid intake, rectal bleeding, rectal pain, others Genitourinary: denies: abnormal vagina bleeding, burning, dyspareunia, dysuria, flank pain, frequency, hematuria, incontinence, pain, , vagina discharge, urgency, others Neurological: denies: dizziness, fainting, headache, left sided numbness, left sided weakness, numbness, paresthesia, pre-existing deficit, right sided numbness, right sided weakness, seizure, speech problems, tingling, tremors, weakness, others Musculoskeletal: denies: back pain, gout, joint pain, joint swelling, muscle pain, muscle stiffness, neck pain, others Integumetry: denies: bruises, change in color, change in hair/nails, dryness, laceration, lesions, lumps, rash, wounds, others Allergic/Immunocompromised: denies: Difficulty Healing, Frequent Infections, Hives, Itching, others Hematologic/Lymphatic: denies: anemia, blood clots, easy bleeding, easy bruising, swollen glands, others Endocrine: denies: excessive hunger, excessive sweating, excessive thirst, excessive urination, flushing, intolerance to cold, intolerance to heat, unexplained weight gain, unexplained weight loss, others Psychiatric: denies: anxiety, bipolar disorder, depression, hopeless, panic disorder, schizophrenia, sleepless, suicidal, others All Other Systems: Reviewed and Negative Physical Exam Exam Comments Tenderness on the left upper quadrant General Appearance: No Apparent Distress, Normal HEENT: Normal ENT Inspection, Pharynx Normal, TMs Normal Neck: Full Range of Motion, Non-Tender, Normal, Normal Inspection Respiratory: Chest Non-Tender, Lungs Clear, No Accessory Muscle Use, No Respiratory Distress, Normal Breath Sounds Cardiovascular: No Edema, No JVD, No Murmur, No Gallop, Normal Peripheral Pulses, Regular Rate/Rhythm Breast Exam: Deferred Gastrointestinal: No Organomegaly, Non Tender, No Pulsatile Mass, Normal Bowel Sounds, Soft Genitalia: Deferred Pelvic: Deferred Rectal: Deferred Extremities: No calf tenderness, Normal capillary refill, Normal inspection, Normal range of motion, Non-tender, No pedal edema Musculoskeletal : Apperance: Normal Neurologic: Alert, automobile spring repairer II-XII nml as Tested, No Motor Deficits, Normal Affect, Normal Mood, No Sensory Deficits Cerebellar Function: Normal Reflexes: Normal Skin: Dry, Normal Color, Warm Lymphatic: No Adenopathy Was a procedure done? Was a procedure done?: No Differential Dx Considerations may include: Acute cystitis, diverticulitis, enteritis, colitis, chronic pancreatitis X-Ray, Labs, Meds, VS Vital Signs Date Time Temp Pulse Resp B/P (MAP) Pulse Ox O2 Delivery O2 Flow Rate FiO2 03/29/25 12:18 88 16 145/86 03/29/25 10:54 86 18 138/95 03/29/25 10:36 98.1 88 18 140/96 (111) 99 98.1 03/29/25 10:36 88 18 03/29/25 09:41 93 03/29/25 09:33 98.1 98 20 149/74 (99) 98 98.1 Lab Test 03/29/25 10:07 03/29/25 09:30 Range/Units White Blood Count 7.4 4.4-10.8 10^3/uL Red Blood Count 4.14 4.0-5.20 10^6/uL Hemoglobin 9.3 L 12.2-16.2 g/dL Hematocrit 30.0 L 36.0-46.0 % Mean Corpuscular Volume 72.5 L 80.0-100.0 fL Mean Corpuscular Hemoglobin 22.4 L 28.0-32.0 pg Mean Corpuscular Hemoglobin Concent 30.9 L 32.0-36.0 g/dL Red Cell Distribution Width 22.3 H 11.8-14.3 % Platelet Count 360 140-450 10^3/uL Mean Platelet Volume 7.7 6.9-10.8 fL Neutrophils (%) (Auto) 70.4 37.0-80.0 % Lymphocytes (%) (Auto) 23.0 10.0-50.0 % Monocytes (%) (Auto) 5.4 0.0-12.0 % Eosinophils (%) (Auto) 0.4 0.0-7.0 % Basophils (%) (Auto) 0.8 0.0-2.0 % Neutrophils # (Auto) 5.2 1.6-8.6 10 ^3/uL Lymphocytes # (Auto) 1.7 0.4-5.4 10 ^3/uL Monocytes # (Auto) 0.4 0-1.3 10 ^3/uL Eosinophils # (Auto) 0 0-0.8 10 ^3/uL Basophils # (Auto) 0.1 0-0.2 10 ^3/uL Nucleated Red Blood Cells 0.2 % Sodium Level 138 136-145 mmol/L Potassium Level 3.6 3.5-5.1 mmol/L Chloride Level 106 98-107 mmol/L Carbon Dioxide Level 22 20-31 mmol/L Anion Gap 10 5-15 Blood Urea Nitrogen 9 9-23 mg/dL Creatinine 0.65 0.550-1.02 mg/dL Glomerular Filtration Rate Calc 104 >90 mL/min BUN/Creatinine Ratio 13.8 10.0-20.0 Serum Glucose 138 H 74-106 mg/dL Calcium Level 9.3 8.7-10.4 mg/dL Urine Color Light-yellow Yellow Urine Clarity Clear Clear Urine pH 6.0 5.0-9.0 Urine Specific [place] 1.033 1.001-1.035 Urine Protein Negative Negative Urine Ketones Negative Negative Urine Blood Negative Negative /uL Urine Nitrite 2+ H Negative Urine Bilirubin Negative Negative Urine Urobilinogen Normal Negative mg/dL Urine Leukocyte Esterase 2+ Negative /uL Urine RBC 1 0 - 4 /hpf Urine Microscopic WBC 12 H 0-5 /HPF Urine Squamous Epithelial Cells Few <5 /hpf Urine Bacteria None seen None Seen /hpf Urine Mucus Few None Seen Urine Glucose Normal Normal mg/dL Current Medications Medications (Trade) Dose Ordered Sig/Bruno Route Start Time Stop Time Status Last Admin Sodium Chloride 1,000 ml @ 1,000 mls/hr Q1H ONCE IV 03/29/25 10:00 03/29/25 10:59 DC 03/29/25 10:28 Ondansetron HCl (Zofran) 4 mg ONCE ONCE IV 03/29/25 10:00 03/29/25 10:16 DC 03/29/25 10:53 Morphine Sulfate 4 mg ONCE ONCE IV 03/29/25 10:00 03/29/25 10:16 DC 03/29/25 10:54 Time of 1ST Reevaluation: 10:30 Reevaluation 1ST: Unchanged Patient Education/Counseling: Diagnosis, Treatment, Prognosis Family Education/Counseling: No Family Present Departure 1 Departure Time of Disposition: 12:46 (Patient presented with abdominal pain that was concerning for possible appendicits, gastritis, cholecystitis, colitis, gastroenteritis, sbo, or orther possible surgical emergency. Data: 1. I ordered and reviewed the result of at least 3 labs including a CBC, BMP, and Urinalysis. 2. I independently interpreted the following tests: CT Abdoment and Pelvis is concerning for enteritis .Risk:This patient has a high risk of morbidity due to further diagnostic testing or treatment and may suffer from an acute abdominal process disorder. Workup reveals acute cystitis possible enteritis and patient should be admitted for further workup. and possible expert consultation. ) Impression: Primary Impression: Acute cystitis Qualified Codes: N30.00 - Acute cystitis without hematuria Additional Impressions: Enteritis Intractable abdominal pain Disposition: ADMITTED INPATIENT Admit to: Med Surg Condition: Serious Critical Care Note Critical Care Time?: Yes Critical care comment: Intractable abdominal pain Authorized and Performed by: Jaspal Mcallister MD Total critical care time: Approximately 38 minutes Due to a high probability of clinically significant, life threatening deterioration, the patient required my highest level of preparedness to intervene emergently and I personally spent this critical care time directly and personally managing the patient. This critical care time included obtaining a history; examining the patient; pulse oximetry; ordering and review of studies; arranging urgent treatment with development of a management plan; evaluation of patient's response to treatment; frequent reassessment; and, discussions with other providers. This critical care time was performed to assess and manage the high probability of imminent, life-threatening deterioration that could result in multi-organ failure. It was exclusive of separately billable procedures and treating other patients and teaching time. Please see my other sections and the rest of the note for further information on patient assessment and treatment. Stability Stability form required: No I personally scribed for JASPAL MCALLISTER MD ([email or web address]) on 03/29/25 at 10:12. Electronically submitted by Michel Jurado ([email or web address]). JASPAL MCALLISTER MD March 29, 2025 10:12
[2025-03-29 10:19] LABS: Basophils # (auto) 0.1 10 ^3/uL (0-0.2); Basophils % (auto) 0.8 % (0.0-2.0); Eosinophils # (auto) 0 10 ^3/uL (0-0.8); Eosinophils % (auto) 0.4 % (0.0-7.0); Hemoglobin 9.3 g/dL (12.2-16.2); Lymphocytes # (auto) 1.7 10 ^3/uL (0.4-5.4); Mean Corpuscular Hemoglobin 22.4 pg (28.0-32.0); Mean Corpuscular Hgb Conc. 30.9 g/dL (32.0-36.0); Mean Corpuscular Volume 72.5 fL (80.0-100.0); Monocytes # (auto) 0.4 10 ^3/uL (0-1.3); Monocytes % (auto) 5.4 % (0.0-12.0); Neutrophils # (auto) 5.2 10 ^3/uL (1.6-8.6); Neutrophils % (auto) 70.4 % (37.0-80.0); Nucleated Red Blood Cells % 0.2 %; Platelet Count (auto) 360 10^3/uL (140-450); Red Blood Cells 4.14 10^6/uL (4.0-5.20); Red Cell Distribution Width 22.3 % (11.8-14.3); White Blood Cell 7.4 10^3/uL (4.4-10.8)
[2025-03-29 10:27] LABS: Chloride 106 mmol/L (98-107); Potassium 3.6 mmol/L (3.5-5.1); Sodium 138 mmol/L (136-145)
[2025-03-29 10:28] LABS: Anion Gap 10 (5-15); Carbon Dioxide 22 mmol/L (20-31)
[2025-03-29] MEDS: SODIUM CHLORIDE 0.9% 1,000 ML IV ONE ×2 (10:28→16:46)
[2025-03-29 10:29] LABS: Calcium 9.3 mg/dL (8.7-10.4)
[2025-03-29 10:33] LABS: BUN/Creatinine Ratio 13.8 (10.0-20.0)
[2025-03-29 10:39] LABS: Blood Urea Nitrogen 9 mg/dL (9-23); Glucose 138 mg/dL (74-106)
[2025-03-29] MEDS: ONDANSETRON HCL 4 MG/2 ML VIAL IV ONE (10:53)
[2025-03-29] MEDS: MORPHINE SULFATE 4 MG/ML SYR/VIAL IV ONE (10:54)
[2025-03-29] MEDS: IOHEXOL 300 MG/ML 100ML BOTTLE IJ ONE (11:02)
[2025-03-29 11:31] LABS: Urine Bacteria None Seen /hpf (None Seen)
--- NOTE | 2025-03-29 11:40 | DVH ---
Exam: CT CT AB PEL WITH IV CON ONLY History: luq abdominal pain TECHNIQUE: Multiple contiguous axial CT images of the abdomen and pelvis were obtained with intraveno us contrast. The images were reformatted to generate coronal and sagittal reconstructions. 100 cc of Omnipaque 350 contrast was injected intravenously. All CT scans at this medical facility are performed using dose modulation techniques as appropriate t o a performed exam including the following:Automated exposure control was utilized; adjustment of the MA and/or KV according to patient size; and use of iterative reconstruction technique. Radiation Dose Information: CT Dose: CTDI volume is 5 mGy. Dose-length product is 267 mGy*cm Comparison: CT CT AB PEL WITH IV CON ONLY on DOS: 03/19/25, CT CT AB PEL WITH IV CON ONLY on DOS: FINDINGS: Gallbladder is surgically absent. The liver, pancreas, kidneys, adrenal glands, and spleen appear wi thin normal limits. There is no gross evidence of abdominal lymphadenopathy. There is no free fluid or free air. There are gastric postsurgical changes related to bypass surgery. There is small amount of free fluid and fat stranding anterior to the gastrojejunal anastomosis. There is no organized fluid collection to suggest abscess. The small and large bowel loops demonstrate normal caliber and distribution. The appendix is not see n in the right lower quadrant abdomen. There are no secondary signs of acute appendicitis. The abdominal aorta and IVC appear within normal limits. The bladder appears within normal limits the degree of distention. Uterus is not adequately seen. The re is no gross evidence of a pelvic mass or free fluid collection. Lung bases are clear. There is no acute osseous abnormality. IMPRESSION: 1. Postsurgical changes related to gastric bypass surgery. There is small amount of free fluid and fa t stranding anterior to the gastrojejunal anastomosis. Findings May relate to infection / inflammatio n or possible leak. Further evaluation with upper GI study is recommended. HS:Y
[2025-03-29 11:41] LABS: Urine Blood Negative /uL (Negative); Urine Clarity Clear (Clear); Urine Color Light-Yellow (Yellow); Urine Mucus FEW (None Seen); Urine Protein, UAD Negative (Negative); Urine Specific Gravity 1.033 (1.001-1.035); Urine Squamous Epithelial Cell FEW /hpf (<5); Urine Urobilinogen Normal (Negative); Urine WBC 12 /HPF (0-5)
--- NOTE | 2025-03-29 15:11 | DVHHP2 ---
History of Present Illness Reason for Visit: Gastroenteritis History of Present Illness Patient is 55-year-old female who presented to the ER with left upper quadrant abdominal pain times 10 days. Was also seen in the ER 03/19/25. Patient states whenever she eats she vomits it back up, however patient was also asking to have a diet ordered so she could eat. Patient denies fever chills, diarrhea, shortness of breath or chest pain and denies any recent injury or sick contacts. And states she has had poor follow-up with GI and primary care. And states she is very anxious and wants medication for anxiety, and pain medication. Per patient she states that ever since she had surgery last year in May for small bowel blockage she has been having issues and slowly getting worse. We will consult GI, may also need surgical consult. Past Medical History anemia, anxiety, depression, kidney stones, UTI, chronic abdominal pain and chronic pancreatitis Past Surgical History gastric bypass 2010, SBO surgical intervention 05/2024, cholecystectomy and C-se ction Family History Denies Smoke: <1 pack per day ALCOHOL: none Drugs: None Lives: Alone Review of Systems Constitutional: No: Fever, Chills, Sweats, Weakness, Malaise, Other Eyes: No: Pain, Vision change, Conjunctivae inflammation, Eyelid inflammation, Other, Redness ENT: No: Ear pain, Ear discharge, Nose pain, Nose discharge, Nose congestion, Mouth pain, Mouth swelling, Throat pain, Throat swelling, Other Respiratory: No: Cough, Dry, Shortness of breath, SOB with excertion, Wheezing, Hemoptysis, Pleuritic Pain, Sputum, Wheezing, Other Cardiovascular: No: Chest Pain, Palpitations, Orthopnea, Paroxysmal Noc. Dyspnea, Edema, Lt Headedness, Other Gastrointestinal: Nausea, Vomiting, Abdominal Pain; No: Diarrhea, Constipation, Melena, Hematochezia, Other Genitourinary: No Dysuria, No Frequency, No Incontinence, No Hematuria, No Retention, No Other Musculoskeletal: No: other, neck pain, shoulder pain, arm pain, back pain, hand pain, leg pain, foot pain Skin: No: Rash, Lesions, Jaundice, Bruising, Other Neurological: No: Weakness, Numbness, Incoordination, Change in speech, Confusion, Seizures, Other Allergies: Coded Allergies: NO KNOWN ALLERGIES (Unverified , 07/07/18) Medications Current Medications Medications Dose Ordered Sig/Bruno Route Start Time Stop Time Status Last Admin Dose Admin Sodium Chloride 1,000 ml @ 120 mls/hr Q8H20M IV 03/29/25 14:45 UNV Ondansetron HCl 4 mg Q4HP PRN IV 03/29/25 14:45 UNV Morphine Sulfate 2 mg Q4HPRN PRN IV 03/29/25 14:45 UNV Ketorolac Tromethamine 15 mg Q6HPRN PRN IV 03/29/25 14:45 04/03/25 14:44 UNV Cefepime HCl 50 ml @ 12.5 mls/hr Q8HR IV 03/29/25 22:00 UNV Pantoprazole Sodium 40 mg DAILY IV 03/29/25 14:45 UNV Lorazepam 0.5 mg Q12HP PRN IV 03/29/25 14:45 UNV Exam Vital Signs Vital Signs Date Time Temp Pulse Resp B/P (MAP) Pulse Ox O2 Delivery O2 Flow Rate FiO2 03/29/25 12:18 88 16 145/86 03/29/25 10:36 98.1 99 98.1 General Appearance: Alert, Oriented X3, Cooperative, mild distress HEENT: Atraumatic, PERRLA, EOMI, Mucous membr. moist/pink Respiratory: Clear to auscultation, Normal air movement Cardiovascular: Regular rate, Normal S1, Normal S2, No murmurs Abdominal: Normal bowel sounds, Soft, No hepatospenomegaly, No masses, Other (Left upper abdomen tenderness) Extremities: No clubbing, No cyanosis, No edema, Normal pulses, No tenderness/swelling Skin: No rashes, No breakdown, No significant lesion Neuro: Normal gait, Normal speech, Strength at 5/5 X4 ext, Normal tone, Sensation intact, Cranial nerves 3-12 NL, Reflexes 2+ Psych/Mental Status: Mental status NL, Mood NL Labs/Xrays Reviewed Labs Test 03/29/25 13:00 03/29/25 10:07 03/29/25 09:30 Range/Units Lactic Acid Level 1.4 0.4-2.0 mmol/L White Blood Count 7.4 4.4-10.8 10^3/uL Red Blood Count 4.14 4.0-5.20 10^6/uL Hemoglobin 9.3 L 12.2-16.2 g/dL Hematocrit 30.0 L 36.0-46.0 % Mean Corpuscular Volume 72.5 L 80.0-100.0 fL Mean Corpuscular Hemoglobin 22.4 L 28.0-32.0 pg Mean Corpuscular Hemoglobin Concent 30.9 L 32.0-36.0 g/dL Red Cell Distribution Width 22.3 H 11.8-14.3 % Platelet Count 360 140-450 10^3/uL Mean Platelet Volume 7.7 6.9-10.8 fL Neutrophils (%) (Auto) 70.4 37.0-80.0 % Lymphocytes (%) (Auto) 23.0 10.0-50.0 % Monocytes (%) (Auto) 5.4 0.0-12.0 % Eosinophils (%) (Auto) 0.4 0.0-7.0 % Basophils (%) (Auto) 0.8 0.0-2.0 % Neutrophils # (Auto) 5.2 1.6-8.6 10 ^3/uL Lymphocytes # (Auto) 1.7 0.4-5.4 10 ^3/uL Monocytes # (Auto) 0.4 0-1.3 10 ^3/uL Eosinophils # (Auto) 0 0-0.8 10 ^3/uL Basophils # (Auto) 0.1 0-0.2 10 ^3/uL Nucleated Red Blood Cells 0.2 % Sodium Level 138 136-145 mmol/L Potassium Level 3.6 3.5-5.1 mmol/L Chloride Level 106 98-107 mmol/L Carbon Dioxide Level 22 20-31 mmol/L Anion Gap 10 5-15 Blood Urea Nitrogen 9 9-23 mg/dL Creatinine 0.65 0.550-1.02 mg/dL Glomerular Filtration Rate Calc 104 >90 mL/min BUN/Creatinine Ratio 13.8 10.0-20.0 Serum Glucose 138 H 74-106 mg/dL Calcium Level 9.3 8.7-10.4 mg/dL Urine Color Light-yellow Yellow Urine Clarity Clear Clear Urine pH 6.0 5.0-9.0 Urine Specific [place] 1.033 1.001-1.035 Urine Protein Negative Negative Urine Ketones Negative Negative Urine Blood Negative Negative /uL Urine Nitrite 2+ H Negative Urine Bilirubin Negative Negative Urine Urobilinogen Normal Negative mg/dL Urine Leukocyte Esterase 2+ Negative /uL Urine RBC 1 0 - 4 /hpf Urine Microscopic WBC 12 H 0-5 /HPF Urine Squamous Epithelial Cells Few <5 /hpf Urine Bacteria None seen None Seen /hpf Urine Mucus Few None Seen Urine Glucose Normal Normal mg/dL Assessment/Plan Assessment/Plan ABD pain/possible Gastroenteritis Admit to medical-surgical on antibiotics GI consult Pain Medication p.r.n. Protonix IV hydration NPO until GI clears Anxiety Ativan Q12 PRN once able to tolerate PO can change to patients Home medication Nicotine Dependence discussed smoking cessation with patient for at least 10 minutes Patient declined nicotine patch at this time VTE prophylaxis not indicated Plan discussed with: Patient My Orders Orders - MEREDITH MORAN Procedure Category Date Status Time Admit ADMIT 03/29/25 Transmitted 14:43 Allergies MALI 03/29/25 In Process 14:43 Code Status CODE 03/29/25 Transmitted 14:43 Sodium Chloride 0.9% PHA 03/29/25 Logged 14:45 Ondansetron Hcl PHA 03/29/25 Logged (Zofran) 14:45 Fall Risk Precautions MALI 03/29/[address] 14:43 Complete Blood Count LAB 03/30/25 Verified 04:00 Comprehensive LAB 03/30/25 Verified Metabolic Panel 04:00 Npo (Nothing By DIET 03/29/25 Transmitted Mouth) Diet Dinner Condition: Serious MALI 03/29/25 In Process 14:43 Morphine Sulfate PHA 03/29/25 Logged Injection 14:45 Ketorolac Injection PHA 03/29/25 Logged (Toradol Injection) 14:45 Cefepime 2gm/50ml Ns PHA 03/29/25 Logged (Maxipime 2gm/50ml) 22:00 Pantoprazole PHA 03/29/25 Logged (Protonix) 14:45 * [facility] Director Of Operations Support CONS 03/29/25 Transmitted 14:43 Lorazepam 2mg/Ml Inj PHA 03/29/25 Logged (Ativan Inj) 14:45 Drug Screen LAB 03/29/25 Logged 14:54 Date of Service: March 29, 2025 Billing Provider: MEREDITH MORAN Common Visit Codes: [id number] INP/OBS CARE (HIGH) MEREDITH MORAN March 29, 2025 15:11
[2025-03-29] MEDS: CEFEPIME 2GM/50ML NS 50 ML IV ONE (16:45)
[2025-03-29] MEDS: LORazepam 2MG/ML-1ML VIAL IV PRN (16:46)
[2025-03-29] MEDS: KETOROLAC TROMETH 30 MG/ML 1ML VIAL IV PRN (16:46)
[2025-03-29] MEDS: PANTOPRAZOLE 40 MG/10 ML VIAL INJ IV SCH (16:46)
[2025-03-29] MEDS: SODIUM CHLORIDE 0.9% 1,000 ML IV SCH (16:47)
[2025-03-29] MEDS: ONDANSETRON HCL 4 MG/2 ML VIAL IV PRN (16:47)
--- NOTE | 2025-03-29 17:36 | ECG ---
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
[2025-03-29 17:45] VITALS: PULSE 84; RESP 22; O2SAT 98
[2025-03-29 19:30] VITALS: PULSE 80; RESP 16; O2SAT 98
[2025-03-29 20:43] LABS: Benzodiazephine Screen, Urine Neg (NEGATIVE); Opiate Scree,Urine Pos (NEGATIVE)
[2025-03-29 20:45] LABS: Amphetamine Screen, Urine Pos (NEGATIVE); Barbiturate Scree,Urine Neg (NEGATIVE); Cannabinoid Screen, Urine Neg (NEGATIVE); Cocaine Screen, Urine Neg (NEGATIVE); Phencyclidine Screen, Urine Neg (NEGATIVE)
[2025-03-29] MEDS: MORPHINE SULFATE INJ 2 MG/ml SYRG IV PRN (21:28)
[2025-03-29] MEDS: CEFEPIME 2GM/50ML NS 50 ML IV SCH (21:30)
[2025-03-30] VITALS (7 sets, daily range): BP systolic 117–143; BP diastolic 75–76; PULSE 74–81; RESP 14–24; TEMP 97.6–99.2; O2SAT 92–100
[2025-03-30 05:32] LABS: Basophils # (auto) 0.1 10 ^3/uL (0-0.2); Eosinophils # (auto) 0.1 10 ^3/uL (0-0.8); Hemoglobin 8.8 g/dL (12.2-16.2); Monocytes # (auto) 0.3 10 ^3/uL (0-1.3)
[2025-03-30 05:38] LABS: Basophils % (auto) 1.2 % (0.0-2.0); Eosinophils % (auto) 1.9 % (0.0-7.0); Hematocrit 28.1 % (36.0-46.0); Lymphocytes # (auto) 1.6 10 ^3/uL (0.4-5.4); Mean Corpuscular Hemoglobin 22.7 pg (28.0-32.0); Mean Corpuscular Hgb Conc. 31.2 g/dL (32.0-36.0); Mean Corpuscular Volume 72.6 fL (80.0-100.0); Neutrophils # (auto) 2.8 10 ^3/uL (1.6-8.6); Neutrophils % (auto) 57.9 % (37.0-80.0); Platelet Count (auto) 324 10^3/uL (140-450); Red Blood Cells 3.88 10^6/uL (4.0-5.20); Red Cell Distribution Width 22.6 % (11.8-14.3); White Blood Cell 4.8 10^3/uL (4.4-10.8)
[2025-03-30] MEDS: HYDROcodone-ACET 5/325MG TAB PO PRN (05:40)
[2025-03-30 05:44] LABS: Albumin 3.2 g/dL (3.2-4.8); Anion Gap 8 (5-15); BUN/Creatinine Ratio 8.9 (10.0-20.0); Bilirubin, Total 0.4 mg/dL (0.2-1.0); Carbon Dioxide 24 mmol/L (20-31); Glucose 78 mg/dL (74-106); Potassium 3.7 mmol/L (3.5-5.1); Sodium 142 mmol/L (136-145); Total Protein 5.9 g/dL (5.7-8.2)
[2025-03-30 05:53] LABS: Alanine Aminotransferase < 9 U/L (7-40); Alkaline Phosphatase 116 U/L (46-116); Aspartate Aminotransferase 11 U/L (13-40); Blood Urea Nitrogen 5 mg/dL (9-23); Calcium 8.4 mg/dL (8.7-10.4); Chloride 110 mmol/L (98-107)
--- NOTE | 2025-03-30 14:12 | DVHPN2 ---
Assessment/Plan Assessment/Plan Progress note 55 F with gastric bypass admitted for LUQ abdominal pain. Prior ED visit for same. Reported vomiting. home anxiety meds clonazepam. Seen by GI, plan for OP colonoscopy However non compliant with follow up. Physical exam AOx3 but occasionally tangential normal JVD PERLLA MMM Clear breath sounds S1 S2 RRR bradycardic Abdomen soft nontender no LE edema labs ekg imaging reviewed assessment and plan abdominal pain unspecified anxiety smoker microcytic anemia meth use opioid, fentanyl use? COPD group E chronic hypoxic RF s/p gastric bypass bowel follow through escalate diet as tolerated resume home meds when able substance abstinence smoking cessation nutrition consult diet clear liq dvt ppx ambulatory full code Plan discussed with: Patient My Orders Orders - VIPIN BOYER MD Procedure Category Date Status Time Small Bowel Series-W XY 03/30/25 Logged Barium 14:01 Basic Metabolic Panel LAB 03/31/25 Verified 04:00 Complete Blood Count LAB 03/31/25 Verified 04:00 Magnesium LAB 03/31/25 Verified 04:00 Phosphorus LAB 03/31/25 Verified 04:00 Sucralfate Susp PHA 03/30/25 Logged (Carafate Susp) 17:00 Buspirone Hcl Tablet PHA 03/30/25 Logged (Buspar Tablet) 22:00 Clonazepam Tablet PHA 03/30/25 Logged (Klonopin Tablet) 14:15 Fluoxetine Capsule PHA 03/30/25 Logged (Prozac Capsule) 14:15 Ipratropium Medneb PHA 03/30/25 Logged (Atrovent Medneb) 18:00 Lipase LAB 03/30/25 Logged 14:01 Clear Liq Diet DIET 03/30/25 Transmitted Dinner Date of Service: March 30, 2025 Billing Provider: VIPIN BOYER MD Common Visit Codes: [id number] INP/OBS CARE(HIGH) VIPIN BOYER MD March 30, 2025 14:12
[2025-03-30] MEDS: FLUoxetine HCL 20 MG CAP PO ONE (14:23)
--- NOTE | 2025-03-30 15:12 | DVHINCON2 ---
Date of service: March 30, [address] son Reason for Consultation Abdominal pain nausea vomiting History of Present Illness This is a 55-year-old female presented to the emergency room with complaints of left upper quadrant for 10 days Nauseated and throwing up whenever try to eat. Denied Any fever chills Hematemesis no Had a bowel movement need a CAT scan done which showed that there was evidence of postsurgical changes from gastric bypass surgery with a small amount of free fluid and fat stranding possible inflammation or leak can not be excluded and upper GI studies recommended No hematemesis or melena Has got away weight loss apparently after the surgical bypass. Past Medical History Anemia kidney problems chronic abdominal pain pancreatitis Past Surgical History Gastric bypass cholecystectomy small-bowel surgical intervention on May [address] Vinny Michael Family History: Thyroid disease G8 MOTHER Family History Non contributory Social History History of smoking denies drinking Allergies: Coded Allergies: NO KNOWN ALLERGIES (Unverified , 07/07/18) Home Meds Active Scripts Sucralfate (CARAFATE SUSP) 1 Gm/10 Ml Ss, 1 GM PO QID@0600,1130,1700,2200, #240 ML Prov:CECILIA SWEENEY MD 03/10/25 Docusate Sodium (Docusate Sodium) 100 Mg Cap, 100 MG PO BID, #60 CAP Prov:CECILIA SWEENEY MD 03/10/25 Polyethylene Glycol 3350 (Miralax) 17 Gm Pow, 17 GM PO DAILY PRN for 3 Days, #3 POW 0 Refills Prov:MIGUEL ALEJANDRA MD 02/03/25 Clonazepam (Klonopin) 1 Mg Tab, 1 TAB PO BID, #14 TAB 0 Refills Prov:YANDEL CALVIN 10/05/24 Fluoxetine HCl (Fluoxetine Hydrochloride) 40 Mg Cap, 40 MG PO DAILY for 30 Days, #30 CAP Prov:BOB LYMAN 07/03/24 Pantoprazole Sodium Sesquihydr (Protonix) 40 Mg Tab, 40 MG PO DAILY for 30 Days, #30 TAB 2 Refills Prov:SAVITA DELATORRE MD 05/30/24 Buspirone HCl (Buspirone Hydrochloride) 15 Mg Tab, 15 MG PO BID for 90 Days, #180 TAB 1 Refill Prov:BIA POE NP 03/06/24 Pancreatic Enzymes (Creon) 12,000 Unt Cap, 22325 UNT PO TIDWMEALS, #90 CAP Prov:DAYANA FERGUSON MD 07/10/22 Reported Medications Tiotropium [place] Monohydrate (Spiriva Handihaler) 18 Mcg Cap, 1 CAP INH DAILYPRN 07/02/22 Gabapentin (Gabapentin) 100 Mg Cap, 3 CAP PO TID 07/02/22 Current Medications Current Medications Medications (Trade) Dose Ordered Sig/Bruno Route PRN Reason Start Time Stop Time Status Last Admin Cefepime HCl 50 ml @ 12.5 mls/hr Q8HR IV 03/29/25 22:00 03/30/25 14:15 Acetaminophen/ Hydrocodone Bitart ([place] 5/325MG Tab) 1 tab Q6HPRN PRN PO MODERATE PAIN (4-6 PAIN SCALE) 03/30/25 04:30 03/30/25 14:11 DC 03/30/25 13:48 Sucralfate (Carafate Susp) 1 gm QID@0600,1130,1700,2200 PO 03/30/25 17:00 Buspirone HCl (Buspar Tablet) 15 mg Q12HR PO 03/30/25 22:00 Clonazepam (KlonoPIN TABLET) 1 mg Q12HP PRN PO ANXIETY 03/30/25 14:15 Ipratropium [place] (Atrovent Medneb) 0.5 mg Q6HP NEB 03/30/25 18:00 Review of Systems Noncontributory Vital Signs Vital Signs Date Time Temp Pulse Resp B/P (MAP) Pulse Ox O2 Delivery O2 Flow Rate FiO2 03/30/25 12:33 80 14 143/75 03/30/25 12:15 95 03/30/25 07:30 99.2 99.2 03/30/25 07:30 Room Air* 0 21 Physical Exam Extremely thin built and nourished in no acute distress Extremely cachectic HEENT examination no pallor Lungs are clear Cardiovascular unremarkable Abdomen is soft mild tenderness in the epigastrium no rigidity no guarding no masses no distention bowel sounds normal Extremities no edema Neuro grossly intact Labs/Diagnostic Data Labs Test 03/30/25 04:56 03/29/25 13:00 03/29/25 09:30 Range/Units White Blood Count 4.8 # 4.4-10.8 10^3/uL Red Blood Count 3.88 L 4.0-5.20 10^6/uL Hemoglobin 8.8 L 12.2-16.2 g/dL Hematocrit 28.1 L 36.0-46.0 % Mean Corpuscular Volume 72.6 L 80.0-100.0 fL Mean Corpuscular Hemoglobin 22.7 L 28.0-32.0 pg Mean Corpuscular Hemoglobin Concent 31.2 L 32.0-36.0 g/dL Red Cell Distribution Width 22.6 H 11.8-14.3 % Platelet Count 324 140-450 10^3/uL Mean Platelet Volume 7.8 6.9-10.8 fL Neutrophils (%) (Auto) 57.9 37.0-80.0 % Lymphocytes (%) (Auto) 33.0 10.0-50.0 % Monocytes (%) (Auto) 6.0 0.0-12.0 % Eosinophils (%) (Auto) 1.9 0.0-7.0 % Basophils (%) (Auto) 1.2 0.0-2.0 % Neutrophils # (Auto) 2.8 1.6-8.6 10 ^3/uL Lymphocytes # (Auto) 1.6 0.4-5.4 10 ^3/uL Monocytes # (Auto) 0.3 0-1.3 10 ^3/uL Eosinophils # (Auto) 0.1 0-0.8 10 ^3/uL Basophils # (Auto) 0.1 0-0.2 10 ^3/uL Nucleated Red Blood Cells 0.0 % Sodium Level 142 136-145 mmol/L Potassium Level 3.7 3.5-5.1 mmol/L Chloride Level 110 H 98-107 mmol/L Carbon Dioxide Level 24 20-31 mmol/L Anion Gap 8 5-15 Blood Urea Nitrogen 5 L 9-23 mg/dL Creatinine 0.56 0.550-1.02 mg/dL Glomerular Filtration Rate Calc 108 >90 mL/min BUN/Creatinine Ratio 8.9 L 10.0-20.0 Serum Glucose 78 74-106 mg/dL Calcium Level 8.4 L 8.7-10.4 mg/dL Total Bilirubin 0.4 0.2-1.0 mg/dL Aspartate Amino Transferase (AST) 11 L 13-40 U/L Alanine Aminotransferase (ALT) < 9 7-40 U/L Alkaline Phosphatase 116 46-116 U/L Total Protein 5.9 5.7-8.2 g/dL Albumin 3.2 3.2-4.8 g/dL Lipase 27 12-53 U/L Lactic Acid Level 1.4 0.4-2.0 mmol/L Urine Color Light-yellow Yellow Urine Clarity Clear Clear Urine pH 6.0 5.0-9.0 Urine Specific [place] 1.033 1.001-1.035 Urine Protein Negative Negative Urine Ketones Negative Negative Urine Blood Negative Negative /uL Urine Nitrite 2+ H Negative Urine Bilirubin Negative Negative Urine Urobilinogen Normal Negative mg/dL Urine Leukocyte Esterase 2+ Negative /uL Urine RBC 1 0 - 4 /hpf Urine Microscopic WBC 12 H 0-5 /HPF Urine Squamous Epithelial Cells Few <5 /hpf Urine Bacteria None seen None Seen /hpf Urine Mucus Few None Seen Urine Glucose Normal Normal mg/dL Urine Opiates Screen Pos NEGATIVE Urine Fentanyl Screen Pos NEGATIVE Urine Barbiturates Screen Neg NEGATIVE Urine Phencyclidine Screen Neg NEGATIVE Urine Amphetamines Screen Pos NEGATIVE Urine Benzodiazepines Screen Neg NEGATIVE Urine Cocaine Screen Neg NEGATIVE Urine Cannabinoids Screen Neg NEGATIVE Microbiology Date/Time Source Procedure Growth Status 03/29/25 13:00 Blood Blood Culture - Preliminary NO GROWTH AFTER 24 HOURS OF INCUBATION. Resulted Assessment This 54-year-old with complaints of left upper quadrant pain for 10 days she has got nausea vomiting unable to keep anything down and has been losing weight patient has history of status post gastric bypass atrial small-bowel obstruction for which she had surgery cholecystectomy C-sections etc.. With gastric bypass in 2010. History of heavy smoking patient is eager to eat now but has got some abdominal pain unable to keep anything down. CT scan showed possible anastomotic area leak worse infection versus inflammation with status post Skype bypass surgery. Clinical impression possible anastomotic area stenosis or leak or stasis or ulceration Small-bowel obstruction only can not be excluded though less likely Plan/Recommendation will recommend small bowel series with Gastrografin Depending upon the results may need further evaluations including endoscopic evaluation etc. will recommend to follow the labs including CBC etc. for the time being as well as liver functions and lipase Thank you Dr. Pena Plan discussed with: Patient BEAU PENA MD March 30, 2025 15:12
[2025-03-30] MEDS: clonazePAM 0.5 MG TAB PO PRN (15:28)
[2025-03-30] MEDS: GASTROGRAFIN 120 ML SOL ONE (15:30)
[2025-03-30] MEDS: SUCRALFATE 1 GM/10 ML ORAL SUSP PO SCH (16:52)
[2025-03-30] MEDS: IPRATROPIUM BROM 0.5 MG/2.5ML INH SOL NEB SCH (18:00)
--- NOTE | 2025-03-30 19:51 | DVH ---
Procedure: XY SMALL BOWEL SERIES-W GASTROGRA Reason for study/Clinical History: FAT STRANDING FROM ANASTOMOSIS Comparison Study: XY SMALL BOWEL SERIES-W GASTROGRA on DOS: 03/07/25 Technique: Single contrast small bowel series performed. 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 Mild fecal retention in the ascending colon noted. Surgical clips in the upper abdomen a nd chain sutures in the left hemiabdomen. Image obtained after 15 minute of oral administration of contrast shows opacification of the gastric pouch and jejunum. Rapid progression of contrast through the bowel is seen with the final image showi ng contrast in the ascending colon. There is no evidence of small bowel obstruction.
[2025-03-30] MEDS: busPIRone HCL 10 MG TAB PO SCH (22:00)
[2025-03-31] VITALS (10 sets, daily range): BP systolic 119–155; BP diastolic 62–83; PULSE 65–92; RESP 16–21; TEMP 36.8; O2SAT 90–99
[2025-03-31] MEDS: HYDROcodone-ACET 5/325MG TAB PO ONE (01:34)
[2025-03-31 07:32] LABS: Basophils # (auto) 0 10 ^3/uL (0-0.2); Lymphocytes # (auto) 0.9 10 ^3/uL (0.4-5.4); Monocytes # (auto) 0.3 10 ^3/uL (0-1.3)
[2025-03-31 07:37] LABS: Potassium 3.6 mmol/L (3.5-5.1); Sodium 141 mmol/L (136-145)
[2025-03-31 07:38] LABS: Anion Gap 8 (5-15); Carbon Dioxide 26 mmol/L (20-31)
[2025-03-31 07:41] LABS: Eosinophils # (auto) 0.2 10 ^3/uL (0-0.8); Eosinophils % (auto) 5.9 % (0.0-7.0); Hematocrit 26.5 % (36.0-46.0); Hemoglobin 8.2 g/dL (12.2-16.2); Lymphocytes % (auto) 33.6 % (10.0-50.0); Mean Corpuscular Hemoglobin 22.2 pg (28.0-32.0); Mean Corpuscular Hgb Conc. 31.1 g/dL (32.0-36.0); Mean Corpuscular Volume 71.3 fL (80.0-100.0); Monocytes % (auto) 9.8 % (0.0-12.0); Neutrophils # (auto) 1.4 10 ^3/uL (1.6-8.6); Neutrophils % (auto) 49.7 % (37.0-80.0); Platelet Count (auto) 326 10^3/uL (140-450); Red Blood Cells 3.71 10^6/uL (4.0-5.20); Red Cell Distribution Width 22.3 % (11.8-14.3); White Blood Cell 2.8 10^3/uL (4.4-10.8)
[2025-03-31 07:43] LABS: Glucose 83 mg/dL (74-106)
[2025-03-31 07:44] LABS: Magnesium 1.9 mg/dL (1.6-2.6)
[2025-03-31 07:45] LABS: BUN/Creatinine Ratio 9.1 (10.0-20.0); Blood Urea Nitrogen < 5 mg/dL (9-23); Calcium 8.4 mg/dL (8.7-10.4); Chloride 107 mmol/L (98-107)
[2025-03-31 07:46] LABS: Phosphorus 3.4 mg/dL (2.4-5.1)
[2025-03-31] MEDS: diphenhdrAMINE HCL 25 MG CAP PO ONE (09:23)
--- NOTE | 2025-03-31 13:07 | DVHDS2 ---
Discharge Summary Date of Admission March 29, 2025 at 14:43 Date of Discharge: March 31, 2025 Labs/Diagnostic Data: Laboratory Results Test 03/31/25 07:03 03/30/25 04:56 03/29/25 13:00 03/29/25 09:30 White Blood Count 2.8 10^3/uL (4.4-10.8) Red Blood Count 3.71 10^6/uL (4.0-5.20) Hemoglobin 8.2 g/dL (12.2-16.2) Hematocrit 26.5 % (36.0-46.0) Mean Corpuscular Volume 71.3 fL (80.0-100.0) Mean Corpuscular Hemoglobin 22.2 pg (28.0-32.0) Mean Corpuscular Hemoglobin Concent 31.1 g/dL (32.0-36.0) Red Cell Distribution Width 22.3 % (11.8-14.3) Platelet Count 326 10^3/uL (140-450) Mean Platelet Volume 7.6 fL (6.9-10.8) Neutrophils (%) (Auto) 49.7 % (37.0-80.0) Lymphocytes (%) (Auto) 33.6 % (10.0-50.0) Monocytes (%) (Auto) 9.8 % (0.0-12.0) Eosinophils (%) (Auto) 5.9 % (0.0-7.0) Basophils (%) (Auto) 1.0 % (0.0-2.0) Neutrophils # (Auto) 1.4 10 ^3/uL (1.6-8.6) Lymphocytes # (Auto) 0.9 10 ^3/uL (0.4-5.4) Monocytes # (Auto) 0.3 10 ^3/uL (0-1.3) Eosinophils # (Auto) 0.2 10 ^3/uL (0-0.8) Basophils # (Auto) 0 10 ^3/uL (0-0.2) Nucleated Red Blood Cells 0.0 % Sodium Level 141 mmol/L (136-145) Potassium Level 3.6 mmol/L (3.5-5.1) Chloride Level 107 mmol/L (98-107) Carbon Dioxide Level 26 mmol/L (20-31) Anion Gap 8 (5-15) Blood Urea Nitrogen < 5 mg/dL (9-23) Creatinine 0.55 mg/dL (0.550-1.02) Glomerular Filtration Rate Calc 108 mL/min (>90) BUN/Creatinine Ratio 9.1 (10.0-20.0) Serum Glucose 83 mg/dL (74-106) Calcium Level 8.4 mg/dL (8.7-10.4) Phosphorus Level 3.4 mg/dL (2.4-5.1) Magnesium Level 1.9 mg/dL (1.6-2.6) Total Bilirubin 0.4 mg/dL (0.2-1.0) Aspartate Amino Transferase (AST) 11 U/L (13-40) Alanine Aminotransferase (ALT) < 9 U/L (7-40) Alkaline Phosphatase 116 U/L (46-116) Total Protein 5.9 g/dL (5.7-8.2) Albumin 3.2 g/dL (3.2-4.8) Lipase 27 U/L (12-53) Lactic Acid Level 1.4 mmol/L (0.4-2.0) Urine Color Light-yellow (Yellow) Urine Clarity Clear (Clear) Urine pH 6.0 (5.0-9.0) Urine Specific [place] 1.033 (1.001-1.035) Urine Protein Negative (Negative) Urine Ketones Negative (Negative) Urine Blood Negative /uL (Negative) Urine Nitrite 2+ (Negative) Urine Bilirubin Negative (Negative) Urine Urobilinogen Normal mg/dL (Negative) Urine Leukocyte Esterase 2+ /uL (Negative) Urine RBC 1 /hpf (0 - 4) Urine Microscopic WBC 12 /HPF (0-5) Urine Squamous Epithelial Cells Few /hpf (<5) Urine Bacteria None seen /hpf (None Seen) Urine Mucus Few (None Seen) Urine Glucose Normal mg/dL (Normal) Urine Opiates Screen Pos (NEGATIVE) Urine Fentanyl Screen Pos (NEGATIVE) Urine Barbiturates Screen Neg (NEGATIVE) Urine Phencyclidine Screen Neg (NEGATIVE) Urine Amphetamines Screen Pos (NEGATIVE) Urine Benzodiazepines Screen Neg (NEGATIVE) Urine Cocaine Screen Neg (NEGATIVE) Urine Cannabinoids Screen Neg (NEGATIVE) Other Laboratory Tests 03/31/25 07:03 Brief Hx & Hospital Course: Patient is 55-year-old female who presented to the ER with left upper quadrant abdominal pain times 10 days. Was also seen in the ER 03/19/25. Patient states whenever she eats she vomits it back up, however patient was also asking to have a diet ordered so she could eat. Patient denies fever chills, diarrhea, shortness of breath or chest pain and denies any recent injury or sick contacts. And states she has had poor follow-up with GI and primary care. And states she is very anxious and wants medication for anxiety, and pain medication. Per patient she states that ever since she had surgery last year in May for small bowel blockage she has been having issues and slowly getting worse. We will consult GI, may also need surgical consult. Bowel obstruction ruled out with SBFT Drug seeking behavior asking for narcotics Condition at Discharge: Good Final Diagnosis/Problems List Gastritis chronic pancreatitis bowel obstruction ruled out Discharge Disposition: Home Discharge Instruct/Medications Diet: Regular Activity: No Restrictions, As Tolerated Follow Up/Referral: PCP in 7 days Medications: same home medications Discharge Statement: "Patient was advised to return to the ER or call 911 if any headaches, dizziness, shortness of breath, chest pain, abdominal pain, bleeding, fevers, or worsening of medical condition. Patient was counseled about treatment plan, medications, possible side effects, patientverbalized understanding. All questions were answered to the best of my ability. This discharge took greater then 30 minutes in planning, reviewing documentation, counseling the patient, and discussing with other team members." ASSESSMENT ASSESSMENT Assessment Gastritis chronic pancreatitis bowel obstruction ruled out Date of Service: March 31, 2025 Billing Provider: ROHAN HARPER MD Common Visit Codes: [id number] DISCH DAY >30min ROHAN HARPER MD March 31, 2025 13:07
== END 2025-03-31 15:10 | disposition home or self-care (01) | DRG 392 ==
LOC: ER 09:28 → OVERFLOW 14:43 → WEST WING 03-30 17:10
PROVIDERS: ADMIT Student in an Organized Health Care Education/Training Program; ATTEND Student in an Organized Health Care Education/Training Program
DX: K29.70 Gastritis, unspecified, without bleeding (principal); K86.1 Other chronic pancreatitis; N30.00 Acute cystitis without hematuria; J96.11 Chronic respiratory failure with hypoxia; F41.9 Anxiety disorder, unspecified; F17.200 Nicotine dependence, unspecified, uncomplicated; D50.9 Iron deficiency anemia, unspecified; F15.90 Other stimulant use, unspecified, uncomplicated; F32.A Depression, unspecified; G89.29 Other chronic pain; J44.9 Chronic obstructive pulmonary disease, unspecified; Z87.442 Personal history of urinary calculi; Z98.84 Bariatric surgery status; Z79.899 Other long term (current) drug therapy; Z79.1 Long term (current) use of non-steroidal anti-inflammatories (NSAID); Z98.891 History of uterine scar from previous surgery; Z90.49 Acquired absence of other specified parts of digestive tract
CPT/HCPCS: 36415; 74177; 74250; 80048; 80053; 80307; 81001; 83605; 83690; 83735; 84100; 85025; 87040; 87081; 93005; 94640; 99291; G0378; J0692; J1885; J2405; J2470